=== PATIENT | male | born 1980 | race Caucasian/White ===

== ENCOUNTER 2017-01-21 11:11 | Emergency (ER) | payer OTHER ==
[2017-01-21 11:33] VITALS: BP 133/73
--- NOTE | 2017-01-21 12:18 | UC ---
General HPI - HPI Summary HPI Summary: 36 y/o male c/o of sinus and nasal congestion x 1 month, was treated with Augmentin 875mg BID x 7 days two weeks ago, symptoms improved but did not alleviate. Patient also states he has experienced dental pain and carries over the past 3 months. Patient reports hx of nasal polyps. - History of Current Complaint Chief Complaint: UCRespiratory Stated Complaint: SINUS ISSUE Time Seen by Provider: 01/21/17 12:01 Hx Obtained From: Patient Onset/Duration: Gradual Onset Timing: Constant Associated Signs & Symptoms: Positive: Headache. Negative: Cough, Chest Pain, Edema, Fever, Hemoptysis, SOB, Wheezing Related Hx: Recent Illness - Sinusitis - Allergy/Home Medications Allergies/Adverse Reactions: Allergies Allergy/AdvReac Type Severity Reaction Status Date / Time Ibuprofen Allergy ATTACKS Verified 07/28/16 08:33 RESPIRATORY SYSTEM, LUNGS COLLAPSE SEASONAL / ENVIRONMENTAL Allergy SNEEZE, Uncoded 07/28/16 08:33 WATERY ITCHY EYES PMH/Surg Hx/FS Hx/Imm Hx Previously Healthy: Yes Endocrine History Of: Denies: Diabetes, Thyroid Disease Cardiovascular History Of: Denies: Cardiac Disorders, Hypertension Respiratory History Of: Reports: Asthma - Acute, Bronchitis - WINTER OF 2012 - NONE NOW Denies: COPD GI/ History Of: Reports: Gastroesophageal Reflux Denies: Ulcer Neurological History Of: Denies: TIA, CVA, Dementia, Seizures, Migraine Psychological History Of: Denies: Anxiety, Depression, Bipolar Disorder, Schizophrenia, Post Traumatic Stress Disorder - Surgical History Surgical History: Yes Surgery Procedure, Year, and Place: BILATERAL HANDS TENDON REPAIR A CHILD,. 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 Lives: With Family Alcohol Use: Rare Substance Use Type: None Substance Use Comment - Amount & Last Used: former heavy use marijuana Smoking Status (MU): Never Smoked Tobacco Have You Smoked in the Last Year: Yes - occasional marijuana smoker When Did the Patient Quit Smoking/Using Tobacco: a year ago "quit smokin weed" - Immunization History Most Recent Influenza Vaccination: not recent Most Recent Tetanus Shot: unknown Most Recent Pneumonia Vaccination: not recent Review of Systems Constitutional: Negative Skin: Negative Eyes: Negative ENT: Nasal Discharge, Other - Sinus congestion Respiratory: Negative Cardiovascular: Negative Gastrointestinal: Negative Genitourinary: Negative Motor: Negative Neurovascular: Negative Musculoskeletal: Negative Neurological: Negative Psychological: Negative All Other Systems Reviewed And Are Negative: Yes Physical Exam Triage Information Reviewed: Yes Appearance: Well-Appearing, No Pain Distress, Well-Nourished Vital Signs: Initial Vital Signs Temp 98.1 F 01/21/17 11:29 Pulse 71 01/21/17 11:29 Resp 16 01/21/17 11:29 BP 133/73 01/21/17 11:29 Pulse Ox 98 01/21/17 11:29 Vital Signs Reviewed: Yes Eye Exam: Normal Eyes: Positive: Conjunctiva Clear ENT: Positive: Hearing grossly normal, Pharynx normal, Nasal congestion, Nasal drainage, TM bulging, Other: - Dental carries #15, #30 with redness and swelling , #31 Dental: Positive: Percussion Tenderness @, Gross Decay/Caries @ - #15, #30, # 31. Negative: Abscess @, Cervical Lymphadenopathy Neck exam: Normal Neck: Positive: Supple, Nontender, No Lymphadenopathy Respiratory: Positive: Chest non-tender, Lungs clear, Normal breath sounds, No respiratory distress Cardiovascular: Positive: RRR, No Murmur, Pulses Normal Abdominal Exam: Normal Abdomen Description: Positive: Nontender, No Organomegaly, Soft Bowel Sounds: Positive: Present Musculoskeletal Exam: Normal Musculoskeletal: Positive: Strength Intact, ROM Intact Neurological Exam: Normal Neurological: Positive: Alert, Muscle Tone Normal, Fatigued Skin Exam: Normal Course/Dx - Differential Dx - Multi-Symptom Provider Diagnoses: Dental Caries, #15, #31, & #30. Nasal Polyps. Sinusitis Discharge - Discharge Plan Condition: Stable Disposition: HOME Prescriptions: Amoxicillin/Clavulanate TAB* [Augmentin TAB 875*] 875 mg PO BID #20 tab Fluticasone NASAL SPRAY 50MCG* [Flonase NASAL SPRAY 50MCG*] 2 spray BOTH NARES DAILY #1 btl predniSONE TAB* [Deltasone TAB*] 50 mg PO DAILY #5 tab Patient Education Materials: Rhinosinusitis (ED) Referrals: Nishant Jones MD [Primary Care Provider] - If Needed Additional Instructions: As discussed, follow up with a Dentist, follow up with PCP if symptoms fail to improve.
== END 2017-01-21 12:43 | disposition home or self-care (01) ==
LOC: UCEAST 11:11
DX: J32.9 Chronic sinusitis, unspecified (principal); J33.9 Nasal polyp, unspecified; K02.9 Dental caries, unspecified; Z88.6 Allergy status to analgesic agent; F12.90 Cannabis use, unspecified, uncomplicated
CPT/HCPCS: 99212; G0463

== ENCOUNTER 2017-02-07 13:15 | Observation (INO) | payer OTHER ==
[2017-02-07] MEDS ORDERED: Famotidine IV* 10 MG/ML 2 ML (20 mg) ONE (13:20)
[2017-02-07] MEDS ORDERED: diPHENhydraMINE IV* 50 MG/ML 1 ml VIAL (BENADRYL) ONE (13:20)
[2017-02-07] MEDS ORDERED: methylPREDNISolone SOD SUCC* 125 MG 2 ML VIAL ONE (13:20)
[2017-02-07] MEDS ORDERED: EPINEPHrine AMP 1 MG/ML ONE (13:21)
[2017-02-07] MEDS ORDERED: EPINEPHrine AMP 1 MG/ML IM ONE (13:23)
[2017-02-07] MEDS ORDERED: diPHENhydraMINE IV* 50 MG/ML 1 ml VIAL (BENADRYL) IV ONE (13:24)
[2017-02-07] MEDS ORDERED: Albuterol/Ipratropium NEB.SOL* Albuterol 2.5 MG/Ipratropium 0.5 MG 3 ML INH ONE (13:25)
[2017-02-07] MEDS ORDERED: methylPREDNISolone SOD SUCC* 125 MG 2 ML VIAL IV ONE (13:25)
[2017-02-07] MEDS ORDERED: Famotidine IV* 10 MG/ML 2 ML (20 mg) IV SLOW PU ONE (13:25)
[2017-02-07] MEDS ORDERED: NS 0.9% 1000 ML* 2,000 ML IV ONE (13:27)
[2017-02-07] MEDS ORDERED: Albuterol/Ipratropium NEB.SOL* Albuterol 2.5 MG/Ipratropium 0.5 MG 3 ML ONE (13:27)
[2017-02-07] MEDS ORDERED: Ondansetron INJ* 2 MG/ML VIAL IV ONE (14:49)
[2017-02-07] MEDS ORDERED: NS 0.9% 1000 ML* 1,000 ML IV ONE (16:00)
--- NOTE | 2017-02-07 16:03 | ED ---
Saul Berumen Billy, scribed for Mitul Sanchez MD on 02/07/17 at 1343 . Allergic Reaction/Systemic - HPI Summary HPI Summary: Patient is a 36 year-old male coming to [facility] for evaluation of an allergic reaction to Naproxen. Patient was given Naproxen by his dentist for pain control , which he took within 30 minutes [employer]. He has a previous known allergy to ibuprofen. He complains of shortness of breath and nausea. Denies any chest tightness, throat swelling, or rash. - History of Current Complaint Chief Complaint: EDAllergicReaction Time Seen by Provider: 02/07/17 13:23 Hx Obtained From: Patient Onset/Duration: Gradual Onset Timing: Constant Severity Initially: Moderate Severity Currently: Moderate Aggravating Factor(s): Nothing Alleviating Factor(s): Nothing Associated Signs And Symptoms: Positive: Difficulty Breathing, Nausea - Allergies/Home Medications Allergies/Adverse Reactions: Allergies Allergy/AdvReac Type Severity Reaction Status Date / Time Ibuprofen Allergy ATTACKS Verified 07/28/16 08:33 RESPIRATORY SYSTEM, LUNGS COLLAPSE SEASONAL / ENVIRONMENTAL Allergy SNEEZE, Uncoded 07/28/16 08:33 WATERY ITCHY EYES PMH/Surg Hx/FS Hx/Imm Hx Endocrine/Hematology History: Denies: Hx Diabetes, Hx Thyroid Disease Cardiovascular History: Denies: Hx Hypertension Respiratory History: Reports: Hx Asthma - Acute Denies: Hx Chronic Obstructive Pulmonary Disease (COPD) Comment Only: Other Respiratory Problems/Disorders - POSSIBLE PNEUMONIA GI History: Denies: Hx Ulcer Sensory History: Denies: Hx Contacts or Glasses, Hx Hearing Aid Opthamlomology History: Denies: Hx Contacts or Glasses Neurological History: Denies: Hx Dementia, Hx Migraine, Hx Seizures, Hx Transient Ischemic Attacks (TIA) Psychiatric History: Denies: Hx Anxiety, Hx Depression, Hx Schizophrenia, Hx Bipolar Disorder - Surgical History Surgery Procedure, Year, and Place: BILATERAL HANDS TENDON REPAIR A CHILD,. SINUS SURGERY 2013 Hx Anesthesia Reactions: No Infectious Disease History: Denies: Hx Clostridium Difficile, Hx Hepatitis, Hx Human Immunodeficiency Virus (HIV), Hx of Known/Suspected MRSA, Hx Shingles, Hx Tuberculosis, Hx Known/ Suspected VRE, Hx Known/Suspected VRSA, History Other Infectious Disease, Traveled Outside the [place] in Last 30 Days - Family History Known Family History: Positive: None - Both parents are alive and well. - Social History Alcohol Use: Rare Substance Use Type: Reports: None Substance Use Comment - Amount & Last Used: former heavy use marijuana Smoking Status (MU): Never Smoked Tobacco Have You Smoked in the Last Year: Yes - occasional marijuana smoker Review of Systems Negative: Chest Pain Positive: Shortness Of Breath Positive: Nausea Negative: Rash All Other Systems Reviewed And Are Negative: Yes Physical Exam - Summary Physical Exam Summary: The patient is well-nourished in no acute distress and in no acute pain. The skin is warm, diaphoretic, and skin color reflects adequate perfusion. No cyanosis. There is uticaria on the face. HEENT: The pupils are equal and reactive. The conjunctivae and sclerae are injecting. There is red swelling around the eyes. Nares are patent and without drainage. Mouth reveals moist mucous membranes and the throat is without erythema and exudate. The external ears are intact. The ear canals are patent and without drainage. The tympanic membranes are intact. Neck is supple with full range of motion and non-tender. There are no carotid bruits. There is no neck vein distension. No stridor. Respiratory: Chest is non-tender. Expiratory wheezes. Decreased breath sounds throughout. Cardiovascular: Heart is regular rate and rhythm. There is no murmur or rub auscultated. There is no peripheral edema and pulses are symmetrical and equal. Abdomen: The abdomen is soft and non-tender. There are normal bowel sounds heard in all four quadrants and there is no organomegaly palpated. Musculoskeletal: There is no back pain noted. Extremities are non-tender with full range of motion. There is good capillary refill. There is no peripheral edema or calf tenderness elicited. Neurological: Patient is alert and oriented to person, place and time. The patient has symmetrical motor strength in all four extremities. Cranial nerves are grossly intact. Deep tendon reflexes are symmetrical and equal in all four extremities. Psychiatric: The patient has an appropriate affect and does not exhibit any anxiety or depression. Triage Information Reviewed: Yes Vital Signs On Initial Exam: Initial Vitals Pulse Resp Pulse Ox 84 28 94 02/07/17 13:18 02/07/17 13:18 02/07/17 13:18 Vital Signs Reviewed: Yes Diagnostics - Vital Signs Vital Signs Pulse Resp Pulse Ox 02/07/17 13:30 82 13 97 02/07/17 13:18 84 28 94 - Laboratory Lab Statement: Any lab studies that have been ordered have been reviewed, and results considered in the medical decision making process. - EKG 1331 EKG Interpretation: NSR 79 bpm, normal axis, no STEMI Re-Evaluation - Re-Evaluation First Eval Re-Evaluation Time: 13:36 Change: Unchanged Comment: Patient was administered 0.3 mg of epinphrine (1:1000) IV inadvertently instead of IM. Patient will be observed. Second Eval Re-Evaluation Time: 13:44 Comment: Patient subjectively feels much better, but his blood pressure continues to increase. Third Eval Re-Evaluation Time: 13:53 Change: Improved Comment: Patient had transient hypertension. Blood pressure now normalized 130/ 70. Fourth Eval Re-Evaluation Time: 14:48 Change: Worse Comment: Patient is vomiting. Fifth Eval Re-Evaluation Time: 15:54 Change: Improved Comment: Agrees to be admitted. Allergic Reaction Course/Dx - Course Assessment/Plan: 36 y/o male coming to [facility] for evaluation of allergic reaction to Naproxen. EKG shows NSR with no STEMI. In the ED course, patient was given benadryl, duoneb, solumedrol, pepcid, zofran, and IV fluids for hydration. He was also given epinephrine. He developed transient hypertension which gradually improved. He was closely observed in the ED over the course of several hours with no worsening or return of his symptoms. Patient care discussed with Dr. Easton who will be admitting the patient to [facility] - Diagnoses Differential Diagnosis/HQI/PQRI: Positive: Anaphylaxis, Angioedema, Bronchospasm , Urticaria, Other - dehydration Provider Diagnoses: Anaphylaxis - Provider Notifications Patient Care Discussed With: Dr. Easton (hospitalist) @ [phone]: accepts admission. Discharge - Discharge Plan Condition: Stable Disposition: ADMITTED TO [facility] Referrals: Nishant Jones MD [Primary Care Provider] - The documentation as recorded by the Saul marley Billy accurately reflects the service I personally performed and the decisions made by me, Mitul Sanchez MD.
[2017-02-07 16:27] LABS: Hematocrit 44 % (42-52); Hemoglobin 14.6 g/dl (14.0-18.0); Mean Corpuscular HGB Conc 33 g/dl (31-36); Mean Corpuscular Hemoglobin 29 pg (27-31); Mean Corpuscular Volume 86 fL (80-94); Mean Platelet Volume 8 um3 (7.4-10.4); Red Blood Count 5.11 10^6/ul (4.0-5.4); Red Cell Distribution Width 14 % (10.5-15); White Blood Count 13.7 10^3/ul (3.5-10.8)
[2017-02-07 16:54] LABS: Albumin 3.7 g/dL (3.2-5.2); BUN/Creatinine Ratio 13.6 (8-20); Calcium 8.3 mg/dL (8.6-10.3); EGFR African American 126.7 (>60); EGFR Non-African American 98.6 (>60); Globulin 2.4 g/dL (2-4); Potassium 3.6 mmol/L (3.5-5.0); Total Bilirubin 0.4 mg/dL (0.2-1.0); Total Protein 6.1 g/dL (6.4-8.9)
[2017-02-07 18:09] LABS: Urine Bilirubin Negative (Negative); Urine Glucose Negative (Negative); Urine Nitrite Negative (Negative)
[2017-02-07 19:02] LABS: C Reactive Protein 1.88 mg/L (< 5.00)
[2017-02-07] MEDS ORDERED: diPHENhydraMINE IV* 50 MG/ML 1 ml VIAL (BENADRYL) IV PRN (21:00)
[2017-02-07] MEDS: Amoxicillin/Clavulanate TAB* 875 MG PO SCH (21:16)
[2017-02-07] MEDS: methylPREDNISolone SOD SUCC* 40 MG/ML VIAL IV SCH (21:17)
[2017-02-07] MEDS: Famotidine IV* 10 MG/ML 2 ML (20 mg) IV SCH (21:19)
--- NOTE | 2017-02-07 21:38 | HP ---
HOSPITAL MEDICINE HISTORY AND PHYSICAL: DATE OF ADMISSION: 02/07/17 PRIMARY CARE PHYSICIAN: Dr. Jones. ATTENDING PHYSICIAN: Dr. Kerri Light *(dictation provided by Shena Pizano NP) . CHIEF COMPLAINT: Shortness of breath. HISTORY OF PRESENT ILLNESS: Mr. Prakash is a 36-year-old male with a past medical history of asthma who presents to the hospital today with concern for severe shortness of breath. Mr. Prakash states he has had ongoing issues for 1 to 2 months with molar pain with concern for abscess to a wisdom tooth. He had severe pain last night and went to see his dentist today. The patient states that his teeth were cleaned and he was started on Augmentin for the abscess with plans for him to see an oral surgeon. In addition, the patient was given a prescription for naproxen. The patient filled the prescriptions and took both of them at around noon. Very shortly thereafter, within 10 to 15 minutes, he felt chest tightness. These symptoms were very similar to reaction he had x2 to ibuprofen in the past. He knew immediately that something was wrong and was quite concerned that perhaps the naproxen was similar to ibuprofen. He was able to go to his work briefly, but shortly thereafter, he had some nausea and vomiting. He was continuing to be more and more short of breath. He ultimately decided to drive himself to the emergency room. However, on the way here, he had to lung puller and he vomited multiple times. He continued to be very , very short of breath and then ultimately made it to the ED where he was noted to be in severe respiratory distress. Mr. Prakash was brought in to the emergency room and was given methylprednisolone 125 mg with 50 mg of diphenhydramine and 20 mg of famotidine as well as epinephrine. The patient responded well to these treatments and is now breathing easily. PAST MEDICAL HISTORY: Asthma. MEDICATIONS: 1. Albuterol p.r.n. via nebulizer. 2. Albuterol via metered dose inhaler p.r.n. 3. Beclomethasone/QVAR 80 mcg 2 puffs inhaled b.i.d. 4. Loratadine/pseudoephedrine 10/240 mg 1 tab p.o. daily. 5. Augmentin 875 mg p.o. b.i.d. 6. Flonase 2 sprays both nares daily. 7. Montelukast 10 mg p.o. daily. ALLERGIES: To IBUPROFEN. FAMILY HISTORY: The patient states that his parents are alive and well and his grandparents all lived into their 90s. SOCIAL HISTORY: The patient does not smoke. He drinks alcohol occasionally. He does sometime smoke marijuana. He states his will be the healthcare proxy. REVIEW OF SYSTEMS: A 14-point review of systems was completed with Mr. Prakash and all those not mentioned above are negative. PHYSICAL EXAMINATION GENERAL: Mr. Prakash is sitting in the bed. He is breathing easily. He is in no acute distress. VITAL SIGNS: Temperature 98.5, heart rate 84, respiratory rate 11, O2 saturation 97% on room air, blood pressure 134/85. LUNGS: Clear to auscultation bilaterally with no accessory muscle use and good aeration. HEART: S1, S2. No murmur, rub, or gallop and regular. ABDOMEN: Soft, nontender with bowel sounds positive x4. EXTREMITIES: No cyanosis or edema. NEUROLOGIC: He is alert and oriented x3. He moves all extremities equally. There is no facial asymmetry or focal weakness. Extraocular movements are intact. SKIN: Intact. LABORATORY DATA AND DIAGNOSTIC STUDIES: WBC 13.7, hemoglobin 14.6, hematocrit 44, platelet count 229. Sodium 138, potassium 3.6, chloride 106, serum bicarbonate 28, BUN 12, creatinine 0.88, glucose 104. EKG shows sinus rhythm with a heart rate of 80 with no ischemia. ASSESSMENT: Mr. Prakash is a 36-year-old male with a past medical history of asthma and allergy to IBUPROFEN who presents today to the hospital after taking naproxen and developing severe acute respiratory distress with anaphylaxis. Our plans are for observation in the hospital for the followin. Anaphylaxis with reaction to naproxen: I will note the patient also took amoxicillin at the exact same time he took naproxen. He has had no known history of allergic reaction to antibiotics. The patient has responded very well to epinephrine, Solu-Medrol, Pepcid, and Benadryl in the emergency department. He is breathing easily. His nose is somewhat congested, but that is his only complaint. He is very stable and I think he is appropriate to be monitored on the telemetry unit. I will continue routine Solu-Medrol, Benadryl , and Pepcid which he will have again at 9 p.m. and then at 9 a.m. in the morning. Hopefully, if he continues to be stable, I think he would be appropriate for discharge tomorrow. 2. Asthma: I suspect that the patient's reaction is in part fueled by asthma. He reports that his asthma is directly related to repeat bouts of what he calls sinusitis. He also reports allergies to foods and other problems. He has seen an chief human resources officer and an ENT doctor for his polyps in his nose as well as a dentist for his teeth abscesses which he thinks is also contributing to his repeat bouts of bronchitis which lead to shortness of breath, etc. I have encouraged him to continue to follow up regarding removal of his infected teeth and also to consider seeing a gm mobile regarding his uncontrolled asthma symptoms. 3. DVT prophylaxis with early mobility. 4. Disposition to telemetry floor. TIME SPENT: Approximately 60 minutes were spent on the admission of this patient, more than half time spent with the patient at the bedside reviewing the events leading up to this hospitalization, performing the physical examination, and reviewing the plan of care. SHENA PIZANO NP CC: Dr. Jones* [id number]/[facility] #: [id number] GERARDO
[2017-02-08] MEDS: methylPREDNISolone SOD SUCC* 40 MG/ML VIAL IV SCH (05:05)
[2017-02-08 07:44] VITALS: BP 122/71
[2017-02-08] MEDS: Famotidine IV* 10 MG/ML 2 ML (20 mg) IV SCH (08:39)
[2017-02-08] MEDS: Amoxicillin/Clavulanate TAB* 875 MG PO SCH (08:39)
[2017-02-08] MEDS ORDERED: Montelukast Sodium TAB* 10 MG PO SCH (09:00)
[2017-02-08] MEDS ORDERED: Fluticasone NASAL SPRAY 50MCG* 16 gm SPRAY BTL BOTH NARES SCH (09:00)
--- NOTE | 2017-02-08 10:05 | PN ---
Subjective Date of Service: 02/08/17 Interval History: Mr. Prakash denies complaint and is eager for discharge to home. Objective Active Medications: Amoxicillin/Clavulanate Potassium (Augmentin Tab*) 875 mg PO BID [facility] Diphenhydramine HCl (Benadryl Iv*) 25 mg IV Q8H PRN Famotidine (Pepcid Iv*) 20 mg IV BID [facility] Fluticasone Propionate (Flonase Nasal Diablo 50mcg*) 2 spray BOTH NARES DAILY [facility] Methylprednisolone Sodium Succinate (Solu-Medrol*) 40 mg IV Q8H KOBE Montelukast Sodium (Singulair Tab*) 10 mg PO DAILY [facility] Vital Signs 02/07/17 02/07/17 02/07/17 18:00 18:30 19:00 Temperature Pulse Rate 84 79 88 Respiratory 17 15 17 Rate Blood Pressure 129/79 144/84 130/92 (mmHg) O2 Sat by Pulse 96 96 96 Oximetry 02/07/17 02/07/17 02/08/17 19:45 23:22 03:10 Temperature 98.5 F 99.1 F 99.1 F Pulse Rate 92 98 79 Respiratory 18 16 16 Rate Blood Pressure 131/78 127/66 124/66 (mmHg) O2 Sat by Pulse 95 96 97 Oximetry 02/08/17 07:27 Temperature 98.5 F Pulse Rate 71 Respiratory 16 Rate Blood Pressure 122/71 (mmHg) O2 Sat by Pulse 100 Oximetry Oxygen Devices in Use Now: None Appearance: Male sitting up in bed in NAD Eyes: No Scleral Icterus Respiratory: Symmetrical Chest Expansion and Respiratory Effort, Clear to Auscultation Cardiovascular: NL Sounds; No Murmurs; No JVD, No Edema Abdominal: NL Sounds; No Tenderness; No Distention Extremities: No Edema Skin: No Rash or Ulcers Neurological: Alert and Oriented x 3, NL Muscle Strength and Tone Nutrition: Taking PO's Result Diagrams: 02/07/17 16:15 02/07/17 16:15 Assess/Plan/Problems-Billing Assessment: Mr. Prakash is a 36 yo male with a PMH of asthma who was admitted on 02/07/17 with acute respiratory distress secondary to an anaphylactic reaction to naproxen. - Patient Problems (1) Anaphylactic reaction Comment: Patient responded well to treatment and is breathing easily this morning. Counseled regarding researching any medication before taking it given his allergies and reactice airway disease. Patient specifically counseled to avoid all NSAIDs. (2) Dental abscess Comment: Continue augmentin and follow up with dentist. Status and Disposition: Discharge to home.
--- NOTE | 2017-02-09 01:11 | DS ---
HOSPITAL MEDICINE DISCHARGE SUMMARY: DATE OF ADMISSION: 02/07/17 DATE OF DISCHARGE: 02/08/17 ATTENDING PHYSICIAN: Karuna Daily DO (dictation provided by Shena Pizano NP). PRIMARY DIAGNOSIS: Acute respiratory distress secondary to anaphylactic reaction to naproxen. MEDICATIONS: At the time of discharge are: 1. Augmentin 875 mg p.o. b.i.d. at the direction of the patient's dentist for dental abscess. 2. Albuterol nebulizer p.r.n. 3. Albuterol inhaler p.r.n. 4. QVAR 80 mcg 2 puffs inhaled b.i.d. 5. Loratadine and pseudoephedrine 1 tab p.o. daily. 6. Fluticasone nasal spray 2 sprays both nares daily. 7. Singulair 10 mg p.o. daily. HOSPITAL COURSE: Mr. Prakash is a 36-year-old male with a past medical history of asthma and ALLERGY TO IBUPROFEN who presented to the hospital on 02/07/17 after ingesting naproxen under the orders of his dentist for pain related to dental abscess. Mr. Prakash states that he has had 2 previous anaphylactic reactions to ibuprofen that caused severe respiratory distress. He took naproxen as he was unaware that this was nonsteroidal anti-inflammatory that could have the same effect as the ibuprofen had caused earlier. He immediately felt short of breath and had nausea and vomiting and ultimately presented to the emergency room in acute respiratory distress. He was treated in the emergency room with good effect. Mr. Prakash has been monitored in the hospital overnight. He has had no further issues with breathing and is medically stable for discharge to home. I counseled him at length regarding avoiding all medications of nonsteroidal anti- inflammatory class and I have given a list of those medications. I have also counseled him that he should likely review any medication he takes either by researching himself online or by speaking with his pharmacist given the severity of his reaction. DISPOSITION: To home. DIET: Regular. ACTIVITY: As tolerated. FOLLOWUP PLANS: 1. Please follow up with Dr. Jones as needed after this acute hospitalization. 2. Please follow up regarding Dr. Johnson regarding ongoing management of problems with asthma, polyps and allergies. TIME SPENT: Approximately 60 minutes were spent on the discharge of this patient, more than half time spent with the patient at the bedside, reviewing the events leading up to this hospitalization, performing the physical examination, and reviewing the plan of care. SHENA PIZANO NP CC: Dr. Jones * [id number]/[facility] #: [id number] GERARDO
== END 2017-02-08 11:11 | disposition home or self-care (01) ==
LOC: ED 13:15 → MEDTELE 17:15
PROVIDERS: ADMIT Internal Medicine; ATTEND Hospitalist
DX: T88.6XXA Anaphylactic reaction due to adverse effect of correct drug or medicament properly administered, initial encounter (principal); T39.315A Adverse effect of propionic acid derivatives, initial encounter; X58.XXXA Exposure to other specified factors, initial encounter; Y92.9 Unspecified place or not applicable; Z88.6 Allergy status to analgesic agent; J45.909 Unspecified asthma, uncomplicated; K04.7 Periapical abscess without sinus
CPT/HCPCS: 36415; 80053; 81003; 83605; 84484; 85025; 86140; 93005; 94640; 96361; 96372; 96374; 96375; 99285; A9270-GY; G0378; J0171; J1200; J2405; J2920; J2930

== ENCOUNTER 2017-03-24 11:22 | Emergency (ER) | payer OTHER ==
[2017-03-24 11:32] VITALS: BP 112/82
[2017-03-24] MEDS ORDERED: Albuterol/Ipratropium NEB.SOL* Albuterol 2.5 MG/Ipratropium 0.5 MG 3 ML INH ONE (11:52)
--- NOTE | 2017-03-24 11:55 | UC ---
Asthma HPI - HPI Summary HPI Summary: Pt has asthma/COPD that has mostly developed in the last 2-3 years. This month has been having lots of "attacks" of allergy symptoms and severe difficulty breathing. Had one such attack very early yesterday morning, still having tightness in the chest, cough, and trouble breathing. Is taking amoxicillin rx by PCP because several family members had strep recently; also and 2 of 3 children have a cough right now. Sees ENT for nasal polyps. Denies fever or ST right now. - History of Current Complaint Chief Complaint: UCRespiratory Stated Complaint: RESP ISSUE COPD Time Seen by Provider: 03/24/17 11:39 Hx Obtained From: Patient Onset/Duration: Sudden Onset, Lasting Days Timing: Constant Initial Severity: Severe Current Severity: Moderate Location/Character: Wheezing Aggravating: Exertion, Smoke, Allergens Alleviating: Steriods, Inhalers/Nebulizers Associated Signs and Symptoms: Positive: URI - Allergy/Home Medications Allergies/Adverse Reactions: Allergies Allergy/AdvReac Type Severity Reaction Status Date / Time Ibuprofen Allergy ATTACKS Verified 07/28/16 08:33 RESPIRATORY SYSTEM, LUNGS COLLAPSE Naproxen Allergy Anaphylatic Verified 02/07/17 20:16 Shock SEASONAL / ENVIRONMENTAL Allergy SNEEZE, Uncoded 07/28/16 08:33 WATERY ITCHY EYES Home Medications: Home Medications predniSONE TAB* 50 mg PO DAILY MDD x 5 days 03/24/17 [History Confirmed 03/24/17 ] PMH/Surg Hx/FS Hx/Imm Hx Endocrine History Of: Denies: Diabetes, Thyroid Disease Cardiovascular History Of: Denies: Cardiac Disorders, Hypertension Respiratory History Of: Reports: COPD, Asthma - Acute, Bronchitis - WINTER OF 2012 - NONE NOW, Pneumonia GI/ History Of: Reports: Gastroesophageal Reflux Denies: Ulcer Neurological History Of: Denies: TIA, CVA, Dementia, Seizures, Migraine Psychological History Of: Denies: Anxiety, Depression, Bipolar Disorder, Schizophrenia, Post Traumatic Stress Disorder - Surgical History Surgical History: Yes Surgery Procedure, Year, and Place: BILATERAL HANDS TENDON REPAIR A CHILD,. SINUS SURGERY 2013 - Family History Known Family History: Positive: None - Both parents are alive and well. - Social History Lives: With Family Alcohol Use: Rare Substance Use Type: Marijuana Substance Use Comment - Amount & Last Used: former heavy use marijuana Smoking Status (MU): Never Smoked Tobacco Have You Smoked in the Last Year: Yes - occasional marijuana smoker When Did the Patient Quit Smoking/Using Tobacco: a year ago "quit smokin weed" - Immunization History Most Recent Influenza Vaccination: not recent Most Recent Tetanus Shot: unknown Most Recent Pneumonia Vaccination: not recent Review of Systems Constitutional: Fatigue Skin: Negative Eyes: Negative ENT: Nasal Discharge Respiratory: Shortness Of Breath, Cough Cardiovascular: Negative Gastrointestinal: Negative Genitourinary: Negative Motor: Negative Neurovascular: Negative Musculoskeletal: Negative Neurological: Negative Psychological: Negative All Other Systems Reviewed And Are Negative: Yes Physical Exam Triage Information Reviewed: Yes Appearance: Well-Appearing, No Pain Distress Vital Signs: Initial Vital Signs Temp 97.9 F 03/24/17 11:25 Pulse 98 03/24/17 11:25 Resp 20 03/24/17 11:25 BP 112/82 03/24/17 11:25 Pulse Ox 95 03/24/17 11:25 Vital Signs Reviewed: Yes Eye Exam: Normal Eyes: Positive: Conjunctiva Clear ENT: Positive: Hearing grossly normal, Pharynx normal, Nasal congestion, TMs normal. Negative: Tonsillar swelling, Tonsillar exudate Dental Exam: Normal Dental: Negative: Percussion Tenderness @, Dental Fracture @ Neck exam: Normal Neck: Positive: Supple, Nontender Respiratory: Positive: Respiratory distress - mild, Accessory muscle use, Wheezing Cardiovascular Exam: Normal Cardiovascular: Positive: RRR, No Murmur Musculoskeletal Exam: Normal Neurological Exam: Normal Neurological: Positive: Alert Psychological Exam: Normal Skin Exam: Normal Re-Evaluation - Re-Evaluation First Eval Re-Evaluation Time: 12:16 Change: Improved - improved air movement Asthma Course/Dx - Differential Dx/Diagnosis Provider Diagnoses: asthma exacerbation. elevated blood pressure due to discomfort Discharge - Discharge Plan Condition: Stable Disposition: HOME Prescriptions: Ipratropium 0.5MG/2.5ML NEB* [Atrovent 0.5 MG NEB.REN*] 0.5 mg INH BID #20 neb.soln Patient Education Materials: Asthma (ED), Bronchospasm (ED) Referrals: Nishant Jones MD [Primary Care Provider] - 3 Days
== END 2017-03-24 12:26 | disposition home or self-care (01) ==
LOC: UCEAST 11:22
DX: J45.901 Unspecified asthma with (acute) exacerbation (principal); I10 Essential (primary) hypertension; F12.90 Cannabis use, unspecified, uncomplicated; Z88.6 Allergy status to analgesic agent; K21.9 Gastro-esophageal reflux disease without esophagitis
CPT/HCPCS: 99212; A9270-GY; G0463

== ENCOUNTER 2017-09-28 16:14 | Emergency (ER) | payer OTHER ==
[2017-09-28] MEDS ORDERED: methylPREDNISolone 125 MG* 2 ML VIAL IM ONE (16:39)
[2017-09-28] MEDS ORDERED: Ipratropium 0.5MG/2.5ML NEB* 0.5 MG/2.5 ML NEB.SOLN INH ONE (16:41)
[2017-09-28] MEDS ORDERED: Albuterol 2.5 MG/3 ML NEB.SOL* (0.083%) INH ONE (16:41)
--- NOTE | 2017-09-28 16:47 | UC ---
Shortness of Breath HPI - HPI Summary HPI Summary: 3 DAYS OF SOB, COUGH, SINUS PRESSURE AND WHEEZE. NO FEVER OR NAUSEA. HAS ASTHMA. NON SMOKER. USED NEBULIZER 4 TIMES TODAY WITH NO RELIEF. O2SAT ON ROOM AIR 90% ON ARRIVAL. - History of Current Complaint Chief Complaint: UCRespiratory Stated Complaint: BREATHING TROUBLE Time Seen by Provider: 09/28/17 16:17 Hx Obtained From: Patient, Family/Prepress Proofer - Onset/Duration: Gradual Onset, Lasting Days, Still Present Timing: Constant Current Severity: Moderate Dyspnea At: Rest Aggrevating Factors: Movement Alleviating Factors: Nothing Associated Signs & Symptoms: Positive: Cough (Productive), Wheezing. Negative: Fever, Chills, Diaphoresis - Allergy/Home Medications Allergies/Adverse Reactions: Allergies Allergy/AdvReac Type Severity Reaction Status Date / Time Ibuprofen Allergy ATTACKS Verified 09/28/17 18:19 RESPIRATORY SYSTEM, LUNGS COLLAPSE Naproxen Allergy Anaphylatic Verified 09/28/17 18:19 Shock SEASONAL / ENVIRONMENTAL Allergy SNEEZE, Uncoded 09/28/17 18:19 WATERY ITCHY EYES PMH/Surg Hx/FS Hx/Imm Hx Respiratory History: COPD, Asthma - Surgical History Surgical History: Yes Surgery Procedure, Year, and Place: BILATERAL HANDS TENDON REPAIR A CHILD,. SINUS SURGERY 2013 - Family History Known Family History: Positive: None - Both parents are alive and well. - Social History Alcohol Use: Rare Substance Use Type: Marijuana Substance Use Comment - Amount & Last Used: former heavy use marijuana Smoking Status (MU): Never Smoked Tobacco Have You Smoked in the Last Year: Yes - occasional marijuana smoker When Did the Patient Quit Smoking/Using Tobacco: a year ago "quit smokEdoome weed" - Immunization History Most Recent Influenza Vaccination: not recent Most Recent Tetanus Shot: unknown Most Recent Pneumonia Vaccination: not recent Review of Systems Constitutional: Negative ENT: Sinus Pain/Tenderness Respiratory: Shortness Of Breath, Cough Cardiovascular: Negative Gastrointestinal: Negative All Other Systems Reviewed And Are Negative: Yes Physical Exam Triage Information Reviewed: Yes Appearance: No Pain Distress, Well-Nourished, Ill-Appearing - MODERATE - WORKING TO BREATHE Vital Signs: Initial Vital Signs Temp 99.5 F 09/28/17 16:19 Pulse 113 09/28/17 16:19 Resp 24 09/28/17 16:19 BP 115/80 09/28/17 16:19 Pulse Ox 90 11/18/17 16:19 Eyes: Positive: Conjunctiva Clear ENT: Positive: Hearing grossly normal Neck: Positive: Supple Respiratory: Positive: No accessory muscle use, Respiratory distress - INCREASED WOB, Decreased breath sounds, Wheezing - DIFFUSE Cardiovascular: Positive: Tachycardia Abdomen Description: Positive: Soft Musculoskeletal: Positive: No Edema Neurological: Positive: Alert Psychological: Positive: Age Appropriate Behavior Skin: Negative: rashes Diagnostics - Radiology CHEST XRAY Xray Interpretation: No Acute Changes Radiology Interpretation Completed By: Radiologist Re-Evaluation - Re-Evaluation First Eval Re-Evaluation Time: 18:15 - FEELS AND LOOKS BETTER AFTER 125MG SOLUMEDROL AND DUONEB. O2SAT 95-97% RA Change: Improved Shortness of Breath Dx - Differential Dx/Diagnosis Provider Diagnoses: 1. COPD EXACERBATION. 2. PERIRECTAL ABSCESS Discharge - Discharge Plan Condition: Stable Disposition: HOME Prescriptions: predniSONE TAB* [Deltasone TAB*] 50 mg PO DAILY #5 tab Sulfamethox/Trimethoprim DS* [Bactrim DS 800/160 TAB*] 1 tab PO BID #24 tab Patient Education Materials: COPD (Chronic Obstructive Pulmonary Disease) (ED) , Abscess (ED) Referrals: Nishant Jones MD [Primary Care Provider] - 5 Days Additional Instructions: YOU ARE IMPROVED AFTER SOLUMEDROL 125MG AND DUONEB TREATMENT. OXYGEN LEVELS ARE NOW 95%-97%. CHEST XRAY WAS UNREMARKABLE. CONTINUE STEROIDS FOR NEXT 5 DAYS AND USE YOUR BREATHING TREATMENTS PRESCRIBED. BACTRIM 2 by mouth twice daily x 3 days, then 1 by mouth twice daily x 7 days FOR A TOTAL OF 10 DAYS ON ANTIBIOTICS FOR THE ABSCESS BY YOUR RECTUM. WARM/HOT COMPRESSES/SOAKS AT LEAST 4 TIMES DAILY SPECIMEN SENT FOR CULTURE TYLENOL NEEDED FOR FEVER AND DISCOMFORT. GO TO THE ER WITHOUT FAIL IF YOU DEVELOP WORSENING SHORTNESS OF BREATH, CHEST PAIN, DIZZINESS, FEVER, RECTAL PAIN OR ANY OTHER CONCERNING SYMPTOMS.
--- NOTE | 2017-09-28 17:44 | RAD ---
INDICATION: Shortness of breath and cough COMPARISON: Most recent chest x-ray dated November 02, 2014 TECHNIQUE: PA and lateral views of the chest were obtained. FINDINGS: The heart and mediastinum are normal in size and contour. The lungs are grossly clear. There is no evidence of large pleural effusion. Visualized bones are normal for the patient's age. There is no radiographic evidence of free air beneath the diaphragm IMPRESSION: No radiographic evidence of acute cardiopulmonary disease.
[2017-09-28 18:23] VITALS: BP 139/85
[2017-09-28] MEDS ORDERED: Sulfamethox/Trimethoprim DS 800/160* TAB PO ONE (18:29)
--- NOTE | 2017-09-30 16:58 | UC ---
Progress - Progress Note Progress Note: Pt with 3+ Staph aureus sensitivity pending Pt was on bactrim Pt subsequently admitted to hospital No change 09/30/16 [id number] Re-Evaluation - Re-Evaluation First Eval Re-Evaluation Time: 18:15 - FEELS AND LOOKS BETTER AFTER 125MG SOLUMEDROL AND DUONEB. O2SAT 95-97% RA Change: Improved
== END 2017-09-28 18:29 | disposition home or self-care (01) ==
LOC: UCEAST 16:14
DX: J44.1 Chronic obstructive pulmonary disease with (acute) exacerbation (principal); K61.1 Rectal abscess; B95.61 Methicillin susceptible Staphylococcus aureus infection as the cause of diseases classified elsewhere; F12.90 Cannabis use, unspecified, uncomplicated
CPT/HCPCS: 71020; 87070; 87077; 87186; 87205; 87640; 87641; 96372; 99213; A9270-GY; G0463; J2930; J7644

== ENCOUNTER 2017-09-30 03:22 | Observation (INO) | payer OTHER ==
[2017-09-30] MEDS ORDERED: Albuterol 2.5 MG/3 ML NEB.SOL* (0.083%) INH ONE ×2 (03:50→03:57)
[2017-09-30] MEDS ORDERED: methylPREDNISolone 125 MG* 2 ML VIAL IV ONE (03:50)
[2017-09-30] MEDS ORDERED: Magnesium Sulfate 2 GM IV* 2 GM/50 ML BAG IVPB ONE (03:50)
[2017-09-30] MEDS ORDERED: NS 0.9% 1000 ML* 1,000 ML IV ONE (03:50)
[2017-09-30] MEDS ORDERED: Acetaminophen TAB* 325 MG PO ONE (03:50)
[2017-09-30] MEDS ORDERED: Albuterol/Ipratropium NEB.SOL* Albuterol 2.5 MG/Ipratropium 0.5 MG 3 ML INH ONE (03:50)
[2017-09-30 04:24] LABS: Hematocrit 46 % (42-52); Hemoglobin 15.7 g/dl (14.0-18.0); Mean Corpuscular HGB Conc 35 g/dl (31-36); Mean Corpuscular Hemoglobin 30 pg (27-31); Mean Corpuscular Volume 85 fL (80-94); Mean Platelet Volume 7 um3 (7.4-10.4); Red Blood Count 5.34 10^6/ul (4.0-5.4); Red Cell Distribution Width 13 % (10.5-15); White Blood Count 12.7 10^3/ul (3.5-10.8)
[2017-09-30 04:34] LABS: Albumin 4.2 g/dL (3.2-5.2); BUN/Creatinine Ratio 18.3 (8-20); C Reactive Protein 19.26 mg/L (< 5.00); Calcium 9.8 mg/dL (8.6-10.3); EGFR African American 92.5 (>60); Globulin 3.6 g/dL (2-4); Total Bilirubin 0.3 mg/dL (0.2-1.0); Total Protein 7.8 g/dL (6.4-8.9)
[2017-09-30] MEDS ORDERED: Lidocaine 2% EPI 1:200000 MPF* 20 ML VIAL ONE (04:51)
[2017-09-30] MEDS ORDERED: Morphine INJ* 4 MG/ML 1 ML CARPUJECT IV ONE (05:16)
[2017-09-30] MEDS ORDERED: Clindamycin 900 MG IVPREMIX(* 900 MG/50 ML SDV IV ONE (05:16)
[2017-09-30] MEDS ORDERED: Metoclopramide IV* 5 MG/ML 2 ML VIAL IV SLOW PU ONE (05:17)
[2017-09-30] MEDS ORDERED: Albuterol 2.5 MG/3 ML NEB.SOL* (0.083%) INH PRN (05:23)
[2017-09-30] MEDS ORDERED: Acetaminophen TAB* 325 MG PO PRN (05:23)
[2017-09-30] MEDS ORDERED: Ondansetron INJ* 2 MG/ML VIAL IV PRN (05:23)
[2017-09-30] MEDS ORDERED: CMCS: Melatonin (NF) 3 MG TAB PO PRN (05:23)
--- NOTE | 2017-09-30 05:43 | ED ---
Matty Berumen Thomas, scribed for Kole Ba MD on 09/30/17 at 0357 . Shortness of Breath - HPI Summary HPI Summary: The pt is a 37 y/o M with a Hx of asthma presenting to the ED c/o SOB for the last five days. The patient has SOB at rest. The patient was seen at [facility] two days ago, where he had an unremarkable CXR and he was given prednisone. Pt additionally c/o a gluteal abscess. - History of Current Complaint Chief Complaint: EDShortnessOfBreath Time Seen by Provider: 09/30/17 03:42 Hx Obtained From: Patient Onset/Duration: Lasting Days - 5, Still Present Timing: Constant Current Severity: Moderate Dyspnea At: Rest Aggrevating Factors: Other - Exertion Alleviating Factors: Nothing Related History: Similar Episode - Hx of asthma - Allergy/Home Medications Allergies/Adverse Reactions: Allergies Allergy/AdvReac Type Severity Reaction Status Date / Time Ibuprofen Allergy ATTACKS Verified 09/30/17 03:35 RESPIRATORY SYSTEM, LUNGS COLLAPSE Naproxen Allergy Anaphylatic Verified 09/30/17 03:35 Shock SEASONAL / ENVIRONMENTAL Allergy SNEEZE, Uncoded 09/30/17 03:35 WATERY ITCHY EYES PMH/Surg Hx/FS Hx/Imm Hx Previously Healthy: No Endocrine/Hematology History: Denies: Hx Diabetes, Hx Thyroid Disease Cardiovascular History: Denies: Hx Hypertension Respiratory History: Reports: Hx Asthma - Acute, Hx Chronic Bronchitis, Hx Chronic Obstructive Pulmonary Disease (COPD), Hx Pneumonia Comment Only: Other Respiratory Problems/Disorders - POSSIBLE PNEUMONIA GI History: Denies: Hx Ulcer Sensory History: Denies: Hx Contacts or Glasses, Hx Hearing Aid Opthamlomology History: Denies: Hx Contacts or Glasses Neurological History: Denies: Hx Dementia, Hx Migraine, Hx Seizures, Hx Transient Ischemic Attacks (TIA) Psychiatric History: Denies: Hx Anxiety, Hx Depression, Hx Schizophrenia, Hx Bipolar Disorder - Surgical History Surgery Procedure, Year, and Place: BILATERAL HANDS TENDON REPAIR A CHILD,. SINUS SURGERY 2014 Hx Anesthesia Reactions: No - Immunization History Date of Tetanus Vaccine: unk Date of Influenza Vaccine: none Infectious Disease History: No Infectious Disease History: Denies: Hx Clostridium Difficile, Hx Hepatitis, Hx Human Immunodeficiency Virus (HIV), Hx of Known/Suspected MRSA, Hx Shingles, Hx Tuberculosis, Hx Known/ Suspected VRE, Hx Known/Suspected VRSA, History Other Infectious Disease, Traveled Outside the [place] in Last 30 Days - Family History Known Family History: Positive: Other - Patient denies a significant FHx - Social History Alcohol Use: Rare Hx Substance Use: Yes Substance Use Type: Reports: Marijuana Substance Use Comment - Amount & Last Used: former heavy use marijuana Hx Tobacco Use: No Smoking Status (MU): Never Smoked Tobacco Have You Smoked in the Last Year: Yes - occasional marijuana smoker Review of Systems Positive: Shortness Of Breath Positive: Other - Gluteal abscess All Other Systems Reviewed And Are Negative: Yes Physical Exam - Summary Physical Exam Summary: VITAL SIGNS: Reviewed. GENERAL: Patient is a well-developed and nourished male who is lying comfortable in the stretcher. Patient is not in any acute respiratory distress. HEAD AND FACE: No signs of trauma. No ecchymosis, hematomas or skull depressions. No sinus tenderness. EYES: PERRLA, EOMI x 2, No injected conjunctiva, no nystagmus. EARS: Hearing grossly intact. Ear canals and tympanic membranes are within normal limits. MOUTH: Oropharynx within normal limits. NECK: Supple, trachea is midline, no adenopathy, no JVD, no carotid bruit, no c- spine tenderness, neck with full ROM. CHEST: Symmetric, no tenderness at palpation LUNGS: He has expiratory wheezes. CVS: Regular rate and rhythm, S1 and S2 present, no murmurs or gallops appreciated. ABDOMEN: Soft, non-tender. No signs of distention. No rebound no guarding, and no masses palpated. Bowel sounds are normal. EXTREMITIES: FROM in all major joints, no edema, no cyanosis or clubbing. NEURO: Alert and oriented x 3. No acute neurological deficits. Speech is normal and follows commands. SKIN: Dry and warm. There is a skin induration with tenderness one inch in diameter in the left perirectal area. PSYCHIATRIC: He is anxious. Triage Information Reviewed: Yes Vital Signs On Initial Exam: Initial Vitals Temp Pulse Resp BP Pulse Ox 98.1 F 95 32 103/48 95 09/30/17 03:31 09/30/17 03:31 09/30/17 03:31 09/30/17 03:31 09/30/17 03:31 Vital Signs Reviewed: Yes - Elisa Coma Scale Coma Scale Total: 15 Procedures - Procedure Summary Procedure Summary: PROCEDURE NOTE: I did an incision and drainage of a perirectal abscess. I used 2% Lidocaine. I used Blade 11. There was 5 cc's of pus. The abscess is draining. It was packed. Diagnostics - Vital Signs Vital Signs Temp Pulse Resp BP Pulse Ox 09/30/17 03:31 98.1 F 95 32 103/48 95 - Laboratory Lab Results: Lab Results 09/30/17 09/30/17 Range/Units 04:05 04:05 WBC 12.7 H (3.5-10.8) 10^3/ul RBC 5.34 (4.0-5.4) 10^6/ul Hgb 15.7 (14.0-18.0) g/dl Hct 46 (42-52) % MCV 85 (80-94) fL MCH 30 (27-31) pg MCHC 35 (31-36) g/dl RDW 13 (10.5-15) % Plt Count 336 (150-450) 10^3/ul MPV 7 L (7.4-10.4) um3 Neut % (Auto) 78.0 (38-83) % Lymph % (Auto) 12.3 L (25-47) % [place] % (Auto) 8.7 (1-9) % Eos % (Auto) 0.7 (0-6) % Baso % (Auto) 0.3 (0-2) % Absolute Neuts (auto) 9.9 H (1.5-7.7) 10^3/ul Absolute Lymphs (auto) 1.6 (1.0-4.8) 10^3/ul Absolute Monos (auto) 1.1 H (0-0.8) 10^3/ul Absolute Eos (auto) 0.1 (0-0.6) 10^3/ul Absolute Basos (auto) 0 (0-0.2) 10^3/ul Absolute Nucleated RBC 0 10^3/ul Nucleated RBC % 0 Sodium 134 (133-145) mmol/L Potassium 4.0 (3.5-5.0) mmol/L Chloride 100 L (101-111) mmol/L Carbon Dioxide 26 (22-32) mmol/L Anion Gap 8 (2-11) mmol/L BUN 21 (6-24) mg/dL Creatinine 1.15 (0.67-1.17) mg/dL Est GFR ( Amer) 92.5 (>60) Est GFR (Non-Af Amer) 72.0 (>60) BUN/Creatinine Ratio 18.3 (8-20) Glucose 99 (70-100) mg/dL Calcium 9.8 (8.6-10.3) mg/dL Total Bilirubin 0.30 (0.2-1.0) mg/dL AST 28 (13-39) U/L ALT 27 (7-52) U/L Alkaline Phosphatase 61 (34-104) U/L C-Reactive Protein 19.26 H (< 5.00) mg/L Total Protein 7.8 (6.4-8.9) g/dL Albumin 4.2 (3.2-5.2) g/dL Globulin 3.6 (2-4) g/dL Albumin/Globulin Ratio 1.2 (1-3) Result Diagrams: 09/30/17 04:05 09/30/17 04:05 Lab Statement: Any lab studies that have been ordered have been reviewed, and results considered in the medical decision making process. Course/Dx - Course Assessment/Plan: The pt is a 37 y/o M with a Hx of asthma presenting to the ED c /o SOB for the last five days. The patient has SOB at rest. The patient was seen at [facility] two days ago, where he had an unremarkable CXR and he was given prednisone. Pt additionally c/o a gluteal abscess. I did an incision and drainage. I consulted with Dr. Salazar, hospitalist, who came to evaluate the patient. - Diagnoses Provider Diagnoses: Asthma exacerbation, Perirectal abscess - Physician Notifications Discussed Care of Patient With: Parish Salazar Time Discussed With Above Provider: 05:06 Instructed by Provider To: Other - I consulted with Dr. Salazar, hospitalist , who will come to the ED to evaluate the patient. Discharge - Discharge Plan Condition: Fair Disposition: ADMITTED TO OTHER HOSPITAL Discharge Disposition Comment: Admitted Referrals: Nishant Jones MD [Primary Care Provider] - The documentation as recorded by the Matty marley Thomas accurately reflects the service I personally performed and the decisions made by me, Kole Ba MD.
[2017-09-30] MEDS ORDERED: Omeprazole CAP* 20 MG PO SCH (06:00)
--- NOTE | 2017-09-30 06:54 | HP ---
H&P (Free Text) History and Physical: PCP: Shirley Jones MD Date/Time: 09/30/2017 0515 CC: SOB HPI: Mr Prakash is a 37YO white male poor historian presenting with report of SOB. When asked when it began, replies, "Three years ago." Essentially he has had worsening SOB for the past 3-4 days with subjective F/C and sweats, but no chest pain, palpitations, N/V, change in bowel/bladder, or other issues. He fails to mention an excruciatingly tender area of the L gluteal ruth-anal cleft at ~7:30 position which has been I&D'd by the ED physician. When asked, states it's "been there about 3-4 days, too." PMedHx asthma Ambulatory Orders Fluticasone NASAL SPRAY 50MCG* [Flonase NASAL SPRAY 50MCG*] 2 spray BOTH NARES DAILY #1 btl 01/21/17 Albuterol 2.5MG/3ML (0.083%)* [Ventolin 2.5 MG/3 ML NEB.REN*] 2.5 mg INH Q4H PRN 02/07/17 Albuterol HFA INHALER* [Ventolin HFA Inhaler*] 2 puff INH Q4H PRN 02/07/17 Loratadine & Pseudoephedrine [Loratadine/Pseudoephedrin 10-240 mg] 1 tab PO DAILY 02/07/17 Montelukast Sodium TAB* [Singulair 10 MG TAB*] 10 mg PO DAILY 02/07/17 Ipratropium 0.5MG/2.5ML NEB* [Atrovent 0.5 MG NEB.REN*] 0.5 mg INH BID #20 neb.soln 03/24/17 Sulfamethox/Trimethoprim DS* [Bactrim DS 800/160 TAB*] 1 tab PO BID #24 tab predniSONE TAB* [Deltasone TAB*] 50 mg PO DAILY #5 tab 09/28/17 Allergies Ibuprofen Allergy (Verified 09/30/17 03:35) ATTACKS RESPIRATORY SYSTEM, LUNGS COLLAPSE Naproxen Allergy (Verified 09/30/17 03:35) Anaphylatic Shock SEASONAL / ENVIRONMENTAL Allergy (Uncoded 09/30/17 03:35) SNEEZE, WATERY ITCHY EYES SocHx: no tobacco, rare alcohol, occasional marijuana; lives with his ; full code status FamHx: reviewed, non-contributory to presentation ROS: as above, otherwise reviewed and all were negative vitals: Vital Signs Temp 36.7 C 09/30/17 03:31 Pulse 100 09/30/17 06:00 Resp 14 09/30/17 06:00 BP 134/77 09/30/17 06:00 Pulse Ox 94 09/30/17 06:00 Intake & Output 09/29/17 09/29/17 09/30/17 11:59 23:59 11:59 Intake Total 1050 Balance 1050 Weight 77.111 kg Intake: IV Fluids 1050 Constitutional: NAD, normally developed, well-nourished white male HEENM: atraumatic; sclera/conjunctiva: anicteric/clear; hearing: clinically intact; oropharynx: clear, mucosa moist Neck: soft tissue: non-tender; thyroid: normal Pulmonary: clear to auscultation bilaterally, good aeration, no accessory muscle use CV: RR/RR, normal S1S2, no carotid bruit, no jugular venous distention, 2+ B DP/ PT, no edema Abdominal: soft, non-distended, non-tender, no rebound/guarding/rigidity, normoactive bowel sounds, no hepatosplenomegaly or masses, no costovertebral angle tenderness Musculoskeletal: general: grossly intact; gait: stable Integumental: L gluteal cleft I&D packed and with clean dressing Psychiatric orientation: AA&O to PPS affect: calm mood: cooperative eye contact: poor content: reliable, not forthcoming responses: ter insight: fair to poor Testing: Lab Results 09/30/17 09/30/17 09/30/17 Range/Units 04:05 04:05 06:19 WBC 12.7 H (3.5-10.8) 10^3/ul RBC 5.34 (4.0-5.4) 10^6/ul Hgb 15.7 (14.0-18.0) g/dl Hct 46 (42-52) % MCV 85 (80-94) fL MCH 30 (27-31) pg MCHC 35 (31-36) g/dl RDW 13 (10.5-15) % Plt Count 336 (150-450) 10^3/ul MPV 7 L (7.4-10.4) um3 Neut % (Auto) 78.0 (38-83) % Lymph % (Auto) 12.3 L (25-47) % [place] % (Auto) 8.7 (1-9) % Eos % (Auto) 0.7 (0-6) % Baso % (Auto) 0.3 (0-2) % Absolute Neuts (auto) 9.9 H (1.5-7.7) 10^3/ul Absolute Lymphs (auto) 1.6 (1.0-4.8) 10^3/ul Absolute Monos (auto) 1.1 H (0-0.8) 10^3/ul Absolute Eos (auto) 0.1 (0-0.6) 10^3/ul Absolute Basos (auto) 0 (0-0.2) 10^3/ul Absolute Nucleated RBC 0 10^3/ul Nucleated RBC % 0 Sodium 134 (133-145) mmol/L Potassium 4.0 (3.5-5.0) mmol/L Chloride 100 L (101-111) mmol/L Carbon Dioxide 26 (22-32) mmol/L Anion Gap 8 (2-11) mmol/L BUN 21 (6-24) mg/dL Creatinine 1.15 (0.67-1.17) mg/dL Est GFR ( Amer) 92.5 (>60) Est GFR (Non-Af Amer) 72.0 (>60) BUN/Creatinine Ratio 18.3 (8-20) Glucose 99 (70-100) mg/dL Calcium 9.8 (8.6-10.3) mg/dL Total Bilirubin 0.30 (0.2-1.0) mg/dL AST 28 (13-39) U/L ALT 27 (7-52) U/L Alkaline Phosphatase 61 (34-104) U/L C-Reactive Protein 19.26 H (< 5.00) mg/L Total Protein 7.8 (6.4-8.9) g/dL Albumin 4.2 (3.2-5.2) g/dL Globulin 3.6 (2-4) g/dL Albumin/Globulin Ratio 1.2 (1-3) Influenza A (Rapid) Negative (Negative) Influenza B (Rapid) Negative (Negative) CXR, personally reviewed: no acute process Impression: 37M HX asthma presenting with exacerbation & ruth-rectal abscess DIAGNOSIS & PLAN Primary asthma exacerbation : albuterol nebs : mometasone/formoterol : tiotropium : IV methylprednisolone : continue outpatient montelukast : supplemental oxygen : supportive care ruth-rectal abscess : I&D done by ED : consider wound consult this AM for wound care : IV clindamycin : blood & wound CXs pending Admission Rational: observation for asthma exacerbation & initiation of IV ABX for ruth-rectal abscess DVTp: FLAKO Code Status: full HCP:
[2017-09-30] MEDS ORDERED: Albuterol 2.5 MG/3 ML NEB.SOL* (0.083%) INH SCH (07:00)
[2017-09-30 07:26] VITALS: BP 132/73
--- NOTE | 2017-09-30 07:41 | RAD ---
HISTORY: Shortness of breath COMPARISONS: September 28, 2017 VIEWS: 1: frontal portable view of the chest at 4:36 AM FINDINGS: LINES AND TUBES: None. CARDIOMEDIASTINAL SILHOUETTE: The cardiomediastinal silhouette is normal for portable technique. PLEURA: The costophrenic angles are sharp. No pleural abnormalities are noted. LUNG PARENCHYMA: There is a diffuse reticular pattern with indistinct pulmonary vessels. ABDOMEN: The upper abdomen is clear. There is no subphrenic gas. BONES AND SOFT TISSUES: No bone or soft tissue abnormalities are noted. IMPRESSION: HYPERINFLATION. NO ACTIVE CARDIOPULMONARY DISEASE.
[2017-09-30 08:28] LABS: Hematocrit 43 % (42-52); Hemoglobin 14.5 g/dl (14.0-18.0); Mean Corpuscular HGB Conc 34 g/dl (31-36); Mean Corpuscular Hemoglobin 29 pg (27-31); Mean Corpuscular Volume 86 fL (80-94); Mean Platelet Volume 7 um3 (7.4-10.4); Red Blood Count 4.97 10^6/ul (4.0-5.4); Red Cell Distribution Width 13 % (10.5-15); White Blood Count 15.1 10^3/ul (3.5-10.8)
[2017-09-30] MEDS ORDERED: Mometasone/Formoter 200/5 MDI INH SCH (09:00)
[2017-09-30] MEDS ORDERED: Montelukast Sodium TAB* 10 MG PO SCH (09:00)
--- NOTE | 2017-09-30 10:27 | DCNOTE ---
Patient seen this morning. Says he feels "great". Breathing is improved. Buttocks pain resolved. On exam, RRR, s1 and s2 present, no m/g/r, lungs CTA B/L, no w/r/r, abd soft, NTND, BS+, R buttocks abscess with ribbon protruding, some drainage noted on dressing, non-tender, minimal erythema. Wound Cx PCR with MRSA Plan to discharge today. Patient has Bactrim at home which he will complete. Also has Prednisone 50 mg tabs, will write for some additional 20 mg tabs to take once 50s are complete. Will rx z-pack. PCP this week for abscess and respiratory f/u
[2017-09-30] MEDS ORDERED: Clindamycin 600 MG IVPREMIX(* 600 MG/50 ML SDV IV SCH (13:00)
--- NOTE | 2017-10-01 06:34 | DS ---
CC: Dr. Jones DISCHARGE SUMMARY: DATE OF ADMISSION: 09/30/17 DATE OF DISCHARGE: 09/30/17 PRIMARY CARE PHYSICIAN: Dr. Jones. PRINCIPAL DISCHARGE DIAGNOSES: 1. Perianal abscess. 2. Asthma exacerbation. DISCHARGE MEDICATION REGIMEN: 1. Azithromycin. 2. Z-Harshad take as instructed. 3. Prednisone 50 mg by mouth daily x 3 days, followed by 20 mg by mouth daily x 3 days. 4. Albuterol inhaler 2 puffs inhaled every 4 hours as needed for shortness of breath or wheezing. 5. Bactrim 1 tablet by mouth 2 times daily. 6. Flonase 2 sprays in both nares daily. 7. Atrovent 0.5 mg inhaled 3 times daily. 8. Loratadine and pseudoephedrine 10/240 one tablet by mouth daily. 9. Montelukast 10 mg p.o. daily. 10. Albuterol 2.5 mg every 4 hours as needed for shortness of breath or wheezing. STUDIES DONE DURING HOSPITALIZATION: Chest x-ray, impression: Hyperinflation. No active cardiopulm onary disease. HISTORY OF PRESENT ILLNESS AND HOSPITAL SUMMARY: Please see the full history and physical by Dr. Hamilton Salazar for full details. Briefly, Mr. Prakash is a 37- year-old male with a past medical histo ry as above who presented to the hospital with worsening shortness of breath, wheezing as well as a w orsening perianal abscess. The patient was seen in urgent care on 09/28/17 where he was diagnosed wi th asthma exacerbation and perianal abscess. He was prescribed Bactrim and apparently had some sligh t discharge from the abscess in the Urgent Care Clinic. The patient was also given Solu-Medrol and ne bulizers for what seemed to be an asthma exacerbation at the time. He was sent home and over the fol lowing days, the patient's symptoms worsened again and he began to have more pain in the perianal are a. In the emergency department, the patient underwent an incision and drainage of the abscess with PCR p ositive for MRSA. He also received steroids and nebulizers here in the hospital for his asthma. The patient improved significantly over the course of a few hours. He had no further wheezing and his p erianal pain was gone. The patient was discharged on some additional prednisone, azithromycin, and w as instructed to complete the Bactrim he was prescribed at home. He should followup with his PCP in a few days to evaluate the abscess and consider taking the packing out. He also has an upcoming pulm onology appointment; he was encouraged to keep. TIME SPENT: Total time spent on this discharge 45 minutes. This is a summary of the hospitalization, please see the full medical record for further details. [id number]/[facility] #: [id number]
--- NOTE | 2017-10-01 11:10 | UC ---
Progress - Progress Note Progress Note: RN to call pt. Per Chandra Cazares notes, pt is taking Bactrim. Suggest that this be continued unless otherwise advised by pcp. RN to review MRSA precautions. Seek medical attention for worse or new problems.
[2017-10-01] MEDS ORDERED: methylPREDNISolone SOD 40 MG* 1 ML VIAL IV SCH (12:00)
== END 2017-09-30 12:15 | disposition home or self-care (01) ==
LOC: ED 03:22 → MED 05:21
PROVIDERS: ADMIT Hospitalist; ATTEND Hospitalist
DX: J45.901 Unspecified asthma with (acute) exacerbation (principal); K61.0 Anal abscess
CPT/HCPCS: 36415; 46050; 71010; 80053; 85025; 85027; 86140; 87040; 87070; 87205; 87502; 87640; 87641; 94640; 96365; 96367; 96375; 99285; A9270-GY; G0378; J2930; J3475

== ENCOUNTER 2017-10-29 13:37 | Emergency (ER) | payer OTHER ==
[2017-10-29] MEDS ORDERED: Albuterol/Ipratropium NEB.SOL* Albuterol 2.5 MG/Ipratropium 0.5 MG 3 ML ONE (13:40)
[2017-10-29] MEDS ORDERED: Albuterol/Ipratropium NEB.SOL* Albuterol 2.5 MG/Ipratropium 0.5 MG 3 ML INH ONE (13:40)
[2017-10-29] MEDS ORDERED: methylPREDNISolone 125 MG* 2 ML VIAL IM ONE (13:41)
--- NOTE | 2017-10-29 13:43 | UC ---
Shortness of Breath HPI - HPI Summary HPI Summary: Pt presents with acute SOB and breathing difficulties. He tells me that about 3 years ago he was in the hameed around his family's house and encountered black mold and other foreign allergens. Since that time he has had breathing difficulties and multiple doctor visits and hospital visits for what has been diagnosed as COPD/Asthma. He does have a history of drug abuse - Meth and Marijuana. Today he tells me that last night he "drank a few beers" with a friend and "took one hit" from a joint. He admits this was a bad idea because this is a known trigger for breathing issues for him. Later that night he developed breathing difficulties, but was able to be controlled with his albuterol inhaler. Today he was driving home from a friends house and began to feel his breathing difficulties return, however he did not have his albuterol inhaler with him. He quickly became panicked and more short of breath - at which time he presented to our Urgent Care. He admits that he has been suffering from sinus congestion recently. Currently he denies fever, chills, chest pain, abdominal pain, N/v/D/C, headache, dizziness, or weakness. - History of Current Complaint Stated Complaint: SOB COPD Time Seen by Provider: 10/29/17 13:42 Hx Obtained From: Patient Onset/Duration: Gradual Onset Current Severity: Moderate Dyspnea At: Rest Aggrevating Factors: Allergens, Movement, Recumbent Position Alleviating Factors: Bronchodilators - Allergy/Home Medications Allergies/Adverse Reactions: Allergies Allergy/AdvReac Type Severity Reaction Status Date / Time Ibuprofen Allergy ATTACKS Verified 10/29/17 13:51 RESPIRATORY SYSTEM, LUNGS COLLAPSE Naproxen Allergy Anaphylatic Verified 10/29/17 13:51 Shock SEASONAL / ENVIRONMENTAL Allergy SNEEZE, Uncoded 10/29/17 13:51 WATERY ITCHY EYES PMH/Surg Hx/FS Hx/Imm Hx Previously Healthy: Yes Respiratory History: COPD, Asthma - Surgical History Surgical History: Yes Surgery Procedure, Year, and Place: BILATERAL HANDS TENDON REPAIR A CHILD,. SINUS SURGERY 2013 - Family History Known Family History: Positive: None - Both parents are alive and well., Other - Patient denies a significant FHx - Social History Lives: With Family Alcohol Use: Rare Substance Use Type: Marijuana, Other - Meth Smoking Status (MU): Never Smoked Tobacco Have You Smoked in the Last Year: Yes - occasional marijuana smoker - Immunization History Most Recent Influenza Vaccination: not recent Most Recent Tetanus Shot: unknown Most Recent Pneumonia Vaccination: not recent Review of Systems Constitutional: Negative Skin: Negative Eyes: Negative ENT: Negative Respiratory: Shortness Of Breath Cardiovascular: Negative Gastrointestinal: Negative Genitourinary: Negative Motor: Negative Neurovascular: Negative Musculoskeletal: Negative Neurological: Negative Psychological: Negative All Other Systems Reviewed And Are Negative: Yes Physical Exam Triage Information Reviewed: Yes Appearance: Other: - Short shallow breaths. In moderate distress. He is quite anxious appearing. Is talking without difficulties in between breaths. Eyes: Positive: Conjunctiva Clear. Negative: Conjunctiva Inflamed, Discharge ENT: Positive: Hearing grossly normal, Pharynx normal, Nasal congestion, TMs normal, Uvula midline. Negative: Pharyngeal erythema, Nasal drainage, TM bulging, TM dull, TM red, Tonsillar swelling, Tonsillar exudate, Muffled voice, Hoarse voice, Sinus tenderness Neck: Positive: Supple, Nontender, No Lymphadenopathy Respiratory: Positive: Chest non-tender, Respiratory distress, Accessory muscle use, Rhonchi - Moderate throughout, Wheezing - Moderate throughout. Negative: Crackles Cardiovascular: Positive: No Murmur, Pulses Normal, Brisk Capillary Refill Abdomen Description: Positive: Nontender, No Organomegaly, Soft. Negative: CVA Tenderness (R), CVA Tenderness (L), Distended, Guarding Bowel Sounds: Positive: Present Neurological: Positive: Alert Psychological: Positive: Age Appropriate Behavior, Consolable, Other: - Anxious Skin: Negative: rashes, significant lesion(s) Shortness of Breath Dx - Course Course Of Treatment: ECG revealed sinus rhythm rate [address] elevation. Solu-Medrol was given IM and a Duoneb administered. Patient experienced significant relief with these within 20 minutes. His lung sounds improved with decreased wheezing throughout and no rhonchi appreciated. His last CXR was 3 weeks ago and was WNL. He was monitored for the next 30 minutes to assure stability of his exacerbation. He reports feeling "back to normal". He tells me that he has an initial visit with a Medical Director/Head Team Physician scheduled for next week - I strongly advised him to keep that appointment for further investigation of his chronic breathing issues. - Differential Dx/Diagnosis Differential Diagnosis/HQI/PQRI: Airway Obstruction, Airway Foreign Body, Asthma , Bronchitis, COPD Exacerbation, Pneumothorax, Unstable Angina Provider Diagnoses: COPD exacerbation. Tachypnea. SOB. Wheezing Discharge - Discharge Plan Condition: Stable Disposition: HOME Patient Education Materials: Asthma (ED) Referrals: Nishant Jones MD [Medical Doctor] - Additional Instructions: If you develop a fever, SOB, chest pain, new or worsening symptoms - please call your PCP or go to the ED. Your blood pressure was high at todays visit. Please see your primary provider within 4 weeks for recheck and re-evaluation. Please keep your appointment with pulmonology next week. Remember to keep your albuterol inhaler with you when leaving the house.
--- OUTSIDE RECORDS SUMMARY | 2017-10-29 14:28 | XMS REPORT ---
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 [place] [id number] Commercial Effective: 2014 Policy Number: Tyler Prakash [id number] Medicaid PayID: [id number] [address] [place] [phone] Problems Date Description Provider Status Onset: Anaphylaxis Active Family History Date Family Member(s) Problem(s) Comments Father Tobacco Abuse Father Alcohol Use Mother Substance Abuse Biological mother with major issues, brother of heroin. Social History Type Date Description Comments Cigarette Use Never Smoked Cigarettes ETOH Use Negative For Currently consumes alcohol ETOH Use except very infrequently as it makes his nose run Smoking Patient has never smoked Allergies, Adverse Reactions, Alerts Date Description Reaction Status Severity Comments 03/07/2016 Ibuprofen active 03/22/2017 Naproxen Anaphylaxis active Severe 04/19/2017 NSAIDs active Fatal 11/15/2003 NKDA inactive Medications Medication Date Status Form Strength Qnty SIG Indications Ordering Provider Zithromax 09/30 Active Tablets 250mg 1tabs .Today, Then Unknown - 1 Daily Deltasone 09/28 Active Tablets 50mg 5tabs Every Day Unknown Bactrim DS 09/28 Active Tablets 800-160mg 24tab Twice Daily s Flovent Diskus 08/26 Active Aerosol 250mcg/Bl 60uni inhale one J45.21 Laura ist ts puff by mouth P. twice daily - Blegen, rinse mouth M.D. after use (replaces qvar) Prednisone 08/26 Active Tablets 20mg 21tab take 3 J45.21 s tablets x 3 P. days, then 2 Blegen, tablets x 3 M.D. days,then 1 tablet x 3 days, then 1/2 tablet x 3 days- take with food Ventolin HFA 07/31 Active Aerosol 108(90Bas 18uni Inhale One To J45.998 Nishant e) ts Two Puffs By Heetderks mcg/Act Mouth Every 4 , MD Hours as Needed For For Shortness Of Breath Montelukast 05/28 Active Tablets 10mg 30tab Take One J45.998 Kristen s Tablet By Dorothea, Mouth Every [employer] Day Atrovent 03/24 Active Solution 0.02% 20uni Twice Daily ts Claritin-D 24 03/10 Active Tablets ER 10-240mg 30tab take one J45.998 Nishant 24HR s tablet by Heetderks mouth every , MD day Ventolin 02/07 Active Nebulizer 0.083% Q4H Flonase 01/21 Active Suspension 50mcg/Act 1unit Every Day Unknown Allergy s Qvar 12/07 Active Aerosol 80mcg/Act 2unit inhale 2 Nishant s puffs by Heetderks mouth 2 times , MD per day for asthma Flonase 10/01 Active Suspension 50mcg/Spr 2unit Two Sprays J30.9 Lissette /2005 ay s Each Nares A. Once Daily Zulma Akers.N.P.C. Ipratropium Active Solution 0.02% 75uni Use 1 Ampule Nishant [place] /0000 ts Via Nebulizer Robert 3 To 4 Times , MD A Day as Directed Albuterol Active Nebulizer (2.5mg/3M 75ml unit dose neb Laura Sulfate /0000 L) 0.083% every 4 hours P. as directed adalgisa Vanessa M.D. Prednisone 07/31 Hx Tablets 20mg 20tab take 3 tabs Nishant s by mouth x 3 Heetderks - days, then 2 , 08/26 tabs by mouth x 3 days, then 1 tab by mouth x 3 days then 1/2 tab by mouth x 4 days Augmentin 05/28 Hx Tablets 875-125mg 14tab 1 take by J45.998 Kristen s mouth tablet Dorothea, - every 12 [employer] 08/26 hours for days for infection Prednisone 04/19 Hx Tablets 20mg 10tab take 2 tabs J45.998 Kristen s by mouth Dorothea, - every day x 5 [employer]-C Amoxicillin 04/19 Hx Tablets 500mg 40tab 1 tab po qid Kristen s X 10 days Dorothea, - [employer] 05/28 Albuterol 04/19 Hx Nebulizer 0.63mg/3M 75uni Inhale The Kristen L ts Contents Of Dorothea, - One Vial Via [facility] 08/27 Nebulizer Every 4 To 6 Hours Amoxicillin 03/22 Hx Tablets 500mg 14tab take 1 tablet J02.9 s by mouth Robert - every 12 MD 04/19 hours for days for infection Ventolin HFA 02/07 Hx Aerosol 108(90Bas 8gm every 4 hours Nishant e) as needed for Heetderks - mcg/Act shortness of MD 07/31 breath Deltasone 01/21 Hx Tablets 50mg 5tabs Every Day - 02/07 Augmentin 01/21 Hx Tablets 500-125mg 20tab Twice Daily s - 07/28 Nystatin 10/26 Hx Suspension 555772Utd 473ml swish and B37.9 Jesu /2015 t/ML swallow 5ml Hi - by mouth III, 04/19 three times a [employer] day for 7 days or until resolved Augmentin 09/17 Hx Tablets 875-125mg 14tab 1 take by J45.998 s mouth tablet Nina Radford, - every 12 [employer] 04/19 hours for days for infection Prednisone 09/17 Hx Tablets 20mg 9tabs 3 by mouth J45.998 every day x 3 Nina Radford, - days [employer] 04/19 Medrol 07/28 Hx TBPK 4mg 1unit .See Harshad s Instruction - 01/21 Zithromax 07/28 Hx Tablets 250mg 6tabs .Z-Harshad Unknown Instructions - 01/21 Zaditor 06/11 Hx Solution 0.025% 1unit Twice Daily s - 07/28 Deltasone 06/11 Hx Tablets 10mg 30tab Every Day s Repack - 09/17 Augmentin 06/11 Hx Tablets 500-125mg 20tab Twice Daily s - 09/17 Azithromycin 03/07 Hx Tablets 250mg 6tabs take 2 J45.998 Nishant tablets by Robert malik MD 09/17 time take one daily for 4 days Claritin-D 24 03/07 Hx Tablets ER 10-240mg 30tab take one Harrison45.998 Nishant Hour /2015 24HR s tablet by Robert avila MD Montelukast 01/29 Hx Tablets 10mg 30tab Take One Harrison45.998 Nishant Sodium /2015 s Tablet By Robert Avila MD Amoxicillin/Cl 01/23 Hx Tablets 875-125mg 20tab 1 tablet by Harrison01.90 Jesu avulanate /2015 s mouth twice a [place] Potassium - day for 10 III, 09/17 days [employer] Ventolin 11/11 Hx Nebulizer 0.083% Every Day prn For - Sob/Wheezing 02/07 Claritin 10/01 Hx Tablets 10mg 30tab 1 po qd 477.9 Lissette /2004 s Destiny Akers, 10/01 F.N.P.C. /2004 Clarinex 10/01 Hx Tablets 5mg 30tab 1 PO qd prn 477.9 Lissette /2004 s A. - Oswald, 12/07 F.N.P.C. /2015 Brissa 06/19 Hx Tablets 180mg 14tab 1 PO qd 995.3 Lissette /2003 s A. - Oswald, 12/07 F.N.P.C. /2015 Nasonex 06/19 Hx 1unit 2 Sprays Each 995.3 Lissette s Side qd A. - Oswald, 12/07 F.N.P.C. /2015 Albuterol 11/15 Hx Inhaler 17gm 2- seperate J44.1 Lissette Metered Dose /2003 puffs every 4 A. Inhaler - , 08/26 F.N.P.C. Aerobid 11/15 Hx Inhaler One two puffs by 466.0 Lissette aerochamber A. - twice daily - , 12/15 rinse mouth F.N.P.C. /2003 with water after last puffs Zithromax 11/15 Hx Tablets 500mg 3tabs one po qd 466.0 Lissette /2003 A. - Oswald, 11/18 F.N.P.C. /2003 Immunizations CPT Code Status Date Vaccine Lot # [id number] Given 09/17/2016 Pneumovax 23 (PPSV23) 65+ years or high risk 2 to [id number] 65 year old [id number] Refused 01/24/2016 Influenza Virus Vaccine, Quadrivalent, 3 Yr > Quad, Preserv Free Vital Signs Date Vital Result Comment 10/02/2017 Weight 161.00 lb Weight in kg's 73.030 BP Systolic 110 mmHg BP Diastolic 60 mmHg Heart Rate 80 /min Body Temperature 98.0 F Respiratory Rate 16 /min O2 % BldC Oximetry 96 % 08/26/2017 Weight 162.00 lb Weight in kg's 73.483 BP Systolic 90 mmHg BP Diastolic 64 mmHg Heart Rate 78 /min Body Temperature 96.7 F Respiratory Rate 24 /min O2 % BldC Oximetry 95 % Peak Flow Meter 350 (Expected 550) 07/31/2017 Weight 161.00 lb Weight in kg's 73.030 BP Systolic 110 mmHg BP Diastolic 70 mmHg Heart Rate 88 /min Body Temperature 97.4 F Respiratory Rate 36 /min O2 % BldC Oximetry 96 % 05/28/2017 Weight 167.00 lb Weight in kg's 75.751 BP Systolic 128 mmHg BP Diastolic 62 mmHg Heart Rate 90 /min Body Temperature 96.5 F Respiratory Rate 18 /min O2 % BldC Oximetry 97 % 04/19/2017 Weight 173.00 lb Weight in kg's 78.473 BP Systolic 100 mmHg BP Diastolic 60 mmHg Heart Rate 90 /min Body Temperature 96.1 F Respiratory Rate 12 /min O2 % BldC Oximetry 94 % 03/22/2017 Weight 175.00 lb Weight in kg's 79.380 BP Systolic 110 mmHg BP Diastolic 72 mmHg Heart Rate 76 /min Body Temperature 97.6 F Respiratory Rate 20 /min 12/24/2016 Weight 183.00 lb Weight in kg's 83.009 BP Systolic 137 mmHg BP Diastolic 80 mmHg Heart Rate 76 /min Body Temperature 98.0 F O2 % BldC Oximetry 96 % 10/26/2016 Weight 181.00 lb Weight in kg's 82.102 BP Systolic 110 mmHg BP Diastolic 70 mmHg Heart Rate 68 /min Body Temperature 97.3 F Respiratory Rate 12 /min 06/11/2016 Weight 175.00 lb Weight in kg's 79.379 BP Systolic 114 mmHg BP Diastolic 87 mmHg Heart Rate 75 /min Body Temperature 99.6 F Respiratory Rate 18 /min Height 72 inches O2 % BldC Oximetry 100 % 03/07/2016 Weight 186.00 lb Weight in kg's 84.370 BP Systolic 106 mmHg BP Diastolic 66 mmHg Heart Rate 74 /min Body Temperature 98.1 F O2 % BldC Oximetry 98 % 01/30/2016 Weight 182.00 lb Weight in kg's 82.555 BP Systolic 118 mmHg BP Diastolic 70 mmHg Heart Rate 82 /min 01/24/2016 Weight 185.00 lb Weight in kg's 83.916 BP Systolic 118 mmHg BP Diastolic 80 mmHg Heart Rate 85 /min Body Temperature 98.0 F O2 % BldC Oximetry 98 % 12/07/2015 Weight 177.00 lb Weight in kg's 80.287 BP Systolic 121 mmHg BP Diastolic 79 mmHg Heart Rate 104 /min O2 % BldC Oximetry 91 % 10/01/2005 Weight 186.00 lb Weight in kg's 84.370 BP Systolic 130 mmHg BP Diastolic 76 mmHg Body Temperature 99.1 F 06/19/2004 Weight 180.00 lb Weight in kg's 81.648 BP Systolic 128 mmHg BP Diastolic 70 mmHg Body Temperature 97.6 F 11/15/2003 Weight 181.00 lb Weight in kg's 82.102 BP Systolic 104 mmHg BP Diastolic 68 mmHg Body Temperature 98.7 F Results Test Date Test Result H/L Range Note Laboratory test finding 09/28/2017 Wound/Misc SEE RESULT BELOW 1, 2 Culture-Gram Stain MRSA/S. aureus Ssti PCR SEE RESULT BELOW 1, 3 Urinalysis Profile 02/07/2017 Urine Color Straw Urine Appearance Clear Urine Specific [place] 1.011 1.010-1.030 Urine pH 6.0 5-9 Urine Urobilinogen Negative Negative Urine Ketones 1+ Negative Urine Protein Negative Negative Urine Leukocytes Negative Negative Urine Blood Negative Negative Urine Nitrite Negative Negative Urine Bilirubin Negative Negative Urine Glucose Negative Negative CBC Auto Diff 02/07/2017 White Blood Count 13.7 10^3/uL High 3.5-10.8 Red Blood Count 5.11 10^6/uL 4.0-5.4 Hemoglobin 14.6 g/dL 14.0-18.0 Hematocrit 44 % 42-52 Mean Corpuscular Volume 86 fL 80-94 Mean Corpuscular Hemoglobin 29 pg 27-31 Mean Corpuscular HGB Conc 33 g/dL 31-36 Red Cell Distribution Width 14 % 10.5-15 Platelet Count 229 10^3/uL 150-450 Mean Platelet Volume 8 um3 7.4-10.4 Abs Neutrophils 13.1 10^3/uL High 1.5-7.7 Abs Lymphocytes 0.4 10^3/uL Low 1.0-4.8 Abs Monocytes 0.2 10^3/uL 0-0.8 Abs Eosinophils 0 10^3/uL 0-0.6 Abs Basophils 0 10^3/uL 0-0.2 Abs Nucleated RBC 0 10^3/uL Granulocyte % 95.4 % High 38-83 Lymphocyte % 2.8 % Low 25-47 Monocyte % 1.5 % 1-9 Eosinophil % 0.2 % 0-6 Basophil % 0.1 % 0-2 Nucleated Red Blood Cells % 0 Laboratory test finding 02/07/2017 Lactic Acid 0.9 mmol/L 0.5-2.0 4 Comp Metabolic Panel 02/07/2017 Sodium 138 mmol/L 133-145 Potassium 3.6 mmol/L 3.5-5.0 Chloride 106 mmol/L 101-111 Co2 Carbon Dioxide 28 mmol/L 22-32 Anion Gap 4 mmol/L 2-11 Glucose 104 mg/dL High 70-100 Blood Urea Nitrogen 12 mg/dL 6-24 Creatinine 0.88 mg/dL 0.67-1.17 BUN/Creatinine Ratio 13.6 8-20 Calcium 8.3 mg/dL Low 8.6-10.3 Total Protein 6.1 g/dL Low 6.4-8.9 Albumin 3.7 g/dL 3.2-5.2 Globulin 2.4 g/dL 2-4 Albumin/Globulin Ratio 1.5 1-3 Total Bilirubin 0.40 mg/dL 0.2-1.0 Alkaline Phosphatase 56 U/L 34-104 Alt 19 U/L 7-52 Ast 22 U/L 13-39 Egfr Non- 98.6 >60 Egfr 126.7 >60 5 Laboratory test finding 02/07/2017 C Reactive Protein 1.88 mg/L < 5.00 6 Troponin-I (TnI) 0.00 ng/mL <0.04 7 Laboratory test finding 10/26/2016 Strep Screen NEG Neg 1 [id number] 2 SEE RESULT BELOW Name: BEATA PRAKASH : [address]: Ernestina Avalos MD Acct: [id number] Unit: [id number] AGE: 37 Location: [facility] Re09/28/17 SEX: M Status: CELE ER SPEC: [id number] EVIE: 09/28/17-18[address] [facility] [address]: Ernestina Avalso MD REQ: [id number] RECD: 09/29/17 STATUS: RES [facility] DR: Nishant Jones MD _ SOURCE: WOUND SPDESC:RECTAL ORDERED: MRSA/SA SSTI, Culture Stain COMMENTS: [id number] Procedure Result Reported Site MRSA/S. aureus SSTI PCR PENDING Wound/Misc Gram Stain Final 09/29/17- 1435 ML 3+ Neutrophils 1+ Epithelial Cells No Organisms Seen Wound/Misc Culture Preliminary 09/30/17- 1148 ML Organism 1 STAPHYLOCOCCUS AUREUS Quantity 3+ * ML - MAIN LAB ([facility]) . END OF REPORT * ML=Testing performed at Main Lab DEPARTMENT OF PATHOLOGY, [address] [place] [address] Anuel Shane M.D. Director [facility] # [id number] 3 SEE RESULT BELOW Name: JOEYBEATA Herndon : [address]: Ernestina Avalos MD Acct: [id number] Unit: [id number] AGE: 37 Location: [facility] Re09/28/17 SEX: M Status: CELE DÍAZ SPEC: [id number] EVIE: 09/28/17-18[address] [facility] [address]: Ernestina Avalos MD REQ: [id number] RECD: 09/29/17-1343 STATUS: CLAIRE BOO DR: Nishant Jones MD _ SOURCE: WOUND SPDESC:RECTAL ORDERED: MRSA/SA SSTI, Culture Stain COMMENTS: [id number] Verbal to [id number]/[facility] by [id number] at 1202 on 09/30/17. Results read back accurately. Procedure Result Reported Site MRSA/S. aureus SSTI PCR Final 09/30/17- 1202 ML Organism 1 MRSA POSITIVE Organism 2 S.AUREUS POSITIVE Wound/Misc Gram Stain Final 09/29/17- 1435 ML 3+ Neutrophils 1+ Epithelial Cells No Organisms Seen Wound/Misc Culture Final 10/02/17- 0955 ML Organism 1 MRSA Quantity 3+ Organism 2 NORMAL YELITZA Quantity 1+ MRSA:Consistent with previous results. 1. MRSA M.I.C. RX --------- ------ Penicillin >=0.5 R Clindamycin <=0.25 S Erythromycin >=8 R Gentamicin <=0.5 S Linezolid 2 S CONTINUED ON NEXT PAGE * ML=Testing performed at Main Lab DEPARTMENT OF PATHOLOGY, [address] [place] [address] Anuel Shane M.D. Director [facility] # [id number] Patient: BEATA PRAKASH [id number] (Continued) Specimen: [id number] Collected: 09/28/17 Received: 09/29/17 (Continued) Procedure Result Reported Site Wound/Misc Culture Final (continued) 10/02/17954 1. MRSA (continued) M.I.C. RX --------- ------ Nitrofurantoin <=16 S Oxacillin >=4 R * Quinupristin/Dalfopristin 0.5 S Rifampin <=0.5 S Tetracycline <=1 S Doxycycline - Deduced S * Minocycline - Deduced S Trimethoprim/Sulfamethoxazole <=10 S Vancomycin 1 S Imipenem-Deduced R * Ampicillin/Sulbactam-Deduced R Cefazolin-Deduced R * These antibiotics are not available in the [facility] Formulary Contact the Microbiology Department for any additional antibiotic reporting. * ML - MAIN LAB ([facility]) . END OF REPORT * ML=Testing performed at Main Lab DEPARTMENT OF PATHOLOGY, [address] [place] [address] Anuel Shane M.D. Director [facility] # [id number] 4 [facility] Severe Sepsis and Septic Shock Management Bundle Measure requires all lactic acids initially measuring >2.0 mmol/L be repeated. 5 Because ethnic data is not always readily available, this report includes an eGFR for both -Americans and non- Americans. The National Kidney Disease Education Program (NKDEP) does not endorse the use of the MDRD equation for patients that are not between the ages of 18 and 70, are , have extremes of body size, muscle mass, or nutritional status, or are non- or non-. According to the National Kidney Foundation, irrespective of diagnosis, the stage of the disease is based on the level of kidney function: Stage Description GFR(mL/min/1.73 m(2)) 1 Kidney damage with normal or decreased GFR 90 2 Kidney damage with mild decrease in GFR 60-89 3 Moderate decrease in GFR 30-59 4 Severe decrease in GFR 15-29 5 Kidney failure <15 (or dialysis) 6 Acute inflammation: >10.00 7 99th percentile=0.04 ng/mL Troponin results at [facility] and [facility] are not interchangeable. Procedures Description No Information Encounters Type Date Location Provider CPT E/M Dx Office Visit 08/26/2017 11:45a Main Office Laura Vanessa M.D. 56412 J45.21 Office Visit 07/31/2017 10:45a [place] [address] J45.998 Office Visit 05/28/2017 11:45a Main Office JAMES Flaherty [address]2614 J45.998 J30.9 Office Visit 04/19/2017 8:45a Main Office JAMES Flaherty 95817 J45.998 Office Visit 03/22/2017 11:30a [place] [address] J02.9 J45.998 Office Visit 12/24/2016 8:45a Main Office JAMES Chappell 97342 J20.9 Office Visit 10/26/2016 11:45a Main Office Jesu Murray[facility]ake [facility] [address] B37.9 Office Visit 09/17/2016 5:00p [place] [address] J45.998 J01.90 Z23 Office Visit 03/07/2016 8:15a [place] [address] J45.998 J20.9 Office Visit 01/30/2016 9:00a [place] [address] J45.998 Office Visit 01/24/2016 8:30a Main Office Jesu Do III, [facility] [address]189 J01.90 Office Visit 12/07/2015 8:00a [place] [address] J44.1 Office Visit 10/01/2005 10:15a Main Office Lissette Akers [facility] 86475 477.9 Office Visit 06/19/2004 3:00p Main Office Lissette Akers F.N.P.C[facility] 03189 995.3 569.49 Office Visit 11/15/2003 11:15a Main Office Lissette Akers [facility].N[facility] 45401 466.0 Plan of Care 10/02/2017 - Nishant Jones MDJ45.998 Other asthmaComments:His asthma exacerbation is now resolved. He is having some notable side effects from the steroid, but they do not seem to be bothersome at this time.L02.818 Cutaneous abscess of other sitesComments:Removed packing, recommended hot compresses several times daily.
--- OUTSIDE RECORDS SUMMARY | 2017-10-29 14:28 | XMS REPORT ---
:1980 External Reference #:[id number] Author Organization [facility] Address [address] [place] [address] Phone [phone] Care Team Providers Name Role Phone Nishant Jones MD Care Team Information Manager Resort Unavailable Payers Type Date Identification Numbers Payment Provider Subscriber Commercial Effective: Policy Number: Tyler Cook 2015 [id number] Medicaid Expires: 2016 PayID: [id number] [address] [place] [phone] Commercial Effective: 2014 Policy Number: Tyler Cook [id number] Medicaid PayID: [id number] [address] [place] [phone] Problems Date Description Provider Status Onset: Anaphylaxis [...] Form Strength Qnty SIG Indications Ordering Provider Doxycycline 10/24 Active Capsules 100mg 20cap 1 take by J45.998 Nishant Hycl /2016 s mouth capsule Heetderks 2 times per , MD day for 10 days for infection Flovent Diskus 10/16 Active Aerosol 250mcg/Bl 60uni inhale one J45.21 Laura ist ts puff by mouth P. twice daily - Blegen, rinse mouth M.D. after use (replaces qvar) Ventolin HFA 07/31 Active Aerosol 108(90Bas 18uni Inhale One To J45.998 Nishant /2016 e) ts Two Puffs By Robert mcg/Act Mouth Every 4 , MD Hours as Needed For For Shortness Of Breath Montelukast 05/28 Active Tablets 10mg 30tab Take One J45.998 Kristen Sodium s Tablet By Dorothea, Mouth Every TRIMMING PRESS OPERATOR-C Day Atrovent 03/24 Active Solution 0.02% 20uni Twice Daily ts Claritin-D 24 03/10 Active Tablets ER 10-240mg 30tab take one J45.998 Nishant Hour /2016 24HR s tablet by Robert mouth every , MD day Ventolin 02/07 Active Nebulizer 0.083% Q4H Flonase 01/21 Active Suspension 50mcg/Act 1unit Every Day Unknown Allergy Relief s Flonase 10/01 Active Suspension 50mcg/Spr 2unit Two Sprays J30.9 Lissette /2004 ay s Each Nares A. Once Daily Oswald [facility] Ipratropium 00 Active Solution 0.02% 75uni Use 1 Ampule Nishant [place] /0000 ts Via Nebulizer Robert 3 To 4 Times , MD A Day as Directed Albuterol Active Nebulizer (2.5mg/3M 75uni inhale the Nishant Sulfate /0000 L) 0.083% ts contents of Robert one vial via , nebulizer every 4 hours as needed for wheezing as directed Zithromax 09/30 Hx Tablets 250mg 1tabs .Today, Then Unknown Z-Harshad 1 Daily - 10/24 Deltasone 09/28 Hx Tablets 50mg 5tabs Every Day - 10/24 Bactrim DS 09/28 Hx Tablets 800-160mg 24tab Twice Daily s - 10/24 Prednisone 10/16 Hx Tablets 20mg 21tab take 3 J45.21 Laura s tablets x 3 P. - days, then 2 Blegen, 10/24 tablets x 3 M.D. days,then 1 tablet x 3 days, then 1/2 tablet x 3 days- take with food Prednisone 07/31 Hx Tablets 20mg 20tab take 3 tabs Nishant s by mouth x 3 Heetderks - days, then 2 , 08/26 tabs by mouth /2016 x 3 days, then 1 tab by mouth x 3 days then 1/2 tab by mouth x 4 days Augmentin 05/28 Hx Tablets 875-125mg 14tab 1 take by J45.998 s mouth tablet Dorothea, - every 12 TRIMMING PRESS OPERATOR-C 08/26 hours for days for infection Prednisone 04/19 Hx Tablets 20mg 10tab take 2 tabs J45.998 Kristen s by mouth Dorothea, - every day x 5 TRIMMING PRESS OPERATOR-C Amoxicillin 04/19 Hx Tablets 500mg 40tab 1 tab po qid s X 10 days Dorothea, - TRIMMING PRESS OPERATOR-C 05/28 Albuterol 04/19 Hx Nebulizer 0.63mg/3M 75uni Inhale The L ts Contents Of Dorothea, - One Vial Via TRIMMING PRESS OPERATOR-C 08/27 Nebulizer Every 4 To 6 Hours Amoxicillin 03/22 Hx Tablets 500mg 14tab take 1 tablet J02.9 s by mouth Robert - every 12 MD 04/19 hours for days for infection Ventolin HFA 02/07 Hx Aerosol 108(90Bas 8gm every 4 hours e) as needed for Heetderks - mcg/Act shortness of MD 07/31 breath Deltasone 01/21 Hx Tablets 50mg 5tabs Every Day - 02/07 Augmentin 01/21 Hx Tablets 500-125mg 20tab Twice Daily s - 07/28 Nystatin 10/26 Hx Suspension [id number] 473ml swish and B37.9 Jesu t/ML swallow 5ml Hi - by mouth III, 04/19 three times a TRIMMING PRESS OPERATOR-C day for 7 days or until resolved Augmentin 09/17 Hx Tablets 875-125mg 14tab 1 take by Krystal wnt s mouth tablet Olivier. Prabhakar, - every 12 TRIMMING PRESS OPERATOR-C 04/19 hours for days for infection Prednisone 09/17 Hx Tablets 20mg 9tabs 3 by mouth [id number] Mccormick /2015 every day x 3 Nina Radford, - days TRIMMING PRESS OPERATOR-C 04/19 Medrol 07/28 Hx TBPK 4mg 1unit [...] 03/07 Hx Tablets 250mg 6tabs take 2 Harrison45.99Rich Nishant tablets by Robert malik MD 09/17 time take one daily for 4 days Claritin-D 24 03/07 Hx Tablets ER 10-240mg 30tab take one Harrison45.99Rich Nishant Hour /2015 24HR s tablet by Robert avila MD Montelukast 01/29 Hx Tablets 10mg 30tab Take One Harrison45.998 Nishant Sodium /2015 s Tablet By Robert Avila MD Amoxicillin/Cl 01/23 Hx Tablets 875-125mg 20tab 1 tablet by Mya Nails avzarianatbakari /2015 s mouth twice a [place] Potassium - day for 10 III, 09/17 days TRIMMING PRESS OPERATOR-C Qvar 12/07 Hx Aerosol 80mcg/Act 2unit inhale 2 Nishant s puffs by Robert tovar 2 times MD 12/14 per day asthma Ventolin 11/11 Hx Nebulizer 0.083% Every Day prn For - Sob/Wheezing 02/07 Claritin 10/01 Hx Tablets 10mg 30tab 1 po qd 477.9 Lissette /2004 s A. - Oswald, 10/01 F.N.P.C. /2004 Clarinex 10/01 Hx Tablets 5mg 30tab 1 PO qd prn 477.9 Lissette /2004 s A. - Oswald, 12/07 F.N.P.C. /2015 Brissa 06/19 Hx Tablets 180mg 14tab 1 PO qd 995.3 Lissette /2003 s A. - Oswald, 12/07 F.N.P.C. /2015 Nasonex 06/19 Hx 1unit 2 Sprays Each 995.3 Lissette /2003 s Side qd A. - Oswald, 12/07 F.N.P.C. /2015 Albuterol 11/15 Hx Inhaler 17gm 2- seperate J44.1 Lissette Metered Dose /2003 puffs every 4 A. Inhaler - hours , 08/26 F.N.P.C. /2016 Aerobid 11/15 Hx Inhaler One two puffs by 466.0 Lissette /2003 aerochamber A. - twice daily - , 12/15 rinse mouth F.N.P.C. /2003 with water after last puffs Zithromax 11/15 Hx Tablets 500mg 3tabs one po qd 466.0 Lissette A. - Oswald, 11/18 F.N.P.C. /2003 Immunizations CPT Code Status Date Vaccine Lot # [id number] Given 09/17/2016 Pneumovax 23 (PPSV23) 65+ years or high risk 2 to [id number] 65 year old [address] Refused 01/24/2016 Influenza Virus Vaccine, Quadrivalent, 3 Yr > Quad, Preserv Free Vital Signs Date Vital Result Comment 10/24/2017 Weight 165.00 lb Weight in kg's 74.844 BP Systolic 102 mmHg BP Diastolic 62 mmHg Heart Rate 82 /min Body Temperature 97.8 F Respiratory Rate 16 /min O2 % BldC Oximetry 98 % 10/02/2017 Weight 161.00 lb Weight in kg's [...] Color Straw Urine Appearance Clear Urine Specific [place] 1.011 1.010-1.030 Urine pH 6.0 5-9 Urine [...] finding 10/26/2016 Strep Screen NEG Neg 1 [id number] 2 SEE RESULT BELOW Name: BEATA COOK : [address]: Ernestina Avalos MD Acct: [id number] Unit: [id number] AGE: 37 Location: [facility] Re09/28/17 SEX: M Status: DEP ER SPEC: [id number] EVIE: 09/28/[address]: Ernestina Avalos MD REQ: [id number] RECD: 09/29/17 STATUS: RES OTHR DR: Nishant Jones MD _ SOURCE: WOUND SPDESC:RECTAL ORDERED: MRSA/SA SSTI, Culture Stain COMMENTS: [id number] Procedure Result Reported Site MRSA/S. aureus SSTI PCR PENDING Wound/Misc Gram Stain Final 09/29/17- 1435 ML 3+ Neutrophils 1+ Epithelial Cells No Organisms Seen Wound/Misc Culture Preliminary 09/30/17- 1148 ML Organism 1 STAPHYLOCOCCUS AUREUS Quantity 3+ * ML - MAIN LAB ([facility]) . END OF REPORT * ML=Testing performed at Main Lab DEPARTMENT OF PATHOLOGY, [address] [place] [address] Anuel Shane M.D. Director [facility] # [id number] 3 SEE RESULT BELOW Name: BEATA COOK : [address]: Ernestina Avalos MD Acct: [id number] Unit: [id number] AGE: 37 Location: [facility] Re09/28/17 SEX: M Status: CELE ER SPEC: [id number] EVIE: 09/28/17-[address] [facility] [address]: Ernestina Avalos MD REQ: [id number] RECD: 09/29/17-1343 STATUS: CLAIRE BOO DR: Nishant Jones MD _ SOURCE: WOUND SPDESC:RECTAL ORDERED: MRSA/SA SSTI, Culture Stain COMMENTS: [id number] Verbal to [id number]/[facility] by [id number] at 1202 on 09/30/17. Results read back [...] performed at Main Lab DEPARTMENT OF PATHOLOGY, [address] [place] [address] Anuel Shane M.D. Director [facility] # [id number] Patient: BEATA COOK [id number] (Continued) Specimen: [id number] Collected: 09/28/17 Received: 09/29/17 (Continued) Procedure Result [...] These antibiotics are not available in the [facility] Formulary Contact the Microbiology Department for any additional antibiotic reporting. * ML - MAIN LAB ([facility]) . END OF REPORT * ML=Testing performed at Main Lab DEPARTMENT OF PATHOLOGY, [address] [place] [address] Anuel Shane M.D. Director [facility] # [id number] 4 [facility] Severe Sepsis and Septic Shock Management [...] 7 99th percentile=0.04 ng/mL Troponin results at [facility] and [facility] are not interchangeable. Procedures Description No Information Encounters Type Date Location Provider CPT E/M Dx Office Visit 10/02/2017 11:45a [place] [address] J45.998 L02.818 Office Visit 08/26/2017 11:45a Main Office Laura Vanessa M.D. 34878 J45.21 Office Visit 07/31/2017 10:45a [place] [address] J45.998 Office Visit 05/28/2017 11:45a Main Office Kristen Piedra [facility] [address] J45.998 J30.9 Office Visit 04/19/2017 8:45a Main Office Kristen Piedra [facility] [address] J45.998 Office Visit 03/22/2017 11:30a [place] [address] J02.9 J45.998 Office Visit 12/24/2016 8:45a Main Office Anny Radford [facility] 30[address] J20.9 Office Visit 10/26/2016 11:45a Main Office Jesu Do III [facility] 35829 B37.9 Office Visit 09/17/2016 5:00p [place] [address] J45.998 J01.90 Z23 Office Visit 03/07/2016 8:15a [place] [address] J45.998 J20.9 Office Visit 01/30/2016 9:00a [place] [address] J45.998 Office Visit 01/24/2016 8:30a Main Office Jesu Do III [facility] [address] J01.90 Office Visit 12/07/2015 8:00a [place] [address] J44.1 Office Visit 10/01/2005 10:15a Main Office Lissette Akers [facility] 01101 477.9 Office Visit 06/19/2004 3:00p Main Office Lissette Akers [facility] 21766 995.3 569.49 Office Visit 11/15/2003 11:15a Main Office Lissette Akers [facility] 27091 466.0 Plan of Care 10/24/2017 - Nishant Jones MDJ45.998 Other asthmaNew Medication:Doxycycline Hyclate 100 mgComments:Exacerbation again. Will treat with antibiotics this time , trying to avoid doing another course of steroids. His pulm appt is soon.J01.90 Acute sinusitis, unspecifiedComments:Seems to have a sinus infection in addition to his breathing issues, probably related.
[2017-10-29 14:39] VITALS: BP 135/94
== END 2017-10-29 14:40 | disposition home or self-care (01) ==
LOC: UCEAST 13:37
DX: J44.1 Chronic obstructive pulmonary disease with (acute) exacerbation (principal); R06.82 Tachypnea, not elsewhere classified; F12.90 Cannabis use, unspecified, uncomplicated; Z72.89 Other problems related to lifestyle
CPT/HCPCS: 93005; 96372; 99212; A9270-GY; G0463; J2930

== ENCOUNTER 2017-10-30 08:26 | Observation (INO) | payer OTHER ==
[2017-10-30] MEDS ORDERED: methylPREDNISolone 125 MG* 2 ML VIAL IV ONE (08:34)
[2017-10-30] MEDS ORDERED: Albuterol 2.5 MG/3 ML NEB.SOL* (0.083%) INH ONE (08:34)
[2017-10-30 09:39] LABS: Hematocrit 45 % (42-52); Hemoglobin 15.2 g/dl (14.0-18.0); Mean Corpuscular HGB Conc 34 g/dl (31-36); Mean Corpuscular Hemoglobin 29 pg (27-31); Mean Corpuscular Volume 85 fL (80-94); Mean Platelet Volume 7 um3 (7.4-10.4); Red Blood Count 5.29 10^6/ul (4.0-5.4); Red Cell Distribution Width 14 % (10.5-15); White Blood Count 14.5 10^3/ul (3.5-10.8)
[2017-10-30 09:54] LABS: Albumin 4.3 g/dL (3.2-5.2); BUN/Creatinine Ratio 14.1 (8-20); C Reactive Protein 5.47 mg/L (< 5.00); Calcium 9.6 mg/dL (8.6-10.3); EGFR Non-African American 85.5 (>60); Globulin 3.2 g/dL (2-4); Potassium 3.7 mmol/L (3.5-5.0); Total Bilirubin 0.3 mg/dL (0.2-1.0); Total Protein 7.5 g/dL (6.4-8.9)
[2017-10-30 09:56] LABS: Troponin I 0.01 ng/mL (<0.04)
--- NOTE | 2017-10-30 09:59 | RAD ---
HISTORY: Shortness of breath COMPARISONS: September 30, 2017 VIEWS: 1: frontal portable view of the chest at 9:38 AM FINDINGS: LINES AND TUBES: None. CARDIOMEDIASTINAL SILHOUETTE: The cardiomediastinal silhouette is normal for portable technique. PLEURA: The costophrenic angles are sharp. No pleural abnormalities are noted. LUNG PARENCHYMA: The lungs are clear. ABDOMEN: The upper abdomen is clear. There is no subphrenic gas. BONES AND SOFT TISSUES: No bone or soft tissue abnormalities are noted. IMPRESSION: NO ACTIVE CARDIOPULMONARY DISEASE.
[2017-10-30] MEDS ORDERED: Albuterol 2.5 MG/3 ML NEB.SOL* (0.083%) INH PRN (11:35)
[2017-10-30] MEDS ORDERED: Ondansetron INJ* 2 MG/ML VIAL IV PRN (11:35)
[2017-10-30] MEDS ORDERED: Acetaminophen TAB* 325 MG PO PRN (11:35)
[2017-10-30] MEDS ORDERED: Cetirizine* 10 MG TAB PO PRN (11:44)
[2017-10-30] MEDS ORDERED: Iohexol 300* (CONTRAST) 10 ML SDV IV SCH (11:53)
--- NOTE | 2017-10-30 12:46 | RAD ---
INDICATION: Shortness of breath COMPARISON: Multiple prior chest x-rays, most recently from the same date. TECHNIQUE: Axial source images of the chest were acquired after the injection of 80 mL Omnipaque 300 intravenous contrast from just above the lung apices to the base of the diaphragm. Coronal and sagittal reconstructed images were acquired. FINDINGS: There are mild scattered foci of groundglass attenuation, the larger areas involving the upper midline and left upper lobe and medial aspect of the left upper lobe. In the dependent portion of the right lower lobe (image 32) there is a pleural-based 4 mm calcified granuloma. The lungs are otherwise grossly clear. The heart is normal in size. There is no evidence of pericardial effusion. There is no evidence of aortic aneurysm or dissection. There is no mediastinal, hilar, or axillary lymphadenopathy. The osseous structures appear normal. Limited views of the upper abdomen show no abnormalities. IMPRESSION: Very mild scattered groundglass attenuation seen in the upper lobes is a nonspecific finding with a lengthy differential that could be seen secondary to pneumonitis, early ARDS, chemical inhalation injury or mild pulmonary edema.
[2017-10-30] MEDS: NS 0.9% 1000 ML* 1,000 ML IV SCH (12:52)
--- NOTE | 2017-10-30 13:11 | HP ---
HISTORY AND PHYSICAL: * ADDENDUM: Mr. Prakash is a 37-year-old male with a history of asthma who was seen at Dr. Blackburn's office today for asthma exacerbation. It appears that the patient failed outpatient treatment with doxycycline and steroids and he was sent to the emergency room for evaluation. He is going to be admitted for further management with intravenous steroids and antibiotics for his asthma exacerbation. For further details of the patient's and plan, please see history and physical dictated by Jorge L Gutierrez on 10/30/17 with which I agree. [id number]/[facility] #: [id number] MTDD
[2017-10-30] MEDS: cefTRIAXone VIAL(*) 1,000 MG in D5W 50 ML BAG* 50 ML IVPB SCH (13:13)
[2017-10-30] MEDS: Albuterol/Ipratropium NEB.SOL* Albuterol 2.5 MG/Ipratropium 0.5 MG 3 ML INH SCH ×4 (13:19→23:51)
--- NOTE | 2017-10-30 13:46 | PN ---
Progress Note - Progress Note Date of Service: 10/30/17 - Pulm f/u note Note: Pt was seen this morning for new pt pulm visit for evaluation of asthma. Pt was noted to be in severe asthma eacerbation and was sent to hospital for admission Pt was seen at bedside again, still continues to be dyspneic, exam unchanged, was receivig neb treatments Plan discussed with Jorge L Gutierrez, pt to c/w IV solumedrol 60mg IV q 8hrs, nebs q 4 hrs To be started on Dulera Steroid taper as per clinical response, anticipate will need slow taper Labs reviewed, CT chest reviewed, likely viral PNA or inflammatory sec to aspiration of ammonia vapors recently
--- NOTE | 2017-10-30 15:06 | HP ---
ATTENDING ADDENDUM NOW INCLUDED ON THIS REPORT CC: Dr. Jones; Dr. Blackburn * HISTORY AND PHYSICAL: DATE OF ADMISSION: 10/30/17 ATTENDING PHYSICIAN WHILE IN THE HOSPITAL: Dr. Emilia Mcgee * (report dictated by Jorge L Gutierrez NP). PRIMARY CARE PROVIDER: Dr. Jones. CONSULTING AMMONIA PRINT OPERATOR: Dr. Blackburn. CHIEF COMPLAINT: 1. Cough. 2. Shortness of breath. HISTORY OF PRESENT ILLNESS: Mr. Prakash is a 37-year-old male patient. He does carry a history of asthma and a history in the past of apparent perirectal abscess. He comes into the ER today stating that for the last he has had progressive worsening shortness of breath. He has had several episodes within the last year requiring steroid tapers and antibiotics. He does state that he has smoked marijuana, in addition to this he states that he recently had some sick contacts. He has been having a runny nose, coughing. He has been bringing up some yellow- type sputum. He has not had any fever or chills. He had one episode of diarrhea. He says he is more short of breath. He is having dyspnea on exertion with minimal exertion. He just cannot seem to get better. He was recently on outpatient steroids in the form of prednisone and a Z-Harshad. He saw Dr. Blackburn today for a routine appointment. It was actually an initial appointment to establish care with Pulmonology, and she evaluated him and was concerned that he might need more aggressive therapy, so he was sent to the ER and we are asked to evaluate for admission. He does deny any orthopnea. Denies any weight gain. He denies any abdominal discomfort or any chest discomfort. PAST MEDICAL HISTORY: Significant for: 1. Asthma. 2. He has had a perianal abscess. PAST SURGICAL HISTORY: He has had trigger finger repair. HOME MEDICATIONS: His home meds, according to the list, include: 1. Claritin 10 mg daily as needed. 2. Doxycycline 100 mg p.o. b.i.d. 3. Albuterol 2 puffs inhaled every 4hours as needed. 4. Singulair 10 mg daily. 5. Atrovent 0.5 mg inhaled b.i.d. as needed. 6. Flonase 2 sprays both nares daily as needed. 7. Flovent 2 puffs inhaled daily in the morning. 8. Ventolin 2.5 mg inhaled every 4 hours as needed. ALLERGIES TO MEDICATIONS: Includes IBUPROFEN and NAPROXEN. FAMILY HISTORY: He says both his parents are smokers, but to his knowledge there are no reports of lung disease, heart attacks, stroke or cancers. SOCIAL HISTORY: He does not smoke. He does have a history of smoking marijuana. He is . Surrogate decision is his . REVIEW OF SYSTEMS: There was no documented fever. He denies any significant weight change. There was no double vision. He denies having any ear discharge. He denied having any rhinorrhea. No sore throat or thyroid enlargement. Denied having any chest pain. No orthopnea. No nocturnal dyspnea. He does admit to dyspnea on exertion. No chest pain. No abdominal pain. No nausea. No vomiting. No dysuria. No frequency. There was no seizure. No loss of consciousness. No pruritus and no skin ulcerations. Review of 14- systems completed, all others were negative. PHYSICAL EXAMINATION GENERAL: At this time, Mr. Prakash is a 37-year-old male patient, appears to be well nourished, well developed. He is sitting in the ED stretcher. He appears to be in mild amount of respiratory distress. VITAL SIGNS: Blood pressure 126/78, pulse 105, respirations 18, O2 sat 95%, temperature 98.5. HEENT: Head: Atraumatic. Eyes: Sclerae anicteric and not pale. Throat: Oral mucosa appears to be moist. No oropharyngeal erythema. NECK: Supple. LUNGS: He had wheezing noted, expiratory, throughout. Good diaphragmatic expansion. HEART: Sounds S1, S2. He is tachycardic. ABDOMEN: Soft, flat, nontender. Bowel sounds present. EXTREMITIES: Pulses were 2+ throughout. He is able to move all 4 extremities. 5/5 strength. NEUROLOGICAL: The patient is awake, alert, and oriented x3. Tongue is midline. Body Corporate Manager are equal. No gross focal deficits. SKIN: Intact. DIAGNOSTIC STUDIES/LABORATORY DATA: WBC 14.5, RBC of 5.29, hemoglobin of 15.2 , hematocrit of 45, platelet count of 361. INR 0.85. PTT at 26. D-dimer less than 200. Sodium was 138, potassium 3.7, chloride of 103, bicarb 27, BUN 14, creatinine 0.99, glucose 93, lactate 2.4, calcium 9.6. Total bilirubin 0.3, AST 35, ALT 25, alk phos was 71. CK was 901, CK-MB was 9.7. His troponin was 0.01. His BNP was 19, albumin was 4.3. He did have a chest x-ray obtained today, impression: No active cardiopulmonary disease. He did have an EKG obtained today, showing a normal sinus rhythm. No ST elevations or T-wave inversions. Compared to previous EKG, it does appear that he has LVH, can considered it, but appears to be unchanged from this EKG, with the exception in V3 his QRS is significantly larger compared to today's V3. Old medical records reviewed. ASSESSMENT AND PLAN: Mr. Prakash is a 37-year-old male patient coming into the ED today with complaints of cough, shortness of breath, progressively getting worse over the last week. He has had several exacerbations, he says, throughout the year. We were asked to evaluate for admission. He will be admitted under observation status for: 1. Asthma exacerbation. I did touch base with Dr. Blackburn. The plan at this point is we will put him on Dulera nebs every 3 hours, p.r.n. albuterol, steroids, antibiotics in the form of azithromycin and ceftriaxone. We will get Legionella antigen, Strep pneumo antigen, flu swab, and sputum culture. He has , according to Dr. Blackburn, had Alpha-1 Antitrypsin testing, which was negative. Once he is off steroids, Dr. Blackburn will initiate more workup for other lung disorders and checking IgG levels. At this point though we are going to hold off on checking those because of the steroids. I am going to get a CT of the chest because he reports that he does smoke marijuana, in addition to this apparently he did inhale some ammonia. So, we will check a CT of the chest to see if there has been any lung damage and we will continue to treat him aggressively. Again, he needs to follow closely with Dr. Blackburn and I did put a consult in for her. 2. Elevated creatine kinase. Again, unclear etiology of this, but I will trend these. We will hydrate and we will follow. 3. Lactic acidosis, probably related to him being hypoxic. We will trend this and hydrate him. 4. Leukocytosis. At this point, I will also get blood cultures if they have not already been ordered. It is probably secondary to steroids as this does not appear to be pneumonia on the x-rays. So, at this point we will check blood cultures and we will follow. 5. DVT prophylaxis. Place on heparin subcu. 6. Code status: Full code. 7. Fluids, electrolytes, and nutrition: He can have a regular diet. TIME SPENT: Time spent on admission was 60 minutes, greater than half of that time was spent vuil-uh-xnxu with the patient obtaining my history and physical, the other half time was spent going over the plan of care with the patient and implementing plan of care. I did discuss the plan of care with my attending, Dr. Mcgee, she is in agreement. JORGE L GUTIERREZ NP ADDENDUM: Mr. Prakash is a 37-year-old male with a history of asthma who was seen at Dr. Blackburn's office today for asthma exacerbation. It appears that the patient failed outpatient treatment with doxycycline and steroids and he was sent to the emergency room for evaluation. He is going to be admitted for further management with intravenous steroids and antibiotics for his asthma exacerbation. For further details of the patient's and plan, please see history and physical dictated by Jorge L Gutierrez on 10/30/17 with which I agree. EMILIA MCGEE MD [id number] #: [id number] #: [id number] GERARDO
[2017-10-30] MEDS: Azithromycin IV(*) 500 MG in D5W 250 ML BAG* 250 ML IVPB SCH (15:27)
[2017-10-30] MEDS: methylPREDNISolone 125 MG* 2 ML VIAL IV SCH (15:30)
[2017-10-30] MEDS: Heparin VIAL(*) 5000 UNITS/ML VIAL (FIVE THOUSAND) SUBCUT SCH (15:31)
[2017-10-30] MEDS: Mometasone/Formoter 200/5 MDI INH SCH (19:40)
[2017-10-30] MEDS ORDERED: Ziprasidone IM INJ* 20 MG/ML VIAL IM ONE (21:31)
[2017-10-30] MEDS ORDERED: LORazepam INJ* 2 MG/ML 1 ML VIAL IV ONE (21:40)
[2017-10-30] MEDS ORDERED: LORazepam INJ* 2 MG/ML 1 ML VIAL ONE (21:44)
[2017-10-31] MEDS: NS 0.9% 1000 ML* 1,000 ML IV SCH ×3 (00:23→18:32)
[2017-10-31] MEDS ORDERED: Benzonatate CAP* 100 MG PO PRN (01:20)
[2017-10-31] MEDS: methylPREDNISolone 125 MG* 2 ML VIAL IV SCH ×2 (02:00→08:38)
[2017-10-31 02:53] LABS: Urine Bilirubin Negative (Negative); Urine Glucose Negative (Negative); Urine Nitrite Negative (Negative)
[2017-10-31] MEDS: Heparin VIAL(*) 5000 UNITS/ML VIAL (FIVE THOUSAND) SUBCUT SCH ×3 (03:03→14:54)
[2017-10-31] MEDS ORDERED: ALPRAZolam TAB* 0.5 MG PO PRN (03:59)
[2017-10-31 07:21] LABS: Hematocrit 43 % (42-52); Hemoglobin 14.3 g/dl (14.0-18.0); Mean Corpuscular HGB Conc 34 g/dl (31-36); Mean Corpuscular Hemoglobin 29 pg (27-31); Mean Corpuscular Volume 85 fL (80-94); Mean Platelet Volume 8 um3 (7.4-10.4); Red Blood Count 5.02 10^6/ul (4.0-5.4); Red Cell Distribution Width 14 % (10.5-15); White Blood Count 15.8 10^3/ul (3.5-10.8)
[2017-10-31 07:37] LABS: BUN/Creatinine Ratio 15.1 (8-20); Calcium 9.2 mg/dL (8.6-10.3); EGFR African American 129.4 (>60); EGFR Non-African American 100.6 (>60); Potassium 3.8 mmol/L (3.5-5.0)
[2017-10-31] MEDS: Albuterol/Ipratropium NEB.SOL* Albuterol 2.5 MG/Ipratropium 0.5 MG 3 ML INH SCH ×5 (07:43→19:27)
[2017-10-31] MEDS: Mometasone/Formoter 200/5 MDI INH SCH ×2 (07:59→19:30)
[2017-10-31] MEDS ORDERED: Montelukast Sodium TAB* 10 MG PO SCH (09:00)
--- NOTE | 2017-10-31 11:01 | PN ---
Subjective Date of Service: 10/31/17 Interval History: Patient seen and examined at bedside. Patient in room with . Reports feeling jittery from IV steroids and not sleeping well due to frequent interruptions. During our discussion, patient was notably short of breath. He reports a mostly non-productive cough, though he states that he feels he is getting some improvement to his respiratory effort. He denies CP currently, as well as fever/chills, abd pain, n/v. He is still having to use his rescue albuterol inhaler frequently throughout the day. Discussed clustering care in order to obtain better sleep. Will attempt to retime therapies to help patient with clustering care. Family History: Unchanged from Admission Social History: Unchanged from Admission Past Medical History: Unchanged from Admission Objective Active Medications: Acetaminophen (Tylenol Tab*) 650 mg PO Q4H PRN PRN Reason: FEVER/PAIN Albuterol (Ventolin 2.5 Mg/3 Ml Neb.Iwona*) 2.5 mg INH Q2H PRN PRN Reason: SOB/WHEEZING Albuterol/Ipratropium (Duoneb (Albuterol 2.5 Mg/Ipratropium 0.5 Mg)) 1 neb INH [id number] Last Admin: 10/31/17 07:58 Dose: 1 neb Alprazolam (Xanax Tab*) 0.5 mg PO TID PRN PRN Reason: AGITATION Benzonatate (Tessalon Cap*) 200 mg PO TID PRN PRN Reason: COUGH Last Admin: 10/31/17 02:00 Dose: 200 mg Cetirizine HCl (Zyrtec*) 10 mg PO DAILY PRN PRN Reason: Allergy Symptoms Heparin Sodium (Porcine) (Heparin Vial(*)) 5,000 units SUBCUT Q8HR [facility] Last Admin: 10/31/17 08:38 Dose: 5,000 units Sodium Chloride (Ns 0.9% 1000 Ml*) 1,000 mls @ 125 mls/hr IV PER RATE [facility] Last Admin: 10/31/17 08:36 Dose: 125 mls/hr Ceftriaxone Sodium 1,000 mg/ (Dextrose) 50 mls @ 200 mls/hr IVPB Q24H [facility] Last Admin: 10/30/17 13:13 Dose: 200 mls/hr Azithromycin 500 mg/ Dextrose 250 mls @ 250 mls/hr IVPB Q24H [facility] Stop: 11/01/17 12:29 Last Admin: 10/30/17 15:27 Dose: 250 mls/hr Azithromycin 500 mg/ Sodium (Chloride) 250 mls @ 250 mls/hr IVPB Q24H [facility] Iohexol (Omnipaque 300* (Contrast)) 80 ml IV ONCE [facility] Stop: 11/01/17 11:52 Last Admin: 10/30/17 12:16 Dose: 80 ml Methylprednisolone Sodium Succinate (Solu-Medrol 125mg *) 60 mg IV Q8H [facility] Last Admin: 10/31/17 08:38 Dose: 60 mg Mometasone Furoate/Formoterol Fumar (Dulera 200/5 Mdi*) 2 puff INH BID [facility] Last Admin: 10/31/17 07:59 Dose: 2 puff Montelukast Sodium (Singulair Tab*) 10 mg PO DAILY [facility] Ondansetron HCl (Zofran Inj*) 4 mg IV Q6H PRN PRN Reason: NAUSEA Vital Signs - 8 hr 10/31/17 10/31/17 10/31/17 03:10 03:12 08:00 Temperature 98.0 F Pulse Rate 102 110 Respiratory 18 18 14 Rate Blood Pressure 125/94 (mmHg) O2 Sat by Pulse 96 94 Oximetry Oxygen Devices in Use Now: None Appearance: Young male, tachypneic, becomes more short of breath with conversation Eyes: No Scleral Icterus, PERRLA Ears/Nose/Mouth/Throat: Mucous Membranes Moist Neck: NL Appearance and Movements; NL JVP Respiratory: Symmetrical Chest Expansion and Respiratory Effort, - - Patient with expiratory wheezing to bilateral bases, coarse breath sounds with rales noted in upper lobes Cardiovascular: NL Sounds; No Murmurs; No JVD, RRR - tachycardic, AP 108 Abdominal: NL Sounds; No Tenderness; No Distention Extremities: No Edema, No Clubbing, Cyanosis Skin: No Rash or Ulcers Neurological: Alert and Oriented x 3, NL Muscle Strength and Tone Lines/Tubes/Other Access: Clean, Dry and Intact Peripheral IV Nutrition: Taking PO's Result Diagrams: 10/31/17 06:29 10/31/17 06:29 Microbiology and Other Data: Microbiology 10/31/17 02:10 Legionella Urinary Antigen - Final Urine Negative Legionella Streptococcus pneumoniae Ag Screen - Final Negative S. pneumo Antigen 10/30/17 22:00 Gram Stain - Final Sputum Expectorated Diagnostic Imaging: Portable CXR: COMPARISONS: September 30, 2017 VIEWS: 1: frontal portable view of the chest at 9:38 AM FINDINGS: LINES AND TUBES: None. CARDIOMEDIASTINAL SILHOUETTE: The cardiomediastinal silhouette is normal for portable technique. PLEURA: The costophrenic angles are sharp. No pleural abnormalities are noted. LUNG PARENCHYMA: The lungs are clear. ABDOMEN: The upper abdomen is clear. There is no subphrenic gas. BONES AND SOFT TISSUES: No bone or soft tissue abnormalities are noted. IMPRESSION: NO ACTIVE CARDIOPULMONARY DISEASE. CT Chest: FINDINGS: There are mild scattered foci of groundglass attenuation, the larger areas involving the upper midline and left upper lobe and medial aspect of the left upper lobe. In the dependent portion of the right lower lobe (image 32) there is a pleural-based 4 mm calcified granuloma. The lungs are otherwise grossly clear. The heart is normal in size. There is no evidence of pericardial effusion. There is no evidence of aortic aneurysm or dissection. There is no mediastinal, hilar, or axillary lymphadenopathy. The osseous structures appear normal. Limited views of the upper abdomen show no abnormalities. IMPRESSION: Very mild scattered groundglass attenuation seen in the upper lobes is a nonspecific finding with a lengthy differential that could be seen secondary to pneumonitis, early ARDS, chemical inhalation injury or mild pulmonary edema. Assess/Plan/Problems-Billing Assessment: Mr. Prakash is a 37 yo male with a history of asthma and marijuana use who presented to the ED on 10/30/17 with concern for progressively worsening cough and shortness of breath, having failed outpatient steroids and doxycycline; he was admitted with concern for asthma exacerbation with possible viral pneumonia vs inflammation from ammonia vapors. - Patient Problems (1) Asthma exacerbation Code(s): J45.901 - UNSPECIFIED ASTHMA WITH (ACUTE) EXACERBATION Comment: Patient still visibly tachypneic and requiring multiple uses of rescue albuterol Requested to stop IV steroids, but I explained my concern for his respiratory status. Will likely need slow steroid wean; plan to wean IV steroids over next 24 hours and start prednisone on 11/01. Appreciate pulm consult - CT reviewed; question of viral pneumonia vs inflammatory injury from ammonia inhalation. Continue azithromycin and ceftriaxone (previously failed outpt doxycycline) Will need continued pulm follow-up to complete lung evaluation as outpatient. (2) Elevated CK Code(s): R74.8 - ABNORMAL LEVELS OF OTHER SERUM ENZYMES Comment: Suspect secondary to acute inflammation Stable yesterday at 905 Add on to labs this AM, continue to monitor (3) Lactic acidosis Code(s): E87.2 - ACIDOSIS Comment: Likely secondary to hypoxia 2.4 and 2.5 yesterday Recheck today and monitor for resolution (4) Leukocytosis Code(s): D72.829 - ELEVATED WHITE BLOOD CELL COUNT, UNSPECIFIED Comment: Possibly secondary to steroid use but also could be secondary to viral pneumonia /inflammation Negative legionella and s. pneumoniae antigens Blood cx with no growth at this time Afebrile Continue abx treatment (5) DVT prophylaxis Comment: SQ heparin Status and Disposition: OBV admit. Discharge to home when medically stable.
[2017-10-31] MEDS: cefTRIAXone VIAL(*) 1,000 MG in D5W 50 ML BAG* 50 ML IVPB SCH (12:57)
[2017-10-31] MEDS ORDERED: Moisturizing CREAM* 120 GM JAR TOPICAL SCH (14:30)
[2017-10-31] MEDS: Azithromycin IV(*) 500 MG in D5W 250 ML BAG* 250 ML IVPB SCH (14:54)
[2017-10-31 15:00] LABS: C Reactive Protein 2.4 mg/L (< 5.00)
[2017-10-31 15:53] VITALS: BP 124/72
[2017-10-31] MEDS ORDERED: NS 0.9% 1000 ML* 1,000 ML IV SCH (16:15)
[2017-10-31] MEDS ORDERED: methylPREDNISolone 125 MG* 2 ML VIAL IV SCH (20:00)
--- NOTE | 2017-11-01 03:51 | ED ---
Natasha Berumen Gabriel, scribed for Aiyana Hogan MD on 10/30/17 at 0905 . Shortness of Breath - HPI Summary HPI Summary: This patient is a 37 year old M presenting to [facility] accompanied by with a chief complaint of SOB since 2 weeks prior. The patient rates the pain 5/10 in severity. Patient reports wheezing, nausea, cough, and vomiting. Patient denies calf edema and pain. Patient has a history of asthma and COPD. Pt was seen by Dr. Blackburn in her office today and referred directly to the ED for failed outpt treatment of asthmatic exacerbation after doxycycline and oral systemic steroids. Pt was diagnosed as COPD by a [employer] supervisor payroll, however pt states he had "bronchitis" when that testing was done. Pt does not smoke cigarettes, but does smoke marijuana. Did receive his flu shot. C/O rhinorrhea , no ST or ear pain. - History of Current Complaint Chief Complaint: EDShortnessOfBreath Time Seen by Provider: 10/30/17 08:33 Hx Obtained From: Patient, Other: - Dr. Blackburn Onset/Duration: Gradual Onset, Lasting Weeks - 2, Still Present Timing: Constant Current Severity: Moderate Dyspnea At: Exertion Aggrevating Factors: Nothing Alleviating Factors: Nothing Associated Signs & Symptoms: Cough (Nonproductive), Wheezing, Nasal Congestion - Allergy/Home Medications Allergies/Adverse Reactions: Allergies Allergy/AdvReac Type Severity Reaction Status Date / Time Ibuprofen Allergy ATTACKS Verified 10/30/17 08:30 RESPIRATORY SYSTEM, LUNGS COLLAPSE Naproxen Allergy Anaphylatic Verified 10/30/17 08:30 Shock SEASONAL / ENVIRONMENTAL Allergy SNEEZE, Uncoded 10/29/17 13:51 WATERY ITCHY EYES Home Medications: Home Medications DOXYcycline CAP(*) [DOXYcycline 100MG CAP(*)] 100 mg PO BID 10/30/17 [History Confirmed 10/30/17] Fluticasone DISKUS 250 MCG(NF) [Flovent Diskus 250 MCG(NF)] 2 puff INH QAM 10/30 [History Confirmed 10/30/17] Fluticasone NASAL SPRAY 50MCG* [Flonase NASAL SPRAY 50MCG*] 2 spray BOTH NARES DAILY PRN 10/30/17 [History Confirmed 10/30/17] Ipratropium 0.5MG/2.5ML NEB* [Atrovent 0.5 MG NEB.REN*] 0.5 mg INH BID PRN 10/30 [History Confirmed 10/30/17] LoraTADine TAB(NF) [Claritin 10 MG TAB(NF)] 10 mg PO DAILY PRN 10/30/17 [ History Confirmed 10/30/17] PMH/Surg Hx/FS Hx/Imm Hx Previously Healthy: No Endocrine/Hematology History: Denies: Hx Diabetes, Hx Thyroid Disease Cardiovascular History: Denies: Hx Hypertension Respiratory History: Reports: Hx Asthma, Hx Chronic Bronchitis, Hx Chronic Obstructive Pulmonary Disease (COPD), Hx Pneumonia GI History: Denies: Hx Ulcer Sensory History: Denies: Hx Contacts or Glasses, Hx Hearing Aid Opthamlomology History: Denies: Hx Contacts or Glasses Neurological History: Denies: Hx Dementia, Hx Migraine, Hx Seizures, Hx Transient Ischemic Attacks (TIA) Psychiatric History: Denies: Hx Anxiety, Hx Depression, Hx Schizophrenia, Hx Bipolar Disorder - Surgical History Surgery Procedure, Year, and Place: BILATERAL HANDS TENDON REPAIR A CHILD,. SINUS SURGERY 2013 Hx Anesthesia Reactions: No - Immunization History Date of Tetanus Vaccine: unk Date of Influenza Vaccine: none Infectious Disease History: No Infectious Disease History: Denies: Hx Clostridium Difficile, Hx Hepatitis, Hx Human Immunodeficiency Virus (HIV), Hx of Known/Suspected MRSA, Hx Shingles, Hx Tuberculosis, Hx Known/ Suspected VRE, Hx Known/Suspected VRSA, History Other Infectious Disease, Traveled Outside the [place] in Last 30 Days - Family History Known Family History: Positive: None - Both parents are alive and well., Other - Patient denies a significant FHx Negative: Blood Disorder Family History: Neg RAD - Social History Occupation: Employed Full-time Lives: With Family Alcohol Use: Rare Hx Substance Use: Yes Substance Use Type: Reports: Marijuana Substance Use Comment - Amount & Last Used: former heavy use marijuana Hx Tobacco Use: No Smoking Status (MU): Never Smoked Tobacco Have You Smoked in the Last Year: Yes - occasional marijuana smoker Review of Systems Constitutional: Negative Cardiovascular: Negative Positive: Shortness Of Breath, Cough Positive: Vomiting, Nausea Musculoskeletal: Negative - calf pain Negative: Edema Neurological: Negative Psychological: Normal All Other Systems Reviewed And Are Negative: Yes Physical Exam - Summary Physical Exam Summary: Appearance: Well-appearing, Mildly distressed, Well-nourished, anxious about needle sticks Skin: Warm, color reflects adequate perfusion There is a dark irregular lesion about 2cm wide on right shoulder blade posteriorly. Head: Normal Head/Face appearance Eyes: Conjunctiva clear ENT: Normal appearance, Pharynx clear, TM's normal Neck: Supple, no nodes, no JVD Respiratory: Inspiratory and expiratory wheezing cannot take a deep breath without coughing. There are decreased breath sounds. +intercostal retractions, + barrel chest Cardio: RRR, No murmur, pulses normal, brisk capillary refill Abdomen: soft, nontender Musculoskeletal: Strength Intact/ ROM intact, no calf tenderness or edema Neuro: Alert, muscle tone normal,facial symmetry, speech normal, sensory/motor intact Psych: normal Triage Information Reviewed: Yes Vital Signs On Initial Exam: Initial Vitals Temp Pulse Resp BP Pulse Ox 98.5 F 101 18 119/68 94 10/30/17 08:30 10/30/17 08:30 10/30/17 08:30 10/30/17 08:30 10/30/17 08:30 Vital Signs Reviewed: Yes - Elisa Coma Scale Coma Scale Total: 15 Diagnostics - Vital Signs Vital Signs Temp Pulse Resp BP Pulse Ox 10/30/17 08:58 92 18 93 10/30/17 08:30 98.5 F 101 18 119/68 94 - Laboratory Lab Results: Lab Results 10/30/17 10/30/17 10/30/17 Range/Units 08:55 08:55 08:55 WBC (3.5-10.8) 10^3/ul RBC (4.0-5.4) 10^6/ul Hgb (14.0-18.0) g/dl Hct (42-52) % MCV (80-94) fL MCH (27-31) pg MCHC (31-36) g/dl RDW (10.5-15) % Plt Count (150-450) 10^3/ul MPV (7.4-10.4) um3 Neut % (Auto) (38-83) % Lymph % (Auto) (25-47) % [place] % (Auto) (1-9) % Eos % (Auto) (0-6) % Baso % (Auto) (0-2) % Absolute Neuts (auto) (1.5-7.7) 10^3/ul Absolute Lymphs (auto) (1.0-4.8) 10^3/ul Absolute Monos (auto) (0-0.8) 10^3/ul Absolute Eos (auto) (0-0.6) 10^3/ul Absolute Basos (auto) (0-0.2) 10^3/ul Absolute Nucleated RBC 10^3/ul Nucleated RBC % INR (Anticoag Therapy) 0.85 (0.77-1.02) APTT 26.3 (26.0-36.3) seconds D-Dimer, Quantitative < 200 (Less Than 230) ng/mL Sodium 138 (133-145) mmol/L Potassium 3.7 (3.5-5.0) mmol/L Chloride 103 (101-111) mmol/L Carbon Dioxide 27 (22-32) mmol/L Anion Gap 8 (2-11) mmol/L BUN 14 (6-24) mg/dL Creatinine 0.99 (0.67-1.17) mg/dL Est GFR ( Amer) 110.0 (>60) Est GFR (Non-Af Amer) 85.5 (>60) BUN/Creatinine Ratio 14.1 (8-20) Glucose 93 (70-100) mg/dL Lactic Acid (0.5-2.0) mmol/L Calcium 9.6 (8.6-10.3) mg/dL Total Bilirubin 0.30 (0.2-1.0) mg/dL AST 35 (13-39) U/L ALT 25 (7-52) U/L Alkaline Phosphatase 71 (34-104) U/L Total Creatine Kinase 901 H (10-223) U/L CK-MB (CK-2) 9.7 H (0.6-6.3) ng/mL Troponin I 0.01 (<0.04) ng/mL C-Reactive Protein 5.47 H (< 5.00) mg/L B-Natriuretic Peptide 19 ( - 100) pg/mL Total Protein 7.5 (6.4-8.9) g/dL Albumin 4.3 (3.2-5.2) g/dL Globulin 3.2 (2-4) g/dL Albumin/Globulin Ratio 1.3 (1-3) Influenza A (Rapid) (Negative) Influenza B (Rapid) (Negative) 10/30/17 10/30/17 10/30/17 Range/Units 08:55 08:55 09:53 WBC 14.5 H (3.5-10.8) 10^3/ul RBC 5.29 (4.0-5.4) 10^6/ul Hgb 15.2 (14.0-18.0) g/dl Hct 45 (42-52) % MCV 85 (80-94) fL MCH 29 (27-31) pg MCHC 34 (31-36) g/dl RDW 14 (10.5-15) % Plt Count 361 (150-450) 10^3/ul MPV 7 L (7.4-10.4) um3 Neut % (Auto) 74.8 (38-83) % Lymph % (Auto) 14.5 L (25-47) % [place] % (Auto) 9.6 H (1-9) % Eos % (Auto) 0.8 (0-6) % Baso % (Auto) 0.3 (0-2) % Absolute Neuts (auto) 10.8 H (1.5-7.7) 10^3/ul Absolute Lymphs (auto) 2.1 (1.0-4.8) 10^3/ul Absolute Monos (auto) 1.4 H (0-0.8) 10^3/ul Absolute Eos (auto) 0.1 (0-0.6) 10^3/ul Absolute Basos (auto) 0 (0-0.2) 10^3/ul Absolute Nucleated RBC 0.01 10^3/ul Nucleated RBC % 0.1 INR (Anticoag Therapy) (0.77-1.02) APTT (26.0-36.3) seconds D-Dimer, Quantitative (Less Than 230) ng/mL Sodium (133-145) mmol/L Potassium (3.5-5.0) mmol/L Chloride (101-111) mmol/L Carbon Dioxide (22-32) mmol/L Anion Gap (2-11) mmol/L BUN (6-24) mg/dL Creatinine (0.67-1.17) mg/dL Est GFR ( Amer) (>60) Est GFR (Non-Af Amer) (>60) BUN/Creatinine Ratio (8-20) Glucose (70-100) mg/dL Lactic Acid 2.4 H* (0.5-2.0) mmol/L Calcium (8.6-10.3) mg/dL Total Bilirubin (0.2-1.0) mg/dL AST (13-39) U/L ALT (7-52) U/L Alkaline Phosphatase (34-104) U/L Total Creatine Kinase (10-223) U/L CK-MB (CK-2) (0.6-6.3) ng/mL Troponin I (<0.04) ng/mL C-Reactive Protein (< 5.00) mg/L B-Natriuretic Peptide ( - 100) pg/mL Total Protein (6.4-8.9) g/dL Albumin (3.2-5.2) g/dL Globulin (2-4) g/dL Albumin/Globulin Ratio (1-3) Influenza A (Rapid) Negative (Negative) Influenza B (Rapid) Negative (Negative) Result Diagrams: 10/31/17 06:29 10/31/17 06:29 Lab Statement: Any lab studies that have been ordered have been reviewed, and results considered in the medical decision making process. - Radiology CXR Radiology Interpretation Completed By: Radiologist - NO ACTIVE CARDIOPULMONARY DISEASE. ED physician has reviewed this radiology report. - EKG 0843 Cardiac Rate: NL EKG Rhythm: Sinus Rhythm - at 93 BPM EKG Interpretation: nml AV/IV conduction, nml QTc, nml axis. EKG Comparison: No Significant Change - in comparison to EKG from 10/29/17 Re-Evaluation - Re-Evaluation First Eval Re-Evaluation Time: 09:50 - anxious about needlestick for ABG. ABG cancelled. Breathing improved, but still wheezing. Change: Improved Course/Dx - Course Course Of Treatment: given solumedrol 125mg IV,. albuterol nebs x 2. zofran and acetaminophen in the ED with some improvement of resps, but still with wheezes, expiratory, and scant retractions. hold on ABG due to pt anxiety about needlestick, defer to Dr. Blackburn for necessity. admit for further eval and treatment - Diagnoses Differential Diagnosis/HQI/PQRI: Positive: Asthma, Bronchitis, COPD Exacerbation , Pneumonia Provider Diagnoses: Acute asthma exacerbation - Physician Notifications Discussed Care of Patient With: Emilia Mcgee Time Discussed With Above Provider: 10:32 Instructed by Provider To: Admit As Inpatient Discharge - Discharge Plan Condition: Stable Disposition: ADMITTED TO [facility] The documentation as recorded by the Natasha marley Gabriel accurately reflects the service I personally performed and the decisions made by , Aiyana Hogan MD.
[2017-11-01] MEDS ORDERED: Azithromycin IV(*) 500 MG in NS 0.9% 250 ML* 250 ML IVPB SCH (12:30)
[2017-11-02] MEDS ORDERED: predniSONE TAB* 20 MG PO SCH (09:00)
== END 2017-10-31 20:00 | disposition left against medical advice (07) ==
LOC: ED 08:26 → MED 11:33
PROVIDERS: ADMIT Internal Medicine; ATTEND Hospitalist
DX: J45.901 Unspecified asthma with (acute) exacerbation (principal); R05 Cough; R09.81 Nasal congestion; Z87.09 Personal history of other diseases of the respiratory system; R06.02 Shortness of breath
CPT/HCPCS: 36415; 71010; 71260; 80048; 80053; 81003; 82550; 82553; 83605; 83880; 84484; 85025; 85379; 85610; 85730; 86140; 87040; 87070; 87205; 87502; 87899; 93005; 94640; 94760; 96372; 96374; 96375; 99284; A9270-GY; G0378; J0456; J0696; J1644; J2060; J2930; J3486; Q9967

== ENCOUNTER 2017-12-11 15:03 | Inpatient (IN) | payer OTHER ==
--- OUTSIDE RECORDS SUMMARY | 2017-12-11 15:17 | XMS REPORT ---
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 [place] [phone] Commercial Effective: 2014 Policy Number: Tyler Cook [id number] Medicaid PayID: [id number] [address] [place] [phone] Problems Date Description Provider Status Onset: Anaphylaxis [...] Form Strength Qnty SIG Indications Ordering Provider Azithromycin 11/29 Active Tablets 250mg 6tabs take 2 J01.90 Nishant /2017 tablets by Robert mouth one , MD time then take one daily for 4 days Prednisone 11/01 Active Tablets 20mg 20tab take 3 tabs J45.901 s by mouth x 3 [place]ks days, then 2 , MD tabs by mouth x 3 days, then 1 tab by mouth x 3 days then 1/2 tab by mouth x 4 days Doxycycline 10/24 Active Capsules 100mg 20cap [facility] Nishant Hyclate s mouth capsule [place] 2 times per , MD day for 10 days for infection Flovent Diskus 08/26 Active Aerosol 250mcg/Bl 60uni inhale one J45.21 ist ts puff by mouth [place] twice daily - , rinse mouth after use (replaces qvar) Ventolin HFA 07/31 Active Aerosol 108(90Bas 18uni Inhale One To J45.998 e) ts Two Puffs By Vonetjessika mcg/Act Mouth Every 4 , MD Hours as Needed For For Shortness Of Breath Montelukast 05/28 Active Tablets 10mg 30tab Take One [facility].99 Kristen Sodium s Tablet By Dorothea, Mouth Every ADMISSIONS DEAN-C Day Atrovent 03/24 Active Solution 0.02% 20uni Twice Daily ts Claritin-D 24 03/10 Active Tablets ER 10-240mg 30tab take one [facility].99 Nishant 24HR s tablet by Heetderalexia mouth every , MD day Ventolin 02/07 Active Nebulizer 0.083% Q4H Flonase 01/21 Active Suspension 50mcg/Act 1unit Every Day Unknown Allergy Relief s Flonase 10/01 Active Suspension 50mcg/Spr 2unit Two Sprays J30.9 Lissette /2005 ay s Each Nares A. Once Daily Zulma Akers.[facility] Albuterol 00 Active Nebulizer (2.5mg/3M 75uni inhale the Nishant Sulfate /0000 L) 0.083% ts contents of [place] one vial via , nebulizer every 4 hours as needed for wheezing as directed Ipratropium 00 Active Solution 0.02% 75uni Use 1 Ampule Nishant Cologne /0000 ts Via Nebulizer He[place]ks 3 To 4 Times , MD A Day as Directed Zithromax 09/30 Hx Tablets 250mg 1tabs .Today, Then Unknown Z-Harshad 1 Daily - 10/24 Deltasone 09/28 Hx Tablets 50mg 5tabs Every Day - 10/24 Bactrim DS 09/28 Hx Tablets 800-160mg 24tab Twice Daily s - 10/24 Prednisone 08/26 Hx Tablets 20mg 21tab take 3 J45.21 Laura s tablets x 3 P. - days, then 2 Blegen, 10/24 tablets x 3 M.D. days,then 1 tablet x 3 days, then 1/2 tablet x 3 days- take with food Prednisone 07/31 Hx Tablets 20mg 20tab take 3 tabs s by mouth x 3 Heetderks - days, then 2 , 08/26 tabs by mouth x 3 days, then 1 tab by mouth x 3 days then 1/2 tab by mouth x 4 days Augmentin 05/28 Hx Tablets 875-125mg 14tab 1 take by J45.998 s mouth tablet Dorothea, - every 12 ADMISSIONS DEAN-C 08/26 hours for days for infection Prednisone 04/19 Hx Tablets 20mg 10tab take 2 tabs J45.998 s by mouth Dorothea, - every day x 5 ADMISSIONS DEAN-C Amoxicillin 04/19 Hx Tablets 500mg 40tab 1 tab po qid s X 10 days David Piedra ADMISSIONS DEAN-C 05/28 Albuterol 04/19 Hx Nebulizer 0.63mg/3M 75uni Inhale The L ts Contents Of Dorothea, - One Vial Via ADMISSIONS DEAN-C 08/27 Nebulizer Every 4 To 6 Hours Amoxicillin 03/22 Hx Tablets 500mg 14tab take 1 tablet J02.9 s by mouth [place] - every 12 , 04/19 hours for days for infection Ventolin HFA 02/07 Hx Aerosol 108(90Bas 8gm every 4 hours e) as needed for Heet[place]ks - mcg/Act shortness of MD 07/31 breath Deltasone 01/21 Hx Tablets 50mg 5tabs Every Day - 02/07 Augmentin 01/21 Hx Tablets 500-125mg 20tab Twice Daily s - 07/28 Nystatin 10/26 Hx Suspension 548375Ssv 473ml swish and B37.9 Jesu /2015 t/ML swallow 5ml Hi - by mouth III, 04/19 three times a ADMISSIONS DEAN-C /2016 day for 7 days or until resolved Augmentin 09/17 Hx Tablets 875-125mg 14tab 1 take by [id number] s mouth tablet Olivier. Prabhakar, - every 12 ADMISSIONS DEAN-C 04/19 hours for days for infection Prednisone 09/17 Hx Tablets 20mg 9tabs 3 by mouth J45.998 nt every day x 3 Nina Radford, - days ADMISSIONS DEAN-C 04/19 Medrol 07/28 Hx TBPK 4mg 1unit .See Harshad s Instruction - 01/21 Zithromax 07/28 Hx Tablets 250mg 6tabs .Z-Harshad Unknown Z Instructions - 01/21 Zaditor 06/11 Hx Solution 0.025% 1unit Twice Daily s - 07/28 Deltasone 06/11 Hx Tablets 10mg 30tab Every Day s Repack - 09/17 Augmentin 06/11 Hx Tablets 500-125mg 20tab Twice Daily s - 09/17 Azithromycin 03/07 Hx Tablets 250mg 6tabs take 2 J45.998 Nishant tablets by Robert - mouth one MD 09/17 time take one daily for 4 days Claritin-D 24 03/07 Hx Tablets ER 10-240mg 30tab take one J45.998 Nishant Hour 24HR s tablet by Robert lyons MD Montelukast 01/29 Hx Tablets 10mg 30tab Take One J45.998 Nishant s Tablet By [place]ks - Mouth Every , /2016 Amoxicillin/Cl 01/23 Hx Tablets 875-125mg 20tab 1 tablet by J01.90 Jesu avulanate /2015 s mouth twice a [place] Potassium - day for 10 III, 09/17 days ADMISSIONS DEAN-C Qvar 12/07 Hx Aerosol 80mcg/Act 2unit inhale 2 Nishant s puffs by [place]ks - mouth 2 times , 10/24 per day for asthma Ventolin 11/11 Hx Nebulizer 0.083% Every Day prn For - Sob/Wheezing 02/07 Claritin 10/01 Hx Tablets 10mg 30tab 1 po qd 477.9 Lissette /2004 s A. - Oswald, 10/01 F.N.P.C. /2004 Clarinex 10/01 Hx Tablets 5mg 30tab 1 PO qd prn 477.9 Lissette /2004 s A. - Oswald, 12/07 F.N.P.C. /2015 Brissa 06/19 Hx Tablets 180mg 14tab 1 PO qd 995.3 Lissette /2004 s A. - Oswald, 12/07 F.N.P.C. /2015 Nasonex 06/19 Hx 1unit 2 Sprays Each 995.3 Lissette /2004 s Side qd A. - Oswald, 12/07 [...] 500mg 3tabs one po qd 466.0 Lissette /2004 A. - Oswald, 11/18 F.N.P.C. /2003 Immunizations CPT Code Status Date Vaccine Lot # [id number] Given 09/17/2016 Pneumovax 23 (PPSV23) 65+ years or high risk 2 to [id number] 65 year old [id number] Refused 01/24/2016 Influenza Virus Vaccine, Quadrivalent, 3 Yr > Quad, Preserv Free Vital Signs Date Vital Result Comment 11/29/2017 Weight 178.00 lb Weight in kg's 80.741 BP Systolic 100 mmHg BP Diastolic 68 mmHg Heart Rate 64 /min Body Temperature 98.0 F Respiratory Rate 16 /min 11/01/2017 Weight 171.00 lb Weight in kg's 77.566 BP Systolic 110 mmHg BP Diastolic 68 mmHg Heart Rate 82 /min Body Temperature 97.6 F Respiratory Rate 15 /min O2 % BldC Oximetry 98 % 10/24/2017 Weight 165.00 lb Weight in kg's [...] Test Date Test Result H/L Range Note Rapid Influenza A & 10/30/2017 Influenza A Molecular NEGATIVE Negative 1 B Molecular Influenza B Molecular NEGATIVE Negative CBC Auto Diff 10/30/2017 White Blood Count 14.5 10^3/uL High 3.5-10.8 Red Blood Count 5.29 10^6/uL 4.0-5.4 Hemoglobin 15.2 g/dL 14.0-18.0 Hematocrit 45 % 42-52 Mean Corpuscular Volume 85 fL 80-94 Mean Corpuscular Hemoglobin 29 pg 27-31 Mean Corpuscular HGB Conc 34 g/dL 31-36 Red Cell Distribution Width 14 % 10.5-15 Platelet Count 361 10^3/uL 150-450 Mean Platelet Volume 7 um3 Low 7.4-10.4 Abs Neutrophils 10.8 10^3/uL High 1.5-7.7 Abs Lymphocytes 2.1 10^3/uL 1.0-4.8 Abs Monocytes 1.4 10^3/uL High 0-0.8 Abs Eosinophils 0.1 10^3/uL 0-0.6 Abs Basophils 0 10^3/uL 0-0.2 Abs Nucleated RBC 0.01 10^3/uL Granulocyte % 74.8 % 38-83 Lymphocyte % 14.5 % Low 25-47 Monocyte % 9.6 % High 1-9 Eosinophil % 0.8 % 0-6 Basophil % 0.3 % 0-2 Nucleated Red Blood Cells % 0.1 Laboratory test finding 10/30/2017 Influenza A & B SEE RESULT BELOW 2 Request B-Type Natriuretic Peptide BNP 19 pg/mL 3 Comp Metabolic Panel 10/30/2017 Sodium 138 mmol/L 133-145 Potassium 3.7 mmol/L 3.5-5.0 Chloride 103 mmol/L 101-111 Co2 Carbon Dioxide 27 mmol/L 22-32 Anion Gap 8 mmol/L 2-11 Glucose 93 mg/dL 70-100 Blood Urea Nitrogen 14 mg/dL 6-24 Creatinine 0.99 mg/dL 0.67-1.17 BUN/Creatinine Ratio 14.1 8-20 Calcium 9.6 mg/dL 8.6-10.3 Total Protein 7.5 g/dL 6.4-8.9 Albumin 4.3 g/dL 3.2-5.2 Globulin 3.2 g/dL 2-4 Albumin/Globulin Ratio 1.3 1-3 Total Bilirubin 0.30 mg/dL 0.2-1.0 Alkaline Phosphatase 71 U/L 34-104 Alt 25 U/L 7-52 Ast 35 U/L 13-39 Egfr Non- 85.5 >60 Egfr 110.0 >60 4 Laboratory test finding 10/30/2017 Creatine Kinase 901 U/L High 10-223 C Reactive Protein 5.47 mg/L High < 5.00 5 Troponin-I (TnI) 0.01 ng/mL <0.04 CKMB 10/30/2017 CKMB ng/mL 9.7 ng/mL High 0.6-6.3 Inr/Protime 10/30/2017 Inr 0.85 0.77-1.02 6 Laboratory test finding 10/30/2017 Partial Thrombo Time 26.3 seconds 26.0 -36.3 PTT D Dimer Quantitative < 200 ng/mL Less Than 230 7 Lactic Acid 2.4 mmol/L High 0.5-2.0 8 Blood Culture SEE RESULT BELOW 9 Laboratory test 09/28/2017 Wound/Misc Culture-Gram SEE RESULT BELOW 10 , 11 finding Stain MRSA/S. aureus Ssti PCR SEE RESULT BELOW 10, 12 Laboratory test finding 02/07/2017 C Reactive Protein 1.88 mg/L < 5.00 13 Troponin-I (TnI) 0.00 ng/mL <0.04 14 Comp Metabolic Panel 02/07/2017 Sodium 138 mmol/L [...] Egfr Non- 98.6 >60 Egfr 126.7 >60 15 Laboratory test finding 02/07/2017 Lactic Acid 0.9 mmol/L 0.5-2.0 16 CBC Auto Diff 02/07/2017 White Blood Count [...] 0-2 Nucleated Red Blood Cells % 0 Urinalysis Profile 02/07/2017 Urine Color Straw Urine Appearance Clear Urine Specific [place] 1.011 1.010-1.030 Urine pH 6.0 5-9 Urine Urobilinogen Negative Negative Urine Ketones 1+ Negative Urine Protein Negative Negative Urine Leukocytes Negative Negative Urine Blood Negative Negative Urine Nitrite Negative Negative Urine Bilirubin Negative Negative Urine Glucose Negative Negative Laboratory test finding 10/26/2016 Strep Screen NEG Neg 1 Program Advocate: [id number] 2 SEE RESULT BELOW Name: BEATA COKO : [address]: Aiyana Hogan MD Acct: [id number] Unit: [id number] AGE: 37 Location: ED Re10/30/17 SEX: M Status: REG ER SPEC: [id number] EVIE: 10/30/17 [facility] [address]: Aiyana Hogan MD REQ: [id number] RECD: 10/30/17 STATUS: CLAIRE BOO DR: Nishant Jones MD _ SOURCE: [facility]: ORDERED: Flu A B Request Procedure Result Reported Site Rapid Influenza A B Request Final 10/30/17936 ML Specimen received for Influenza A/B Molecular testing * ML - MAIN LAB ([facility]) . END OF REPORT * ML=Testing performed at Main Lab DEPARTMENT OF PATHOLOGY, [address] [place] [address] Anuel Shane M.D. Director [facility] # [id number] 3 >100 to <200 pg/mL: likely compensated congestive heart failure (CHF) 200 to 400 pg/mL: likely moderate CHF >400 pg/mL: likely moderate to severe CHF 4 Because ethnic data is not always readily [...] 15-29 5 Kidney failure <15 (or dialysis) 5 Acute inflammation: >10.00 6 Please note the change in INR reference range effective 17. 7 Please note: The following may produce a false positive D Dimer test: - Rheumatoid factor greater than 60 IU/ml - Plasma hemoglobin greater than 0.05 gm/dl - Bilirubin greater than 50 mg/dl - Lipids greater than 1000 mg/dl - FDP greater than 20 ug/ml 8 Critical Result LACT:2.4 Called to PETER Maya at: 09:53:31 by:[id number] Read back by:PETER RAY Severe Sepsis and Septic Shock Management Bundle Measure requires all lactic acids initially measuring >2.0 mmol/L be repeated. 9 SEE RESULT BELOW Name: BEATA COOK : [address]: Karuna Daily DO Acct: [id number] Unit: [id number] AGE: 37 Location: [place] [address] Re10/30/17 SEX: M Status: ADM Portia SPEC: [id number] EVIE: 10/30/[address]: Aiyana Hogan MD REQ: [id number] RECD: 10/30/17 STATUS: RES RAJEEV DR: Nishant Jones MD _ SOURCE: BLOOD,VENO SPDESC: ORDERED: Blood Cult Procedure Result Reported Site Aerobic Culture Bottle Preliminary 10/31/17928 ML No Growth Day 1 Anaerobic Culture Bottle Preliminary 10/31/17928 ML No Growth Day 1 * ML - MAIN LAB ([facility]) . END OF REPORT * ML=Testing performed at Main Lab DEPARTMENT OF PATHOLOGY, [address] [place] [address] Anuel Shane M.D. Director [facility] # [id number] 11 SEE RESULT BELOW Name: BEATA COOK : [address]: Ernestina Avalos MD Acct: [id number] Unit: [id number] AGE: 37 Location: [facility] Re09/28/17 SEX: M Status: CELE ER SPEC: [id number] EVIE: 09/28/17-1834 [facility] [address]: Ernestina Avalos MD REQ: [id number] RECD: 09/29/172 STATUS: AVI BOO DR: Nishnat Jones MD _ SOURCE: WOUND SPDESC:RECTAL ORDERED: MRSA/SA SSTI, Culture Stain COMMENTS: [id number] Procedure Result Reported Site MRSA/S. aureus SSTI PCR PENDING Wound/Misc Gram Stain Final 09/29/17- 1435 ML 3+ Neutrophils 1+ Epithelial Cells No Organisms Seen Wound/Misc Culture Preliminary 09/30/17- 1148 ML Organism 1 STAPHYLOCOCCUS AUREUS Quantity 3+ * ML - MAIN LAB ([facility]) . END OF REPORT * ML=Testing performed at Main Lab DEPARTMENT OF PATHOLOGY, [address] [place] [address] Anuel Shane M.D. Director [facility] # [id number] 12 SEE RESULT BELOW Name: BEATA COOK : [address]: Ernestina Avalos MD Acct: [id number] Unit: [id number] AGE: 37 Location: [facility] Re09/28/17 SEX: M Status: DEP ER SPEC: [id number] EVIE: 09/28/17-[address]: Ernestina Avalos MD REQ: [id number] RECD: 09/29/17 STATUS: CLAIRE BOO DR: Nishant Jones MD _ SOURCE: WOUND SPDESC:RECTAL ORDERED: MRSA/SA SSTI, Culture Stain COMMENTS: [id number] Verbal to [place] [address]/[facility] by [id number] at 1202 on 09/30/17. Results read back [...] performed at Main Lab DEPARTMENT OF PATHOLOGY, [address] [place] [address] Anuel Shane M.D. Director [facility] # [id number] Patient: BEATA COOK [id number] (Continued) Specimen: [id number] Collected: 09/28/17 Received: 09/29/17 (Continued) Procedure Result Reported Site Wound/Misc Culture Final (continued) 10/02/17- 954 1. MRSA (continued) M.I.C. RX --------- ------ Nitrofurantoin <=16 S Oxacillin >=4 R * Quinupristin/Dalfopristin 0.5 S Rifampin <=0.5 S Tetracycline <=1 S Doxycycline - Deduced S * Minocycline - Deduced S Trimethoprim/Sulfamethoxazole <=10 S Vancomycin 1 S Imipenem-Deduced R * Ampicillin/Sulbactam-Deduced R Cefazolin-Deduced R * These antibiotics are not available in the [facility] Formulary Contact the Microbiology Department for any additional antibiotic reporting. * ML - MAIN LAB ([facility]) . END OF REPORT * ML=Testing performed at Main Lab DEPARTMENT OF PATHOLOGY, [address] [place] [address] Anuel Shane M.D. Director [facility] # [id number] 13 Acute inflammation: >10.00 14 99th percentile=0.04 ng/mL Troponin results at [facility] and [facility] are not interchangeable. 15 Because ethnic data is not always readily [...] 15-29 5 Kidney failure <15 (or dialysis) 16 [facility] Severe Sepsis and Septic Shock Management Bundle Measure requires all lactic acids initially measuring >2.0 mmol/L be repeated. Procedures Description No Information Encounters Type Date Location Provider CPT E/M Dx Office Visit 11/29/2017 11:30a [place] [address] J01.90 J45.901 Office Visit 11/01/2017 11:00a [place] [address] J45.901 F14.99 Office Visit 10/24/2017 10:30a [place] [address] J45.998 J01.90 Office Visit 10/02/2017 11:45a [place] [address] J45.998 L02.818 Office Visit 08/26/2017 11:45a Main Office Laura Vanessa M.D. 17782 J45.21 Office Visit 07/31/2017 10:45a [place] [address] J45.998 Office Visit 05/28/2017 11:45a Main Office JAMES Flaherty [address] J45.998 J30.9 Office Visit 04/19/2017 8:45a Main Office JAMES Flaherty 59261 J45.998 Office Visit 03/22/2017 11:30a [place] [address] J02.9 J45.998 Office Visit 12/24/2016 8:45a Main Office JAMES Chappell 60842 J20.9 Office Visit 10/26/2016 11:45a Main Office Jesu Do III, [facility] 107[address] B37.9 Office Visit 09/17/2016 5:00p [place] [address] J45.998 J01.90 Z23 Office Visit 03/07/2016 8:15a [place] [address] J45.998 J20.9 Office Visit 01/30/2016 9:00a [place] [address] J45.998 Office Visit 01/24/2016 8:30a Main Office Jesu Do III, [facility] [address]382 J01.90 Office Visit 12/07/2015 8:00a [place] [address] J44.1 Office Visit 10/01/2005 10:15a Main Office Lissette Akers [facility] 31765 477.9 Office Visit 06/19/2004 3:00p Main Office Lissette Akers [facility] 97008 995.3 569.49 Office Visit 11/15/2003 11:15a Main Office Lissette Akers [facility] 28285 466.0 Plan of Care 11/29/2017 - Nishant Jones MDJ01.90 Acute sinusitis, unspecifiedNew Medication:Azithromycin 250 mgJ45.901 Unspecified asthma with (acute) exacerbationComments:He has been able to avoid the use of cocaine successfully, however he has been persuaded to take a few puffs of marijuana. As always, there is a brief period of good breathing followed by an extended worsening of his respiratory status.Concurrently he has signs of a bacterial sinusitis, likely also worsening his ability to breathe.Will treat the sinus infection with azithromycin. I think we can get by without the steroids this time, his breathing seems to be improving. He has had a lot of oral steroid courses and we are trying to avoid using them too much. However, if he worsens obviously he needsthem if he needs them.I advised him to permanently stop smoking everything for the sake of his lungs.
--- OUTSIDE RECORDS SUMMARY | 2017-12-11 15:17 | XMS REPORT ---
:1980 External Reference #:[id number] Author Organization [facility] Address [address] [place] [address] Phone [phone] Care Team Providers Name Role Phone Nishant Jones MD Care Team Information Switch Coupler Unavailable Payers Type Date Identification Numbers Payment Provider Subscriber Commercial Effective: Policy Number: Tyler Cook 2015 [id number] Medicaid Expires: 2016 PayID: [id number] [address] [place] [phone] Commercial Effective: 2014 Policy Number: Tyler Cook [id number] Medicaid PayID: [id number] [address] [place] [phone] Problems Date Description Provider Status Onset: Anaphylaxis [...] Active Capsules 100mg 20cap [facility] Nishant Hyclate s mouth capsule Heetderks 2 times per , MD day for 10 days for infection Flovent Diskus 08/26 Active Aerosol 250mcg/Bl 60uni inhale one J45.21 ist ts puff by mouth Heetderks twice daily - , MD rinse mouth after use (replaces qvar) Ventolin HFA 07/31 Active Aerosol 108(90Bas 18uni Inhale One To J45.998 e) ts Two Puffs By Heetderalexia mcg/Act Mouth Every 4 , MD Hours as Needed For For Shortness Of Breath Montelukast 05/28 Active Tablets 10mg 30tab Take One [facility].99 Kristen Sodium s Tablet By Dorothea, Mouth Every CREDIT OFFICER-C Day Atrovent 03/24 Active Solution 0.02% 20uni Twice Daily ts Claritin-D 24 03/10 Active Tablets ER 10-240mg 30tab take one 45.99 24HR s tablet by Heetderalexia mouth every , MD day Ventolin 02/07 Active Nebulizer 0.083% Q4H Flonase 01/21 Active Suspension 50mcg/Act 1unit Every Day Unknown Allergy Relief s Flonase 10/01 Active Suspension 50mcg/Spr 2unit Two Sprays J30.9 Lissette /2005 ay s Each Nares A. Once Daily [facility] Ipratropium Active Solution 0.02% 75uni Use 1 Ampule Nishant [place] /0000 ts Via Nebulizer Heetderks 3 To 4 Times , MD A Day as Directed Albuterol 00 Active Nebulizer (2.5mg/3M 75uni inhale [...] 1 take by J45.998 s mouth tablet Droothea, - every 12 CREDIT OFFICER-C 08/26 hours for days for infection Prednisone 04/19 Hx Tablets 20mg 10tab take 2 tabs J45.998 s by mouth Dorothea, - every day x 5 CREDIT OFFICER-C Amoxicillin 04/19 Hx Tablets 500mg 40tab 1 tab po qid s X 10 days Dorothea - CREDIT OFFICER-C 05/28 Albuterol 04/19 Hx Nebulizer 0.63mg/3M 75uni Inhale The L ts Contents Of Dorothea, - One Vial Via CREDIT OFFICER-C 08/27 Nebulizer Every 4 To 6 Hours Amoxicillin 03/22 Hx Tablets 500mg 14tab take 1 tablet J02.9 s by mouth Robert - every 12 , 04/19 hours for days for infection Ventolin HFA 02/07 Hx Aerosol 108(90Bas 8gm every 4 hours e) as needed for Heetderks - mcg/Act shortness of MD 07/31 breath Deltasone 01/21 Hx Tablets 50mg 5tabs Every Day - 02/07 Augmentin 01/21 Hx Tablets 500-125mg 20tab Twice Daily s - 07/28 Nystatin 10/26 Hx Suspension 523218Chn 473ml swish and B37.9 Jesu /2015 t/ML swallow 5ml Hi - by mouth III, 04/19 three times a CREDIT OFFICER-C /2016 day for 7 days or until resolved Augmentin 09/17 Hx Tablets 875-125mg 14tab 1 take by [id number] s mouth tablet Olivier. Prabhakar, - every 12 CREDIT OFFICER-C 04/19 hours for days for infection Prednisone 09/17 Hx Tablets 20mg 9tabs 3 by mouth J45.998 nt every day x 3 Nina Radford, - days CREDIT OFFICER-C 04/19 Medrol 07/28 Hx TBPK 4mg 1unit [...] Jesu avulanate /2015 s mouth twice a [place] Potassium - day for 10 III, 09/17 days CREDIT OFFICER-C Qvar 12/07 Hx Aerosol 80mcg/Act 2unit inhale [...] CPT Code Status Date Vaccine Lot # [id number] Given 09/17/2016 Pneumovax 23 (PPSV23) 65+ years or high risk 2 to [id number] 65 year old [id number] Refused 01/24/2016 Influenza Virus Vaccine, Quadrivalent, 3 [...] Color Straw Urine Appearance Clear Urine Specific [place] 1.011 1.010-1.030 Urine pH 6.0 5-9 Urine Urobilinogen Negative Negative Urine Ketones 1+ Negative Urine Protein Negative Negative Urine Leukocytes Negative Negative Urine Blood Negative Negative Urine Nitrite Negative Negative Urine Bilirubin Negative Negative Urine Glucose Negative Negative Laboratory test finding 10/26/2016 Strep Screen NEG Neg 1 Scribing Machine Operator: [id number] 2 SEE RESULT BELOW Name: BEATA COOK : [address]: Aiyana Hogan MD Acct: [id number] Unit: [id number] AGE: 37 Location: ED Re10/30/17 SEX: M Status: REG ER SPEC: [id number] EVIE: 10/30/17 [facility] DR: Aiyana Hogan MD REQ: [id number] RECD: 10/30/17 STATUS: CLAIRE BOO DR: Nishant Jones MD _ SOURCE: [facility]: ORDERED: Flu A B Request Procedure Result Reported Site Rapid Influenza A B Request Final 10/30/17936 ML Specimen received for Influenza A/B Molecular testing * ML - MAIN LAB ([facility]) . END OF REPORT * ML=Testing performed at Main Lab DEPARTMENT OF PATHOLOGY, [address] [place] [address] Anuel Shane M.D. Director [facility] # [id number] 3 >100 to <200 pg/mL: likely compensated [...] LACT:2.4 Called to PETER Maya at: 09:53:31 by:[email or web address] Read back by:PETER RAY Severe Sepsis and Septic Shock Management Bundle Measure requires all lactic acids initially measuring >2.0 mmol/L be repeated. 9 SEE RESULT BELOW Name: BEATA COOK : [address]: Karuna Daily DO Acct: [id number] Unit: [id number] AGE: 37 Location: [place] [address] Re10/30/17 SEX: M Status: ADM Portia SPEC: [id number] EVIE: 10/30/[address]: Aiyana Hogan MD REQ: [id number] RECD: 10/30/17 STATUS: RES RAJEEV DR: Nishant Jones MD _ SOURCE: BLOOD,VENO SPDESC: ORDERED: Blood Cult Procedure Result Reported Site Aerobic Culture Bottle Preliminary 10/31/17928 ML No Growth Day 1 Anaerobic Culture Bottle Preliminary 10/31/17928 ML No Growth Day 1 * ML - MAIN LAB ([facility]) . END OF REPORT * ML=Testing performed at Main Lab DEPARTMENT OF PATHOLOGY, [address] [place] [address] Anuel Shane M.D. Director [facility] # [id number] 11 SEE RESULT BELOW Name: BEATA COOK : [address]: Ernestina Avalos MD Acct: [id number] Unit: [id number] AGE: 37 Location: [facility] Re09/28/17 SEX: M Status: CELE ER SPEC: [id number] EVIE: 09/28/17-1834 [facility] DR: Ernestina Avalos MD REQ: [id number] RECD: 09/29/171 STATUS: AVI BOO DR: Nishant Jones MD _ SOURCE: WOUND SPDESC:RECTAL ORDERED: MRSA/SA SSTI, Culture Stain COMMENTS: [id number] Procedure Result Reported Site MRSA/S. aureus SSTI PCR PENDING Wound/Misc Gram Stain Final 09/29/17- 1435 ML 3+ Neutrophils 1+ Epithelial Cells No Organisms Seen Wound/Misc Culture Preliminary 09/30/17- 1148 ML Organism 1 STAPHYLOCOCCUS AUREUS Quantity 3+ * ML - MAIN LAB ([facility]) . END OF REPORT * ML=Testing performed at Main Lab DEPARTMENT OF PATHOLOGY, [address] [place] [address] Anuel Shane M.D. Director [facility] # [id number] 12 SEE RESULT BELOW Name: BEATA COOK : [address]: Ernestina Avalos MD Acct: [id number] Unit: [id number] AGE: 37 Location: [facility] Re09/28/17 SEX: M Status: DEP ER SPEC: [id number] EVIE: 09/28/17-[address]: Ernestina Avalos MD REQ: [id number] RECD: 09/29/17 STATUS: CLAIRE BOO DR: Nishant Jones MD _ SOURCE: WOUND SPDESC:RECTAL ORDERED: MRSA/SA SSTI, Culture Stain COMMENTS: [id number] Verbal to [place] [address]/[facility] by [id number] at 1202 on 09/30/17. Results read back [...] performed at Main Lab DEPARTMENT OF PATHOLOGY, [address] [place] [address] Anuel Shane M.D. Director [facility] # [id number] Patient: BEATA COOK [id number] (Continued) Specimen: [id number] Collected: 09/28/17 Received: 09/29/17 (Continued) Procedure Result [...] These antibiotics are not available in the [facility] Formulary Contact the Microbiology Department for any additional antibiotic reporting. * ML - MAIN LAB ([facility]) . END OF REPORT * ML=Testing performed at Main Lab DEPARTMENT OF PATHOLOGY, [address] [place] [address] Anuel Shane M.D. Director [facility] # [id number] 13 Acute inflammation: >10.00 14 99th percentile=0.04 ng/mL Troponin results at [facility] and [facility] are not interchangeable. 15 Because ethnic [...] 5 Kidney failure <15 (or dialysis) 16 [facility] Severe Sepsis and Septic Shock Management Bundle Measure requires all lactic acids initially measuring >2.0 mmol/L be repeated. Procedures Description No Information Encounters Type Date Location Provider CPT E/M Dx Office Visit 11/01/2017 11:00a [place] [address] J45.901 F14.99 Office Visit 10/24/2017 10:30a [place] [address] J45.998 J01.90 Office Visit 10/02/2017 11:45a [place] [address] J45.998 L02.818 Office Visit 08/26/2017 11:45a Main Office Laura Vanessa M.D. 362[address] J45.21 Office Visit 07/31/2017 10:45a [place] [address] J45.998 Office Visit 05/28/2017 11:45a Main Office JAMES Flaherty [address] J45.998 J30.9 Office Visit 04/19/2017 8:45a Main Office SALVADOR FlahertyC [address]109 J45.998 Office Visit 03/22/2017 11:30a [place] [address] J02.9 J45.998 Office Visit 12/24/2016 8:45a Main Office Anny Radford [facility] [address] J20.9 Office Visit 10/26/2016 11:45a Main Office Jesu Do III [facility] [address] B37.9 Office Visit 09/17/2016 5:00p [place] [address] J45.998 J01.90 Z23 Office Visit 03/07/2016 8:15a [place] [address] J45.998 J20.9 Office Visit 01/30/2016 9:00a [place] [address] J45.998 Office Visit 01/24/2016 8:30a Main Office Jesu Do III, CREDIT OFFICER-C 12677 J01.90 Office Visit 12/07/2015 8:00a [place] [address] J44.1 Office Visit 10/01/2005 10:15a Main Office Lissette Akers [facility] 15549 477.9 Office Visit 06/19/2004 3:00p Main Office Lissette Akers [facility] 86015 995.3 569.49 Office Visit 11/15/2003 11:15a Main Office Lissette Akers [facility] 58371 466.0 Plan of Care 11/29/2017 - Nishant [...]
[2017-12-11] MEDS ORDERED: methylPREDNISolone 125 MG* 2 ML VIAL IV ONE (15:27)
[2017-12-11] MEDS ORDERED: NS 0.9% 1000 ML* 1,000 ML IV ONE (15:27)
[2017-12-11] MEDS ORDERED: Albuterol/Ipratropium NEB.SOL* Albuterol 2.5 MG/Ipratropium 0.5 MG 3 ML ONE (15:43)
[2017-12-11] MEDS: Albuterol/Ipratropium NEB.SOL* Albuterol 2.5 MG/Ipratropium 0.5 MG 3 ML INH SCH ×3 (15:44→20:37)
[2017-12-11 15:59] LABS: ABS Basophils 0.1 10^3/ul (0-0.2); ABS Eosinophils 1.3 10^3/ul (0-0.6); ABS Lymphocytes 1.1 10^3/ul (1.0-4.8); ABS Monocytes 0.8 10^3/ul (0-0.8); ABS Neutrophils 7.4 10^3/ul (1.5-7.7); ABS Nucleated RBC 0 10^3/ul; Hematocrit 44 % (42-52); Hemoglobin 15.1 g/dl (14.0-18.0); Lymphocyte % 10.6 % (25-47); Mean Corpuscular HGB Conc 34 g/dl (31-36); Mean Corpuscular Hemoglobin 29 pg (27-31); Mean Corpuscular Volume 85 fL (80-94); Mean Platelet Volume 7 um3 (7.4-10.4); Nucleated Red Blood Cells % 0; Platelet Count 283 10^3/ul (150-450); Red Cell Distribution Width 14 % (10.5-15); White Blood Count 10.7 10^3/ul (3.5-10.8)
[2017-12-11 16:16] LABS: EGFR Non-African American 86.5 (>60)
--- NOTE | 2017-12-11 16:17 | RAD ---
INDICATION: Shortness of breath and cough. COMPARISON: Comparison is made with a prior chest x-ray study from October 30, 2017. TECHNIQUE: Dual-energy PA and lateral views of the chest were obtained. FINDINGS: The heart is within normal limits in size. Mediastinal and hilar contours appear within normal limits. The lungs are clear. No pleural effusion is present. IMPRESSION: NO EVIDENCE FOR ACTIVE CARDIOPULMONARY DISEASE.
[2017-12-11] MEDS ORDERED: Magnesium Sulfate 2 GM IV* 2 GM/50 ML BAG IVPB ONE (18:03)
[2017-12-11] MEDS ORDERED: Acetaminophen TAB* 325 MG PO PRN (19:19)
[2017-12-11] MEDS ORDERED: Ipratropium 0.5MG/2.5ML NEB* 0.5 MG/2.5 ML NEB.SOLN INH PRN (19:21)
[2017-12-11] MEDS ORDERED: ceFAZolin 1 GM VIAL(*) 1 GM in NS 0.9% 50 ML* 50 ML IVPB SCH (20:00)
[2017-12-11] MEDS: ceFAZolin 1 GM in Dextrose (*) 1 GM/50 ML BAG IVPB SCH (21:05)
--- NOTE | 2017-12-11 21:26 | HP ---
CC: Dr. Jones; Dr. Blackburn * HISTORY AND PHYSICAL: DATE OF ADMISSION: 12/11/17 PRIMARY CARE PROVIDER: Dr. Jones. CHIEF COMPLAINT: Shortness of breath. HISTORY OF PRESENT ILLNESS: Vinny Prakash is a 37-year-old male with history of severe uncontrolled asthma, who presents with asthma exacerbation. Currently, after an infusion of magnesium and Solu-Medrol treatment and nebulizer treatments, his oxygen saturation is 92% on room air, but he was severely hypoxemic when he came in to the emergency department. Vinny also stated that he started developing "pimples" and he has an abscess in his "groin." He also has an abscess on his right finger that had been going on for several days and he has been extracting "pus" from it on as-needed basis. He is going to be placed in inpatient admission with the diagnosis of asthma exacerbation. PAST MEDICAL HISTORY: 1. Asthma. 2. History of perianal abscess in the past. PAST SURGICAL HISTORY: Surgery on trigger fingers in bilateral hands as a child. Currently, the patient has contractions in bilateral fingers of hands and he is unable to extend his fingers bilaterally. MEDICATIONS: At home include: 1. Albuterol inhaler on a p.r.n. basis. 2. Albuterol nebulizer on a p.r.n. basis. 3. Flovent Diskus 250 mcg 2 puffs inhalation q.a.m. 4. Singulair 10 mg daily. 5. Claritin 10 mg daily. 6. Atrovent nebulizer twice a day p.r.n. FAMILY HISTORY: Positive for both parents who have history of smoking. No other past medical history in parents. SOCIAL HISTORY: The patient smokes marijuana occasionally. He denies smoking mixed tobacco. He lives with his who is his surrogate. He denies any alcohol use. He works in [employer]. REVIEW OF SYSTEMS: Please see history of present illness. In addition to above mentioned, the patient stated that he had been having shortness of breath and wheezing and asthma exacerbations for several years now. The patient denies any fevers. Denies purulent sputum production. He stated that he had been over utilizing his nebulizer. In addition to the above mentioned, the patient also stated that he has "groin abscess" but he actually indicated was a scrotal abscess. He stated that "he popped it with a needle" and he has been expressing pus from it for the past couple of days. He also has another abscess on his dorsal aspect of the right middle finger proximally. He also had been extracting purulent discharge from it for the past several days. All the remaining 12 systems were reviewed with the patient and were otherwise negative. PHYSICAL EXAMINATION GENERAL: The patient is a very pleasant 37-year-old male, who is in no acute distress. Alert, awake, and oriented x3. VITAL SIGNS: Blood pressure of 153/86, heart rate of 102 and regular, respiratory rate 20, oxygen saturation 92% on room air, temperature of 97.1. HEENT: Head: Atraumatic and normocephalic. Eyes: Pupils are equal, reactive to light and accommodation. Oropharynx clear. Mucosa moist. NECK: Supple. No JVD. No bruits bilaterally. RESPIRATORY: Diffuse wheezes in bilateral lungs. CARDIOVASCULAR: Regular rate and rhythm. No murmur. ABDOMEN: Soft, nontender. Bowel sounds present in all 4 quadrants. EXTREMITIES: There is no edema. Pulses +2 bilaterally. There is no clubbing or cyanosis. NEURO EVALUATION: Speech clear. Cranial nerves II through XII grossly intact. Motor strength is 5/5 bilaterally. SKIN: On evaluation of the skin, the scrotum and the left area has a localized abscess approximately 3 cm just palpable. The abscess is draining yellow purulent discharge when the patient is pushing on it. There is no significant pain and there is no cellulitis noted. On evaluation of bilateral hands, the patient has contracted joints in all of his fingers, as the patient stated is postoperative. On the right middle finger dorsal aspect, he has an area of 3 x 4 cm of erythema with multiple small punctate areas of open skin draining purulent discharge. There is no cellulitis in the surrounding area. The erythema is rather well demarcated of approximately 3 x 4 cm. DIAGNOSTIC STUDIES/LAB DATA: Shows white blood cell count of 10.7, hemoglobin of 15.1, hematocrit 44, and platelets of 283. Sodium was 138, potassium 3.7, chloride 104, bicarb 26, BUN 13, and creatinine 0.98. Liver function tests unremarkable. C-reactive protein of 42. Portable chest x-ray, impression: "No evidence of active cardiopulmonary disease." ASSESSMENT AND PLAN: 1. In regards to the patient's asthma exacerbation, the patient is going to be placed on Solu-Medrol intravenously and scheduled nebulizer treatments and continue his outpatient inhalers. At this point, it does not appear that the patient has an upper respiratory infection. 2. In regards to the patient's scrotal and right middle finger abscesses, there appear to be purulent draining and I do not believe an incision and drainage at this point is necessary. I will start the patient on antibiotics which is going to be cefazolin. Cultures were obtained during the evaluation today. The patient is nontoxic appearing and has no fever. If his abscesses look remarkably better in the morning, he may not require surgical intervention. Once again, we will observe it. 3. For DVT prophylaxis, the patient is ambulatory and ambulation is going to be encouraged. TIME SPENT: Approximately 62 minutes was spent on admission of this patient, more than half that time was spent [id number] with the patient during the interview and physical exam. [id number]/CPS #: [id number] GERARDO
[2017-12-11] MEDS: methylPREDNISolone SOD 40 MG* 1 ML VIAL IV SCH (23:17)
--- NOTE | 2017-12-12 00:22 | PN ---
Progress Note - Progress Note Date of Service: 12/12/17 Note: Paged for MRSA positive wound results - will start Steven
[2017-12-12] MEDS: Albuterol 2.5 MG/3 ML NEB.SOL* (0.083%) INH SCH ×6 (00:26→19:33)
[2017-12-12] MEDS ORDERED: Vancomycin(*) 1,250 MG in NS 0.9% 250 ML* 250 ML IVPB ONE (03:45)
[2017-12-12] MEDS: ceFAZolin 1 GM in Dextrose (*) 1 GM/50 ML BAG IVPB SCH (04:51)
[2017-12-12] MEDS ORDERED: Vancomycin per Pharmacy* NOTE FOLLOW UP PRN (04:51)
[2017-12-12] MEDS ORDERED: LORazepam TAB(*) 1 MG PO ONE (05:30)
[2017-12-12] MEDS ORDERED: LORazepam TAB(*) 1 MG ONE (05:38)
[2017-12-12] MEDS: Albuterol HFA INHALER* 8 gm MDI INH PRN ×2 (05:39→08:03)
[2017-12-12 06:15] LABS: ABS Basophils 0 10^3/ul (0-0.2); ABS Eosinophils 0 10^3/ul (0-0.6); ABS Lymphocytes 0.7 10^3/ul (1.0-4.8); ABS Monocytes 0.3 10^3/ul (0-0.8); ABS Neutrophils 10.4 10^3/ul (1.5-7.7); ABS Nucleated RBC 0 10^3/ul; Eosinophil % 0.1 % (0-6); Hematocrit 45 % (42-52); Mean Corpuscular HGB Conc 34 g/dl (31-36); Mean Corpuscular Hemoglobin 29 pg (27-31); Mean Corpuscular Volume 85 fL (80-94); Mean Platelet Volume 7 um3 (7.4-10.4); Nucleated Red Blood Cells % 0; Platelet Count 340 10^3/ul (150-450); Red Blood Count 5.22 10^6/ul (4.0-5.4); Red Cell Distribution Width 14 % (10.5-15); White Blood Count 11.4 10^3/ul (3.5-10.8)
[2017-12-12 06:36] LABS: EGFR Non-African American 96.7 (>60)
[2017-12-12] MEDS: Mometasone 220 MCG MDI INH SCH ×2 (07:56→19:33)
[2017-12-12] MEDS: Montelukast Sodium TAB* 10 MG PO SCH (08:14)
[2017-12-12] MEDS: methylPREDNISolone SOD 40 MG* 1 ML VIAL IV SCH ×2 (08:42→16:06)
[2017-12-12] MEDS ORDERED: Magnesium Sulfate 2 GM IV* 2 GM/50 ML BAG IVPB ONE (08:51)
--- NOTE | 2017-12-12 13:13 | RAD ---
INDICATION: Left scrotal abscess COMPARISON: None TECHNIQUE: Duplex interrogation of the scrotum was performed. FINDINGS: Testicles: The testicles are Normal in size and echogenicity. There is no evidence of testicular mass. There is symmetric flow on Doppler interrogation. There is no evidence of torsion.. The right testis measures 5.1 x 1.4 x 3.3 cm and the left 4.5 x 1.6 x 3.2 cm. There is symmetric flow on Doppler interrogation. Epididymides: There is no evidence of an epididymal mass. The epididymides are normal in size. There is symmetric flow on Doppler interrogation. The right epididymal head measures 0.9 x 1.1 cm and the left 0.9 x 1.3 cm. Hydroceles: None. Varicoceles: None. Other: There is edematous change in the region of left hemiscrotum/inguinal region. There is no localized collection to suggest abscess. IMPRESSION: NO EVIDENCE OF TESTICULAR MASS OR TORSION. NO EVIDENCE OF LOCALIZED FLUID COLLECTION TO SUGGEST ABSCESS.
[2017-12-12] MEDS: Vancomycin(*) 1,000 MG in NS 0.9% 250 ML* 250 ML IVPB SCH ×2 (13:20→20:38)
[2017-12-12 13:23] LABS: Urine Appearance Clear; Urine Blood Negative (Negative); Urine Color Yellow; Urine Ketones Negative (Negative); Urine Protein Negative (Negative); Urine Specific Gravity 1.023 (1.010-1.030); Urine Urobilinogen Negative (Negative)
--- NOTE | 2017-12-12 14:43 | PN ---
Subjective Date of Service: 12/12/17 Interval History: pt had another"asthma attack" this AM. Now feels much better, but still SOB Objective Active Medications: Acetaminophen (Tylenol Tab*) 650 mg PO Q4H PRN PRN Reason: FEVER/PAIN Albuterol (Ventolin 2.5 Mg/3 Ml Neb.Iwona*) 2.5 mg INH RT.R4PA-RIFBI AWAKE [facility] Last Admin: 12/12/17 09:05 Dose: 2.5 mg Albuterol (Ventolin Hfa Inhaler*) 2 puff INH Q4H PRN PRN Reason: SHORTNESS OF BREATH Last Admin: 12/12/17 08:03 Dose: 2 puff Vancomycin HCl 1,000 mg/ (Sodium Chloride) 250 mls @ 166.667 mls/hr IVPB Q8H [facility] Last Admin: 12/12/17 13:20 Dose: 166.667 mls/hr Ipratropium [place] (Atrovent 0.5 Mg Neb.Iwona*) 0.5 mg INH BID PRN PRN Reason: SHORTNESS OF BREATH Lorazepam (Ativan Inj*) 0.5 mg IV PUSH Q4H PRN PRN Reason: ANXIETY Methylprednisolone Sodium Succinate (Solu-Medrol 40 Mg) 40 mg IV Q8H [facility] Last Admin: 12/12/17 08:42 Dose: 40 mg Mometasone Furoate (Asmanex 220 Mcg Mdi *) 2 puff INH QPM [facility] Last Admin: 12/12/17 07:56 Dose: 2 puff Montelukast Sodium (Singulair Tab*) 10 mg PO DAILY [facility] Last Admin: 12/12/17 08:14 Dose: 10 mg Pharmacy Consult (Vancomycin Per Pharmacy*) 1 note FOLLOW UP . PRN PRN Reason: PER PROTOCOL Pharmacy Profile Note (Vancomycin Trough Check) 1 note FOLLOW UP 1300 ONE Stop: 12/13/17 13:01 Vital Signs - 8 hr 12/12/17 12/12/17 12/12/17 07:28 07:44 08:06 Temperature 97.4 F 97.2 F Pulse Rate 86 92 88 Respiratory 17 19 16 Rate Blood Pressure 120/85 139/86 (mmHg) O2 Sat by Pulse 96 90 94 Oximetry 12/12/17 12/12/17 12/12/17 08:10 08:28 09:06 Temperature Pulse Rate 92 Respiratory 16 20 24 Rate Blood Pressure (mmHg) O2 Sat by Pulse 90 Oximetry 12/12/17 12/12/17 11:33 13:15 Temperature 97.7 F Pulse Rate 85 Respiratory 17 Rate Blood Pressure 131/71 (mmHg) O2 Sat by Pulse 94 Oximetry Oxygen Devices in Use Now: OxyMask - at 5L Appearance: 37 yo M in nAD, AAOx3 Eyes: No Scleral Icterus, PERRLA Ears/Nose/Mouth/Throat: NL Teeth, Lips, Gums, Mucous Membranes Moist Neck: NL Appearance and Movements; NL JVP, Trachea Midline Respiratory: Symmetrical Chest Expansion and Respiratory Effort, - - diffuse wheezes noted Cardiovascular: NL Sounds; No Murmurs; No JVD, RRR Abdominal: NL Sounds; No Tenderness; No Distention, No Hepatosplenomegaly Lymphatic: No Cervical Adenopathy Extremities: No Clubbing, Cyanosis Skin: No Nodules or Sclerosis, - - r index finger abscess appear to have evacuated-lesion covered with eschar on dorsal aspect of finger noted at 2x3 cm. Left side scrotum -palapable area of inflammatory chage at 3 cm in diam-no cellulitis evident Neurological: Alert and Oriented x 3, NL Muscle Strength and Tone Result Diagrams: 12/12/17 06:00 12/12/17 06:00 Assess/Plan/Problems-Billing Assessment: 37 yo M presents with asthma exacerbation - Patient Problems (1) Asthma exacerbation Comment: Patient still requiring multiple uses of rescue albuterol nebs. cont IV steroids. pulm follow-up scheduled (2) MRSA (methicillin resistant Staphylococcus aureus) Comment: + abscess in R index finger and scrotum-resolving. Cont Vancomycin Scrotal US shows no abscess Ordered Betadine soaks for r finger. (3) DVT prophylaxis Comment: ambulation Status and Disposition: inpatient
--- NOTE | 2017-12-12 21:16 | CONS ---
PULMONARY CONSULTATION REPORT: DATE OF CONSULTATION: 12/12/17 CONSULTATION REQUESTED BY: Emilia Mcgee MD REASON FOR CONSULTATION: Evaluation of asthma exacerbation. HISTORY OF PRESENT ILLNESS: The patient is a 37-year-old male, with a history of severe uncontrolled asthma with multiple ED admissions recently, was known to me from recent outpatient evaluation, at which time he was found to be in significant asthma exacerbation and was sent in from my office for admission. The patient was admitted in October for acute asthma exacerbation, signed out AMA. The patient presents today for evaluation of worsening shortness of breath. The patient reports that his asthma remains uncontrolled. His breathing has never returned to normal after recent hospitalization. The patient reports having to need to use the rescue inhaler multiple times throughout the day. The patient also is on Flovent. He was supposed to follow up as outpatient; however, did not return upon discharge. The patient also reports that recently he started noticing some pimples on his fingers and also near his groin. The patient reports that he had what seems like cellulitis in his right upper extremity. The patient reports that he had abscess that he drained himself that resulted in improvement of the swelling. The patient was found to have MRSA positive from the wound. The patient was started on broad spectrum antibiotics. The patient has a history of marijuana abuse. As per respiratory therapist who has been taking care of him while he is here, there is concern with the patient and his girlfriend probably doing marijuana while in the hospital. The patient also reports that he lives in an old house. He has dogs at home. He also reports sick contacts with young children in the house being sick recently with throat infections. The patient was noted to be hypoxemic in the ED. Blood gas analysis revealed respiratory alkalosis with pO2 of 54. The patient was noted to have a slightly elevated white count at 11.4. D-dimer was less than 200. His lactic acid was elevated at 4.5 on admission, which is likely secondary to significant beta-mindy usage. His CRP remains elevated at 42. BNP was within normal limits. The patient was started on IV Solu-Medrol and bronchodilators. The patient reports significant anxiety. I think much of his breathing is affected by his anxiety symptoms. PAST MEDICAL HISTORY: 1. Asthma. 2. Perianal abscess in the past. PAST SURGICAL HISTORY: Surgery on trigger finger in bilateral hands as a child , has contractions in bilateral fingers. MEDICATIONS: 1. Albuterol inhaler and nebulizer. 2. Flovent Diskus 250 mcg 2 puffs. 3. Singulair 10 mg daily. 4. Claritin 10 mg daily. 5. Atrovent nebulizer p.r.n. FAMILY HISTORY: Positive for both parents who have history of smoking and reports secondhand smoke exposure. SOCIAL HISTORY: Smokes marijuana occasionally. Denies mixing with tobacco. He lives at home with his and denies alcohol abuse. He works in [employer]. REVIEW OF SYSTEMS: The patient reports significant allergy symptoms. He also reports food allergies. He recently has been drinking chocolate milk and reports having breathing issues related to that. All other systems as per HPI. PHYSICAL EXAM: The patient appears anxious, tachypneic. Vital Signs: Temperature 97.7, pulse 101 beats per minute, respiratory rate 18 per minute, O2 sat 94% on 3 L, blood pressure 131/71. HEENT: Pupils equal and reactive to light. Mucous membranes are moist. Lungs: Diminished air entry bilaterally, scattered wheeze present. Cardio-vascular: S1, S2 present. Tachycardic. Abdomen: Soft, bowel sounds present, nontender, nondistended. Extremities: Pimple in middle finger right upper extremity, slightly swollen edematous fingers. Neurologic: No focal deficits. He is anxious appearing. DIAGNOSTIC STUDIES/LAB DATA: WBC count 11.4, hemoglobin 15, hematocrit 45, platelet count 340,000. D-dimer less than 200. Blood gas; pH of 7.46, pCO2 of 31, pO2 of 54, bicarb of 24. Sodium 135, potassium 4.5, chloride 103, bicarb 25 , BUN 13, creatinine 0.89. CRP 42.52. UA did not reveal an infection. Influenza A and B negative. Chest x-ray done on admission was personally reviewed by me. No evidence of hyperinflation, no acute airspace opacities. IMPRESSION AND RECOMMENDATIONS: 37-year-old male with history of asthma, recurrent admissions and ED visits for worsening asthma symptoms in the setting of continued marijuana use, allergies. I also suspect a component of anxiety affecting his symptoms. He is very noncompliant with treatments, also lives in a very old house with concern with mold exposure. The patient is not following instructions on medication usage. He signed out AMA last visit. Will continue with Solu-Medrol and nebulizers. The patient has received asthma education. I educated how important it is for him to stop smoking marijuana. He recently had viral pneumonia. He has history of anal abscess in the past, now has abscesses near his groin and one on his finger, unclear whether he has any underlying immunodeficiency state or IgA deficiency. He might need HIV screening and testing. Might need medications for anxiety and probably psych evaluation. Thank you for allowing me to participate in the care of your patient. Will follow up with you. [id number]/BRETT #: [id number] GERARDO
[2017-12-13] MEDS: methylPREDNISolone SOD 40 MG* 1 ML VIAL IV SCH ×4 (00:02→23:37)
[2017-12-13] MEDS: Albuterol 2.5 MG/3 ML NEB.SOL* (0.083%) INH SCH ×7 (00:17→23:34)
[2017-12-13] MEDS: Vancomycin(*) 1,000 MG in NS 0.9% 250 ML* 250 ML IVPB SCH ×2 (05:04→13:43)
[2017-12-13] MEDS: Albuterol HFA INHALER* 8 gm MDI INH PRN (06:20)
[2017-12-13] MEDS: Montelukast Sodium TAB* 10 MG PO SCH (09:17)
--- NOTE | 2017-12-13 11:44 | ED ---
Kenny Berumen Angela, scribed for Guilherme Trinidad MD on 12/11/17 at 1529 . Shortness of Breath - HPI Summary HPI Summary: This pt is a 37 y/o male presenting to [facility] [place] c/o worsening SOB x3 days. Pt additionally reports dry cough and fever. Per family member, pt can't even get up and get dressed without getting SOB. Pt additionally notes an abscess on right finger. Family member states the pt cycles prednisone and antibiotics every 6 weeks. Family member also notes the pt has seen dining room busser multiple times. PMHx: COPD and asthma. Pt denies tobacco use. - History of Current Complaint Chief Complaint: EDShortnessOfBreath Time Seen by Provider: 12/11/17 15:16 Hx Obtained From: Patient Onset/Duration: Lasting Days, Still Present Timing: Constant Current Severity: Moderate Dyspnea At: Rest Associated Signs & Symptoms: Cough (Nonproductive), Fever - Allergy/Home Medications Allergies/Adverse Reactions: Allergies Allergy/AdvReac Type Severity Reaction Status Date / Time MS Ibuprofen [Ibuprofen] Allergy ATTACKS Verified 12/11/17 15:23 RESPIRATORY SYSTEM, LUNGS COLLAPSE MS Naproxen [Naproxen] Allergy Anaphylatic Verified 12/11/17 15:23 Shock SEASONAL / ENVIRONMENTAL Allergy SNEEZE, Uncoded 12/11/17 15:23 WATERY ITCHY EYES PMH/Surg Hx/FS Hx/Imm Hx Endocrine/Hematology History: Denies: Hx Diabetes, Hx Thyroid Disease Cardiovascular History: Denies: Hx Hypertension Respiratory History: Reports: Hx Asthma, Hx Chronic Bronchitis, Hx Chronic Obstructive Pulmonary Disease (COPD), Hx Pneumonia GI History: Denies: Hx Ulcer Sensory History: Denies: Hx Contacts or Glasses, Hx Hearing Aid Opthamlomology History: Denies: Hx Contacts or Glasses Neurological History: Denies: Hx Dementia, Hx Migraine, Hx Seizures, Hx Transient Ischemic Attacks (TIA) Psychiatric History: Denies: Hx Anxiety, Hx Depression, Hx Schizophrenia, Hx Bipolar Disorder - Surgical History Surgery Procedure, Year, and Place: BILATERAL HANDS TENDON REPAIR A CHILD,. SINUS SURGERY 2013 Hx Anesthesia Reactions: No - Immunization History Date of Tetanus Vaccine: unk Date of Influenza Vaccine: none Infectious Disease History: No Infectious Disease History: Denies: Hx Clostridium Difficile, Hx Hepatitis, Hx Human Immunodeficiency Virus (HIV), Hx of Known/Suspected MRSA, Hx Shingles, Hx Tuberculosis, Hx Known/ Suspected VRE, Hx Known/Suspected VRSA, History Other Infectious Disease, Traveled Outside the [place] in Last 30 Days - Family History Known Family History: Positive: Other - Patient denies a significant FHx Negative: Blood Disorder Family History: Neg RAD - Social History Alcohol Use: Rare Hx Substance Use: Yes Substance Use Type: Reports: Marijuana Substance Use Comment - Amount & Last Used: former heavy use marijuana Hx Tobacco Use: No Smoking Status (MU): Never Smoked Tobacco Have You Smoked in the Last Year: Yes - occasional marijuana smoker Review of Systems Positive: Fever Eyes: Negative ENT: Negative Positive: Shortness Of Breath, Cough Musculoskeletal: Negative Skin: Other - abscess on right finger Neurological: Negative All Other Systems Reviewed And Are Negative: Yes Physical Exam - Summary Physical Exam Summary: VITAL SIGNS: Reviewed. GENERAL: Patient is a young male who is very anxious and uncooperative to the physical exam. He seems to be very agitated and angry. HEAD AND FACE: No signs of trauma. No ecchymosis, hematomas or skull depressions. No sinus tenderness. EYES: PERRLA, EOMI x 2, No injected conjunctiva, no nystagmus. EARS: Hearing grossly intact. Ear canals and tympanic membranes are within normal limits. MOUTH: Oropharynx within normal limits. NECK: Supple, trachea is midline, no adenopathy, no JVD, no carotid bruit, no c- spine tenderness, neck with full ROM. CHEST: Symmetric, no tenderness at palpation LUNGS: Slight wheezing in the apices of the lungs. CVS: Regular rate and rhythm, S1 and S2 present, no murmurs or gallops appreciated. ABDOMEN: Soft, non-tender. No signs of distention. No rebound no guarding, and no masses palpated. Bowel sounds are normal. EXTREMITIES: FROM in all major joints, no edema, no cyanosis or clubbing. NEURO: Alert and oriented x 3. No acute neurological deficits. Speech is normal and follows commands. SKIN: Dry and warm. RUE: small cellulitis on the right third finger proximal phalanx. Triage Information Reviewed: Yes Vital Signs On Initial Exam: Initial Vitals Temp Pulse Resp BP Pulse Ox 97.1 F 103 24 108/42 92 12/11/17 15:04 12/11/17 15:04 12/11/17 15:04 12/11/17 15:04 12/11/17 15:04 Vital Signs Reviewed: Yes Diagnostics - Vital Signs Vital Signs Temp Pulse Resp BP Pulse Ox 12/11/17 15:04 97.1 F 103 24 108/42 92 - Laboratory Lab Results: Lab Results 12/11/17 12/11/17 12/11/17 Range/Units 15:47 15:50 15:50 WBC (3.5-10.8) 10^3/ul RBC (4.0-5.4) 10^6/ul Hgb (14.0-18.0) g/dl Hct (42-52) % MCV (80-94) fL MCH (27-31) pg MCHC (31-36) g/dl RDW (10.5-15) % Plt Count (150-450) 10^3/ul MPV (7.4-10.4) um3 Neut % (Auto) (38-83) % Lymph % (Auto) (25-47) % Green % (Auto) (1-9) % Eos % (Auto) (0-6) % Baso % (Auto) (0-2) % Absolute Neuts (auto) (1.5-7.7) 10^3/ul Absolute Lymphs (auto) (1.0-4.8) 10^3/ul Absolute Monos (auto) (0-0.8) 10^3/ul Absolute Eos (auto) (0-0.6) 10^3/ul Absolute Basos (auto) (0-0.2) 10^3/ul Absolute Nucleated RBC 10^3/ul Nucleated RBC % ABG pH (7.35-7.45) ABG pCO2 (35-45) mmHg ABG pO2 (80-100) mmHg ABG HCO3 (19-31) mmol/L ABG O2 Saturation (95-98) % ABG Base Excess (-2.0-2.0) Sodium 138 (133-145) mmol/L Potassium 3.7 (3.5-5.0) mmol/L Chloride 104 (101-111) mmol/L Carbon Dioxide 26 (22-32) mmol/L Anion Gap 8 (2-11) mmol/L BUN 13 (6-24) mg/dL Creatinine 0.98 (0.67-1.17) mg/dL Est GFR ( Amer) 111.3 (>60) Est GFR (Non-Af Amer) 86.5 (>60) BUN/Creatinine Ratio 13.3 (8-20) Glucose 96 (70-100) mg/dL Calcium 9.4 (8.6-10.3) mg/dL Total Bilirubin 0.40 (0.2-1.0) mg/dL AST 16 (13-39) U/L ALT 14 (7-52) U/L Alkaline Phosphatase 54 (34-104) U/L C-Reactive Protein 42.52 H (< 5.00) mg/L B-Natriuretic Peptide 32 ( - 100) pg/mL Total Protein 7.5 (6.4-8.9) g/dL Albumin 4.1 (3.2-5.2) g/dL Globulin 3.4 (2-4) g/dL Albumin/Globulin Ratio 1.2 (1-3) Influenza A (Rapid) Negative (Negative) Influenza B (Rapid) Negative (Negative) 12/11/17 12/11/17 Range/Units 15:50 17:45 WBC 10.7 (3.5-10.8) 10^3/ul RBC 5.20 (4.0-5.4) 10^6/ul Hgb 15.1 (14.0-18.0) g/dl Hct 44 (42-52) % MCV 85 (80-94) fL MCH 29 (27-31) pg MCHC 34 (31-36) g/dl RDW 14 (10.5-15) % Plt Count 283 (150-450) 10^3/ul MPV 7 L (7.4-10.4) um3 Neut % (Auto) 69.2 (38-83) % Lymph % (Auto) 10.6 L (25-47) % Green % (Auto) 7.6 (1-9) % Eos % (Auto) 12.0 H (0-6) % Baso % (Auto) 0.6 (0-2) % Absolute Neuts (auto) 7.4 (1.5-7.7) 10^3/ul Absolute Lymphs (auto) 1.1 (1.0-4.8) 10^3/ul Absolute Monos (auto) 0.8 (0-0.8) 10^3/ul Absolute Eos (auto) 1.3 H (0-0.6) 10^3/ul Absolute Basos (auto) 0.1 (0-0.2) 10^3/ul Absolute Nucleated RBC 0 10^3/ul Nucleated RBC % 0 ABG pH 7.46 H (7.35-7.45) ABG pCO2 31 L (35-45) mmHg ABG pO2 54 L* (80-100) mmHg ABG HCO3 24.1 (19-31) mmol/L ABG O2 Saturation 92.9 L (95-98) % ABG Base Excess -0.8 (-2.0-2.0) Sodium (133-145) mmol/L Potassium (3.5-5.0) mmol/L Chloride (101-111) mmol/L Carbon Dioxide (22-32) mmol/L Anion Gap (2-11) mmol/L BUN (6-24) mg/dL Creatinine (0.67-1.17) mg/dL Est GFR ( Amer) (>60) Est GFR (Non-Af Amer) (>60) BUN/Creatinine Ratio (8-20) Glucose (70-100) mg/dL Calcium (8.6-10.3) mg/dL Total Bilirubin (0.2-1.0) mg/dL AST (13-39) U/L ALT (7-52) U/L Alkaline Phosphatase (34-104) U/L C-Reactive Protein (< 5.00) mg/L B-Natriuretic Peptide ( - 100) pg/mL Total Protein (6.4-8.9) g/dL Albumin (3.2-5.2) g/dL Globulin (2-4) g/dL Albumin/Globulin Ratio (1-3) Influenza A (Rapid) (Negative) Influenza B (Rapid) (Negative) Result Diagrams: 12/12/17 06:00 12/12/17 06:00 Lab Statement: Any lab studies that have been ordered have been reviewed, and results considered in the medical decision making process. - Radiology Chest XR Xray Interpretation: No Acute Changes - IMPRESSION: No evidence for active cardiopulmonary disease. Dr. Trinidad has reviewed this radiology report. Radiology Interpretation Completed By: Radiologist - EKG 15:29 Cardiac Rate: NL EKG Rhythm: Sinus Rhythm - at 85 bpm EKG Interpretation: No ST elevation. EKG Comparison: No Significant Change - similar to prior EKG on 10/30/17. Course/Dx - Course Assessment/Plan: This pt is a 37 y/o male presenting to [facility] c/o worsening SOB x3 days. Pt additionally reports dry cough and fever. Per family member, pt can' t even get up and get dressed without getting SOB. Family member states the pt cycles prednisone and antibiotics every 6 weeks. Family member also notes the pt has seen dining room busser multiple times. PMHx: COPD and asthma. Pt denies tobacco use. Test results without any significant abnormalities except for ABG pH of 7.46, pCO2 of 31, pO2 of 54, O2 sat of 92. Chest XR is negative for an acute pathology. The pt was given multiple duoneb, solu-Medrol, and magnesium sulfate. However, the pt desaturates without oxygen. Therefore I discussed the pts case with Dr. Mcgee, hospitalist, who accepted the pt for admission. Pt is hemodynamically stable, alert and oriented x3. - Diagnoses Differential Diagnosis/HQI/PQRI: Positive: Asthma, Bronchitis, CHF, Chest Wall Pain, COPD Exacerbation, Pneumonia Provider Diagnoses: Asthma exacerbation, Hypoxia - Physician Notifications Discussed Care of Patient With: Emilia Mcgee Time Discussed With Above Provider: 18:23 Instructed by Provider To: Other - I discussed pt care with Dr. Mcgee, hospitalist, who has agreed to admit the pt. - Critical Care Time Critical Care Time: 30-74 min - 30 min Discharge - Discharge Plan Condition: Stable Disposition: ADMITTED TO [facility] documentation as recorded by the Kenny marley Angela accurately reflects the service I personally performed and the decisions made by me, Guilherme Trinidad MD.
[2017-12-13] MEDS ORDERED: Vancomycin Trough Check NOTE FOLLOW UP ONE (13:00)
[2017-12-13] MEDS ORDERED: Nystatin CREAM* 15 GM TUBE TOPICAL ONE (14:03)
--- NOTE | 2017-12-13 15:38 | PN ---
Progress Note - Progress Note Date of Service: 12/13/17 - Pulm f/u note Note: Patient seen and examined at bedside. Patient reports improvement in symptoms, however, had an asthma episode this morning. Symptoms improved with nebulizer treatment. Patient reports slight improvement in anxiety. Patient reports draining green fluid from abscess in his finger. Active Medications Generic Name Dose Route Start Last Admin Trade Name Freq PRN Reason Stop Dose Admin Acetaminophen 650 mg 12/11/17 19:19 Tylenol Tab* PO Q4H PRN FEVER/PAIN Albuterol 2.5 mg 12/11/17 23:00 12/13/17 14:35 Ventolin 2.5 Mg/3 Ml Neb.Iwona* INH 2.5 mg [id number] AWAKE KOBE Administration Albuterol 2 puff 12/11/17 19:21 12/13/17 06:20 Ventolin Hfa Inhaler* INH 2 puff Q4H PRN Administration SHORTNESS OF BREATH Vancomycin HCl 1,000 mg/ 250 mls @ 166.667 mls/hr 12/13/17 19:30 Sodium Chloride IVPB Q6H KOBE Ipratropium [place] 0.5 mg 12/11/17 19:21 Atrovent 0.5 Mg Neb.Iwona* INH BID PRN SHORTNESS OF BREATH Lorazepam 0.5 mg 12/12/17 08:51 Ativan Inj* IV PUSH Q4H PRN ANXIETY Methylprednisolone Sodium Succinate 40 mg 12/11/17 23:30 12/13/17 07:54 Solu-Medrol 40 Mg IV 40 mg Q8H KOBE Administration Mometasone Furoate 2 puff 12/11/17 21:00 12/12/17 19:33 Asmanex 220 Mcg Mdi * INH 2 puff QPM KOBE Administration Montelukast Sodium 10 mg 12/12/17 09:00 12/13/17 09:17 Singulair Tab* PO 10 mg DAILY KOBE Administration Pharmacy Consult 1 note 12/12/17 04:51 Vancomycin Per Pharmacy* FOLLOW UP . PRN PER PROTOCOL Pharmacy Profile Note 1 note 12/15/17 07:15 Vancomycin Trough Check FOLLOW UP 12/15/17 07:16 ONCE ONE Vital Signs Temp Pulse Resp BP Pulse Ox 97.1 F 92 18 113/47 100 12/13/17 07:15 12/13/17 14:36 12/13/17 14:36 02/02/18 07:15 12/13/17 14:36 GEN: Pt in bed in NAD HEENT: No Scleral Icterus, PERRLA, Mucous Membranes Moist Neck: NL Appearance and Movements; NL JVP, Trachea Midline Respiratory: Good a/e, diffuse wheezes noted Cardiovascular: NL Sounds; No Murmurs; No JVD Abdominal: NL Sounds; No Tenderness; No Distention, No Hepatosplenomegaly Lymphatic: No palpable Cervical Adenopathy Extremities: Normal ROM Skin: rt index finger abscess appear to have evacuated-lesion covered with eschar on dorsal aspect of finger noted at 2x3 cm. Neurological: Alert and Oriented x 3, NL Muscle Strength and Tone Laboratory Results - last 24 hr 12/13/17 12:22 Vancomycin Trough 7.1 37-year-old male with history of asthma, anxiety, marijuana smoker with recent EDvisits and hospitalization for asthma with acute asthma exacerbation. Acute asthma exacerbation, likely secondary to allergies, sinus issues, noncompliance to medications and marijuana smoking. Patient reports improvement in symptoms. Reports that he had acute attack early this morning. Continue with current management for asthma, continue with steroid taper. Pathophysiology of asthma was discussed. Importance of stopping marijuana was discussed. He is being treated for MRSA skin infection. Will follow-up in clinic upon discharge
[2017-12-13] MEDS: LORazepam INJ* 2 MG/ML 1 ML VIAL IV PUSH PRN (16:03)
[2017-12-13] MEDS: diPHENhydraMINE PO* 25 MG PO PRN (16:04)
--- NOTE | 2017-12-13 16:08 | PN ---
Subjective Date of Service: 12/13/17 Interval History: pt feesl his breathing in better, uses 02 despite his 02 sat 100%. not interested in psychiatry consult for anxiety Objective Active Medications: Acetaminophen (Tylenol Tab*) 650 mg PO Q4H PRN PRN Reason: FEVER/PAIN Albuterol (Ventolin 2.5 Mg/3 Ml Neb.Iwona*) 2.5 mg INH [id number] AWAKE [facility] Last Admin: 12/13/17 14:35 Dose: 2.5 mg Albuterol (Ventolin Hfa Inhaler*) 2 puff INH Q4H PRN PRN Reason: SHORTNESS OF BREATH Last Admin: 12/13/17 06:20 Dose: 2 puff Diphenhydramine HCl (Benadryl Po*) 25 mg PO Q6H PRN PRN Reason: Allergy Symptoms Ipratropium [place] (Atrovent 0.5 Mg Neb.Iwona*) 0.5 mg INH BID PRN PRN Reason: SHORTNESS OF BREATH Lorazepam (Ativan Inj*) 0.5 mg IV PUSH Q4H PRN PRN Reason: ANXIETY Methylprednisolone Sodium Succinate (Solu-Medrol 40 Mg) 40 mg IV Q8H [facility] Last Admin: 12/13/17 07:54 Dose: 40 mg Mometasone Furoate (Asmanex 220 Mcg Mdi *) 2 puff INH QPM [facility] Last Admin: 12/12/17 19:33 Dose: 2 puff Montelukast Sodium (Singulair Tab*) 10 mg PO DAILY [facility] Last Admin: 12/13/17 09:17 Dose: 10 mg Trimethoprim/Sulfamethoxazole (Bactrim Ds 800/160 Tab*) 1 tab PO BID [facility] Vital Signs - 8 hr 12/13/17 12/13/17 10:45 14:36 Pulse Rate 99 92 Respiratory 18 18 Rate O2 Sat by Pulse 98 100 Oximetry Oxygen Devices in Use Now: OxyMask Appearance: 37 yo M in nAD, AAOx3 Eyes: No Scleral Icterus, PERRLA Ears/Nose/Mouth/Throat: NL Teeth, Lips, Gums, Mucous Membranes Moist Neck: NL Appearance and Movements; NL JVP, Trachea Midline Respiratory: Symmetrical Chest Expansion and Respiratory Effort, - - diffuse wheezes b/l improving Cardiovascular: NL Sounds; No Murmurs; No JVD Abdominal: NL Sounds; No Tenderness; No Distention, No Hepatosplenomegaly Lymphatic: No Cervical Adenopathy Extremities: No Clubbing, Cyanosis Skin: No Nodules or Sclerosis, - - R middle finger abscess still draining, but improved. left scrotal abscess draining puss, improving Result Diagrams: 12/12/17 06:00 12/12/17 06:00 Additional Lab and Data: Lab Results 12/11/17 12/11/17 12/11/17 Range/Units 15:47 15:50 15:50 WBC (3.5-10.8) 10^3/ul RBC (4.0-5.4) 10^6/ul Hgb (14.0-18.0) g/dl Hct (42-52) % MCV (80-94) fL MCH (27-31) pg MCHC (31-36) g/dl RDW (10.5-15) % Plt Count (150-450) 10^3/ul MPV (7.4-10.4) um3 Neut % (Auto) (38-83) % Lymph % (Auto) (25-47) % [place] % (Auto) (1-9) % Eos % (Auto) (0-6) % Baso % (Auto) (0-2) % Absolute Neuts (auto) (1.5-7.7) 10^3/ul Absolute Lymphs (auto) (1.0-4.8) 10^3/ul Absolute Monos (auto) (0-0.8) 10^3/ul Absolute Eos (auto) (0-0.6) 10^3/ul Absolute Basos (auto) (0-0.2) 10^3/ul Absolute Nucleated RBC 10^3/ul Nucleated RBC % ABG pH (7.35-7.45) ABG pCO2 (35-45) mmHg ABG pO2 (80-100) mmHg ABG HCO3 (19-31) mmol/L ABG O2 Saturation (95-98) % ABG Base Excess (-2.0-2.0) Sodium 138 (133-145) mmol/L Potassium 3.7 (3.5-5.0) mmol/L Chloride 104 (101-111) mmol/L Carbon Dioxide 26 (22-32) mmol/L Anion Gap 8 (2-11) mmol/L BUN 13 (6-24) mg/dL Creatinine 0.98 (0.67-1.17) mg/dL Est GFR ( Amer) 111.3 (>60) Est GFR (Non-Af Amer) 86.5 (>60) BUN/Creatinine Ratio 13.3 (8-20) Glucose 96 (70-100) mg/dL Calcium 9.4 (8.6-10.3) mg/dL Total Bilirubin 0.40 (0.2-1.0) mg/dL AST 16 (13-39) U/L ALT 14 (7-52) U/L Alkaline Phosphatase 54 (34-104) U/L C-Reactive Protein 42.52 H (< 5.00) mg/L B-Natriuretic Peptide 32 ( - 100) pg/mL Total Protein 7.5 (6.4-8.9) g/dL Albumin 4.1 (3.2-5.2) g/dL Globulin 3.4 (2-4) g/dL Albumin/Globulin Ratio 1.2 (1-3) Influenza A (Rapid) Negative (Negative) Influenza B (Rapid) Negative (Negative) 12/11/17 12/11/17 Range/Units 15:50 17:45 WBC 10.7 (3.5-10.8) 10^3/ul RBC 5.20 (4.0-5.4) 10^6/ul Hgb 15.1 (14.0-18.0) g/dl Hct 44 (42-52) % MCV 85 (80-94) fL MCH 29 (27-31) pg MCHC 34 (31-36) g/dl RDW 14 (10.5-15) % Plt Count 283 (150-450) 10^3/ul MPV 7 L (7.4-10.4) um3 Neut % (Auto) 69.2 (38-83) % Lymph % (Auto) 10.6 L (25-47) % [place] % (Auto) 7.6 (1-9) % Eos % (Auto) 12.0 H (0-6) % Baso % (Auto) 0.6 (0-2) % Absolute Neuts (auto) 7.4 (1.5-7.7) 10^3/ul Absolute Lymphs (auto) 1.1 (1.0-4.8) 10^3/ul Absolute Monos (auto) 0.8 (0-0.8) 10^3/ul Absolute Eos (auto) 1.3 H (0-0.6) 10^3/ul Absolute Basos (auto) 0.1 (0-0.2) 10^3/ul Absolute Nucleated RBC 0 10^3/ul Nucleated RBC % 0 ABG pH 7.46 H (7.35-7.45) ABG pCO2 31 L (35-45) mmHg ABG pO2 54 L* (80-100) mmHg ABG HCO3 24.1 (19-31) mmol/L ABG O2 Saturation 92.9 L (95-98) % ABG Base Excess -0.8 (-2.0-2.0) Sodium (133-145) mmol/L Potassium (3.5-5.0) mmol/L Chloride (101-111) mmol/L Carbon Dioxide (22-32) mmol/L Anion Gap (2-11) mmol/L BUN (6-24) mg/dL Creatinine (0.67-1.17) mg/dL Est GFR ( Amer) (>60) Est GFR (Non-Af Amer) (>60) BUN/Creatinine Ratio (8-20) Glucose (70-100) mg/dL Calcium (8.6-10.3) mg/dL Total Bilirubin (0.2-1.0) mg/dL AST (13-39) U/L ALT (7-52) U/L Alkaline Phosphatase (34-104) U/L C-Reactive Protein (< 5.00) mg/L B-Natriuretic Peptide ( - 100) pg/mL Total Protein (6.4-8.9) g/dL Albumin (3.2-5.2) g/dL Globulin (2-4) g/dL Albumin/Globulin Ratio (1-3) Influenza A (Rapid) (Negative) Influenza B (Rapid) (Negative) Assess/Plan/Problems-Billing Assessment: 37 yo M presents with asthma exacerbation - Patient Problems (1) Asthma exacerbation Comment: Patient still requiring multiple uses of rescue albuterol nebs. cont IV steroids. pulm follow-up scheduled (2) MRSA (methicillin resistant Staphylococcus aureus) Comment: + abscess in R index finger and scrotum-resolving. Vancomycin will be swithced to Bactrim today Scrotal US shows no abscess cont Betadine soaks for r finger. (3) DVT prophylaxis Comment: ambulation Status and Disposition: inpatient
[2017-12-13] MEDS ORDERED: Vancomycin(*) 1,000 MG in NS 0.9% 250 ML* 250 ML IVPB SCH (19:30)
[2017-12-13] MEDS: Mometasone 220 MCG MDI INH SCH (19:57)
[2017-12-13] MEDS: Sulfamethox/Trimethoprim DS 800/160* TAB PO SCH (21:29)
[2017-12-14] MEDS: diPHENhydraMINE PO* 25 MG PO PRN (00:06)
[2017-12-14] MEDS: LORazepam INJ* 2 MG/ML 1 ML VIAL IV PUSH PRN (00:14)
[2017-12-14] MEDS: Albuterol 2.5 MG/3 ML NEB.SOL* (0.083%) INH SCH ×3 (03:43→11:13)
[2017-12-14] MEDS: Albuterol HFA INHALER* 8 gm MDI INH PRN (06:58)
[2017-12-14] MEDS: Sulfamethox/Trimethoprim DS 800/160* TAB PO SCH (08:42)
[2017-12-14] MEDS: methylPREDNISolone SOD 40 MG* 1 ML VIAL IV SCH ×2 (08:42→08:46)
[2017-12-14] MEDS: Montelukast Sodium TAB* 10 MG PO SCH (08:42)
[2017-12-14] MEDS ORDERED: predniSONE TAB* 20 MG PO SCH (09:00)
[2017-12-14 12:59] VITALS: BP 122/86
--- NOTE | 2017-12-14 14:38 | PN ---
Progress Note - Progress Note Date of Service: 12/14/17 - Pulm f/u note Note: Pt seen and examined this morning. Reprots pruritic rash last night after solumedrol infusion. Has also been receiving vancomycin. SOB is improved Active Medications Generic Name Dose Route Start Last Admin Trade Name Freq PRN Reason Stop Dose Admin Acetaminophen 650 mg 12/11/17 19:19 Tylenol Tab* PO Q4H PRN FEVER/PAIN Albuterol 2.5 mg 12/11/17 23:00 12/14/17 11:13 Ventolin 2.5 Mg/3 Ml Neb.Iwona* INH 2.5 mg [id number] AWAKE KOBE Administration Albuterol 2 puff 12/11/17 19:21 12/14/17 06:58 Ventolin Hfa Inhaler* INH 2 puff Q4H PRN Administration SHORTNESS OF BREATH Diphenhydramine HCl 25 mg 12/13/17 15:54 12/14/17 00:06 Benadryl Po* PO 25 mg Q6H PRN Administration Allergy Symptoms Ipratropium [place] 0.5 mg 12/11/17 19:21 Atrovent 0.5 Mg Neb.Iwona* INH BID PRN SHORTNESS OF BREATH Lorazepam 0.5 mg 12/12/17 08:51 12/14/17 00:14 Ativan Inj* IV PUSH 0.5 mg Q4H PRN Administration ANXIETY Mometasone Furoate 2 puff 12/11/17 21:00 12/13/17 19:57 Asmanex 220 Mcg Mdi * INH 2 puff QPM KOBE Administration Montelukast Sodium 10 mg 12/12/17 09:00 12/14/17 08:42 Singulair Tab* PO 10 mg DAILY KOBE Administration Prednisone 60 mg 12/14/17 09:00 12/14/17 09:23 Deltasone Tab* PO 60 mg DAILY KOBE Administration Trimethoprim/Sulfamethoxazole 1 tab 12/13/17 21:00 12/14/17 08:42 Bactrim Ds 800/160 Tab* PO 1 tab BID KOBE Administration Vital Signs Temp Pulse Resp BP Pulse Ox 97.7 F 88 16 122/86 98 12/14/17 11:51 12/14/17 11:51 12/14/17 11:51 12/14/17 12:59 12/14/17 11:51 GEN: Pt in bed in NAD HEENT: No Scleral Icterus, PERRLA, Mucous Membranes Moist Neck: NL Appearance and Movements; NL JVP, Trachea Midline Respiratory: Good a/e, diffuse wheezes noted Cardiovascular: NL Sounds; No Murmurs; No JVD Abdominal: NL Sounds; No Tenderness; No Distention, No Hepatosplenomegaly Lymphatic: No palpable Cervical Adenopathy Extremities: Normal ROM Skin: rt index finger abscess appear to have evacuated-lesion covered with eschar on dorsal aspect of finger noted at 2x3 cm. Neurological: Alert and Oriented x 3, NL Muscle Strength and Tone Labs: No new labs I/R: 37-year-old male with history of asthma, anxiety, marijuana smoker with recent EDvisits and hospitalization for asthma with acute asthma exacerbation. Acute asthma exacerbation, likely secondary to allergies, sinus issues, noncompliance to medications and marijuana smoking. Patient reports improvement in symptoms, has not been needing O2 use Anxiety sx seem to be better Continue with slow steroid taper by 5 mg weekly, starting at 60mg. Pathophysiology of asthma was discussed. Importance of stopping marijuana was discussed. He is being treated for MRSA skin infection, had pruritic rash-? allergic reaction Breathing has not changed. Will follow-up in clinic upon discharge
[2017-12-15] MEDS ORDERED: Vancomycin Trough Check NOTE FOLLOW UP ONE (07:15)
--- NOTE | 2017-12-15 11:44 | DS ---
CC: Dr. Jones; Dr. Blackburn * DISCHARGE SUMMARY: DATE OF ADMISSION: 12/11/17 DATE OF DISCHARGE: 12/14/17 PRIMARY CARE PROVIDER: Dr. Jones. DISCHARGE DIAGNOSES: 1. Severe asthma exacerbation. 2. Methicillin-resistant Staphylococcus aureus positive abscesses in the right index finger and left scrotal area. SECONDARY DIAGNOSES: 1. Asthma. 2. History of perianal abscess in the past. 3. History of bilateral trigger finger releases in childhood. MEDICATIONS AT DISCHARGE: Include: 1. Prednisone taper 60 mg for 2 days, then 40 mg for 2 days, then 20 mg for 2 days, then 10 mg for 2 days, and stop. 2. Albuterol inhaler on p.r.n. basis, albuterol nebulizer on p.r.n. basis. 3. Fluticasone disk 2 puffs inhalation daily. 4. Atrovent nebulizer solution on p.r.n. basis. 5. Klonopin 10 mg daily. 6. Singulair 10 mg daily. 7. Bactrim DS 1 tablet p.o. b.i.d. for a total of 10 days. LABORATORY DATA AND STUDIES PERFORMED DURING THE HOSPITAL STAY: Included: On 12/12/17, white blood cell count of 11.4, hemoglobin of 15.0, hematocrit of 45, and platelets of 340. On 12/12/17, sodium is 135, potassium 4.5, chloride 103, carbon dioxide 25, BUN 13, creatinine 0.98. Cultures from the index finger and from scrotal area were positive for MRSA. Sputum cultures were positive for "normal maureen". Influenza testing was negative. Testicular ultrasound obtained on 12/12/17, impression: "No evidence of testicular mass or torsion. No evidence of localized fluid collection abscess." HOSPITALIZATION COURSE: Vinny Prakash is a 37-year-old male with history of severe asthma with history of medical noncompliance and smoking marijuana, who presented to the hospital severely short of breath. Patient was admitted for asthma exacerbation. It was also noted that the patient has an abscess that he developed on the dorsal aspect of his proximal right middle finger as well as left scrotal area. Samples were obtained from the abscesses that were freely draining and they both were positive for MRSA. The patient was treated with vancomycin during his hospital stay but developed red man reaction to vancomycin infusion the day prior to discharge that was switched to Bactrim with good results. It is planned for the patient to have approximately 2 weeks total of treatment for the MRSA abscesses with the remaining 10 days of Bactrim prescribed at discharge. In regards to patient's asthma that was complicated by effects of anxiety in the morning, patient refused to be treated for anxiety and refused to see a psychiatrist. He was much better controlled with his asthma exacerbation by the time of discharge. He was provided with supportive treatment and reassurance. He was seen by Dr. Blackburn in consultation that is greatly appreciated. Dr. Blackburn will see the patient as outpatient on 12/16/17 with scheduled appointment. In regards to patient's scrotal abscess, it was palpable in the proximal left area. It was not visualized on the scrotal ultrasound. Once again, there is a small opening in the skin that was draining purulent discharge. By the time of patient's discharge, the purulence was almost resolved. His right middle finger dorsal aspect, the abscess started resolving by the time of discharge to the point that he just has an area of eschar in the previous abscess formation area. The drainage resolved and induration resolved also. PHYSICAL EXAMINATION AT THE TIME OF DISCHARGE: Blood pressure of 114/64, heart rate is 77 and regular, respiratory rate 16, oxygen saturation 97% on room air, temperature 97.2. General: Patient is a very pleasant 37-year-old male who is in no acute distress. Alert, awake, and oriented x3. HEENT: Head: Atraumatic , normocephalic. Eyes: Pupils equal and reactive to light and accommodation. Oropharynx clear. Mucosa moist. Neck: Supple. No JVD, no bruit bilaterally. Cardiovascular: Regular rate and rhythm. No murmur. Respiratory: Coarse wheezes in bilateral mid lungs, much improved from prior. Abdomen: Soft, nontender, bowel sounds present in all 4 quadrants. Extremities: There is no edema. Pulses +2 bilaterally. No clubbing or cyanosis. On evaluation of the skin, the patient does have small area of induration approximately 6 cm on the proximal aspect of the left side of the scrotum. There is a small opening in the skin still noted. The purulent drainage resolved though. The area is nontender to palpation. There is no evidence of cellulitis. In the right middle finger dorsal aspect, there is a 1 x 1 cm of eschar covering the area of the abscess that is resolved by the time of discharge. Please note that this is a short summary of the patient's hospitalization. Please refer to further medical records for details. TIME SPENT: Approximately 45 minutes was spent on the patient's discharge. [id number]/CPS #: [id number] MTDD
== END 2017-12-14 15:21 | disposition home or self-care (01) | DRG 141 ==
LOC: ED 15:03 → MED 19:19
PROVIDERS: ADMIT Internal Medicine; ATTEND Internal Medicine
DX: J45.901 Unspecified asthma with (acute) exacerbation (principal); L02.511 Cutaneous abscess of right hand; F12.90 Cannabis use, unspecified, uncomplicated; N49.2 Inflammatory disorders of scrotum; B95.62 Methicillin resistant Staphylococcus aureus infection as the cause of diseases classified elsewhere; F41.9 Anxiety disorder, unspecified; J44.9 Chronic obstructive pulmonary disease, unspecified; R09.02 Hypoxemia; Z88.8 Allergy status to other drugs, medicaments and biological substances; Z91.14 Patient's other noncompliance with medication regimen; R21 Rash and other nonspecific skin eruption; T38.0X5A Adverse effect of glucocorticoids and synthetic analogues, initial encounter; Y92.239 Unspecified place in hospital as the place of occurrence of the external cause
CPT/HCPCS: 36415; 36600; 71046; 76870; 80048; 80053; 80202; 81003; 82803; 83880; 85025; 86140; 87070; 87077; 87186; 87205; 87502; 87640; 87641; 93005; 94640; 94760; 99284; A9270-GY; J0690; J2060; J2920; J2930; J3370; J3475; J7512

== ENCOUNTER 2017-12-16 23:31 | Inpatient (IN) | payer OTHER ==
[2017-12-16] MEDS ORDERED: methylPREDNISolone 125 MG* 2 ML VIAL IV ONE (23:54)
[2017-12-16] MEDS ORDERED: NS 0.9% 1000 ML* 1,000 ML IV ONE (23:54)
[2017-12-16] MEDS ORDERED: Ipratropium 0.5MG/2.5ML NEB* 0.5 MG/2.5 ML NEB.SOLN INH ONE (23:54)
[2017-12-16] MEDS ORDERED: Magnesium Sulfate 2 GM IV* 2 GM/50 ML BAG IVPB ONE (23:57)
[2017-12-17 00:34] LABS: ABS Basophils 0 10^3/ul (0-0.2); ABS Eosinophils 0.1 10^3/ul (0-0.6); ABS Lymphocytes 0.4 10^3/ul (1.0-4.8); ABS Neutrophils 12.7 10^3/ul (1.5-7.7); ABS Nucleated RBC 0 10^3/ul; Eosinophil % 0.5 % (0-6); Hematocrit 47 % (42-52); Lymphocyte % 3.1 % (25-47); Mean Corpuscular HGB Conc 34 g/dl (31-36); Mean Corpuscular Hemoglobin 29 pg (27-31); Mean Corpuscular Volume 84 fL (80-94); Mean Platelet Volume 7 um3 (7.4-10.4); Nucleated Red Blood Cells % 0.1; Platelet Count 366 10^3/ul (150-450); Red Blood Count 5.58 10^6/ul (4.0-5.4); Red Cell Distribution Width 14 % (10.5-15); White Blood Count 14.2 10^3/ul (3.5-10.8)
[2017-12-17 00:45] LABS: EGFR Non-African American 81.7 (>60)
[2017-12-17] MEDS: Albuterol 2.5 MG/3 ML NEB.SOL* (0.083%) INH SCH ×8 (01:06→23:21)
[2017-12-17] MEDS ORDERED: LORazepam INJ* 2 MG/ML 1 ML VIAL IV PUSH PRN (02:23)
[2017-12-17] MEDS ORDERED: Ipratropium 0.5MG/2.5ML NEB* 0.5 MG/2.5 ML NEB.SOLN INH PRN (02:24)
[2017-12-17] MEDS ORDERED: Cetirizine* 10 MG TAB PO PRN (02:24)
[2017-12-17] MEDS: Azithromycin IV(*) 500 MG in NS 0.9% 250 ML* 250 ML IVPB SCH (03:28)
[2017-12-17] MEDS: NS 0.9% 1000 ML* 1,000 ML IV SCH ×2 (03:28→16:00)
--- NOTE | 2017-12-17 03:28 | ED ---
Natasha Berumen Gabriel, scribed for Kole Ba MD on 12/17/17 at 0053 . Respiratory - HPI Summary HPI Summary: This patient is a 37 year old M presenting to [facility] accompanied by his family with a chief complaint of difficulty breathing upon waking up this morning that is progressively getting worse. Patient reports SOB, chest congestion, and productive cough. The patient was discharged after being admitted for 4 days on 12-14-17. The patient is taking antibiotics and prednisone. - History of Current Complaint Chief Complaint: EDShortnessOfBreath Stated Complaint: DIFFICULTY BREATHING Time Seen by Provider: 12/16/17 23:48 Hx Obtained From: Patient, Family/Laborer Onset/Duration: Lasting Days, Still Present Timing: Constant Initial Severity: Mild Current Severity: Severe Pain Intensity: 0 Character: Cough (Productive) Sputum Amount: Small Sputum Color: Clear Associated Signs and Symptoms: SOB - Allergy/Home Medications Allergies/Adverse Reactions: Allergies Allergy/AdvReac Type Severity Reaction Status Date / Time ibuprofen Allergy Anaphylatic Verified 12/16/17 23:45 Shock naproxen Allergy Anaphylatic Verified 12/16/17 23:45 Shock PMH/Surg Hx/FS Hx/Imm Hx Endocrine/Hematology History: Denies: Hx Diabetes, Hx Thyroid Disease Cardiovascular History: Denies: Hx Hypertension Respiratory History: Reports: Hx Asthma, Hx Chronic Bronchitis, Hx Chronic Obstructive Pulmonary Disease (COPD), Hx Pneumonia, Hx Seasonal Allergies GI History: Denies: Hx Ulcer Sensory History: Denies: Hx Contacts or Glasses, Hx Hearing Aid Opthamlomology History: Denies: Hx Contacts or Glasses Neurological History: Denies: Hx Dementia, Hx Migraine, Hx Seizures, Hx Transient Ischemic Attacks (TIA) Psychiatric History: Denies: Hx Anxiety, Hx Depression, Hx Schizophrenia, Hx Bipolar Disorder - Surgical History Surgery Procedure, Year, and Place: BILATERAL HANDS TENDON REPAIR A CHILD,. SINUS SURGERY 2013 Hx Anesthesia Reactions: No - Immunization History Date of Tetanus Vaccine: unk Date of Influenza Vaccine: none Infectious Disease History: No Infectious Disease History: Denies: Hx Clostridium Difficile, Hx Hepatitis, Hx Human Immunodeficiency Virus (HIV), Hx of Known/Suspected MRSA, Hx Shingles, Hx Tuberculosis, Hx Known/ Suspected VRE, Hx Known/Suspected VRSA, History Other Infectious Disease, Traveled Outside the [place] in Last 30 Days - Family History Known Family History: Positive: None - Both parents are alive and well., Other - Patient denies a significant FHx Negative: Blood Disorder Family History: Neg RAD - Social History Lives: With Family Alcohol Use: Rare Hx Substance Use: Yes Substance Use Type: Reports: Marijuana Substance Use Comment - Amount & Last Used: former heavy use marijuana Hx Tobacco Use: No Smoking Status (MU): Never Smoked Tobacco Have You Smoked in the Last Year: Yes - occasional marijuana smoker Review of Systems Negative: Fever Positive: Shortness Of Breath, Cough, Other - chest congestion All Other Systems Reviewed And Are Negative: Yes Physical Exam - Summary Physical Exam Summary: VITAL SIGNS: Reviewed. GENERAL: Patient is a well-developed and nourished malewho is lying comfortable in the stretcher. Patient is not in any acute respiratory distress. HEAD AND FACE: No signs of trauma. No ecchymosis, hematomas or skull depressions. No sinus tenderness. EYES: PERRLA, EOMI x 2, No injected conjunctiva, no nystagmus. EARS: Hearing grossly intact. Ear canals and tympanic membranes are within normal limits. MOUTH: Oropharynx within normal limits. NECK: Supple, trachea is midline, no adenopathy, no JVD, no carotid bruit, no c- spine tenderness, neck with full ROM. CHEST: Symmetric, no tenderness at palpation LUNGS: Bilateral inspiratory and expiratory diffuse wheezing and is tachypnic CVS: Regular rate and rhythm, S1 and S2 present, no murmurs or gallops appreciated. ABDOMEN: Soft, non-tender. No signs of distention. No rebound no guarding, and no masses palpated. Bowel sounds are normal. EXTREMITIES: FROM in all major joints, no edema, no cyanosis or clubbing. NEURO: Alert and oriented x 3. No acute neurological deficits. Speech is normal and follows commands. SKIN: Dry and warm Triage Information Reviewed: Yes Vital Signs On Initial Exam: Initial Vitals Temp Pulse Resp BP Pulse Ox 98.8 F 117 28 123/83 92 12/16/17 23:43 12/16/17 23:43 12/16/17 23:43 12/16/17 23:43 12/16/17 23:43 Vital Signs Reviewed: Yes Diagnostics - Vital Signs Vital Signs Temp Pulse Resp BP Pulse Ox 12/17/17 00:16 110 20 94 12/16/17 23:43 98.8 F 117 28 123/83 92 - Laboratory Lab Results: Lab Results 12/17/17 12/17/17 Range/Units 00:20 00:20 WBC 14.2 H (3.5-10.8) 10^3/ul RBC 5.58 H (4.0-5.4) 10^6/ul Hgb 16.0 (14.0-18.0) g/dl Hct 47 (42-52) % MCV 84 (80-94) fL MCH 29 (27-31) pg MCHC 34 (31-36) g/dl RDW 14 (10.5-15) % Plt Count 366 (150-450) 10^3/ul MPV 7 L (7.4-10.4) um3 Neut % (Auto) 89.0 H (38-83) % Lymph % (Auto) 3.1 L (25-47) % [place] % (Auto) 7.2 (1-9) % Eos % (Auto) 0.5 (0-6) % Baso % (Auto) 0.2 (0-2) % Absolute Neuts (auto) 12.7 H (1.5-7.7) 10^3/ul Absolute Lymphs (auto) 0.4 L (1.0-4.8) 10^3/ul Absolute Monos (auto) 1.0 H (0-0.8) 10^3/ul Absolute Eos (auto) 0.1 (0-0.6) 10^3/ul Absolute Basos (auto) 0 (0-0.2) 10^3/ul Absolute Nucleated RBC 0 10^3/ul Nucleated RBC % 0.1 Sodium 132 L (133-145) mmol/L Potassium 3.5 (3.5-5.0) mmol/L Chloride 98 L (101-111) mmol/L Carbon Dioxide 25 (22-32) mmol/L Anion Gap 9 (2-11) mmol/L BUN 23 (6-24) mg/dL Creatinine 1.03 (0.67-1.17) mg/dL Est GFR ( Amer) 105.1 (>60) Est GFR (Non-Af Amer) 81.7 (>60) BUN/Creatinine Ratio 22.3 H (8-20) Glucose 129 H (70-100) mg/dL Calcium 9.5 (8.6-10.3) mg/dL Total Bilirubin 0.30 (0.2-1.0) mg/dL AST 19 (13-39) U/L ALT 30 (7-52) U/L Alkaline Phosphatase 74 (34-104) U/L C-Reactive Protein 7.42 H (< 5.00) mg/L Total Protein 7.5 (6.4-8.9) g/dL Albumin 4.4 (3.2-5.2) g/dL Globulin 3.1 (2-4) g/dL Albumin/Globulin Ratio 1.4 (1-3) Result Diagrams: 12/17/17 00:20 12/17/17 00:20 Lab Statement: Any lab studies that have been ordered have been reviewed, and results considered in the medical decision making process. - Radiology CXR Radiology Interpretation Completed By: ED Physician - no active disease Disposition - Course Assessment/Plan: This patient is a 37 year old M presenting to [facility] accompanied by his family with a chief complaint of difficulty breathing upon waking up this morning that is progressively getting worse. Patient reports SOB , chest congestion, and productive cough. The patient was discharged after being admitted for 4 days on 12-14-17. The patient is taking antibiotics and prednisone. CXR reveals, per radiologist, no active disease. Test results with no significant abnormalities except for a lactic acid of 2.1. In the ED course the patient was given solu-medrol, albuterol, and IV fluids. Dx asthma. We discussed patient care with Dr. Daily and they have agreed to admit the patient. Patient will be admitted with care from Dr. daily. The patient is agreeable with this plan. - Diagnoses Provider Diagnoses: Asthma - Physician Notifications Discussed Care Of Patient With: Karuna Daily Time Discussed With Above Provider: 01:02 Instructed by Provider To: Admit As Inpatient Discharge - Discharge Plan Condition: Fair Disposition: ADMITTED TO [facility] Referrals: Nishant Jones MD [Primary Care Provider] - The documentation as recorded by the Natasha marley Gabriel accurately reflects the service I personally performed and the decisions made by , Kole Ba MD.
--- NOTE | 2017-12-17 07:18 | RAD ---
INDICATION: Short of breath COMPARISON: December 11, 2017 TECHNIQUE: An AP portable view obtained at 0032 hours is submitted. FINDINGS: Bones/Soft Tissues: There are no acute bony findings. Cardiomediastinal: The cardiomediastinal silhouette is normal. Lungs: There are no infiltrates. Pleura: There are no pleural effusions. Other: None IMPRESSION: NO ACTIVE DISEASE
[2017-12-17] MEDS: methylPREDNISolone SOD 40 MG* 1 ML VIAL IV SCH ×2 (08:05→16:00)
--- NOTE | 2017-12-17 08:11 | HP ---
CC: Dr. Jones; Dr. Blackburn.* HISTORY AND PHYSICAL: DATE OF ADMISSION: 12/17/17 PRIMARY CARE PROVIDER: Dr. Jones ASSEMBLER CLIP ON SUNGLASSES: Dr. Blackburn. CHIEF COMPLAINT: Shortness of breath. HISTORY OF PRESENT ILLNESS: Mr. Prakash is a 37-year-old male who was admitted from 12/11/17 to 12/14/17 for severe asthma exacerbation who represents to the emergency room now with complaints of worsened shortness of breath. The patient states that when he left the hospital, overall he was feeling improved. He continued to have what he describes as breathing attacks. He notes that he would develop a coughing fit, then his breathing would very short and difficult for a period of time until he recovered. This was ongoing during the last hospitalization. He states it was mostly in the mornings; he would wake up between 4:30 and 5 a.m. with these issues. The patient states, however, over the last day or so he would have coughing fits that would progress to severe shortness of breath anytime throughout the day. He thinks that perhaps he overdid it because he was feeling better. He states that he slept very well on Saturday evening. He thought he was on the mend. He did load wood into a wood furnace. He states he tried not to inhale the smoke. The patient has been taking his medications as prescribed. He, in fact, took an extra dose of prednisone prior to presenting to the emergency room to see if that would help his breathing. He used his rescue inhaler approximately 10 times the day prior to admission. Additionally, he had been using his nebulizer every 4 hours. PAST MEDICAL HISTORY: 1. Uncontrolled severe asthma. 2. Recent abscess on the hand. PAST SURGICAL HISTORY: Bilateral surgery on multiple fingers. MEDICATIONS: 1. Prednisone 40 mg p.o. daily x2 days, then 20 mg x2 days, then 10 mg x2 days. 2. Bactrim DS one tab p.o. b.i.d. 3. Singulair 10 mg p.o. daily. 4. Claritin 10 mg p.o. daily p.r.n. allergies. 5. Atrovent one neb inhaled twice daily p.r.n. shortness of breath. 6. Flovent 250 mcg two puffs inhaled daily. 7. Albuterol two puffs inhaled q.4 hours p.r.n. shortness of breath. 8. Albuterol neb one neb inhaled q.4 hours p.r.n. shortness of breath. ALLERGIES: NSAIDs. FAMILY HISTORY: Both parents were smokers. There has been no other significant medical history. SOCIAL HISTORY: The patient smokes marijuana on occasion. He denies smoking cigarettes. He lives with his . His is his health care proxy. He does not drink any alcohol. He works doing [employer]. REVIEW OF SYSTEMS: A complete 11 system review of systems is obtained. Pertinent positives and negatives are as per HPI; otherwise, negative except he does note that, on the evening prior to admission, he had what appeared to be a rash on both hands up to approximately the elbows. This appeared to be little red dots that have mostly subsided at this point. PHYSICAL EXAMINATION GENERAL: The patient is a well-developed young male who is visibly tachypneic, but in no acute distress. VITAL SIGNS: Blood pressure 123/83, pulse 98, respirations 20, temp 98.8, and O2 sat 96% on 2 liters. HEENT: Pupils are equal and round. Extraocular muscles intact. Oropharynx is clear. Oral mucosa moist. There is no submandibular, cervical, or supraclavicular adenopathy. Thyroid is not enlarged. No thyroid nodules are noted. PULMONARY: Breath sounds are diminished in all lung villafana. There are a few scattered wheezes. The patient becomes even more tachypneic while talking. CARDIAC: Normal S1 and S2. Regular, rate, and rhythm. I do not appreciate any murmurs. ABDOMEN: Bowel sounds present. Abdomen is soft, nontender, and nondistended. MUSCULOSKELETAL: There is no cyanosis or clubbing in the digits. There is full active range of motion of all 4 extremities. SKIN: Warm and dry. There is no obvious rash. There are a few small areas of pin point erythema noted on the hands, although the patient states that this is much improved from last evening. NEUROLOGIC: Cranial nerves II through XII are grossly intact. Sensation is intact to light touch throughout. Strength is 5/5 and symmetric in both upper and lower extremities bilaterally. PSYCH: The patient is alert. He is oriented x3. Affect appears appropriate. LABORATORY DATA: WBC 14.2, hemoglobin 16.0, hematocrit 47, platelets 366. Sodium 132, potassium 3.5, chloride 98, CO2 of 25, BUN 23, creatinine 1.03, glucose 129, lactic acid 2.1, calcium 9.5, bilirubin 0.3, AST 19, ALT 30, alk phos 74, CRP 7.42, albumin 4.4. Chest x-ray appears to be clear bilaterally without any infiltrate. ASSESSMENT AND PLAN: Mr. Prakash is a 37-year-old male who was recently discharged from the hospital on 12/14/17 after being treated for a severe asthma exacerbation and abscess on the right hand who represents to the emergency room with complaints of again worsened shortness of breath and is being admitted again for asthma exacerbation. 1. Asthma exacerbation. The patient has severe uncontrolled asthma. It sounds as if he has been taking his medications as prescribed. The patient will be placed on IV Solu-Medrol 40 mg IV q.8 hours, standing nebulizer treatments every 4 hours, and he will continue on his inhaled steroid and ipratropium. I will start azithromycin for possible pulmonary infection; however, I suspect he , in fact, does not have a bacterial infection, but likely this is just his asthma flaring up. A procalcitonin has been added on to the labs from the emergency room. 2. Recent abscess on the hand. The patient will continue on Bactrim 1 tab p.o. twice daily. He has 15 tablets left to complete that course of therapy. 3. DVT prophylaxis. According to the Adult Thrombosis Prophylaxis Risk Factor Assessment Guide the patient has a total risk factor score of 1, making him a low risk. DVT prophylaxis will be accomplished with ambulation. Code status is full. TIME SEEN: 55 minutes were spent admitting this patient. [id number]/[facility] #: [id number] [facility]Monte[facility]
[2017-12-17] MEDS: Montelukast Sodium TAB* 10 MG PO SCH (09:12)
[2017-12-17] MEDS: Sulfamethox/Trimethoprim DS 800/160* TAB PO SCH ×2 (09:12→20:21)
--- NOTE | 2017-12-17 13:49 | PN ---
Subjective Date of Service: 12/17/17 Interval History: C/o shortness of breath, moderate respiratory distress, Denies chest pain, or abd pain. Denies n/v/d Family History: Unchanged from Admission Social History: Unchanged from Admission Past Medical History: Unchanged from Admission Objective Active Medications: Albuterol (Ventolin 2.5 Mg/3 Ml Neb.Iwona*) 2.5 mg INH [id number] AWAKE [facility] Last Admin: 12/17/17 11:02 Dose: Not Given Cetirizine HCl (Zyrtec*) 10 mg PO DAILY PRN PRN Reason: Allergy Symptoms Sodium Chloride (Ns 0.9% 1000 Ml*) 1,000 mls @ 75 mls/hr IV PER RATE [facility] Last Admin: 12/17/17 03:28 Dose: 75 mls/hr Azithromycin 500 mg/ Sodium (Chloride) 250 mls @ 250 mls/hr IVPB Q24H [facility] Last Admin: 12/17/17 03:28 Dose: 250 mls/hr Ipratropium [place] (Atrovent 0.5 Mg Neb.Iwona*) 0.5 mg INH BID PRN PRN Reason: SHORTNESS OF BREATH Last Admin: 12/17/17 11:01 Dose: 0.5 mg Lorazepam (Ativan Tab(*)) 0.5 mg PO Q6H PRN PRN Reason: ANXIETY Methylprednisolone Sodium Succinate (Solu-Medrol 40 Mg) 40 mg IV Q8H [facility] Last Admin: 12/17/17 08:05 Dose: 40 mg Mometasone Furoate (Asmanex 220 Mcg Mdi *) 2 puff INH QPM [facility] Montelukast Sodium (Singulair Tab*) 10 mg PO DAILY [facility] Last Admin: 12/17/17 09:12 Dose: 10 mg Morphine Sulfate (Morphine Inj (Syringe)*) 2 mg IV Q4H PRN PRN Reason: air hunger Trimethoprim/Sulfamethoxazole (Bactrim Ds 800/160 Tab*) 1 tab PO BID [facility] Last Admin: 12/17/17 09:12 Dose: 1 tab Vital Signs - 8 hr 12/17/17 12/17/17 12/17/17 06:00 06:03 06:10 Temperature Pulse Rate 102 105 Respiratory 22 20 18 Rate Blood Pressure 148/95 (mmHg) O2 Sat by Pulse 93 96 Oximetry 12/17/17 12/17/17 12/17/17 06:22 06:30 07:00 Temperature Pulse Rate 107 102 Respiratory 24 22 20 Rate Blood Pressure 127/107 (mmHg) O2 Sat by Pulse 93 92 Oximetry 12/17/17 12/17/17 12/17/17 07:01 07:30 07:31 Temperature 97.9 F Pulse Rate 100 95 Respiratory 22 27 Rate Blood Pressure 113/99 121/88 (mmHg) O2 Sat by Pulse 93 94 Oximetry 12/17/17 12/17/17 12/17/17 08:00 08:31 08:55 Temperature Pulse Rate 91 107 97 Respiratory 27 19 28 Rate Blood Pressure 126/82 132/81 (mmHg) O2 Sat by Pulse 94 98 92 Oximetry 12/17/17 12/17/17 12/17/17 09:00 09:12 09:30 Temperature Pulse Rate 109 116 104 Respiratory 24 18 18 Rate Blood Pressure 109/70 134/77 (mmHg) O2 Sat by Pulse 97 92 90 Oximetry 12/17/17 12/17/17 12/17/17 10:00 10:30 11:00 Temperature Pulse Rate 117 107 123 Respiratory 22 25 29 Rate Blood Pressure 133/76 110/69 127/67 (mmHg) O2 Sat by Pulse 92 93 93 Oximetry 12/17/17 12/17/17 12/17/17 11:06 11:30 12:00 Temperature 98.0 F Pulse Rate 131 117 112 Respiratory 22 20 18 Rate Blood Pressure 125/75 117/63 (mmHg) O2 Sat by Pulse 95 93 92 Oximetry 12/17/17 12/17/17 13:00 13:31 Temperature Pulse Rate 107 100 Respiratory 23 23 Rate Blood Pressure 125/82 133/77 (mmHg) O2 Sat by Pulse 95 94 Oximetry Oxygen Devices in Use Now: Nasal Cannula Appearance: moderate respiratory distress, speaking in 3 to 4 word sentences; appears anxious Eyes: No Scleral Icterus Ears/Nose/Mouth/Throat: Clear Oropharnyx, Mucous Membranes Moist Neck: NL Appearance and Movements; NL JVP, Trachea Midline Respiratory: Symmetrical Chest Expansion and Respiratory Effort, - - inspiratory and exp wheezing Cardiovascular: RRR, No Edema Abdominal: NL Sounds; No Tenderness; No Distention Extremities: No Edema, No Clubbing, Cyanosis Skin: No Rash or Ulcers Neurological: Alert and Oriented x 3, NL Sensation Nutrition: Taking PO's Result Diagrams: 12/17/17 00:20 12/17/17 00:20 Additional Lab and Data: Lab Results 12/17/17 12/17/17 Range/Units 00:20 00:20 WBC 14.2 H (3.5-10.8) 10^3/ul RBC 5.58 H (4.0-5.4) 10^6/ul Hgb 16.0 (14.0-18.0) g/dl Hct 47 (42-52) % MCV 84 (80-94) fL MCH 29 (27-31) pg MCHC 34 (31-36) g/dl RDW 14 (10.5-15) % Plt Count 366 (150-450) 10^3/ul MPV 7 L (7.4-10.4) um3 Neut % (Auto) 89.0 H (38-83) % Lymph % (Auto) 3.1 L (25-47) % Jerome % (Auto) 7.2 (1-9) % Eos % (Auto) 0.5 (0-6) % Baso % (Auto) 0.2 (0-2) % Absolute Neuts (auto) 12.7 H (1.5-7.7) 10^3/ul Absolute Lymphs (auto) 0.4 L (1.0-4.8) 10^3/ul Absolute Monos (auto) 1.0 H (0-0.8) 10^3/ul Absolute Eos (auto) 0.1 (0-0.6) 10^3/ul Absolute Basos (auto) 0 (0-0.2) 10^3/ul Absolute Nucleated RBC 0 10^3/ul Nucleated RBC % 0.1 Sodium 132 L (133-145) mmol/L Potassium 3.5 (3.5-5.0) mmol/L Chloride 98 L (101-111) mmol/L Carbon Dioxide 25 (22-32) mmol/L Anion Gap 9 (2-11) mmol/L BUN 23 (6-24) mg/dL Creatinine 1.03 (0.67-1.17) mg/dL Est GFR ( Amer) 105.1 (>60) Est GFR (Non-Af Amer) 81.7 (>60) BUN/Creatinine Ratio 22.3 H (8-20) Glucose 129 H (70-100) mg/dL Calcium 9.5 (8.6-10.3) mg/dL Total Bilirubin 0.30 (0.2-1.0) mg/dL AST 19 (13-39) U/L ALT 30 (7-52) U/L Alkaline Phosphatase 74 (34-104) U/L C-Reactive Protein 7.42 H (< 5.00) mg/L Total Protein 7.5 (6.4-8.9) g/dL Albumin 4.4 (3.2-5.2) g/dL Globulin 3.1 (2-4) g/dL Albumin/Globulin Ratio 1.4 (1-3) Assess/Plan/Problems-Billing Assessment: - Patient Problems (1) Asthma exacerbation Current Visit: No Status: Acute Code(s): J45.901 - UNSPECIFIED ASTHMA WITH ( ACUTE) EXACERBATION SNOMED Code(s): 076194326 Comment: Patient still visably tachypneic requiring multiple uses of rescue albuterol nebs. 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 Blackburn consulted (2) MRSA (methicillin resistant Staphylococcus aureus) Current Visit: No Status: Acute Code(s): A49.02 - METHICILLIN RESIS STAPH INFECTION, UNSP SITE SNOMED Code(s): 304313077 Comment: Currently being treated for MRSA in the right index finger~will continue bactrim (3) DVT prophylaxis Current Visit: No Status: Acute Code(s): KSB7961 - SNOMED Code(s): 627580036 Comment: ambulation (4) Full code status Current Visit: Yes Status: Acute Code(s): Z78.9 - OTHER SPECIFIED HEALTH STATUS SNOMED Code(s): 017784844 Status and Disposition: inpatient
[2017-12-17] MEDS: LORazepam TAB(*) 0.5 MG PO PRN (14:55)
--- NOTE | 2017-12-17 19:31 | CONSULT ---
Consult Consult: PUlmonary consultation report Date of consultation: 12/17/17 Reason for consultation: SOB Consultation requested by : Anabel Logan NP CC: SOB HPI: 37 y o m known to me from prior out pt and inpt evaluations. Pt with h/o asthma, allergies, recently hospitalized to [facility], was d/antoni 2 days ago after being treated for acute asthme exacerbation. Pt reports feeling better upon d/c for 1 day, was exposed to fumes from wood stove at home, also reports exposure to mold. Pt also has pets at home. He was seen by wardrobe specialist in past. Pt started having difficulty beathing, chest discomfort, cough and decided to come to ED. He was recently treated for MRSA skin infection Has h/o anal abscess in past, had skin abscess and groin abscess recently. Denies fevers or chills. Reports signficant anxiety. He was admitted to ICU for acute asthma exacerbation. He was initiated on steroids, has been receiving bronchodlators every 2 hrs Pt was seen and examined at bedside. Pt reports signficant discomfort taking deep breath, elicits cough when he tries. Cough is dry in nature. Denies palpitaitons , syncope, N, V, diarrhea, headache, neck stiffness, ear ache, sore throat. PMH: ASthma Allergies Anal abscess Recent MRSA skin infection Anxiety ALL: Ibuprofen, Naproxen ROS; All 14 systems reviewed, as per HPI Social Hx: Denies smoking, ETOH, smokes Marijuana FHx: Non-contributory to current complaint Home Medications Medication Instructions Albuterol 2.5MG/3ML (0.083%)* 2.5 mg INH Q4H PRN [Ventolin 2.5 MG/3 ML NEB.REN*] Albuterol HFA INHALER* [Ventolin 2 puff INH Q4H PRN HFA Inhaler*] Montelukast Sodium TAB* [Singulair 10 mg PO DAILY 10 MG TAB*] Fluticasone DISKUS 250 MCG(NF) 2 puff INH QAM [Flovent Diskus 250 MCG(NF)] Ipratropium 0.5MG/2.5ML NEB* 0.5 mg INH BID PRN [Atrovent 0.5 MG NEB.REN*] LoraTADine TAB(NF) [Claritin 10 MG 10 mg PO DAILY PRN TAB(NF)] Sulfamethox/Trimethoprim DS* 1 tab PO BID #20 tab [Bactrim DS 800/160 TAB*] Sulfamethox/Trimethoprim DS* 1 tab PO BID #20 tab [Bactrim DS 800/160 TAB*] predniSONE TAB* [Deltasone TAB*] 20 mg PO DAILY #13 tab predniSONE TAB* [Deltasone TAB*] 60 mg PO DAILY #13 tab Physical Exam: Gen: Pt in NAD HEENT: PERRLA, NO JVD Lungs: No accessory muscle usage, tachypneic, wheeze+, prolonged expiratory phase CVS: S1, S2+, tachycardic Abd: Soft, BS+ Ext: Normal ROM Neuro: Anxious, no focal defecits Laboratory Results - last 24 hr 12/17/17 12/17/17 12/17/17 00:20 00:20 00:20 WBC 14.2 H RBC 5.58 H Hgb 16.0 Hct 47 MCV 84 MCH 29 MCHC 34 RDW 14 Plt Count 366 MPV 7 L Neut % (Auto) 89.0 H Lymph % (Auto) 3.1 L Louisa % (Auto) 7.2 Eos % (Auto) 0.5 Baso % (Auto) 0.2 Absolute Neuts (auto) 12.7 H Absolute Lymphs (auto) 0.4 L Absolute Monos (auto) 1.0 H Absolute Eos (auto) 0.1 Absolute Basos (auto) 0 Absolute Nucleated RBC 0 Nucleated RBC % 0.1 Patient Temperature ABG pH ABG pH (Temp Correct) ABG pCO2 ABG pCO2 (Temp Corrct ABG pO2 ABG pO2 (Temp Correct ABG HCO3 ABG O2 Saturation ABG Base Excess Respiration Rate O2 Delivery Device Ventilator Type Vent Mode FiO2 Inspiratory Time PEEP Pressure Support Pressure Control EPAP IPAP BiPAP Sodium 132 L Potassium 3.5 Chloride 98 L Carbon Dioxide 25 Anion Gap 9 BUN 23 Creatinine 1.03 Est GFR ( Amer) 105.1 Est GFR (Non-Af Amer) 81.7 BUN/Creatinine Ratio 22.3 H Glucose 129 H Lactic Acid 2.1 H* Calcium 9.5 Total Bilirubin 0.30 AST 19 ALT 30 Alkaline Phosphatase 74 C-Reactive Protein 7.42 H Total Protein 7.5 Albumin 4.4 Globulin 3.1 Albumin/Globulin Ratio 1.4 Procalcitonin 12/17/17 12/17/17 00:20 12:37 WBC RBC Hgb Hct MCV MCH MCHC RDW Plt Count MPV Neut % (Auto) Lymph % (Auto) Louisa % (Auto) Eos % (Auto) Baso % (Auto) Absolute Neuts (auto) Absolute Lymphs (auto) Absolute Monos (auto) Absolute Eos (auto) Absolute Basos (auto) Absolute Nucleated RBC Nucleated RBC % Patient Temperature Not Reportable ABG pH 7.46 H ABG pH (Temp Correct) Not Reportable ABG pCO2 32 L ABG pCO2 (Temp Corrct Not Reportable ABG pO2 70 L ABG pO2 (Temp Correct Not Reportable ABG HCO3 24.7 ABG O2 Saturation 97.3 ABG Base Excess -0.2 Respiration Rate Not Reportable O2 Delivery Device N/c Ventilator Type Not Reportable Vent Mode Not Reportable FiO2 Not Reportable Inspiratory Time Not Reportable PEEP Not Reportable Pressure Support Not Reportable Pressure Control Not Reportable EPAP Not Reportable IPAP Not Reportable BiPAP Not Reportable Sodium Potassium Chloride Carbon Dioxide Anion Gap BUN Creatinine Est GFR ( Amer) Est GFR (Non-Af Amer) BUN/Creatinine Ratio Glucose Lactic Acid Calcium Total Bilirubin AST ALT Alkaline Phosphatase C-Reactive Protein Total Protein Albumin Globulin Albumin/Globulin Ratio Procalcitonin < 0.1 CXR: No acute airspace opacities I?R: 37 y o m with h/o asthma, allergies, recent hospitalization for acute asthma exacerbation, readmitted in 2 days with worsening of symptoms Acute asthma exacerbation: Suspect triggers at home - Reports mold at home, has pets/cats at home, also exposed to fumes from wood stove Suspect triggers at home Not signficantly hypoxic, PO2 70 likely sec to acute asthma exacerbation and bronchospasm I do not suspect PE or other etiology Will obtain ECHO to evaluate PFO or atrial myxoma c/w O2 supplementation as needed c/w steroids and bronchodilators Will have ENT evaluation upon d/c for evalution of vocal cord dysfunction D/w Anabel Holt NP
[2017-12-17] MEDS: Mometasone 220 MCG MDI INH SCH (19:44)
[2017-12-17] MEDS: Morphine INJ* 2 MG/ML 1 ML CARPUJECT IV PRN (22:30)
[2017-12-18] MEDS: methylPREDNISolone SOD 40 MG* 1 ML VIAL IV SCH ×4 (00:42→23:51)
[2017-12-18] MEDS: LORazepam TAB(*) 0.5 MG PO PRN ×4 (00:50→21:29)
[2017-12-18] MEDS: Azithromycin IV(*) 500 MG in NS 0.9% 250 ML* 250 ML IVPB SCH (02:26)
[2017-12-18] MEDS ORDERED: diPHENhydraMINE PO* 25 MG ONE (02:57)
[2017-12-18] MEDS: diPHENhydraMINE PO* 25 MG PO PRN (02:58)
[2017-12-18] MEDS: Albuterol 2.5 MG/3 ML NEB.SOL* (0.083%) INH SCH ×2 (02:59→07:56)
[2017-12-18] MEDS: Morphine INJ* 2 MG/ML 1 ML CARPUJECT IV PRN (07:47)
[2017-12-18] MEDS ORDERED: LORazepam INJ* 2 MG/ML 1 ML VIAL ONE (07:52)
[2017-12-18] MEDS: Mometasone 220 MCG MDI INH SCH ×2 (07:57→21:04)
[2017-12-18] MEDS: Sulfamethox/Trimethoprim DS 800/160* TAB PO SCH ×2 (10:20→21:17)
[2017-12-18] MEDS: Montelukast Sodium TAB* 10 MG PO SCH (10:20)
[2017-12-18] MEDS: Albuterol HFA INHALER* 8 gm MDI INH PRN ×3 (15:01→21:05)
[2017-12-18] MEDS: Oseltamivir CAP* 75 MG CAP PO SCH ×2 (16:00→21:17)
[2017-12-18] MEDS: NS 0.9% 1000 ML* 1,000 ML IV SCH (16:01)
--- NOTE | 2017-12-18 22:29 | PN ---
Subjective Date of Service: 12/18/17 Interval History: Down to 3L in ICU. 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 low grade fever 99.5. up most of night. Influenza swabbed again (4th time this season) and this time positive. 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 Occasionally marijuana use though has cut back this year. nasal polyps removed 18 months ago and then returned. as on 20 days prednisone over summer with better symptoms. left hip pain. sensation of raised skin or tightness behind right thigh during his attacks. dirt bike racing every saturday night transferred to floor, tamiflu started. Family History: Unchanged from Admission Social History: Unchanged from Admission Past Medical History: Unchanged from Admission Objective Active Medications: Albuterol (Ventolin Hfa Inhaler*) 2 puff INH Q4H PRN PRN Reason: SOB/WHEEZING Last Admin: 12/18/17 21:05 Dose: 2 puff Albuterol/Ipratropium (Duoneb (Albuterol 2.5 Mg/Ipratropium 0.5 Mg)) 1 neb INH Q4H PRN PRN Reason: SOB/WHEEZING Cetirizine HCl (Zyrtec*) 10 mg PO DAILY PRN PRN Reason: Allergy Symptoms Diphenhydramine HCl (Benadryl Po*) 25 mg PO Q6H PRN PRN Reason: ITCHING Last Admin: 12/18/17 02:58 Dose: 25 mg Sodium Chloride (Ns 0.9% 1000 Ml*) 1,000 mls @ 75 mls/hr IV PER RATE [facility] Last Admin: 12/18/17 16:01 Dose: 75 mls/hr Azithromycin 500 mg/ Sodium (Chloride) 250 mls @ 250 mls/hr IVPB Q24H [facility] Last Admin: 12/18/17 02:26 Dose: 250 mls/hr Ipratropium [place] (Atrovent 0.5 Mg Neb.Iwona*) 0.5 mg INH BID PRN PRN Reason: SHORTNESS OF BREATH Last Admin: 12/17/17 11:01 Dose: 0.5 mg Lorazepam (Ativan Tab(*)) 0.5 mg PO Q6H PRN PRN Reason: ANXIETY Last Admin: 12/18/17 21:29 Dose: 0.5 mg Methylprednisolone Sodium Succinate (Solu-Medrol 40 Mg) 40 mg IV Q8H [facility] Last Admin: 12/18/17 16:01 Dose: 40 mg Mometasone Furoate (Asmanex 220 Mcg Mdi *) 2 puff INH 2100 [facility] Last Admin: 12/18/17 21:04 Dose: 2 inhaler Montelukast Sodium (Singulair Tab*) 10 mg PO DAILY [facility] Last Admin: 12/18/17 10:20 Dose: 10 mg Morphine Sulfate (Morphine Inj (Syringe)*) 2 mg IV Q4H PRN PRN Reason: air hunger Last Admin: 12/18/17 07:47 Dose: 2 mg Oseltamivir Phosphate (Tamiflu Cap*) 75 mg PO BID [facility] Stop: 12/22/17 21:01 Last Admin: 12/18/17 21:17 Dose: 75 mg Trimethoprim/Sulfamethoxazole (Bactrim Ds 800/160 Tab*) 1 tab PO BID [facility] Last Admin: 12/18/17 21:17 Dose: 1 tab Vital Signs - 8 hr 12/18/17 12/18/17 12/18/17 15:02 15:10 16:01 Temperature 98.5 F Pulse Rate 96 102 Respiratory 20 24 16 Rate Blood Pressure 110/65 (mmHg) O2 Sat by Pulse 92 98 Oximetry 12/18/17 12/18/17 12/18/17 18:08 21:05 21:29 Temperature Pulse Rate 121 Respiratory 16 18 14 Rate Blood Pressure (mmHg) O2 Sat by Pulse 96 Oximetry Oxygen Devices in Use Now: Nasal Cannula Appearance: occasional respiratory bronchospasms. Eyes: No Scleral Icterus, PERRLA Ears/Nose/Mouth/Throat: NL Teeth, Lips, Gums Respiratory: - - coarse expiratory wheezing. no rales or rhonchi. prolonged e/i Cardiovascular: NL Sounds; No Murmurs; No JVD, RRR Abdominal: NL Sounds; No Tenderness; No Distention Extremities: No Edema Skin: No Rash or Ulcers, No Nodules or Sclerosis Neurological: Alert and Oriented x 3, NL Sensation, NL Gait Nutrition: Taking PO's Result Diagrams: 12/17/17 00:20 12/17/17 00:20 Additional Lab and Data: Microbiology 12/18/17 12:51 Nasal Influenza Types A,B Antigen ([facility]K) - Final Specimen received for Influenza A/B Molecular testing Microbiology and Other Data: Microbiology 12/18/17 12:51 Nasal Influenza Types A,B Antigen ([facility]K) - Final Specimen received for Influenza A/B Molecular testing Assess/Plan/Problems-Billing Assessment: 37 yo severe recurrent asthma 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 - Patient Problems (1) Asthma exacerbation Current Visit: No Status: Acute Code(s): J45.901 - UNSPECIFIED ASTHMA WITH ( ACUTE) EXACERBATION SNOMED Code(s): 768556216 Comment: oxygen requirements decreased but markedly bronchospastic still. albuterol nebs. IV steroids~ solumedrol 40 mg Q 8 hours- will need slow prednisone taper started again Influenza A treatment w/ tamiflu appreciate Dr. Alexey pitts without lifestyle modications, pt is at very high risk for readmissions. rule out vasculitis: plan ESR, CANCA, PANCA, JUAN panel. (2) Triad asthma Current Visit: Yes Status: Acute Code(s): J45.909 - UNSPECIFIED ASTHMA, UNCOMPLICATED; J33.9 - NASAL POLYP, UNSPECIFIED; Z88.6 - ALLERGY STATUS TO ANALGESIC AGENT STATUS SNOMED Code(s): 95244142137011454 (3) Influenza A Current Visit: Yes Status: Acute Code(s): J10.1 - FLU DUE TO OTH IDENT INFLUENZA VIRUS W OTH RESP MANIFEST SNOMED Code(s): 100961124 Comment: tamiflu started (4) Hand abscess Current Visit: Yes Status: Acute Code(s): L02.519 - CUTANEOUS ABSCESS OF UNSPECIFIED HAND SNOMED Code(s): 5539232 Comment: continue outpatient bactrim. Status and Disposition: inpatient Attending: Carrillo Dejesus
[2017-12-19] MEDS: diPHENhydraMINE PO* 25 MG PO PRN (00:03)
[2017-12-19] MEDS: Albuterol/Ipratropium NEB.SOL* Albuterol 2.5 MG/Ipratropium 0.5 MG 3 ML INH PRN ×4 (00:52→21:44)
[2017-12-19] MEDS: methylPREDNISolone SOD 40 MG* 1 ML VIAL IV SCH ×3 (08:29→23:54)
[2017-12-19] MEDS: Oseltamivir CAP* 75 MG CAP PO SCH ×2 (08:30→20:36)
[2017-12-19] MEDS: Sulfamethox/Trimethoprim DS 800/160* TAB PO SCH ×2 (08:30→20:36)
[2017-12-19] MEDS: LORazepam TAB(*) 0.5 MG PO PRN ×3 (08:30→20:36)
[2017-12-19] MEDS: Montelukast Sodium TAB* 10 MG PO SCH (08:30)
--- NOTE | 2017-12-19 14:24 | PN ---
Progress Note - Progress Note Date of Service: 12/19/17 - Pulm f/u note Note: Pt seen and examined at bedside. Pt reported that he is coughing more and is bringing up clear phleghm. he had more coughing after taking shower. Active Medications Generic Name Dose Route Start Last Admin Trade Name Freq PRN Reason Stop Dose Admin Albuterol 2 puff 12/18/17 08:02 12/18/17 21:05 Ventolin Hfa Inhaler* INH 2 puff Q4H PRN Administration SOB/WHEEZING Albuterol/Ipratropium 1 neb 12/18/17 08:03 12/19/17 08:31 Duoneb (Albuterol 2.5 Mg/Ipratropium 0.5 Mg) INH 1 neb Q4H PRN Administration SOB/WHEEZING Cetirizine HCl 10 mg 12/17/17 02:24 Zyrtec* PO DAILY PRN Allergy Symptoms Diphenhydramine HCl 25 mg 12/18/17 02:45 12/19/17 00:03 Benadryl Po* PO 25 mg Q6H PRN Administration ITCHING Ipratropium [place] 0.5 mg 12/17/17 02:24 12/17/17 11:01 Atrovent 0.5 Mg Neb.Iwona* INH 0.5 mg BID PRN Administration SHORTNESS OF BREATH Lorazepam 0.5 mg 12/17/17 12:15 12/19/17 08:30 Ativan Tab(*) PO 0.5 mg Q6H PRN Administration ANXIETY Methylprednisolone Sodium Succinate 40 mg 12/17/17 08:00 12/19/17 08:29 Solu-Medrol 40 Mg IV 40 mg Q8H KOBE Administration Mometasone Furoate 2 puff 12/18/17 21:00 12/18/17 21:04 Asmanex 220 Mcg Mdi * INH 2 inhaler 2100 KOBE Administration Montelukast Sodium 10 mg 12/17/17 09:00 12/19/17 08:30 Singulair Tab* PO 10 mg DAILY KOBE Administration Morphine Sulfate 2 mg 12/17/17 02:23 12/18/17 07:47 Morphine Inj (Syringe)* IV 2 mg Q4H PRN Administration air hunger Oseltamivir Phosphate 75 mg 12/18/17 14:00 12/19/17 08:30 Tamiflu Cap* PO 12/22/17 21:01 75 mg BID KOBE Administration Trimethoprim/Sulfamethoxazole 1 tab 12/17/17 09:00 12/19/17 08:30 Bactrim Ds 800/160 Tab* PO 1 tab BID KOBE Administration Vital Signs Temp Pulse Resp BP Pulse Ox 97.6 F 98 16 115/57 97 12/19/17 11:36 12/19/17 11:36 12/19/17 11:36 12/19/17 11:36 12/19/17 11:36 O/E: Pt in NAD, alert, awake HEENT: PERRLA, No JVD Lungs: Poor air entry b/l, expiratory wheeze present CVS: S1, S2+, regular Abd: Soft, BS+ Ext: No edema Neuro: No focal defecits Laboratory Results - last 24 hr 12/19/17 06:37 ESR 11 I/R; 37 y o m with h/o asthma, allergies with recurrent asthma sx recently a/w worsening SOB after recent d/c found to have acute asthma exacerbation sec to Influenza Pt with significant bronchospasm still Will not taper solumedrol yet C/w Albuterol nebs O2 sats are better, not needing much 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
--- NOTE | 2017-12-19 19:00 | PN ---
Subjective Date of Service: 12/19/17 Interval History: feels better. "50%" compared to 5% lungs moderately bad bronchonspasm but improved. plans to move into a camper's tent after he goes home. Family History: Unchanged from Admission Social History: Unchanged from Admission Past Medical History: Unchanged from Admission Objective Active Medications: Albuterol (Ventolin Hfa Inhaler*) 2 puff INH Q4H PRN PRN Reason: SOB/WHEEZING Last Admin: 12/18/17 21:05 Dose: 2 puff Albuterol/Ipratropium (Duoneb (Albuterol 2.5 Mg/Ipratropium 0.5 Mg)) 1 neb INH Q4H PRN PRN Reason: SOB/WHEEZING Last Admin: 12/19/17 16:40 Dose: 1 neb Cetirizine HCl (Zyrtec*) 10 mg PO DAILY PRN PRN Reason: Allergy Symptoms Diphenhydramine HCl (Benadryl Po*) 25 mg PO Q6H PRN PRN Reason: ITCHING Last Admin: 12/19/17 00:03 Dose: 25 mg Ipratropium [place] (Atrovent 0.5 Mg Neb.Iwona*) 0.5 mg INH BID PRN PRN Reason: SHORTNESS OF BREATH Last Admin: 12/17/17 11:01 Dose: 0.5 mg Lorazepam (Ativan Tab(*)) 0.5 mg PO Q6H PRN PRN Reason: ANXIETY Last Admin: 12/19/17 14:34 Dose: 0.5 mg Methylprednisolone Sodium Succinate (Solu-Medrol 40 Mg) 40 mg IV Q8H KOBE Last Admin: 12/19/17 16:32 Dose: 40 mg Mometasone Furoate (Asmanex 220 Mcg Mdi *) 2 puff INH 2100 KOBE Last Admin: 12/18/17 21:04 Dose: 2 inhaler Montelukast Sodium (Singulair Tab*) 10 mg PO DAILY KOBE Last Admin: 12/19/17 08:30 Dose: 10 mg Morphine Sulfate (Morphine Inj (Syringe)*) 2 mg IV Q4H PRN PRN Reason: air hunger Last Admin: 12/18/17 07:47 Dose: 2 mg Oseltamivir Phosphate (Tamiflu Cap*) 75 mg PO BID KOBE Stop: 12/22/17 21:01 Last Admin: 12/19/17 08:30 Dose: 75 mg Trimethoprim/Sulfamethoxazole (Bactrim Ds 800/160 Tab*) 1 tab PO BID KOBE Last Admin: 12/19/17 08:30 Dose: 1 tab Vital Signs - 8 hr 12/19/17 12/19/17 12/19/17 11:17 11:36 14:34 Temperature 97.6 F Pulse Rate 98 Respiratory 14 16 16 Rate Blood Pressure 115/57 (mmHg) O2 Sat by Pulse 97 Oximetry 12/19/17 12/19/17 16:41 16:42 Temperature Pulse Rate 89 Respiratory 20 16 Rate Blood Pressure (mmHg) O2 Sat by Pulse 95 Oximetry Oxygen Devices in Use Now: None Appearance: improved, Eyes: No Scleral Icterus, PERRLA Ears/Nose/Mouth/Throat: NL Teeth, Lips, Gums, Mucous Membranes Moist Neck: NL Appearance and Movements; NL JVP, Trachea Midline Respiratory: - - expiratory wheezing, improved but still bad Abdominal: NL Sounds; No Tenderness; No Distention Extremities: No Edema Skin: No Rash or Ulcers Neurological: Alert and Oriented x 3 Nutrition: Taking PO's Result Diagrams: 12/17/17 00:20 12/17/17 00:20 Additional Lab and Data: Microbiology 12/18/17 12:51 Nasal Influenza Types A,B Antigen (AMRIK) - Final Specimen received for Influenza A/B Molecular testing Microbiology and Other Data: Microbiology 12/18/17 12:51 Nasal Influenza Types A,B Antigen (AMRIK) - Final Specimen received for Influenza A/B Molecular testing Assess/Plan/Problems-Billing Assessment: 37 yo severe recurrent asthma 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 - Patient Problems (1) Asthma exacerbation Current Visit: No Status: Acute Code(s): J45.901 - UNSPECIFIED ASTHMA WITH ( ACUTE) EXACERBATION SNOMED Code(s): 473235030 Comment: improving though still quite bronchospastic still. albuterol nebs. IV steroids~ solumedrol 40 mg Q 8 hours- will need slow prednisone taper started again Influenza A treatment w/ tamiflu appreciate Dr. Blackburn recs. on bactrim for ppx while on steroids. without lifestyle modications, pt is at very high risk for readmissions. rule out vasculitis: ESR wnl, CANCA, PANCA, JUAN panel. (2) Triad asthma Current Visit: Yes Status: Acute Code(s): J45.909 - UNSPECIFIED ASTHMA, UNCOMPLICATED; J33.9 - NASAL POLYP, UNSPECIFIED; Z88.6 - ALLERGY STATUS TO ANALGESIC AGENT STATUS SNOMED Code(s): 95845481070962969 Comment: as above. ENT f/u as outpatient. (3) Influenza A Current Visit: Yes Status: Acute Code(s): J10.1 - FLU DUE TO OTH IDENT INFLUENZA VIRUS W OTH RESP MANIFEST SNOMED Code(s): 270966080 Comment: tamiflu day 2 of 5 Status and Disposition: inpatient Attending: Carrillo Dejesus
[2017-12-19] MEDS: Mometasone 220 MCG MDI INH SCH (21:45)
[2017-12-20] MEDS: Oseltamivir CAP* 75 MG CAP PO SCH ×2 (08:14→21:15)
[2017-12-20] MEDS: Montelukast Sodium TAB* 10 MG PO SCH (08:14)
[2017-12-20] MEDS: Sulfamethox/Trimethoprim DS 800/160* TAB PO SCH ×2 (08:14→21:15)
[2017-12-20] MEDS: methylPREDNISolone SOD 40 MG* 1 ML VIAL IV SCH ×2 (08:14→16:11)
[2017-12-20] MEDS: Albuterol/Ipratropium NEB.SOL* Albuterol 2.5 MG/Ipratropium 0.5 MG 3 ML INH PRN (15:33)
--- NOTE | 2017-12-20 17:33 | PN ---
Subjective Date of Service: 12/20/17 Interval History: still short of breath with exertion. Family History: Unchanged from Admission Social History: Unchanged from Admission Past Medical History: Unchanged from Admission Objective Active Medications: Albuterol (Ventolin Hfa Inhaler*) 2 puff INH Q4H PRN PRN Reason: SOB/WHEEZING Last Admin: 12/18/17 21:05 Dose: 2 puff Albuterol/Ipratropium (Duoneb (Albuterol 2.5 Mg/Ipratropium 0.5 Mg)) 1 neb INH Q4H PRN PRN Reason: SOB/WHEEZING Last Admin: 12/20/17 15:33 Dose: 1 neb Cetirizine HCl (Zyrtec*) 10 mg PO DAILY PRN PRN Reason: Allergy Symptoms Diphenhydramine HCl (Benadryl Po*) 25 mg PO Q6H PRN PRN Reason: ITCHING Last Admin: 12/19/17 00:03 Dose: 25 mg Ipratropium [place] (Atrovent 0.5 Mg Neb.Iwona*) 0.5 mg INH BID PRN PRN Reason: SHORTNESS OF BREATH Last Admin: 12/17/17 11:01 Dose: 0.5 mg Lorazepam (Ativan Tab(*)) 0.5 mg PO Q6H PRN PRN Reason: ANXIETY Last Admin: 12/19/17 20:36 Dose: 0.5 mg Methylprednisolone Sodium Succinate (Solu-Medrol 40 Mg) 40 mg IV Q8H KOBE Last Admin: 12/20/17 16:11 Dose: 40 mg Mometasone Furoate (Asmanex 220 Mcg Mdi *) 2 puff INH 2100 KOBE Last Admin: 12/19/17 21:45 Dose: 2 inhaler Montelukast Sodium (Singulair Tab*) 10 mg PO DAILY KOBE Last Admin: 12/20/17 08:14 Dose: 10 mg Morphine Sulfate (Morphine Inj (Syringe)*) 2 mg IV Q4H PRN PRN Reason: air hunger Last Admin: 12/18/17 07:47 Dose: 2 mg Oseltamivir Phosphate (Tamiflu Cap*) 75 mg PO BID KOBE Stop: 12/22/17 21:01 Last Admin: 12/20/17 08:14 Dose: 75 mg Trimethoprim/Sulfamethoxazole (Bactrim Ds 800/160 Tab*) 1 tab PO BID KOBE Last Admin: 12/20/17 08:14 Dose: 1 tab Vital Signs - 8 hr 12/20/17 12/20/17 10:59 15:34 Temperature 97.6 F Pulse Rate 78 84 Respiratory 18 16 Rate Blood Pressure 150/77 (mmHg) O2 Sat by Pulse 99 96 Oximetry Oxygen Devices in Use Now: None Appearance: sitting up in bed, no distress Eyes: No Scleral Icterus Ears/Nose/Mouth/Throat: NL Teeth, Lips, Gums Neck: NL Appearance and Movements; NL JVP Respiratory: Symmetrical Chest Expansion and Respiratory Effort, - - diffuse expiratory wheezing, no inspiratory wheezes Cardiovascular: NL Sounds; No Murmurs; No JVD Abdominal: NL Sounds; No Tenderness; No Distention Lymphatic: No Cervical Adenopathy Extremities: No Edema Skin: No Rash or Ulcers Neurological: Alert and Oriented x 3 Result Diagrams: 12/17/17 00:20 12/17/17 00:20 Additional Lab and Data: Microbiology 12/18/17 12:51 Nasal Influenza Types A,B Antigen (AMRIK) - Final Specimen received for Influenza A/B Molecular testing Microbiology and Other Data: Microbiology 12/18/17 12:51 Nasal Influenza Types A,B Antigen (AMRIK) - Final Specimen received for Influenza A/B Molecular testing Assess/Plan/Problems-Billing Assessment: 37 yo severe recurrent asthma 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 - Patient Problems (1) Influenza A Current Visit: Yes Status: Acute Code(s): J10.1 - FLU DUE TO OTH IDENT INFLUENZA VIRUS W OTH RESP MANIFEST SNOMED Code(s): 274794571 Comment: tamiflu day 3 of 5 (2) Triad asthma Current Visit: Yes Status: Acute Code(s): J45.909 - UNSPECIFIED ASTHMA, UNCOMPLICATED; J33.9 - NASAL POLYP, UNSPECIFIED; Z88.6 - ALLERGY STATUS TO ANALGESIC AGENT STATUS SNOMED Code(s): 65573650586963819 Comment: continue standing nebs, steroids. decrease solumedrol to q12 today ENT f/u as outpatient for VCD. Status and Disposition: inpatient
[2017-12-20] MEDS: Albuterol/Ipratropium NEB.SOL* Albuterol 2.5 MG/Ipratropium 0.5 MG 3 ML INH SCH ×2 (19:48→23:38)
[2017-12-20] MEDS: Mometasone 220 MCG MDI INH SCH (19:49)
[2017-12-21] MEDS: Albuterol/Ipratropium NEB.SOL* Albuterol 2.5 MG/Ipratropium 0.5 MG 3 ML INH SCH ×5 (03:40→20:29)
[2017-12-21] MEDS: methylPREDNISolone SOD 40 MG* 1 ML VIAL IV SCH ×2 (05:47→16:44)
[2017-12-21] MEDS: Sulfamethox/Trimethoprim DS 800/160* TAB PO SCH ×2 (07:28→21:11)
[2017-12-21] MEDS: Oseltamivir CAP* 75 MG CAP PO SCH ×2 (07:29→21:11)
[2017-12-21] MEDS: Montelukast Sodium TAB* 10 MG PO SCH (07:29)
--- NOTE | 2017-12-21 16:53 | PN ---
Subjective Date of Service: 12/21/17 Interval History: still feels winded. mutters tangenentially with every question, often inappropriately. does not answer directly, avoids eye contact. Family History: Unchanged from Admission Social History: Unchanged from Admission Past Medical History: Unchanged from Admission Objective Active Medications: Albuterol (Ventolin Hfa Inhaler*) 2 puff INH Q4H PRN PRN Reason: SOB/WHEEZING Last Admin: 12/18/17 21:05 Dose: 2 puff Albuterol/Ipratropium (Duoneb (Albuterol 2.5 Mg/Ipratropium 0.5 Mg)) 1 neb INH [id number] AWAKE [facility] Cetirizine HCl (Zyrtec*) 10 mg PO DAILY PRN PRN Reason: Allergy Symptoms Diphenhydramine HCl (Benadryl Po*) 25 mg PO Q6H PRN PRN Reason: ITCHING Last Admin: 12/19/17 00:03 Dose: 25 mg Ipratropium [place] (Atrovent 0.5 Mg Neb.Iwona*) 0.5 mg INH BID PRN PRN Reason: SHORTNESS OF BREATH Last Admin: 12/17/17 11:01 Dose: 0.5 mg Lorazepam (Ativan Tab(*)) 0.5 mg PO Q6H PRN PRN Reason: ANXIETY Last Admin: 12/19/17 20:36 Dose: 0.5 mg Methylprednisolone Sodium Succinate (Solu-Medrol 40 Mg) 40 mg IV Q12H [facility] Last Admin: 12/21/17 16:44 Dose: 40 mg Mometasone Furoate (Asmanex 220 Mcg Mdi *) 2 puff INH 2100 [facility] Last Admin: 12/20/17 19:49 Dose: 2 inhaler Montelukast Sodium (Singulair Tab*) 10 mg PO DAILY [facility] Last Admin: 12/21/17 07:29 Dose: 10 mg Morphine Sulfate (Morphine Inj (Syringe)*) 2 mg IV Q4H PRN PRN Reason: air hunger Last Admin: 12/18/17 07:47 Dose: 2 mg Oseltamivir Phosphate (Tamiflu Cap*) 75 mg PO BID KOBE Stop: 12/22/17 21:01 Last Admin: 12/21/17 07:29 Dose: 75 mg Trimethoprim/Sulfamethoxazole (Bactrim Ds 800/160 Tab*) 1 tab PO BID KOBE Last Admin: 12/21/17 07:28 Dose: 1 tab Vital Signs - 8 hr 12/21/17 12/21/17 11:34 15:43 Temperature 97.9 F 98.3 F Pulse Rate 87 85 Respiratory 18 18 Rate Blood Pressure 128/68 (mmHg) O2 Sat by Pulse 93 97 Oximetry Oxygen Devices in Use Now: OxyMask Appearance: bizarre affect, profane responses Respiratory: Symmetrical Chest Expansion and Respiratory Effort, - - poor air flow, expiratory wheezes Cardiovascular: NL Sounds; No Murmurs; No JVD Abdominal: NL Sounds; No Tenderness; No Distention Lymphatic: No Cervical Adenopathy Extremities: No Edema Result Diagrams: 12/17/17 00:20 12/17/17 00:20 Additional Lab and Data: Microbiology 12/18/17 12:51 Nasal Influenza Types A,B Antigen (AMRIK) - Final Specimen received for Influenza A/B Molecular testing Microbiology and Other Data: Microbiology 12/18/17 12:51 Nasal Influenza Types A,B Antigen (AMRIK) - Final Specimen received for Influenza A/B Molecular testing Assess/Plan/Problems-Billing Assessment: 37 yo severe recurrent asthma 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 - Patient Problems (1) Influenza A Current Visit: Yes Status: Acute Code(s): J10.1 - FLU DUE TO OTH IDENT INFLUENZA VIRUS W OTH RESP MANIFEST SNOMED Code(s): 340523214 Comment: tamiflu day 4 of 5 (2) Triad asthma Current Visit: Yes Status: Acute Code(s): J45.909 - UNSPECIFIED ASTHMA, UNCOMPLICATED; J33.9 - NASAL POLYP, UNSPECIFIED; Z88.6 - ALLERGY STATUS TO ANALGESIC AGENT STATUS SNOMED Code(s): 00454131875742606 Comment: continue standing nebs, steroids. solumedrol to q12 today, will need long taper walk hallways threatens to do physical labor like chopping wood as soon as he leaves ENT f/u as outpatient for VCD. Status and Disposition: inpatient
[2017-12-21] MEDS ORDERED: Albuterol 2.5 MG/3 ML NEB.SOL* (0.083%) INH SCH (19:00)
[2017-12-21] MEDS: Mometasone 220 MCG MDI INH SCH (20:29)
[2017-12-21] MEDS: LORazepam TAB(*) 0.5 MG PO PRN (21:11)
[2017-12-22] MEDS: Albuterol/Ipratropium NEB.SOL* Albuterol 2.5 MG/Ipratropium 0.5 MG 3 ML INH SCH ×3 (01:11→14:11)
[2017-12-22] MEDS: methylPREDNISolone SOD 40 MG* 1 ML VIAL IV SCH (06:10)
[2017-12-22] MEDS: Montelukast Sodium TAB* 10 MG PO SCH (10:00)
[2017-12-22] MEDS: Sulfamethox/Trimethoprim DS 800/160* TAB PO SCH (10:01)
[2017-12-22] MEDS: Oseltamivir CAP* 75 MG CAP PO SCH (10:01)
[2017-12-22 12:55] VITALS: BP 140/73
[2017-12-22] MEDS ORDERED: Albuterol/Ipratropium NEB.SOL* Albuterol 2.5 MG/Ipratropium 0.5 MG 3 ML INH PRN (14:08)
--- NOTE | 2017-12-23 05:10 | DS ---
CC: Dr. Blackburn * DISCHARGE SUMMARY: DATE OF ADMISSION: 12/17/17 DATE OF DISCHARGE: 12/22/17 PRINCIPAL DISCHARGE DIAGNOSES: 1. Severe persistent asthma with exacerbation. 2. Influenza A. SECONDARY DISCHARGE DIAGNOSES: 1. Recent right hand abscess. 2. Samter's Triad. PHYSICAL EXAM AT DISCHARGE: Temperature 98.2, heart rate 77, respiratory rate 16, pulse ox 98% on room air, blood pressure 131/85. General: Alert, well- appearing man, in no distress. HEENT: Pupils equal, round, and reactive to light. White plaques on the posterior pharynx with mild erythema. Neck: No cervical adenopathy. Chest: Prolonged expiratory phase with improved aeration and no wheezing. Breathing comfortably and able to speak in full sentences. Abdomen: Soft, nontender, nondistended. Extremities: Healing right hand I and D with no drainage. No edema. No rashes. HOSPITAL COURSE BY PROBLEM: 1. Severe persistent asthma with acute exacerbation, likely multifactorial but mostly at this point probably attributed to influenza. He had recently been discharged on a prednisone taper with which he reports adherence. At the time of admission, he was started on Tamiflu and at the time of discharge has 2 more tablets to complete the course. He was started on Solu-Medrol and standing nebulizers. 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 We talked extensively about reducing these exposures and he is going to try to live with his grandmother until he can find a less allergenic home environment. At the time of discharge , he is being sent with a prednisone taper starting with 60 mg tomorrow. He will be continued on Bactrim prophylaxis 3 times a week for the duration of prednisone. He had been on an inhaled corticosteroid prior to admission, but was not on a long-acting beta- agonist, so I am adding salmeterol inhaler to his regimen. At discharge, he will be on the fluticasone, salmeterol and albuterol p.r.n. He has a nebulizer at home and nebulized medications that he is to use p.r.n. 2. Samter's Triad. Treatment as above. 3. Oropharyngeal candidiasis. He is being discharged with a 7-day course of clotrimazole trochlamar. 4. Recent right hand abscess. He has 1 more day of b.i.d. Bactrim to take after which he will take Bactrim once daily 3 times a week as above. 4. Influenza A. Continue Tamiflu for 2 more tablets. DISPOSITION: Mr. Prakash is discharged to home on 12/22/17, and is instructed to follow up with Dr. Blackburn within 1 week. [id number]/[facility] #: [id number] [facility]
== END 2017-12-22 14:00 | disposition home or self-care (01) | DRG 141 ==
LOC: ED 23:31 → MED 12-17 01:58 → ICU 12-17 02:47 → MED 12-18 15:07
PROVIDERS: ADMIT Hospitalist; ATTEND Internal Medicine
DX: J45.51 Severe persistent asthma with (acute) exacerbation (principal); B37.89 Other sites of candidiasis; L02.519 Cutaneous abscess of unspecified hand; J10.1 Influenza due to other identified influenza virus with other respiratory manifestations; B95.62 Methicillin resistant Staphylococcus aureus infection as the cause of diseases classified elsewhere
CPT/HCPCS: 36415; 36600; 71045; 80053; 82803; 83516; 83605; 84145; 85025; 85652; 86038; 86140; 87502; 94640; 94760; 99285; A9270-GY; J0456; J2060; J2270; J2920; J2930; J3475; J7644

== ENCOUNTER 2018-02-01 16:51 | Emergency (ER) | payer OTHER ==
[2018-02-01 16:58] VITALS: BP 118/75
[2018-02-01] MEDS ORDERED: Amoxicillin/Clavulanate TAB* 875 MG PO ONE ×2 (17:54)
[2018-02-01] MEDS ORDERED: predniSONE TAB* 20 MG PO ONE (17:55)
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
== END 2018-02-01 18:30 | disposition home or self-care (01) ==
LOC: UCEAST 16:51
DX: J01.90 Acute sinusitis, unspecified (principal); S20.20XA Contusion of thorax, unspecified, initial encounter; X58.XXXA Exposure to other specified factors, initial encounter; Y92.9 Unspecified place or not applicable; Z88.6 Allergy status to analgesic agent
CPT/HCPCS: 99213; A9270-GY; G0463; J7512

== ENCOUNTER 2018-02-03 15:45 | Emergency (ER) | payer OTHER ==
[2018-02-03 15:53] VITALS: BP 111/82
--- NOTE | 2018-02-03 15:55 | ED ---
Upper Extremity Pain - HPI Summary HPI Summary: 37yo M presents to c/o laceration to left index finger and an abrasion to the L middle finger. States he cut the finger on the blade of a heater fan that he was trying to fix at home just prior to arrival. Tetanus status is unknown. Pt is LEFT handed. No numbness or weakness. Bleeding is controlled. Attempted to repair with steri-strips at home after cleaning with iodine and soap/water etc. Denies any other injuries. 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 Pt states he was here 2d ago for sinus sx and is on Augmentin, prednisone. Has had some red rash and itching. - History of Current Complaint Chief Complaint: UCLaceration Stated Complaint: FINGER LACERATION Time Seen by Provider: 02/03/18 15:53 Hx Obtained From: Patient Mechanism Of Injury: Blunt Trauma - Allergies/Home Medications Allergies/Adverse Reactions: Allergies Allergy/AdvReac Type Severity Reaction Status Date / Time amoxicillin [From Augmentin] Allergy RASH, Verified 02/03/18 15:55 ITCHING clavulanic acid Allergy RASH, Verified 02/03/18 15:55 [From Augmentin] ITCHING NSAIDS (Non-Steroidal Allergy Anaphylatic Verified 02/03/18 15:53 Anti-Inflamma Shock Home Medications: Home Medications diPHENhydraMINE PO* [Benadryl PO 25 MG TAB*] 25 mg PO PRN 02/03/18 [History] PMH/Surg Hx/FS Hx/Imm Hx Endocrine/Hematology History: Denies: Hx Diabetes, Hx Thyroid Disease Cardiovascular History: Denies: Hx Hypertension Respiratory History: Reports: Hx Asthma, Hx Chronic Bronchitis, Hx Chronic Obstructive Pulmonary Disease (COPD), Hx Pneumonia, Hx Seasonal Allergies GI History: Denies: Hx Ulcer Musculoskeletal History: Reports: Other Musculoskeletal History - congenital trigger fingers, affecting digits of both hands Sensory History: Denies: Hx Contacts or Glasses, Hx Hearing Aid Opthamlomology History: Denies: Hx Contacts or Glasses Neurological History: Denies: Hx Dementia, Hx Migraine, Hx Seizures, Hx Transient Ischemic Attacks (TIA) Psychiatric History: Denies: Hx Anxiety, Hx Depression, Hx Schizophrenia, Hx Bipolar Disorder - Surgical History Surgery Procedure, Year, and Place: BILATERAL HANDS TENDON REPAIR A CHILD,. SINUS SURGERY 2013 Hx Anesthesia Reactions: No - Immunization History Date of Tetanus Vaccine: unk Date of Influenza Vaccine: none Infectious Disease History: No Infectious Disease History: Denies: Hx Clostridium Difficile, Hx Hepatitis, Hx Human Immunodeficiency Virus (HIV), Hx of Known/Suspected MRSA, Hx Shingles, Hx Tuberculosis, Hx Known/ Suspected VRE, Hx Known/Suspected VRSA, History Other Infectious Disease, Traveled Outside the [place] in Last 30 Days - Family History Known Family History: Positive: None - Both parents are alive and well., Other - Patient denies a significant FHx Negative: Blood Disorder Family History: Neg RAD - Social History Alcohol Use: None Hx Substance Use: Yes Substance Use Type: Reports: None Substance Use Comment - Amount & Last Used: former heavy use marijuana Hx Tobacco Use: No Smoking Status (MU): Never Smoked Tobacco Have You Smoked in the Last Year: Yes - occasional marijuana smoker Review of Systems Constitutional: Negative Respiratory: Negative Positive: Other - no change in range of motion Positive: Other - lacerations Neurological: Negative All Other Systems Reviewed And Are Negative: Yes Physical Exam Triage Information Reviewed: Yes Vital Signs On Initial Exam: Initial Vitals Temp Pulse Resp BP Pulse Ox 37.0 C 58 16 111/82 100 02/03/18 15:49 02/03/18 15:49 02/03/18 15:49 02/03/18 15:49 02/03/18 15:49 Vital Signs Reviewed: Yes Appearance: Positive: Well-Appearing, No Pain Distress Skin: Positive: Warm, Other - curved lac to the dorsi-radial L index prox phalanyx 3cm in length. 1.5cm lac to prox phalanyx ulnar surface. Superficial non-bleeding abrasion to dorsal prox phalanyx L middle finger. Also punctate areas of erythema both hands and forearms. Head/Face: Positive: Normal Head/Face Inspection Respiratory/Lung Sounds: Positive: Clear to Auscultation Cardiovascular: Positive: RRR Musculoskeletal: Positive: Other - congenital deformity with contracture to mult fingers of both hands including the effected L index finger. Neurological: Positive: Sensory/Motor Intact, Alert, Oriented to Person Place, Time, Other - intact moving 2pt discrimination, light touch to the L index Psychiatric: Positive: Affect/Mood Appropriate Procedures - Laceration/Wound Repair 1 Location: upper extremity - L index finger -- radial side Description: Irregular Anesthesia: Digital, 2.0%, Lido Length, Depth and Shape: 3.75cm, C shaped. Involved extensor tendon. Betadine Prep?: No - chlorhexidine Irrigated w/ Saline (ccs): 2,000 Laceration/Wound Explored: contaminated, no foreign body removed Closure: Multilayer Debridement: minimal Suture Type: Prolene, Vicryl Number of Sutures: 10 - 2 sutures used to repair the extensor tendon which was partially lacerated. 1 to help approx wound, each interrupted. 7 Prolene (5 interrupted, 2 horiz mattress) used to approximate skin. Layer Closure?: Yes - tendon, then 2 layers Sterile Dressing Applied?: Yes - bacitracin and tube gauze 2 Location: upper extremity - dorsal surface L index finger Description: Linear Anesthesia: Digital, 2.0%, Lido Length, Depth and Shape: 1.8cm linear, superficial Betadine Prep?: No - chlorhexidine Irrigated w/ Saline (ccs): 2,000 Laceration/Wound Explored: contaminated Closure: Single Layer Debridement: minimal Suture Type: Prolene Number of Sutures: 3 Layer Closure?: No Sterile Dressing Applied?: Yes - tube gauze and bacitracin Diagnostics - Vital Signs Vital Signs Temp Pulse Resp BP Pulse Ox 02/03/18 15:49 37.0 C 58 16 111/82 100 - Laboratory Lab Statement: Any lab studies that have been ordered have been reviewed, and results considered in the medical decision making process. - Radiology No standard instances Xray Interpretation: No Acute Changes Radiology Interpretation Completed By: ED Physician - no fx or FB Course/Dx - Course Course Of Treatment: Tdap given. Wound cleaned and repaired. [facility] deformity of finger without acute change. Tendon injured. Repaired. Does not effect tendon fxn as finger is permanently contractured. STOP augmentin, prednisone. Wound irrigated extensively. Start levaquin/doxy. F/U for sutures 10 -14d. - Diagnoses Differential Diagnosis/HQI/PQRI: Positive: Other - lac, tendon injury, nerve injury Provider Diagnoses: Laceration of finger of left hand, Amoxicillin-induced allergic rash, Extensor tendon laceration, finger, open wound Discharge - Sign-Out/Discharge Documenting (check all that apply): Discharge - Discharge Plan Condition: Good Disposition: HOME Prescriptions: DOXYcycline CAP(*) [DOXYcycline 100MG CAP(*)] 100 mg PO BID #20 cap Levofloxacin TAB* [Levaquin TAB*] 500 mg PO DAILY #5 tab Patient Education Materials: Laceration (ED) Referrals: Nishant Jones MD [Primary Care Provider] - Additional Instructions: Keep clean and dry. Dress with bacitracin. Sutures to be removed in 10-14 days time. Return with increased redness, drainage, worse or other concerns. - Billing Disposition and Condition Condition: GOOD Disposition: HOME
[2018-02-03] MEDS ORDERED: Tetan/Diph/Pertus SYR(Tdap)* 0.5 ML SYR(BOOSTRIX) use SYR IM ONE (16:01)
[2018-02-03] MEDS ORDERED: Lidocaine 2% PF * 5 ML VIAL INJ ONE (16:02)
--- NOTE | 2018-02-03 17:22 | RAD ---
INDICATION: Laceration over the dorsal proximal phalanx of the left index finger COMPARISON: None. TECHNIQUE: 3 views of the left index finger were obtained. FINDINGS: Evidence of laceration is apparent over the dorsal index finger. The bones are normal alignment. Joint spaces appear maintained. No fracture is seen. IMPRESSION: SOFT TISSUE LACERATION OVERLYING THE DORSAL LEFT INDEX FINGER PROXIMAL PHALANX WITHOUT UNDERLYING BONY INJURY.
== END 2018-02-03 17:39 | disposition home or self-care (01) ==
LOC: UCEAST 15:45
DX: S61.211A Laceration without foreign body of left index finger without damage to nail, initial encounter (principal); S60.413A Abrasion of left middle finger, initial encounter; W26.8XXA Contact with other sharp object(s), not elsewhere classified, initial encounter; Y93.89 Activity, other specified; Y92.009 Unspecified place in unspecified non-institutional (private) residence as the place of occurrence of the external cause; Z23 Encounter for immunization; J44.9 Chronic obstructive pulmonary disease, unspecified; Z88.6 Allergy status to analgesic agent; Z88.1 Allergy status to other antibiotic agents
CPT/HCPCS: 13132; 73140; 90471; 90715; 99212; G0463

== ENCOUNTER 2018-02-20 18:29 | Emergency (ER) | payer OTHER ==
--- OUTSIDE RECORDS SUMMARY | 2018-02-20 18:37 | XMS REPORT ---
:1980 External Reference #:[id number] Author Organization [facility] Address [address] [place] [address] Phone [phone] Care Team Providers Name Role Phone Nishant Jones MD Care Team Information Installation Service Representative Unavailable Payers Type Date Identification Numbers Payment Provider Subscriber Commercial Effective: Policy Number: Tyler Prakash 2015 [id number] Medicaid Expires: 2016 PayID: [id number] [address] [place] [phone] Commercial Effective: 2014 Policy Number: Tyler Prakash [id number] Medicaid PayID: [id number] [address] [place] [phone] Problems Date Description Provider Status Onset: Anaphylaxis [...] Form Strength Qnty SIG Indications Ordering Provider Augmentin 02/12 Active Tablets 875-125mg 20tab 1 take by s mouth tablet Vonetjessika every 12 , MD hours for 10 days for infection Flovent Diskus 08/26 Active Aerosol 250mcg/Bl 60uni inhale one J45.21 Nishant ist ts puff by mouth Robert twice daily - MD rinse mouth after use (replaces qvar) Montelukast 05/28 Active Tablets 10mg 30tab Take One J45.998 Kristen Sodium /2016 s Tablet By Dorothea, Mouth Every FURNITURE MOVER-C Day Atrovent 03/24 Active Solution 0.02% 20uni one Twice ts Daily as needed Claritin-D 24 03/10 Active Tablets ER 10-240mg 30tab take one J45.998 Nishant 24HR s tablet by Robert mouth every , day Ventolin 02/07 Active Nebulizer 0.083% Q4H Flonase 01/21 Active Suspension 50mcg/Act 1unit one spray Unknown Allergy s each nostril Every Day Flonase 10/01 Active Suspension 50mcg/Spr 2unit Two Sprays J30.9 Lissette /2004 ay s Each Nares A. Once Daily Eloy AkersPConnieCConnie Ipratropium Active Solution 0.02% 75uni Use 1 Ampule Nishant Lindsay /0000 ts Via Nebulizer Robert 3 To 4 Times MD A Day as Directed Doxycycline Active Capsules 100mg 1 tab by Unknown Hyclate /0000 mouth twice a day x 10 Albuterol Active Nebulizer (2.5mg/3M 75uni Inhale The Nishant Sulfate /0000 L) 0.083% ts Contents Of Robert One Vial Via MD Nebulizer Every 4 Hours as Needed For Wheezing as Directed Azithromycin 11/29 Hx Tablets 250mg 6tabs take 2 J01.90 Nishant tablets by Robert - mouth one MD 01/15 time take one daily for 4 days Prednisone 11/01 Hx Tablets 20mg 20tab take 3 tabs J45.901 Nishant s by mouth x 3 Robert - days, then 2 MD 01/15 tabs by mouth x 3 days, then 1 tab by mouth x 3 days then 1/2 tab by mouth x 4 days Doxycycline 10/24 Hx Capsules 100mg 20cap 1 take by J45.998 Nishant Hyclate s mouth capsule Robert - 2 times per , 01/15 day for days for infection Zithromax 09/30 Hx Tablets 250mg 1tabs .Today, Then Unknown Z-Harshad 1 Daily - 10/24 Deltasone 09/28 Hx Tablets 50mg 5tabs Every Day - 10/24 Bactrim DS 09/28 Hx Tablets 800-160mg 24tab Twice Daily s - 10/24 Prednisone 08/26 Hx Tablets 20mg 21tab take 3 J45.21 Laura s tablets x 3 P. - days, then 2 Blegen, 10/24 tablets x 3 M.D. /2016 days,then 1 tablet x 3 days, then 1/2 tablet x 3 days- take with food Prednisone 07/31 Hx Tablets 20mg 20tab take 3 tabs Nishant s by mouth x 3 Heetcrystalks - days, then 2 , 08/26 tabs by mouth /2016 x 3 days, then 1 tab by mouth x 3 days then 1/2 tab by mouth x 4 days Ventolin HFA 07/31 Hx Aerosol 108(90Bas 18uni Inhale One To [id number] Nishant e) ts Two Puffs By Robert - mcg/Act Mouth Every 4 , 02/12 Hours Needed For For Shortness Of Breath Augmentin 05/28 Hx Tablets 875-125mg 14tab 1 take by J45.998 Kristen s mouth tablet Dorothea, - every 12 [employer] M[employer]-C 08/26 hours for days for infection Prednisone 04/19 Hx Tablets 20mg 10tab take 2 tabs Harrison45.998 s by mouth Dorothea - every day x 5 [employer]-C Amoxicillin 04/19 Hx Tablets 500mg 40tab 1 tab po qid s X 10 days David Piedra [employer]C 05/28 Albuterol 04/19 Hx Nebulizer 0.63mg/3M 75uni Inhale The L ts Contents Of Dorothea, - One Vial Via F[employer]IT[employer] MOVER-C 08/27 Nebulizer Every 4 To 6 Hours Amoxicillin 03/22 Hx Tablets 500mg 14tab take 1 tablet J02.9 s by mouth Robert - every 12 MD 04/19 hours for days for infection Ventolin HFA 02/07 Hx Aerosol 108(90Bas 8gm every 4 hours Nishant e) as needed for Heasuncion - mcg/Act damian matos MD 07/31 breath Deltasone 01/21 Hx Tablets 50mg 5tabs Every Day Unknown - 02/07 Augmentin 01/21 Hx Tablets 500-125mg 20tab Twice Daily s - 07/28 Nystatin 10/26 Hx Suspension 878815Itp 473ml swish and B37.9 Jesu t/ML swallow 5ml Hi - by mouth III, 04/19 three times a FURNIT[employer] MOVER-C day for 7 days or until resolved Augmentin 09/17 Hx Tablets 875-125mg 14tab 1 take by [id number] nt s mouth tablet R. Storm, - every 12 [employer] M[employer]-C 04/19 hours for days for infection Prednisone 09/17 Hx Tablets 20mg 9tabs 3 by mouth Harrison45.998 juvencio /2015 every day x 3 R. Storm, - days [employer]-C 04/19 Medrol 07/28 Hx TBPK 4mg 1unit .See Harshad s Instruction - 01/21 Zithromax 07/28 Hx Tablets 250mg 6tabs .Z-Harshad Unknown Z- Instructions - 01/21 Zaditor 06/11 Hx Solution 0.025% 1unit Twice Daily s - 07/28 Deltasone 06/11 Hx Tablets 10mg 30tab Every Day s Repack - 09/17 Augmentin 06/11 Hx Tablets 500-125mg 20tab Twice Daily s - 09/17 Azithromycin 03/07 Hx Tablets 250mg 6tabs take 2 J45.998 tablets by Robert - mouth MD helena 09/17 time take one daily for 4 days Claritin-D 24 03/07 Hx Tablets ER 10-240mg 30tab take one J45.998 Nishant Hour /2015 24HR s tablet by Robert perales every , Montelukast 01/29 Hx Tablets 10mg 30tab Take One J45.998 Nishant Sodium /2015 s Tablet By Robert Perales Every , Amoxicillin/Cl 01/23 Hx Tablets 875-125mg 20tab 1 tablet by [id number] Jesu avulanate /2015 s mouth twice a Hi Potassium - day for 10 III, 09/17 days F[employer] M[employer]-C Qvar 12/07 Hx Aerosol 80mcg/Act 2unit inhale 2 Nishant s puffs by Robert Hernandez mouth 2 times , 10/24 per day asthma Ventolin 11/11 Hx Nebulizer 0.083% Every Day prn For - Sob/Wheezing 02/07 Claritin 10/01 Hx Tablets 10mg 30tab 1 po qd 477.9 Lissette /2004 s A. - Oswald, 10/01 F.N.P.C. /2004 Clarinex 10/01 Hx Tablets 5mg 30tab 1 PO qd prn 477.9 Lissette /2005 s A. - Oswald, 12/07 F.N.P.C. /2015 [...] 4 A. Inhaler - , 08/26 F.N.P.C. /2016 Aerobid 11/15 Hx Inhaler One two puffs by 466.0 Lissette /2003 aerochamber A. - twice daily - Oswald, 12/15 rinse mouth F.N.P.C. /2003 with water after last puffs Zithromax 11/15 Hx Tablets 500mg 3tabs one po qd 466.0 Lissette A. - Oswald, 11/18 F.N.P.C. /2003 Immunizations CPT Code Status Date Vaccine Lot # [id number] Given 09/17/2016 Pneumovax 23 (PPSV23) 65+ years or high risk 2 to [id number] 65 year old [id number] Refused 02/12/2018 Influenza Virus Vaccine, Quadrivalent, 3 Yr > Quad, Preserv Free [id number] Refused 01/24/2016 Influenza Virus Vaccine, Quadrivalent, 3 Yr > Quad, Preserv Free Vital Signs Date Vital Result Comment 02/12/2018 Weight 181.00 lb Weight in kg's 82.102 BP Systolic 132 mmHg BP Diastolic 85 mmHg Heart Rate 100 /min Body Temperature 98.3 F Height 72 inches 6'0" BMI (Body Mass Index) 24.5 kg/m2 O2 % BldC Oximetry 95 % 11/29/2017 Weight 178.00 lb Weight in kg's [...] Result H/L Range Note Laboratory test finding 12/17/2017 C Reactive Protein 7.42 mg/L High < 5.00 1 Lactic Acid 2.1 mmol/L High 0.5-2.0 2 Procalcitonin < 0.1 ng/mL <0.6 3 CBC Auto Diff 12/17/2017 White Blood Count 14.2 10^3/uL High 3.5-10.8 Red Blood Count 5.58 10^6/uL High 4.0-5.4 Hemoglobin 16.0 g/dL 14.0-18.0 Hematocrit 47 % 42-52 Mean Corpuscular Volume 84 fL 80-94 Mean Corpuscular Hemoglobin 29 pg 27-31 Mean Corpuscular HGB Conc 34 g/dL 31-36 Red Cell Distribution Width 14 % 10.5-15 Platelet Count 366 10^3/uL 150-450 Mean Platelet Volume 7 um3 Low 7.4-10.4 Abs Neutrophils 12.7 10^3/uL High 1.5-7.7 Abs Lymphocytes 0.4 10^3/uL Low 1.0-4.8 Abs Monocytes 1.0 10^3/uL High 0-0.8 Abs Eosinophils 0.1 10^3/uL 0-0.6 Abs Basophils 0 10^3/uL 0-0.2 Abs Nucleated RBC 0 10^3/uL Granulocyte % 89.0 % High 38-83 Lymphocyte % 3.1 % Low 25-47 Monocyte % 7.2 % 1-9 Eosinophil % 0.5 % 0-6 Basophil % 0.2 % 0-2 Nucleated Red Blood Cells % 0.1 Comp Metabolic Panel 12/17/2017 Sodium 132 mmol/L Low 133-145 Potassium 3.5 mmol/L 3.5-5.0 Chloride 98 mmol/L Low 101-111 Co2 Carbon Dioxide 25 mmol/L 22-32 Anion Gap 9 mmol/L 2-11 Glucose 129 mg/dL High 70-100 Blood Urea Nitrogen 23 mg/dL 6-24 Creatinine 1.03 mg/dL 0.67-1.17 BUN/Creatinine Ratio 22.3 High 8-20 Calcium 9.5 mg/dL 8.6-10.3 Total Protein 7.5 g/dL 6.4-8.9 Albumin 4.4 g/dL 3.2-5.2 Globulin 3.1 g/dL 2-4 Albumin/Globulin Ratio 1.4 1-3 Total Bilirubin 0.30 mg/dL 0.2-1.0 Alkaline Phosphatase 74 U/L 34-104 Alt 30 U/L 7-52 Ast 19 U/L 13-39 Egfr Non- 81.7 >60 Egfr 105.1 >60 4 Laboratory test 12/11/2017 Influenza A & B SEE RESULT BELOW 5 finding Request Arterial Blood Gas 12/11/2017 PH Arterial 7.46 High 7.35-7.45 Pco2 Arterial 31 mmHg Low 35-45 Po2 Arterial 54 mmHg Low 80-100 6 O2 Saturation Arterial 92.9 % Low 95-98 Base Excess Arterial -0.8 -2.0-2.0 7 Hco3 Arterial 24.1 mmol/L 19-31 CBC Auto Diff 12/11/2017 White Blood Count 10.7 10^3/uL 3.5-10.8 Red Blood Count 5.20 10^6/uL 4.0-5.4 Hemoglobin 15.1 g/dL 14.0-18.0 Hematocrit 44 % 42-52 Mean Corpuscular Volume 85 fL 80-94 Mean Corpuscular Hemoglobin 29 pg 27-31 Mean Corpuscular HGB Conc 34 g/dL 31-36 Red Cell Distribution Width 14 % 10.5-15 Platelet Count 283 10^3/uL 150-450 Mean Platelet Volume 7 um3 Low 7.4-10.4 Abs Neutrophils 7.4 10^3/uL 1.5-7.7 Abs Lymphocytes 1.1 10^3/uL 1.0-4.8 Abs Monocytes 0.8 10^3/uL 0-0.8 Abs Eosinophils 1.3 10^3/uL High 0-0.6 Abs Basophils 0.1 10^3/uL 0-0.2 Abs Nucleated RBC 0 10^3/uL Granulocyte % 69.2 % 38-83 Lymphocyte % 10.6 % Low 25-47 Monocyte % 7.6 % 1-9 Eosinophil % 12.0 % High 0-6 Basophil % 0.6 % 0-2 Nucleated Red Blood Cells % 0 Comp Metabolic Panel 12/11/2017 Sodium 138 mmol/L 133-145 Potassium 3.7 mmol/L 3.5-5.0 Chloride 104 mmol/L 101-111 Co2 Carbon Dioxide 26 mmol/L 22-32 Anion Gap 8 mmol/L 2-11 Glucose 96 mg/dL 70-100 Blood Urea Nitrogen 13 mg/dL 6-24 Creatinine 0.98 mg/dL 0.67-1.17 BUN/Creatinine Ratio 13.3 8-20 Calcium 9.4 mg/dL 8.6-10.3 Total Protein 7.5 g/dL 6.4-8.9 Albumin 4.1 g/dL 3.2-5.2 Globulin 3.4 g/dL 2-4 Albumin/Globulin Ratio 1.2 1-3 Total Bilirubin 0.40 mg/dL 0.2-1.0 Alkaline Phosphatase 54 U/L 34-104 Alt 14 U/L 7-52 Ast 16 U/L 13-39 Egfr Non- 86.5 >60 Egfr 111.3 >60 8 Laboratory test finding 12/11/2017 C Reactive Protein 42.52 mg/L High &lt ; 5.00 9 B-Type Natriuretic Peptide BNP 32 pg/mL 10 Rapid Influenza A & B 12/11/2017 Influenza A Molecular NEGATIVE Negative 11 Molecular Influenza B Molecular NEGATIVE Negative Comp Metabolic Panel 10/30/2017 Sodium 138 mmol/L [...] Egfr Non- 85.5 >60 Egfr 110.0 >60 12 Laboratory test finding 10/30/2017 Creatine Kinase 901 U/L High 10-223 C Reactive Protein 5.47 mg/L High < 5.00 13 Troponin-I (TnI) 0.01 ng/mL <0.04 CKMB 10/30/2017 CKMB ng/mL 9.7 ng/mL High 0.6-6.3 Inr/Protime 10/30/2017 Inr 0.85 0.77-1.02 14 Laboratory test finding 10/30/2017 Partial Thrombo Time 26.3 seconds 26.0 -36.3 PTT D Dimer Quantitative < 200 ng/mL Less Than 230 15 Lactic Acid 2.4 mmol/L High 0.5-2.0 16 Blood Culture SEE RESULT BELOW 17 Laboratory test finding 10/30/2017 Influenza A & B SEE RESULT BELOW 18 Request B-Type Natriuretic Peptide BNP 19 pg/mL 19 CBC Auto Diff 10/30/2017 White Blood Count [...] 0-2 Nucleated Red Blood Cells % 0.1 Rapid Influenza A & B 10/30/2017 Influenza A Molecular NEGATIVE Negative 20 Molecular Influenza B Molecular NEGATIVE Negative Laboratory test 09/28/2017 Wound/Misc Culture-Gram SEE RESULT BELOW 21 , 22 finding Stain MRSA/S. aureus Ssti PCR SEE RESULT BELOW 21, 23 Laboratory test finding 02/07/2017 C Reactive Protein 1.88 mg/L < 5.00 24 Troponin-I (TnI) 0.00 ng/mL <0.04 25 Comp Metabolic Panel 02/07/2017 Sodium 138 mmol/L [...] Egfr Non- 98.6 >60 Egfr 126.7 >60 26 Laboratory test finding 02/07/2017 Lactic Acid 0.9 mmol/L 0.5-2.0 27 CBC Auto Diff 02/07/2017 White Blood Count [...] Color Straw Urine Appearance Clear Urine Specific Sellers 1.011 1.010-1.030 Urine pH 6.0 5-9 Urine Urobilinogen Negative Negative Urine Ketones 1+ Negative Urine Protein Negative Negative Urine Leukocytes Negative Negative Urine Blood Negative Negative Urine Nitrite Negative Negative Urine Bilirubin Negative Negative Urine Glucose Negative Negative Laboratory test finding 10/26/2016 Strep Screen NEG Neg 1 Acute inflammation: >10.00 2 Critical Result LACT:2.1 Called to [id number] at: 00:51:44 by:[id number] Read back by:SILVIA [facility] Severe Sepsis and Septic Shock Management Bundle Measure requires all lactic acids initially measuring >2.0 mmol/L be repeated. 3 Interpretive information available on [employer] Lab Test Catalog at [email or web address] 4 Because ethnic data is not always [...] 5 Kidney failure <15 (or dialysis) 5 SEE RESULT BELOW Name: BEATA PRAKASH : [address]: Guilherme Trinidad MD Acct: [id number] Unit: [id number] AGE: 37 Location: ED Re12/11/17 SEX: M Status: REG ER SPEC: [id number] EVIE: 12/11/[address]: Reema HERRMANN REQ: [id number] RECD: 12/11/17 STATUS: CLAIRE BOO DR: Nishant Trinidad MD _ SOURCE: NASAL SPDESC: ORDERED: Flu A B Request Procedure Result Reported Site Rapid Influenza A B Request Final 12/11/17- 1546 ML Specimen received for Influenza A/B Molecular testing * ML - MAIN LAB ([facility]) . END OF REPORT * ML=Testing performed at Main Lab DEPARTMENT OF PATHOLOGY, [address] [place] [address] Anuel Shane M.D. Director [facility] # [id number] Verbal to [id number] by [id number] at 1757 on 12/11/17. Results read back accurately. 7 Reference ranges based on room air. 8 Because ethnic data is not always readily [...] 15-29 5 Kidney failure <15 (or dialysis) 9 Acute inflammation: >10.00 10 >100 to <200 pg/mL: likely compensated congestive heart failure (CHF) 200 to 400 pg/mL: likely moderate CHF >400 pg/mL: likely moderate to severe CHF 11 Powder Line Repairer: [id number] 12 Because ethnic data is not always readily [...] 15-29 5 Kidney failure <15 (or dialysis) 13 Acute inflammation: >10.00 14 Please note the change in INR reference range effective 17. 15 Please note: The following may produce a false positive D Dimer test: - Rheumatoid factor greater than 60 IU/ml - Plasma hemoglobin greater than 0.05 gm/dl - Bilirubin greater than 50 mg/dl - Lipids greater than 1000 mg/dl - FDP greater than 20 ug/ml 16 Critical Result LACT:2.4 Called to PETER Maya at: 09:53:31 by:[email or web address] Read back by:PETRE RAY Severe Sepsis and Septic Shock Management Bundle Measure requires all lactic acids initially measuring >2.0 mmol/L be repeated. 17 SEE RESULT BELOW Name: BEATA PRAKASH : [address]: Karuna Daily DO Acct: [id number] Unit: [id number] AGE: 37 Location: [place] [address] Re10/30/17 SEX: M Status: ADM Portia SPEC: [id number] EVIE: 10/30/17 [facility] DR: Aiyana Hogan MD REQ: [id number] RECD: 10/30/17 STATUS: RES OTHR DR: Nishant Jones MD _ SOURCE: BLOOD,VENO SPDES: ORDERED: Blood Cult Procedure Result Reported Site Aerobic Culture Bottle Preliminary 10/31/17928 ML No Growth Day 1 Anaerobic Culture Bottle Preliminary 10/31/17928 ML No Growth Day 1 * ML - MAIN LAB ([facility]) . END OF REPORT * ML=Testing performed at Main Lab DEPARTMENT OF PATHOLOGY, [address] [place] [address] Anuel Shane M.D. Director [facility] # [id number] 18 SEE RESULT BELOW Name: BEATA PRAKASH : [address]: Aiyana Hogan MD Acct: [id number] Unit: [id number] AGE: 37 Location: ED Re10/30/17 SEX: M Status: ANA ER SPEC: [id number] EVIE: 10/30/17 [facility] [address]: Aiyana Hogan MD REQ: [id number] RECD: 10/30/17 STATUS: CLAIRE BOO DR: Nishant Jones MD _ SOURCE: [facility]: ORDERED: Flu A B Request Procedure Result Reported Site Rapid Influenza A B Request Final 10/30/17- 0937 ML Specimen received for Influenza A/B Molecular testing * ML - MAIN LAB ([facility]) . END OF REPORT * ML=Testing performed at Main Lab DEPARTMENT OF PATHOLOGY, [address] [place] [address] Anuel Shane M.D. Director [facility] # [id number] 19 >100 to <200 pg/mL: likely compensated congestive heart failure (CHF) 200 to 400 pg/mL: likely moderate CHF >400 pg/mL: likely moderate to severe CHF 20 Powder Line Repairer: [id number] 22 SEE RESULT BELOW Name: BEATA PRAKASH : [address]: Ernestina Avalos MD Acct: [id number] Unit: [id number] AGE: 37 Location: [facility] Re09/28/17 SEX: M Status: DEP ER SPEC: [id number] EVIE: 09/28/17 [facility] [address]: Ernestina Avalos MD REQ: [id number] RECD: 09/29/17 STATUS: RES OTHR DR: Nishant Jones MD _ SOURCE: WOUND SPDESC:RECTAL ORDERED: MRSA/SA SSTI, Culture Stain COMMENTS: [id number] Procedure Result Reported Site MRSA/S. aureus SSTI PCR PENDING Wound/Misc Gram Stain Final 09/29/17- 1435 ML 3+ Neutrophils 1+ Epithelial Cells No Organisms Seen Wound/Misc Culture Preliminary 09/30/17- 1148 ML Organism 1 STAPHYLOCOCCUS AUREUS Quantity 3+ * ML - MAIN LAB ([facility]) . END OF REPORT * ML=Testing performed at Main Lab DEPARTMENT OF PATHOLOGY, [address] [place] [address] Anuel Shane M.D. Director [facility] # [id number] 23 SEE RESULT BELOW Name: BEATA PRAKASH : [address]: Ernestina Avalos MD Acct: [id number] Unit: [id number] AGE: 37 Location: [facility] Re09/28/17 SEX: M Status: CELE DÍAZ SPEC: [id number] EVIE: 09/28/17-1834 [facility] DR: Ernestina Avalos MD REQ: [id number] RECD: 09/29/17-1343 STATUS: CLAIRE BOO DR: Nishant Jones MD _ SOURCE: WOUND SPDESC:RECTAL ORDERED: MRSA/SA SSTI, Culture Stain COMMENTS: [id number] Verbal to [id number]/[facility] by [id number] at 1202 on 09/30/17. Results read back [...] performed at Main Lab DEPARTMENT OF PATHOLOGY, [address] [place] [address] Anuel Shane M.D. Director [facility] # [id number] Patient: BEATA PRAKASH [id number] (Continued) Specimen: [id number] Collected: 09/28/17 Received: 09/29/17 (Continued) Procedure Result [...] These antibiotics are not available in the [facility] Formulary Contact the Microbiology Department for any additional antibiotic reporting. * ML - MAIN LAB ([facility]) . END OF REPORT * ML=Testing performed at Main Lab DEPARTMENT OF PATHOLOGY, [address] [place] [address] Anuel Shane M.D. Director [facility] # [id number] 24 Acute inflammation: >10.00 25 99th percentile=0.04 ng/mL Troponin results at [facility] and [facility] are not interchangeable. 26 Because ethnic data is not always readily [...] 15-29 5 Kidney failure <15 (or dialysis) 27 [facility] Severe Sepsis and Septic Shock Management Bundle Measure requires all lactic acids initially measuring >2.0 mmol/L be repeated. Procedures Description No Information Encounters Type Date Location Provider CPT E/M Dx Office Visit 11/29/2017 11:30a [place] [address] J01.90 J45.901 Office Visit 11/01/2017 11:00a [place] [address] J45.901 F14.99 Office Visit 10/24/2017 10:30a [place] [address] J45.998 J01.90 Office Visit 10/02/2017 11:45a [place] [address] J45.998 L02.818 Office Visit 08/26/2017 11:45a Main Office Laura Vanessa M.D. 10817 J45.21 Office Visit 07/31/2017 10:45a [place] [address] J45.998 Office Visit 05/28/2017 11:45a Main Office Kristen Piedra [facility] 78282 J45.998 J30.9 Office Visit 04/19/2017 8:45a Main Office Kristen Piedra [facility] 12978 J45.998 Office Visit 03/22/2017 11:30a [place] [address] J02.9 J45.998 Office Visit 12/24/2016 8:45a Main Office Anny Radford [facility] 97812 J20.9 Office Visit 10/26/2016 11:45a Main Office Jesu Do III [facility] 13613 B37.9 Office Visit 09/17/2016 5:00p [place] [address] J45.998 J01.90 Z23 Office Visit 03/07/2016 8:15a [place] [address] J45.998 J20.9 Office Visit 01/30/2016 9:00a [place] [address] J45.998 Office Visit 01/24/2016 8:30a Main Office Jesu Do III [facility] 55668 J01.90 Office Visit 12/07/2015 8:00a [place] [address] J44.1 Office Visit 10/01/2005 10:15a Main Office Lissette [facility]ers [facility] 75463 477.9 Office Visit 06/19/2004 3:00p Main Office Lissette [facility]ers [facility] 25539 995.3 569.49 Office Visit 11/15/2003 11:15a Main Office Lissette [facility]ers [facility] 33509 466.0 Plan of Care Future Appointment(s):03/06/2018 8:00 am - Nishant Jones MD at Main Office
--- OUTSIDE RECORDS SUMMARY | 2018-02-20 18:38 | XMS REPORT ---
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 [place] [phone] Commercial Effective: 2014 Policy Number: Tyler Prakash [id number] Medicaid PayID: [id number] [address] [place] [phone] Problems Date Description Provider Status Onset: Anaphylaxis [...] J45.21 Nishant ist ts puff by mouth Vonetjessika twice daily - MD rinse mouth after use (replaces qvar) Montelukast 05/28 Active Tablets 10mg 30tab Take One J45.998 Kristen Sodium /2016 s Tablet By Dorothea, Mouth Every WEBMASTER-C Day Atrovent 03/24 Active Solution 0.02% 20uni one Twice ts Daily as needed Claritin-D 24 03/10 Active Tablets ER 10-240mg 30tab take one J45.998 Nishant Hour 24HR s tablet by Robert mouth every , MD day Ventolin 02/07 Active Nebulizer 0.083% Q4H Flonase 01/21 Active Suspension 50mcg/Act 1unit one spray Unknown Allergy s each nostril Every Day Flonase 10/01 Active Suspension 50mcg/Spr 2unit Two Sprays J30.9 Lissette /2004 ay s Each Nares A. Once Daily Eloy AkersPConnieCConnie Albuterol Active Nebulizer (2.5mg/3M 75uni inhale the Nishant Sulfate /0000 L) 0.083% ts contents of Vonetderalexia one vial via MD nebulizer every 4 hours as needed for wheezing as directed Ipratropium Active Solution 0.02% 75uni Use 1 Ampule Nishant Bronson /0000 ts Via Nebulizer Robert 3 To 4 Times MD A Day as Directed Doxycycline Active Capsules 100mg 1 tab by Unknown Hyclate /0000 mouth twice a day x 10 Azithromycin 11/29 Hx Tablets 250mg 6tabs take 2 J01.90 Nishant tablets by Heetjessika - mouth one MD 01/15 time take [...] s mouth tablet Dorothea, - every 12 WEBMASTER-C 08/26 hours for days for infection Prednisone 04/19 Hx Tablets 20mg 10tab take 2 tabs Harrison45.998 s by mouth Dorothea - every day x 5 WEBMASTER-C Amoxicillin 04/19 Hx Tablets 500mg 40tab 1 tab po qid s X 10 days David Piedra WEBMASTER-C 05/28 Albuterol 04/19 Hx Nebulizer 0.63mg/3M 75uni Inhale The L ts Contents Of Dorothea, - One Vial Via WEBMASTER-C 08/27 Nebulizer Every 4 To 6 Hours [...] s - 07/28 Nystatin 10/26 Hx Suspension [id number] 473ml swish and B37.9 Jesu t/ML swallow 5ml [place] - by mouth III, 04/19 three times a WEBMASTER-C day for 7 days or until resolved Augmentin 09/17 Hx Tablets 875-125mg 14tab 1 take by [id number] nt s mouth tablet R. Storm, - every 12 WEBMASTER-C 04/19 hours for days for infection Prednisone 09/17 Hx Tablets 20mg 9tabs 3 by mouth Harrison45.998 juvencio /2015 every day x 3 R. Storm, - days WEBMASTER-C 04/19 Medrol 07/28 Hx TBPK 4mg 1unit [...] - day for 10 III, 09/17 days WEBMASTER-C Qvar 12/07 Hx Aerosol 80mcg/Act 2unit inhale [...] prn 477.9 Lissette /2005 s A. - Sowald, 12/07 F.N.P.C. /2015 Brissa 06/19 Hx Tablets [...] CPT Code Status Date Vaccine Lot # [id number] Given 09/17/2016 Pneumovax 23 (PPSV23) 65+ years or high risk 2 to [id number] 65 year old [id number] Refused 02/12/2018 Influenza Virus Vaccine, Quadrivalent, 3 Yr > Quad, Preserv Free [id number] Refused 01/24/2016 Influenza Virus Vaccine, Quadrivalent, 3 [...] Color Straw Urine Appearance Clear Urine Specific [place] 1.011 1.010-1.030 Urine pH 6.0 5-9 Urine Urobilinogen Negative Negative Urine Ketones 1+ Negative Urine Protein Negative Negative Urine Leukocytes Negative Negative Urine Blood Negative Negative Urine Nitrite Negative Negative Urine Bilirubin Negative Negative Urine Glucose Negative Negative Laboratory test finding 10/26/2016 Strep Screen NEG Neg 1 Acute inflammation: >10.00 2 Critical Result LACT:2.1 Called to [id number] at: 00:51:44 by:[id number] Read back by:[facility] Severe Sepsis and Septic Shock Management Bundle Measure requires all lactic acids initially measuring >2.0 mmol/L be repeated. 3 Interpretive information available on [email or web address] Lab Test Catalog at [email or web address] 4 Because ethnic data is not always [...] [address]: Guilherme Trinidad MD Acct: [id number] Unit: [id number] AGE: 37 Location: ED Re12/11/17 SEX: M Status: REG ER SPEC: [id number] EVIE: 12/11/[address]: Reema HERRMANN REQ: [id number] RECD: 12/11/17 STATUS: CLAIRE BOO DR: Nishant Trinidad MD _ SOURCE: NASAL SPDESC: ORDERED: Flu A B Request Procedure Result Reported Site Rapid Influenza A B Request Final 12/11/17- 1546 ML Specimen received for Influenza A/B Molecular testing * ML - MAIN LAB (PSYCHIATRIC1) . END OF REPORT * ML=Testing performed at Main Lab DEPARTMENT OF PATHOLOGY, [address] [place] [address] Anuel Shane M.D. Director [facility] # [id number] Verbal to [id number] by [id number] at 1757 on 12/11/17. Results read back [...] pg/mL: likely moderate to severe CHF 11 Ceramic Mold Designer: [id number] 12 Because ethnic data is not always [...] LACT:2.4 Called to PETER Maya at: 09:53:31 by:[id number] Read back by:PETER RAY Severe Sepsis and Septic Shock Management Bundle Measure requires all lactic acids initially measuring >2.0 mmol/L be repeated. 17 SEE RESULT BELOW Name: BEATA PRAKASH : [address]: Karuna Daily DO Acct: [id number] Unit: [id number] AGE: 37 Location: [place] [address] Re10/30/17 SEX: M Status: ADM Portia SPEC: [id number] EVIE: 10/30/17 [facility] DR: Aiyana Hogan MD REQ: [id number] RECD: 10/30/17 STATUS: RES OTHR DR: Nishant Jones MD _ SOURCE: BLOOD,VENO SPDES: ORDERED: Blood Cult Procedure Result Reported Site Aerobic Culture Bottle Preliminary 10/31/17928 ML No Growth Day 1 Anaerobic Culture Bottle Preliminary 10/31/17928 ML No Growth Day 1 * ML - MAIN LAB (PSC1) . END OF REPORT * ML=Testing performed at Main Lab DEPARTMENT OF PATHOLOGY, [address] [place] [address] Anuel Shane M.D. Director [facility] # [id number] 18 SEE RESULT BELOW Name: BEATA PRAKASH : [address]: Aiyana Hogan MD Acct: [id number] Unit: [id number] AGE: 37 Location: ED Re10/30/17 SEX: M Status: ANA ER SPEC: [id number] EVIE: 10/30/17 [facility] DR: Aiyana Hogan MD REQ: [id number] RECD: 10/30/17 STATUS: CLAIRE BOO DR: Nishant Jones MD _ SOURCE: [facility]: ORDERED: Flu A B Request Procedure Result Reported Site Rapid Influenza A B Request Final 10/30/17- 0937 ML Specimen received for Influenza A/B Molecular testing * ML - MAIN LAB (PSYCHIATRIC1) . END OF REPORT * ML=Testing performed at Main Lab DEPARTMENT OF PATHOLOGY, [address] [place] [address] Anuel Shane M.D. Director [facility] # [id number] 19 >100 to <200 pg/mL: likely compensated congestive heart failure (CHF) 200 to 400 pg/mL: likely moderate CHF >400 pg/mL: likely moderate to severe CHF 20 Ceramic Mold Designer: [id number] 22 SEE RESULT BELOW Name: BEATA PRAKASH : [address]: Ernestina Avalos MD Acct: [id number] Unit: [id number] AGE: 37 Location: [facility] Re09/28/17 SEX: M Status: DEP ER SPEC: [id number] EVIE: 09/28/17 [facility] DR: Ernestina Avalos MD REQ: [id number] RECD: 09/29/17 STATUS: RES OTHR DR: Nishant Jones MD _ SOURCE: WOUND SPDESC:RECTAL ORDERED: MRSA/SA SSTI, Culture Stain COMMENTS: [id number] Procedure Result Reported Site MRSA/S. aureus SSTI PCR PENDING Wound/Misc Gram Stain Final 09/29/17- 1435 ML 3+ Neutrophils 1+ Epithelial Cells No Organisms Seen Wound/Misc Culture Preliminary 09/30/17- 1148 ML Organism 1 STAPHYLOCOCCUS AUREUS Quantity 3+ * ML - MAIN LAB (PSYCHIATRIC1) . END OF REPORT * ML=Testing performed at Main Lab DEPARTMENT OF PATHOLOGY, [address] [place] [address] Anuel Shane M.D. Director [facility] # [id number] 23 SEE RESULT BELOW Name: BEATA PRAKASH : [address]: Ernestina Avalos MD Acct: [id number] Unit: [id number] AGE: 37 Location: [facility] Re09/28/17 SEX: M Status: CELE DÍAZ SPEC: [id number] EVIE: 09/28/17-1834 [facility] DR: Ernestina Avalos MD REQ: [id number] RECD: 09/29/17-1343 STATUS: CLAIRE BOO DR: Nishant Jones MD _ SOURCE: WOUND SPDESC:RECTAL ORDERED: MRSA/SA SSTI, Culture Stain COMMENTS: [id number] Verbal to [id number]/[facility] by [id number] at 1202 on 09/30/17. Results read back [...] performed at Main Lab DEPARTMENT OF PATHOLOGY, [address] [place] [address] Anuel Shane M.D. Director [facility] # [id number] Patient: BEATA PRAKASH [id number] (Continued) Specimen: [id number] Collected: 09/28/17 Received: 09/29/17 (Continued) Procedure Result [...] These antibiotics are not available in the [facility] Formulary Contact the Microbiology Department for any additional antibiotic reporting. * ML - MAIN LAB (PSC1) . END OF REPORT * ML=Testing performed at Main Lab DEPARTMENT OF PATHOLOGY, [address] [place] [address] Anuel Shane M.D. Director [facility] # [id number] 24 Acute inflammation: >10.00 25 99th percentile=0.04 ng/mL Troponin results at [facility] and [facility] are not interchangeable. 26 Because ethnic data [...] 5 Kidney failure <15 (or dialysis) 27 [facility] Severe Sepsis and Septic Shock Management Bundle Measure requires all lactic acids initially measuring >2.0 mmol/L be repeated. Procedures Description No Information Encounters Type Date Location Provider CPT E/M Dx Office Visit 11/29/2017 11:30a [place] [address] J01.90 J45.901 Office Visit 11/01/2017 11:00a [place] [address] J45.901 F14.99 Office Visit 10/24/2017 10:30a [place] [address] J45.998 J01.90 Office Visit 10/02/2017 11:45a [place] [address] J45.998 L02.818 Office Visit 08/26/2017 11:45a Main Office Laura Vanessa M.D. 26180 J45.21 Office Visit 07/31/2017 10:45a [place] [address] J45.998 Office Visit 05/28/2017 11:45a Main Office Kristen Piedra [facility] [address] J45.998 J30.9 Office Visit 04/19/2017 8:45a Main Office Kristen Piedra [facility] 64015 J45.998 Office Visit 03/22/2017 11:30a [place] [address] J02.9 J45.998 Office Visit 12/24/2016 8:45a Main Office Anny Radford [facility] [address]74[address] J20.9 Office Visit 10/26/2016 11:45a Main Office Jesu Do III [facility] [address]289 B37.9 Office Visit 09/17/2016 5:00p [place] [address] J45.998 J01.90 Z23 Office Visit 03/07/2016 8:15a [place] [address] J45.998 J20.9 Office Visit 01/30/2016 9:00a [place] [address] J45.998 Office Visit 01/24/2016 8:30a Main Office Jesu Do III [facility] [address]8464 J01.90 Office Visit 12/07/2015 8:00a [place] [address] J44.1 Office Visit 10/01/2005 10:15a Main Office Lissette Akers [facility] 36408 477.9 Office Visit 06/19/2004 3:00p Main Office Lissette Akers [facility] 42542 995.3 569.49 Office Visit 11/15/2003 11:15a Main Office Lissette Akers [facility] 98290 466.0 Plan of Care Future Appointment(s):03/06/2018 8:00 am - Nishant Jones MD at Main [id number]/12/2018 - Nishant Jones MDT81.4xxA Infection following a procedure , initial encounterComments:The finger is quite red. I would be concerned that this is due to the doxycycline being absorbed to calcium.He will start spacing out his calcium intake from his doxycycline. He will also add Augmentin.This will give him much stronger coverage of any susceptible organisms, as well as potentially treating his sinusitis.If this is not effective, we may need to reopen the wound to let it drain.
[2018-02-20 19:06] VITALS: BP 127/81
[2018-02-20] MEDS ORDERED: methylPREDNISolone 125 MG* 2 ML VIAL IM ONE (19:56)
[2018-02-20] MEDS ORDERED: Albuterol/Ipratropium NEB.SOL* Albuterol 2.5 MG/Ipratropium 0.5 MG 3 ML INH ONE (19:57)
[2018-02-20] MEDS ORDERED: Levofloxacin TAB* 250 MG PO ONE (19:58)
--- NOTE | 2018-02-20 20:07 | UC ---
Respiratory Complaint HPI - HPI Summary HPI Summary: 37 yo WM h/o COPD due to environmental allergens x 3 yrs p/w SOB and expiratory wheezes. C.o hard time walking from the parking lot to the . States that he is on Augmentin for a sinus infection and "thinks it's allergens" but appears alot sicker than he states. Has had a cough for almost 2 weeks, Albuterol inhaler becoming less helpful for his SOB. - History of Current Complaint Chief Complaint: UCRespiratory Stated Complaint: SINUS COMPLAINT Time Seen by Provider: 02/20/18 19:24 Hx Obtained From: Patient Onset/Duration: Lasting Weeks Severity Initially: Moderate Severity Currently: Moderate Pain Intensity: 0 Character: Cough: Productive Aggravating Factors: Allergens, Exertion, Deep Breaths Alleviating Factors: Nothing Associated Signs And Symptoms: Negative: Fever, Chills - Allergies/Home Medications Allergies/Adverse Reactions: Allergies Allergy/AdvReac Type Severity Reaction Status Date / Time amoxicillin [From Augmentin] Allergy RASH, Verified 02/20/18 19:06 ITCHING clavulanic acid Allergy RASH, Verified 02/20/18 19:06 [From Augmentin] ITCHING NSAIDS (Non-Steroidal Allergy Anaphylatic Verified 02/20/18 19:06 Anti-Inflamma Shock PMH/Surg Hx/FS Hx/Imm Hx Previously Healthy: No Respiratory History: COPD, Asthma - Surgical History Surgical History: Yes Surgery Procedure, Year, and Place: BILATERAL HANDS TENDON REPAIR A CHILD,. SINUS SURGERY 2013 - Family History Known Family History: Positive: None - Both parents are alive and well., Other - Patient denies a significant FHx Negative: Blood Disorder Family History: Neg RAD - Social History Alcohol Use: Rare Substance Use Type: None Substance Use Comment - Amount & Last Used: former heavy use marijuana Smoking Status (MU): Never Smoked Tobacco Have You Smoked in the Last Year: - occasional marijuana smoker When Did the Patient Quit Smoking/Using Tobacco: a year ago "quit smokin weed" - Immunization History Most Recent Influenza Vaccination: Fall 2015 Most Recent Tetanus Shot: 02/03/18 Most Recent Pneumonia Vaccination: 2017 Review of Systems Constitutional: Negative Skin: Negative Eyes: Negative ENT: Negative Respiratory: Shortness Of Breath, Cough Cardiovascular: Negative Gastrointestinal: Negative Genitourinary: Negative Motor: Negative Neurovascular: Negative Musculoskeletal: Negative Neurological: Negative Psychological: Negative All Other Systems Reviewed And Are Negative: Yes Physical Exam Triage Information Reviewed: Yes Appearance: Ill-Appearing, Thin Vital Signs: Initial Vital Signs Temp 36.6 C 02/20/18 19:00 Pulse 82 02/20/18 19:00 Resp 20 02/20/18 19:00 BP 127/81 02/20/18 19:00 Pulse Ox 97 02/20/18 19:00 Eye Exam: Normal ENT Exam: Normal Dental Exam: Normal Neck exam: Normal Neck: Positive: 1 Respiratory: Positive: Respiratory distress - MILD-moderate, Wheezing, Expiration Cardiovascular Exam: Normal Abdominal Exam: Normal Musculoskeletal Exam: Normal Neurological Exam: Normal Psychological Exam: Normal Skin Exam: Normal UC Diagnostic Evaluation - Laboratory O2 Sat by Pulse Oximetry: 97 Respiratory Course/Dx - Course Course Of Treatment: CXR- B/L perihilar infiltrates, and faint RLL haziness, may be evolving occult infection-. Will cover with PO LEvaquin, Medrol dose albert. SOB improved with Duoneb, IM solumedrol and PO Levaquin. Pt has COPD exacerbation but does not know the etiology and chucks it to "allergies" and "sinus infections s/p poly removal" but visibly frustrated that he could not get to the bottom of his cause for his COPD as he is a non smoker. I advised pulmonary follow up for the furture of his lung reserve and to not curtail longevity of his work life by impeding interventions that can pave the way for improving his quality of life. Pt agreed and stated he will finally follow up with Dr Garcia, the general manager - Differential Dx/Diagnosis Differential Diagnosis/HQI/PQRI: Exacerbation Of COPD, Lower Resp Infection, Sinusitis Provider Diagnoses: Acute COPD exacerbation. wheezing Discharge - Sign-Out/Discharge Documenting (check all that apply): Discharge - Discharge Plan Condition: Stable Disposition: HOME Prescriptions: Levofloxacin TAB* [Levaquin TAB*] 750 mg PO DAILY #5 tab methylPREDNISolone [Medrol Dosepak 4 MG*] 0 mg PO .SEE ALBERT INSTRUCTION 6 Days # 21 tab Patient Education Materials: COPD (Chronic Obstructive Pulmonary Disease) (ED) , Wheezing (ED) Referrals: Nishant Jones MD [Primary Care Provider] - Additional Instructions: PLEASE DO NOT MISS YOUR APPOINTMENT WITH YOUR JUNIOR LINUX ADMINISTRATOR -DR CID - Billing Disposition and Condition Condition: STABLE Disposition: HOME
--- NOTE | 2018-02-20 20:39 | RAD ---
INDICATION: Shortness of breath, cough, congestion, fever. Asthma. COMPARISON: December 17, 2017 TECHNIQUE: Dual energy PA and routine lateral views of the chest were obtained. REPORT: Elevated lung volumes. No focal pulmonary lesion, compelling alveolar consolidation, pleural effusion, pneumothorax. The heart, pulmonary vasculature, and mediastinal contours are unremarkable. Unremarkable soft tissue contours and osseous structures. IMPRESSION: Stigmata of obstructive lung disease. No acute pulmonary or cardiac process evident.
== END 2018-02-20 21:25 | disposition home or self-care (01) ==
LOC: UCEAST 18:29
DX: J44.1 Chronic obstructive pulmonary disease with (acute) exacerbation (principal); Z88.6 Allergy status to analgesic agent; Z88.1 Allergy status to other antibiotic agents; Z88.0 Allergy status to penicillin
CPT/HCPCS: 71046; 96372; 99212; A9270-GY; G0463; J2930

== ENCOUNTER → 2018-03-17 21:42 | Emergency (ER) | payer OTHER ==
[2018-03-17 22:04] VITALS: BP 123/72
--- OUTSIDE RECORDS SUMMARY | 2018-03-17 22:30 | XMS REPORT ---
:1980 External Reference #:[id number] Author Organization [facility] Address [address] [address] Phone [phone] Care Team Providers Name Role Phone Nishant Jones MD Care Team Information Internet Cafe Manager Unavailable Nishant Jones MD Primary Care Physician Unavailable Payers Type Date Identification Numbers Payment Provider Subscriber Commercial Effective: Policy Number: [id number] [place] Prakash 2014 Group Name: [id number] [address] PayID: [id number] [place] [address] Problems Description No Information Social History Type Date Description Comments Marital Status Lives With Family Occupation Currently Working Cigarette Use Never Smoked Cigarettes ETOH Use Denies alcohol use Smoking Patient has never smoked Exercise Type/Frequency Exercises regularly Allergies, Adverse Reactions, Alerts Date Description Reaction Status Severity Comments 10/30/2017 Ibuprofen active 10/30/2017 Naproxen Anaphylaxis active 10/30/2017 NSAIDs active Medications Medication Date Status Form Strength Qnty SIG Indications Ordering Provider Prednisone 03/10/ Active Tablets 10mg 30tabs take 4 J45.50 Erika S. 2018 tabs for 3 Foster, days, 3 N.P. tabs for 3 days, 2 tabs for 2 days, 1 tab for 2 days then stop Ventolin HFA / Active Aerosol 108(90Base 2 puffs by Unknown 0000 ) mcg/Act mouth four times a day as needed Montelukast / Active Tablets 10mg 1 by mouth Unknown Sodium 0000 every day Albuterol / Active Nebulizer 0.63mg/3ML one Unknown Sulfate 0000 treatment every 4 as needed Claritin-D 24 / Active Tablets ER 10-240mg 1 by mouth Unknown Hour 0000 24HR every day Flonase 00/ Active Suspension 50mcg/Act spray 1 Unknown Allergy 0000 spray in Relief each nostril once daily Ipratropium / Active Solution 0.02% 1 vial in Unknown [place] 0000 nebulizer 3-4 times a day as needed Breo Ellipta / Active Aerosol 100-25mcg/ 1 puff Unknown 0000 Inh inhaled daily Cetirizine / Active Tablets 10mg Take One Unknown HCL 0000 Tablet By Mouth Every Day as Needed Allergy Shots / Active weekly Unknown 0000 Flovent / Hx Aerosol 250mcg/Bli 1 puff Unknown Diskus 0000 - st twice a 2017 Prednisone / Hx Tablets 20mg take 3 Unknown 0000 - tablets x 3 days, 2017 then 2 tablets x 3 days, then 1 tabet x 3 days, then 1/2 tablet x 3 days - take with food Qvar / Hx Aerosol 80mcg/Act 2 puff Unknown 0000 - twice a 2017 Flonase 00/ Hx Suspension 50mcg/Act Unknown Allergy 0000 - Relief 07/31/ Childrens 2016 Vital Signs Date Vital Result Comment 03/10/2018 Height 72 inches 6'0" Weight 176.00 lb Heart Rate 96 /min BP Systolic Sitting 152 mmHg BP Diastolic Sitting 80 mmHg Respiratory Rate 20 /min O2 % BldC Oximetry 97 % BMI (Body Mass Index) 23.9 kg/m2 10/30/2017 Height 72 inches 6'0" Weight 173.00 lb w/ shoes Heart Rate 66 /min BP Systolic Sitting 102 mmHg Rue, reg cuff BP Diastolic Sitting 80 mmHg Rue, reg cuff Respiratory Rate 14 /min O2 % BldC Oximetry 92 % on Ra BMI (Body Mass Index) 23.5 kg/m2 Neck Circumference in inches 14 Results Description No Information Procedures Date CPT Code Description Status 01/02/2016 38347 Bronchospasm Provocation Evalu Completed Encounters Type Date Location Provider CPT E/M Dx Office Visit 12/22/2017 [facility] ,[place] [address] J45.50 1:24p Hospitalists J11.1 J33.9 Office Visit 12/21/2017 1:23p [facility], [place] [address] J45.50 Hospitalists J11.1 J33.9 Z88.6 Office Visit 12/20/2017 1:22p [facility],[place] [address] J45.50 Hospitalists J11.1 Office Visit 12/19/2017 2:04p [facility]ology [facility] Sleep Jen Blackburn [address] J45.901 Services Of [facility] MD Office Visit 12/19/2017 1:21p [facility], [place] [address] J45.50 Hospitalists J11.1 J33.9 Z88.6 Office Visit 12/18/2017 12:50p [facility],[place] [address] J45.50 Hospitalists J11.1 J33.9 Z88.6 Office Visit 12/17/2017 12:49p [facility] Karuna Daily 19118 J45.50 Assoc, Hospitalists M.Harshal Office Visit 12/17/2017 8:55a [facility] [place] [address] J45.901 Services Of [employer] Office Visit 12/14/2017 12:15p [facility] Emilia Mcgee [address] J45.901 Assoc, Hospitalists Kathryn Z22.322 Office Visit 12/14/2017 1:40p [facility] [place] [address] J45.901 [facility] B95.62 F12.980 Office Visit 12/13/2017 12:14p [facility] Emilia Mcgee 18[address] J45.901 Assoc, Hospitalists Kathryn Z22.322 Office Visit 12/13/2017 1:39p [facility] [place] [address] J45.901 Services Of [employer] B95.62 Office Visit 12/12/2017 12:13p [facility] Emilia Mcgee [address] J45.901 Assoc, Hospitalists Kathryn Z22.322 Office Visit 12/12/2017 1:43p [facility] [place] [address] J45.901 [facility] F12.980 B95.62 Office Visit 12/11/2017 12:12p [facility] Emilia Mcgee, [address] J45.901 Assoc, Hospitalists Kathryn Office Visit 10/30/2017 8:36a [facility] Joby Gutierrez, [address] J45.41 Assoc, Hospitalists N.P. R09.02 Office Visit 10/30/2017 7:30a [facility] [place] [address] J45.901 Services [facility] F12.90 Office Visit 09/30/2017 12:56p [facility] [place], [address] J45.31 Assoc, Hospitalists Kathryn K61.1 Office Visit 02/08/2017 3[facility]p [facility] Shena Pizano N.P. 12[address] T78.2xxA Hospitalists J45.909 Office Visit 02/07/2017 3:06p [facility] Pizano, N.P. 61713 T78.2xxA Hospitalists J45.909 Plan of Care Future Appointment(s):05/22/2018 1:45 pm - Jen Blackburn MD at [facility]03/10/2018 - Erika Cohen N.P.J45.50 Severe persistent asthma, uncomplicatedNew Medication:Prednisone 10 mgFollow up:CAMACHO Blackburn 2 monthsRecommendations:Use your nebulizer twice daily and q4h as needed Please continue to avoid triggers and be compliant with allergy shot.F41.9 Anxiety disorder, unspecified
--- OUTSIDE RECORDS SUMMARY | 2018-03-17 22:31 | XMS REPORT ---
:1980 External Reference #:[id number] Author Organization [facility] Address [address] [place] [address] Phone [phone] Care Team Providers Name Role Phone Nishant Jones MD Care Team Information [employer] Counter Assistant Unavailable Payers Type Date Identification Numbers Payment Provider Subscriber Commercial Effective: Policy Number: Tyler Prakash 2015 [id number] Medicaid Expires: 2016 PayID: [id number] [address] [place] [id number] Commercial Effective: 2014 Policy Number: Tyler Prakash [id number] Medicaid PayID: [id number] [address] [place] [phone] Problems Date Description Provider Status Onset: Anaphylaxis [...] Active Tablets 875-125mg 20tab 1 take by /2017 s mouth tablet Vonetjessika every 12 , MD hours for 10 days for infection Flovent Diskus 08/26 Active Aerosol 250mcg/Bl 60uni inhale one J45.21 Nishant ist ts puff by mouth Robert twice daily - MD rinse mouth after use (replaces qvar) Montelukast 05/28 Active Tablets 10mg 30tab Take One J45.998 Kristen Sodium /2016 s Tablet By Dorothea, Mouth Every [employer] Day Atrovent 03/24 Active Solution 0.02% 20uni [...] Solution 0.02% 75uni Use 1 Ampule Nishant Vanderpool /0000 ts Via Nebulizer Robert 3 To [...] Tablets 875-125mg 14tab 1 take by J45.998 Kristne s mouth tablet Dorothea, - every 12 [employer] 08/26 hours for days for infection Prednisone 04/19 Hx Tablets 20mg 10tab take 2 tabs Harrison45.998 s by mouth Dorothea - every day x 5 [employer] Amoxicillin 04/19 Hx Tablets 500mg 40tab 1 tab po qid s X 10 days David Piedra [employer] 05/28 Albuterol 04/19 Hx Nebulizer 0.63mg/3M 75uni Inhale The L ts Contents Of Dorothea, - One Vial Via [employer] 08/27 Nebulizer Every 4 To 6 Hours [...] s - 07/28 Nystatin 10/26 Hx Suspension [id number] 473ml swish and B37.9 Jesu t/ML swallow 5ml Hi - by mouth III, 04/19 three times a [employer] day for 7 days or until resolved Augmentin 09/17 Hx Tablets 875-125mg 14tab 1 take by [id number] nt s mouth tablet R. Storm, - every 12 [employer] 04/19 hours for days for infection Prednisone 09/17 Hx Tablets 20mg 9tabs 3 by mouth Harrison45.998 juvencio /2015 every day x 3 R. Storm, - days [employer] 04/19 Medrol 07/28 Hx TBPK 4mg 1unit [...] - day for 10 III, 09/17 days [employer] Qvar 12/07 Hx Aerosol 80mcg/Act 2unit inhale [...] CPT Code Status Date Vaccine Lot # [id number] Given 09/17/2016 Pneumovax 23 (PPSV23) 65+ years or high risk 2 to [id number] 65 year old [id number] Refused 02/12/2018 Influenza Virus Vaccine, Quadrivalent, 3 Yr > Quad, Preserv Free [id number] Refused 01/24/2016 Influenza Virus Vaccine, Quadrivalent, 3 [...] Test Date Test Result H/L Range Note CBC Auto Diff 12/17/2017 White Blood Count [...] Egfr Non- 81.7 >60 Egfr 105.1 >60 1 Laboratory test finding 12/17/2017 C Reactive Protein 7.42 mg/L High < 5.00 2 Lactic Acid 2.1 mmol/L High 0.5-2.0 3 Procalcitonin < 0.1 ng/mL <0.6 4 Arterial Blood Gas 12/11/2017 PH Arterial 7.46 High 7.35-7.45 Pco2 Arterial 31 mmHg Low 35-45 Po2 Arterial 54 mmHg Low 80-100 5 O2 Saturation Arterial 92.9 % Low 95-98 Base Excess Arterial -0.8 -2.0-2.0 6 Hco3 Arterial 24.1 mmol/L 19-31 CBC Auto [...] Egfr Non- 86.5 >60 Egfr 111.3 >60 7 Laboratory test finding 12/11/2017 C Reactive Protein 42.52 mg/L High &lt ; 5.00 8 B-Type Natriuretic Peptide BNP 32 pg/mL 9 Rapid Influenza A & B 12/11/2017 Influenza A Molecular NEGATIVE Negative 10 Molecular Influenza B Molecular NEGATIVE Negative Laboratory test 12/11/2017 Influenza A & B SEE RESULT BELOW 11 finding Request Laboratory test 10/30/2017 Partial Thrombo Time 26.3 seconds 26.0-36.3 finding PTT D Dimer Quantitative < 200 ng/mL Less Than 230 12 Lactic Acid 2.4 mmol/L High 0.5-2.0 13 Blood Culture SEE RESULT BELOW 14 Inr/Protime 10/30/2017 Inr 0.85 0.77-1.02 15 CKMB 10/30/2017 CKMB ng/mL 9.7 ng/mL High 0.6-6.3 Laboratory test finding 10/30/2017 Creatine Kinase 901 U/L High 10-223 C Reactive Protein 5.47 mg/L High < 5.00 16 Troponin-I (TnI) 0.01 ng/mL <0.04 Comp Metabolic Panel 10/30/2017 Sodium 138 mmol/L [...] Egfr Non- 85.5 >60 Egfr 110.0 >60 17 Laboratory test finding 10/30/2017 Influenza A [...] Color Straw Urine Appearance Clear Urine Specific [place] 1.011 1.010-1.030 Urine pH 6.0 5-9 Urine Urobilinogen Negative Negative Urine Ketones 1+ Negative Urine Protein Negative Negative Urine Leukocytes Negative Negative Urine Blood Negative Negative Urine Nitrite Negative Negative Urine Bilirubin Negative Negative Urine Glucose Negative Negative Laboratory test finding 10/26/2016 Strep Screen NEG Neg 1 Because ethnic data is not always readily [...] 15-29 5 Kidney failure <15 (or dialysis) 2 Acute inflammation: >10.00 3 Critical Result LACT:2.1 Called to SILVIA at: 00:51:44 by:[id number] Read back by:SILVIA [facility] Severe Sepsis and Septic Shock Management Bundle Measure requires all lactic acids initially measuring >2.0 mmol/L be repeated. 4 Interpretive information available on [facility] Test Catalog at [email or web address] 5 Verbal to [id number] by [email or web address] at 1757 on 12/11/17. Results read back accurately. 6 Reference ranges based on room air. 7 Because ethnic data is not always readily [...] 15-29 5 Kidney failure <15 (or dialysis) 8 Acute inflammation: >10.00 9 >100 to <200 pg/mL: likely compensated congestive heart failure (CHF) 200 to 400 pg/mL: likely moderate CHF >400 pg/mL: likely moderate to severe CHF 10 Sales Department Manager: [id number] 11 SEE RESULT BELOW Name: BEATA PRAKASH : [address]: Guilherme Trinidad MD Acct: [id number] Unit: [id number] AGE: 37 Location: ED Re12/11/17 SEX: M Status: REG ER SPEC: [id number] EVIE: 12/11/17 [facility] DR: Reema HERRMANN REQ: [id number] RECD: 12/11/17 STATUS: CLAIRE BOO DR: Nishant Trinidad MD _ SOURCE: NASAL SPDESC: ORDERED: Flu A B Request Procedure Result Reported Site Rapid Influenza A B Request Final 12/11/17- 1546 ML Specimen received for Influenza A/B Molecular testing * ML - MAIN LAB ([facility]) . END OF REPORT * ML=Testing performed at Main Lab DEPARTMENT OF PATHOLOGY, [address] [place] [address] Anuel Shane M.D. Director [facility] # [id number] 12 Please note: The following may produce a false positive D Dimer test: - Rheumatoid factor greater than 60 IU/ml - Plasma hemoglobin greater than 0.05 gm/dl - Bilirubin greater than 50 mg/dl - Lipids greater than 1000 mg/dl - FDP greater than 20 ug/ml 13 Critical Result LACT:2.4 Called to PETER Maya at: 09:53:31 by:[email or web address] Read back by:PETER RAY Severe Sepsis and Septic Shock Management Bundle Measure requires all lactic acids initially measuring >2.0 mmol/L be repeated. 14 SEE RESULT BELOW Name: BEATA PRAKASH : [address]: Karuna Daily DO Acct: [id number] Unit: [id number] AGE: 37 Location: [place] [address]02 Re10/30/17 SEX: M Status: ADM Portia SPEC: [id number] EVIE: 10/30/17 [facility] DR: Aiyana Hogan MD REQ: [id number] RECD: 10/30/17 STATUS: AVI BOO DR: Nishant Jones MD _ SOURCE: BLOOD,VENO SPDESC: ORDERED: Blood Cult Procedure Result Reported Site Aerobic Culture Bottle Preliminary 10/31/17- 29 ML No Growth Day 1 Anaerobic Culture Bottle Preliminary 10/31/17- 928 ML No Growth Day 1 * ML - MAIN LAB ([facility]) . END OF REPORT * ML=Testing performed at Main Lab DEPARTMENT OF PATHOLOGY, [address] [place] [address] Anuel Shane M.D. Director [facility] # [id number] 15 Please note the change in INR reference range effective 17. 16 Acute inflammation: >10.00 17 Because ethnic data is not always readily [...] 15-29 5 Kidney failure <15 (or dialysis) 18 SEE RESULT BELOW Name: BEATA PRAKASH : [address]: Aiyana Hogan MD Acct: [id number] Unit: [id number] AGE: 37 Location: ED Re10/30/17 SEX: M Status: ANA DÍAZ SPEC: [id number] EVIE: 10/30/17 [facility] DR: Aiyana Hogan MD REQ: [id number] RECD: 10/30/17 STATUS: CLAIRE BOO DR: Nishant Jones MD _ SOURCE: [facility]: ORDERED: Flu A B Request Procedure Result Reported Site Rapid Influenza A B Request Final 10/30/17- 0937 ML Specimen received for Influenza A/B Molecular testing * ML - MAIN LAB ([facility]) . END OF REPORT * ML=Testing performed at Main Lab DEPARTMENT OF PATHOLOGY, [address] [place] [address] Anuel Shane M.D. Director [facility] # [id number] 19 >100 to <200 pg/mL: likely compensated congestive heart failure (CHF) 200 to 400 pg/mL: likely moderate CHF >400 pg/mL: likely moderate to severe CHF 20 Sales Department Manager: [id number] 22 SEE RESULT BELOW Name: BEATA PRAKASH : [address]: Ernestina Avalos MD Acct: [id number] Unit: [id number] AGE: 37 Location: [facility] Re09/28/17 SEX: M Status: DEP ER SPEC: [id number] EVIE: 09/28/17 [facility] DR: Ernestina Avalos MD REQ: [id number] RECD: 09/29/17 STATUS: RES OTHR DR: Nishant Jones MD _ SOURCE: WOUND SPDESC:RECTAL ORDERED: MRSA/SA SSTI, Culture Stain COMMENTS: [id number] Procedure Result Reported Site MRSA/S. aureus SSTI PCR PENDING Wound/Misc Gram Stain Final 09/29/17- 1435 ML 3+ Neutrophils 1+ Epithelial Cells No Organisms Seen Wound/Misc Culture Preliminary 09/30/17- 1148 ML Organism 1 STAPHYLOCOCCUS AUREUS Quantity 3+ * ML - MAIN LAB ([facility]) . END OF REPORT * ML=Testing performed at Main Lab DEPARTMENT OF PATHOLOGY, [address] [place] [address] Anuel Shane M.D. Director [facility] # [id number] 23 SEE RESULT BELOW Name: BEATA PRAKASH : [address]: Ernestina Avalos MD Acct: [id number] Unit: [id number] AGE: 37 Location: [facility] Re09/28/17 SEX: M Status: CELE DÍAZ SPEC: [id number] EVIE: 09/28/17-1834 [facility] DR: Ernestina Avalos MD REQ: [id number] RECD: 09/29/17-1343 STATUS: CLAIRE BOO DR: Nishant Jones MD _ SOURCE: WOUND SPDESC:RECTAL ORDERED: MRSA/SA SSTI, Culture Stain COMMENTS: [id number] Verbal to [id number]/[facility] by [id number] at 1202 on 09/30/17. Results read back [...] performed at Main Lab DEPARTMENT OF PATHOLOGY, [address] [place] [address] Anuel Shane M.D. Director [facility] # [id number] Patient: BEATA PRAKASH [id number] (Continued) Specimen: [id number] Collected: 09/28/17 Received: 09/29/17 (Continued) Procedure Result [...] These antibiotics are not available in the [facility] Formulary Contact the Microbiology Department for any additional antibiotic reporting. * ML - MAIN LAB ([facility]) . END OF REPORT * ML=Testing performed at Main Lab DEPARTMENT OF PATHOLOGY, [address] [place] [address] Anuel Shane M.D. Director [facility] # [id number] 24 Acute inflammation: >10.00 25 99th percentile=0.04 ng/mL Troponin results at [facility] and [facility] are not interchangeable. 26 Because ethnic data [...] 5 Kidney failure <15 (or dialysis) 27 [facility] Severe Sepsis and Septic Shock Management Bundle Measure requires all lactic acids initially measuring >2.0 mmol/L be repeated. Procedures Description No Information Encounters Type Date Location Provider CPT E/M Dx Office Visit 02/12/2018 11:30a [place] [address] T81.4xxA Office Visit 11/29/2017 11:30a [place] [address] J01.90 J45.901 Office Visit 11/01/2017 11:00a [place] [address] J45.901 F14.99 Office Visit 10/24/2017 10:30a [place] [address] J45.998 J01.90 Office Visit 10/02/2017 11:45a [place] [address] J45.998 L02.818 Office Visit 08/26/2017 11:45a Main Office Laura Vanessa M.D. 54123 J45.21 Office Visit 07/31/2017 10:45a [place] [address] J45.998 Office Visit 05/28/2017 11:45a Main Office Kristen Piedra [facility] [address] J45.998 J30.9 Office Visit 04/19/2017 8:45a Main Office Kristen Piedra [facility] [address]20 J45.998 Office Visit 03/22/2017 11:30a [place] [address] J02.9 J45.998 Office Visit 12/24/2016 8:45a Main Office Anny Radford [facility] [address]349 J20.9 Office Visit 10/26/2016 11:45a Main Office Jesu Do III [facility]- [address] B37.9 Office Visit 09/17/2016 5:00p [place] [address] J45.998 J01.90 Z23 Office Visit 03/07/2016 8:15a [place] [address] J45.998 J20.9 Office Visit 01/30/2016 9:00a [place] [address] J45.998 Office Visit 01/24/2016 8:30a Main Office Jesu Do III [facility]- [address] J01.90 Office Visit 12/07/2015 8:00a [place] [address] J44.1 Office Visit 10/01/2005 10:15a Main Office Lissette Akers [facility] 16605 477.9 Office Visit 06/19/2004 3:00p Main Office Lissette Akers [facility] 24776 995.3 569.49 Office Visit 11/15/2003 11:15a Main Office Lissette Akers, F.[facility] 88550 466.0 Plan of Care 02/12/2018 - ERNE Weldon81.4xxA Infection following a procedure, initial encounterComments:The finger is quite red. I [...]
== END | disposition left against medical advice (07) ==
LOC: ED 21:42
DX: R09.89 Other specified symptoms and signs involving the circulatory and respiratory systems (principal); Z53.21 Procedure and treatment not carried out due to patient leaving prior to being seen by health care provider

== ENCOUNTER 2018-04-29 15:35 | Emergency (ER) | payer OTHER ==
[2018-04-29 15:56] VITALS: BP 127/79
--- NOTE | 2018-04-29 16:04 | UC ---
Skin Complaint HPI - HPI Summary HPI Summary: 38 yo male presents with abscess to right buttocks. Says that he gets these a lot and was told in the past that he has MRSA. Most recently, he has an abscess on his right buttocks that has been getting progressively worse over the last 2 weeks - is red, painful, and large. Denies fever or chills. - History of Current Complaint Chief Complaint: UCSkin Time Seen by Provider: 04/29/18 16:04 Stated Complaint: SORE ON BUTT CHEEK Hx Obtained From: Patient Onset/Duration: Gradual Onset Onset Severity: Mild Current Severity: Moderate Pain Intensity: 5 Pain Scale Used: 0-10 Numeric - Allergy/Home Medications Allergies/Adverse Reactions: Allergies Allergy/AdvReac Type Severity Reaction Status Date / Time amoxicillin [From Augmentin] Allergy RASH, Verified 04/29/18 15:56 ITCHING clavulanic acid Allergy RASH, Verified 04/29/18 15:56 [From Augmentin] ITCHING NSAIDS (Non-Steroidal Allergy Anaphylatic Verified 04/29/18 15:56 Anti-Inflamma Shock Home Medications: Home Medications Fluticasone NASAL SPRAY 50MCG* [Flonase NASAL SPRAY 50MCG*] 2 spray BOTH NARES DAILY 04/29/18 [History Confirmed 04/29/18] Loratadine/Pseudoephedrine [Loratadine-D 12Hr] 1 tab PO DAILY 04/29/18 [History Confirmed 04/29/18] Review of Systems Constitutional: Negative Skin: Other - Abscess right buttocks Respiratory: Negative Cardiovascular: Negative Neurovascular: Negative Neurological: Negative Psychological: Negative All Other Systems Reviewed And Are Negative: Yes PMH/Surg Hx/FS Hx/Imm Hx - Additional Past Medical History Additional PMH: COPD Asthma - Surgical History Surgical History: Yes Surgery Procedure, Year, and Place: BILATERAL HANDS TENDON REPAIR A CHILD,. SINUS SURGERY 2013 - Family History Known Family History: Positive: None - Both parents are alive and well., Other - Patient denies a significant FHx Negative: Blood Disorder Family History: Neg RAD - Social History Lives: With Family Alcohol Use: None Substance Use Type: None Substance Use Comment - Amount & Last Used: former marijuana Smoking Status (MU): Never Smoked Tobacco Have You Smoked in the Last Year: - occasional marijuana smoker When Did the Patient Quit Smoking/Using Tobacco: a year ago "quit smokin weed" - Immunization History Most Recent Influenza Vaccination: Fall 2015 Most Recent Tetanus Shot: 02/03/18 Most Recent Pneumonia Vaccination: 2017 Physical Exam - Summary Physical Exam Summary: GENERAL: NAD. WDWN. No pain distress. SKIN: Right buttocks: 4.5cm diameter of moderate erythema with central 2.0cm area of induration, edema, and tenderness. No streaking, bleeding, or drainage. NECK: Supple. Nontender. No lymphadenopathy. CHEST: No accessory muscle use. Breathing comfortably and in no distress. CV: RRR. Without m/r/g. NEURO: Alert. CN II-XII grossly intact. PSYCH: Age appropriate behavior. Triage Information Reviewed: Yes Vital Signs: Initial Vital Signs Temp 99.0 F 04/29/18 15:51 Pulse 101 04/29/18 15:51 Resp 16 04/29/18 15:51 BP 127/79 04/29/18 15:51 Pulse Ox 99 04/29/18 15:51 Course/Dx - Course Course Of Treatment: A time out was performed, witnessed, and signed. The area was cleansed with an alcohol pad. 3mL of 2% lidocaine without epi was administered and good anesthetization was achieved. The abscess was centrally lanced with a #11 blade and copious purulent matter was able to expressed. Pt tolerated well. Given his hx of MRSA and multiple abscesses - will refer him to Dr. 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 - Diagnoses Provider Diagnoses: Abscess right buttocks Procedures - Incision and Drainage Right Buttocks Site: Right buttocks Anesthesia: Local Instrument(s): Scalpel Packing: Other - None Discharge - Sign-Out/Discharge Documenting (check all that apply): Discharge/Admit/Transfer - Discharge Plan Condition: Stable Disposition: HOME Prescriptions: Sulfamethox/Trimethoprim DS* [Bactrim DS 800/160 TAB*] 1 tab PO BID #20 tab Patient Education Materials: Abscess (ED) Referrals: Nishant Jones MD [Primary Care Provider] - Samantha NAVA,Arthur Caputo [Medical Doctor] - As Soon As Possible Additional Instructions: If you develop a fever, shortness of breath, chest pain, new or worsening symptoms - please call your PCP or go to the ED. 1) Please call Dr. Singh's office to schedule a follow up appointment for your reoccurring MRSA infections - Billing Disposition and Condition Condition: STABLE Disposition: Home
[2018-04-29] MEDS ORDERED: Lidocaine 2% PF * 5 ML VIAL INJ ONE (16:10)
== END 2018-04-29 16:50 | disposition home or self-care (01) ==
LOC: UCEAST 15:35
DX: L02.31 Cutaneous abscess of buttock (principal); Z86.14 Personal history of Methicillin resistant Staphylococcus aureus infection; Z88.6 Allergy status to analgesic agent; Z88.1 Allergy status to other antibiotic agents; Z88.0 Allergy status to penicillin; J44.9 Chronic obstructive pulmonary disease, unspecified
CPT/HCPCS: 10060; 99212; G0463

== ENCOUNTER 2018-05-27 20:12 | Emergency (ER) | payer OTHER ==
[2018-05-27 20:39] VITALS: BP 139/89
--- NOTE | 2018-05-27 21:39 | UC ---
Dental HPI - HPI Summary HPI Summary: This is ayaka Arnett documenting for attending Kristal Cazares MD. This patient is a 38 year old M presenting to [facility] with a chief complaint of intermittent dental pain since 1 week ago. The patient reports that the pain became constant starting today. The patient rates the pain 9/10 in severity. Symptoms aggravated by nothing. Symptoms alleviated by nothing. Patient reports right ear ache and difficulty breathing. The patient reports that he went swimming yesterday at [employer]. The patient notes that he has been under a lot of recent stress and he has been crying a lot. The patient reports that he took Tylenol at 18:30 today. Patient has hx of COPD. - History of Current Complaint Chief Complaint: UCGeneralIllness Stated Complaint: SHORTNESS OF BREATH,TOOTH & EAR PAIN Hx Obtained From: Patient Onset/Duration: Gradual Onset, Lasting Weeks - 1 week, Still Present Severity: Moderate Pain Intensity: 9 Pain Scale Used: 0-10 Numeric Aggravating Factor(s): Nothing Alleviating Factor(s): Nothing - Allergies/Home Medications Allergies/Adverse Reactions: Allergies Allergy/AdvReac Type Severity Reaction Status Date / Time amoxicillin [From Augmentin] Allergy RASH, Verified 05/27/18 20:40 ITCHING clavulanic acid Allergy RASH, Verified 05/27/18 20:40 [From Augmentin] ITCHING NSAIDS (Non-Steroidal Allergy Anaphylatic Verified 05/27/18 20:40 Anti-Inflamma Shock PMH/Surg Hx/FS Hx/Imm Hx Respiratory History: COPD - Surgical History Surgical History: Yes Surgery Procedure, Year, and Place: BILATERAL HANDS TENDON REPAIR A CHILD,. SINUS SURGERY 2013 - Family History Known Family History: Positive: None - Both parents are alive and well., Other - Patient denies a significant FHx Negative: Blood Disorder Family History: Neg RAD - Social History Occupation: Employed Part-time Lives: With Family Alcohol Use: None Substance Use Type: None Substance Use Comment - Amount & Last Used: former marijuana Smoking Status (MU): Never Smoked Tobacco Have You Smoked in the Last Year: - occasional marijuana smoker When Did the Patient Quit Smoking/Using Tobacco: a year ago "quit smokin weed" - Immunization History Most Recent Influenza Vaccination: Fall 2015 Most Recent Tetanus Shot: 02/03/18 Most Recent Pneumonia Vaccination: 2017 Review of Systems Constitutional: Negative - negative chills ENT: Dental Pain, Ear Ache - right ear ache Respiratory: Shortness Of Breath Gastrointestinal: Negative - negative nausea All Other Systems Reviewed And Are Negative: Yes Physical Exam Vital Signs: Initial Vital Signs Temp 98.6 F 05/27/18 20:36 Pulse 75 05/27/18 20:36 Resp 20 05/27/18 20:36 BP 139/89 05/27/18 20:36 Pulse Ox 99 05/27/18 20:36 Dental Complaint Course/Dx - Course Course Of Treatment: Dental referral form given to patient. Discharge - Discharge Plan Condition: Stable Disposition: HOME Prescriptions: Albuterol HFA INHALER* [Ventolin HFA Inhaler*] 1 puff INH Q4H PRN #1 mdi PRN Reason: wheeze Clindamycin Cap(NF) [Clindamycin Cap 300 mg Cap(NF)] 300 mg PO TID #21 cap predniSONE TAB* [Deltasone TAB*] 50 mg PO DAILY #4 tab Patient Education Materials: COPD (Chronic Obstructive Pulmonary Disease) (ED) , Toothache (ED) Referrals: Nishant Jones MD [Primary Care Provider] - 1 Day (Follow up with your primary care physician lea.) Jen Blackburn MD [Medical Doctor] - 1 Day (Follow up with Dr. Alexey tate.) Additional Instructions: - Okay to take Tylenol every 6-8 hours as needed for pain. - Take antibiotics as prescribed until gone. -Usual inhaler, 2 puffs every 4 hours as needed for wheezing - Take prednisone daily for a total of 5 days is prescribed - You have been given referral to a dentist. Contact dentist to arrange follow- up appointment. - Work to decrease that smoking - Is advised to follow-up with your lung specialist - Stay hydrated. Drink any of nonalcoholic non-caffeinated beverages - Okay to use Q-tip to gently cleanse her ear. It does not appear infected at this time. Avoid getting further water in her ear - Billing Disposition and Condition Condition: STABLE Disposition: Home
[2018-05-27] MEDS ORDERED: Albuterol HFA INHALER* 8 gm MDI INH ONE (21:41)
[2018-05-27] MEDS ORDERED: Clindamycin CAP* 150 MG PO ONE (21:41)
[2018-05-27] MEDS ORDERED: predniSONE TAB* 20 MG PO ONE (21:42)
== END 2018-05-27 21:56 | disposition home or self-care (01) ==
LOC: UCEAST 20:12
DX: H92.01 Otalgia, right ear (principal); K08.89 Other specified disorders of teeth and supporting structures; R06.02 Shortness of breath; J44.9 Chronic obstructive pulmonary disease, unspecified; Z88.0 Allergy status to penicillin; Z88.1 Allergy status to other antibiotic agents; Z88.6 Allergy status to analgesic agent
CPT/HCPCS: 99213; A9270-GY; G0463; J7512

== ENCOUNTER 2018-06-05 12:50 | Emergency (ER) | payer OTHER ==
[2018-06-05 13:01] VITALS: BP 105/59
[2018-06-05] MEDS ORDERED: Sulfamethox/Trimethoprim DS 800/160* TAB PO ONE (13:32)
--- NOTE | 2018-06-05 13:55 | UC ---
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) - History of Current Complaint Chief Complaint: UCLowerExtremity Stated Complaint: KNEE PAIN Time Seen by Provider: 06/05/18 13:20 Hx Obtained From: Patient Onset/Duration: Gradual Onset Pain Intensity: 8 - 5 at rest Pain Scale Used: 0-10 Numeric Character: Sharp Aggravating Factor(s): Movement Alleviating Factor(s): Position Associated Signs And Symptoms: Positive: Swelling, Redness Able to Bear Weight: Yes - Allergies/Home Medications Allergies/Adverse Reactions: Allergies Allergy/AdvReac Type Severity Reaction Status Date / Time amoxicillin [From Augmentin] Allergy RASH, Verified 05/27/18 20:40 ITCHING clavulanic acid Allergy RASH, Verified 05/27/18 20:40 [From Augmentin] ITCHING NSAIDS (Non-Steroidal Allergy Anaphylatic Verified 05/27/18 20:40 Anti-Inflamma Shock PMH/Surg Hx/FS Hx/Imm Hx Previously Healthy: Yes - Surgical History Surgical History: Yes Surgery Procedure, Year, and Place: BILATERAL HANDS TENDON REPAIR A CHILD,. SINUS SURGERY 2013 - Family History Known Family History: Positive: Hypertension, Other - Patient denies a significant FHx Negative: Blood Disorder Family History: Neg RAD - Social History Alcohol Use: None Substance Use Type: None Substance Use Comment - Amount & Last Used: former marijuana Smoking Status (MU): Current Every Day Smoker Have You Smoked in the Last Year: - occasional marijuana smoker When Did the Patient Quit Smoking/Using Tobacco: a year ago "quit smokin weed" - Immunization History Most Recent Influenza Vaccination: Fall 2015 Most Recent Tetanus Shot: 02/03/18 Most Recent Pneumonia Vaccination: 2017 Review of Systems Constitutional: Negative Skin: Negative Eyes: Negative ENT: Negative Respiratory: Negative Cardiovascular: Negative Gastrointestinal: Negative Genitourinary: Negative Motor: Negative Neurovascular: Negative Musculoskeletal: Arthralgia Neurological: Negative Psychological: Negative Is Patient Immunocompromised?: No All Other Systems Reviewed And Are Negative: Yes Physical Exam Triage Information Reviewed: Yes Appearance: Well-Appearing, No Pain Distress, Well-Nourished Vital Signs: Initial Vital Signs Temp 97.8 F 06/05/18 12:56 Pulse 67 06/05/18 12:56 Resp 19 06/05/18 12:56 BP 105/59 06/05/18 12:56 Pulse Ox 100 06/05/18 12:56 Vital Signs Reviewed: Yes Eyes: Positive: Conjunctiva Clear ENT: Positive: Hearing grossly normal. Negative: Nasal congestion, Nasal drainage, Trismus, Muffled voice, Hoarse voice, Uvula midline Neck: Positive: Supple, Nontender, No Lymphadenopathy Respiratory: Positive: Lungs clear, Normal breath sounds, No respiratory distress, No accessory muscle use Cardiovascular: Positive: RRR, No Murmur Musculoskeletal: Positive: Other: - see image Neurological: Positive: Alert Psychological Exam: Normal Skin Exam: Other - see image Knee Pain Course/Dx - Course Course Of Treatment: D/W Dr. Nava: culture obtained, antibiotics started ( bactrim BS) , he will see tomorrow. If cellulitis worsens or fever develops he has been instructed to go to the ER - Differential Dx/Diagnosis Provider Diagnoses: right infrapatellar bursitis (septic). secondary cellulitis - Physician Notifications Discussed Patient Care With: Dr. Nava Discharge - Sign-Out/Discharge Documenting (check all that apply): Patient Departure - Discharge Plan Condition: Stable Disposition: HOME Prescriptions: Sulfamethox/Trimethoprim DS* [Bactrim DS 800/160 TAB*] 1 - 2 tab PO BID #14 tab Patient Education Materials: Cellulitis (ED), Knee Bursitis (ED) Referrals: Jose Nava MD [Medical Doctor] - 1 Day Additional Instructions: rest elevate warm compresses TO ER IF CELLULITIS (REDNESS EXTENDING DOWN [place]) WORSENS PAIN INCREASES FEVER VOMITING SEE Dr Nava tomorrow - Billing Disposition and Condition Condition: STABLE Disposition: Home Images Front/Back of Body, Lg ([place]): 1 - infrapatellar bursitis with small scab 2 - cellulitis
--- NOTE | 2018-06-07 17:09 | UC ---
- Progress Note Progress Note: Wound culture with MRSA sensitive to Bactrim and pt was advised to f/u. No change Discharge - Sign-Out/Discharge Documenting (check all that apply): Post-Discharge Follow Up - Discharge Plan Condition: Stable Disposition: HOME Prescriptions: Sulfamethox/Trimethoprim DS* [Bactrim DS 800/160 TAB*] 1 - 2 tab PO BID #14 tab Patient Education Materials: Cellulitis (ED), Knee Bursitis (ED) Forms: *Work Release Referrals: Jose Nava MD [Medical Doctor] - 1 Day Additional Instructions: rest elevate warm compresses TO ER IF CELLULITIS (REDNESS EXTENDING DOWN [place]) WORSENS PAIN INCREASES FEVER VOMITING SEE Dr Nava tomorrow - Billing Disposition and Condition Condition: STABLE Disposition: Home
== END 2018-06-05 14:12 | disposition home or self-care (01) ==
LOC: UCEAST 12:50
DX: L03.115 Cellulitis of right lower limb (principal); M71.161 Other infective bursitis, right knee; F17.200 Nicotine dependence, unspecified, uncomplicated; Z88.0 Allergy status to penicillin; Z88.6 Allergy status to analgesic agent
CPT/HCPCS: 87070; 87077; 87186; 87205; 87640; 87641; 99212; A9270-GY; G0463

== ENCOUNTER 2019-10-02 09:42 | Emergency (ER) | payer OTHER ==
[2019-10-02] MEDS ORDERED: Albuterol 2.5 MG/3 ML NEB.SOL* (0.083%) INH ONE ×2 (10:03→10:59)
[2019-10-02] MEDS ORDERED: predniSONE TAB* 20 MG PO ONE (10:03)
[2019-10-02] MEDS ORDERED: Ipratropium 0.5MG/2.5ML NEB* 0.5 MG/2.5 ML NEB.SOLN INH ONE ×2 (10:03→10:59)
--- NOTE | 2019-10-02 10:36 | UC ---
Respiratory Complaint HPI - HPI Summary HPI Summary: Patient is a 39-year-old male with a history of asthma and nasal polyposis. He has had a two-week history of progressively worsening shortness of breath chest tightness cough and wheezing. His rescue inhalers became ineffective. Now he states his nebulizer are not helping much. He may be feverish at times. He has a long history of allergens including cat dander and pollens. He recently took and a stray cat. He has a history of MRSA. He has had multiple admissions for exacerbation of asthma. 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 In the past he has experienced a lot of stone dust as well as worked in [employer] environment. He states that he has been told he may have COPD. - History of Current Complaint Chief Complaint: UCRespiratory Stated Complaint: SOB Time Seen by Provider: 10/02/19 09:51 Hx Obtained From: Patient Onset/Duration: Gradual Onset, Lasting Weeks Timing: Constant Severity Initially: Mild Severity Currently: Severe Pain Intensity: 0 Pain Scale Used: 0-10 Numeric Character: Cough: Nonproductive Aggravating Factors: Exertion, Deep Breaths, Nothing Alleviating Factors: Nothing Associated Signs And Symptoms: Positive: Wheezing, Nasal Congestion, Sinus Discomfort - Allergies/Home Medications Allergies/Adverse Reactions: Allergies Allergy/AdvReac Type Severity Reaction Status Date / Time amoxicillin [From Augmentin] Allergy RASH, Verified 10/02/19 09:55 ITCHING clavulanic acid Allergy RASH, Verified 10/02/19 09:55 [From Augmentin] ITCHING NSAIDS (Non-Steroidal Allergy Anaphylatic Verified 10/02/19 09:55 Anti-Inflamma Shock Home Medications: Home Medications Albuterol 2.5MG/3ML (0.083%)* [Ventolin 2.5 MG/3 ML NEB.REN*] 2.5 mg INH Q4H PRN 10/02/19 [History Confirmed 10/02/19] PMH/Surg Hx/FS Hx/Imm Hx Previously Healthy: Yes Respiratory History: Asthma, Bronchitis - Surgical History Surgical History: Yes Surgery Procedure, Year, and Place: BILATERAL HANDS TENDON REPAIR A CHILD,. SINUS SURGERY 2013 - Family History Known Family History: Positive: None - Both parents are alive and well., Hypertension, Other - Patient denies a significant FHx Negative: Respiratory Disease, Blood Disorder Family History: Neg RAD - Social History Alcohol Use: None Substance Use Type: Marijuana Substance Use Comment - Amount & Last Used: weekly Smoking Status (MU): Light Every Day Tobacco Smoker Amount Used/How Often: 4-5 sig/day Have You Smoked in the Last Year: - occasional marijuana smoker When Did the Patient Quit Smoking/Using Tobacco: a year ago "quit smokin weed" - Immunization History Most Recent Influenza Vaccination: Fall 2015 Most Recent Tetanus Shot: 02/03/18 Most Recent Pneumonia Vaccination: 2017 Review of Systems All Other Systems Reviewed And Are Negative: Yes Constitutional: Positive: Fever - ? Eyes: Positive: Negative ENT: Positive: Nasal Discharge, Sinus Congestion, Sinus Pain/Tenderness Respiratory: Positive: Shortness Of Breath, Cough Gastrointestinal: Positive: Negative Genitourinary: Positive: Negative Motor: Positive: Negative Neurovascular: Positive: Negative Musculoskeletal: Positive: Negative Neurological: Positive: Negative Psychological: Positive: Negative Physical Exam Triage Information Reviewed: Yes Appearance: Other: - increased work of breathing/tri poding/speaking in fragmented sentances Vital Signs: Initial Vital Signs Temp 98.6 F 10/02/19 09:48 Pulse 97 10/02/19 09:48 Resp 18 10/02/19 09:48 BP 108/70 10/02/19 09:48 Pulse Ox 84 10/02/19 09:48 Vital Signs Reviewed: Yes Eyes: Positive: Conjunctiva Clear ENT: Positive: Hearing grossly normal, Nasal congestion, Nasal drainage, TMs normal, Sinus tenderness - right max sinus tenderness Neck: Positive: Supple, Nontender, No Lymphadenopathy Respiratory: Positive: Respiratory distress, Decreased breath sounds Cardiovascular: Positive: RRR, No Murmur Abdomen Description: Positive: Nontender, No Organomegaly Musculoskeletal: Positive: ROM Intact, No Edema Neurological: Positive: Alert Psychological Exam: Normal Skin Exam: Normal Diagnostics - Radiology No standard instances Radiology Interpretation Completed By: Radiologist Summary of Radiographic Findings: IMPRESSION: Density in the left upper lobe appears to be calcific although this is new since previous exam of February 20, 2018 CT is suggested for further evaluation. No definite pneumonia is noted Re-Evaluation - Re-Evaluation First Eval Re-Evaluation Time: 10:35 Change: Improved - much better air movement after first neb. Decreased WOB. Second Eval Re-Evaluation Time: 11:46 Change: Improved - decreased wheezing, decrease WOB, Pox 96% Respiratory Course/Dx - Differential Dx/Diagnosis Provider Diagnosis: Acute asthmatic bronchitis, Right maxillary sinusitis, Pulmonary calcification determined by X-ray Discharge ED - Sign-Out/Discharge Documenting (check all that apply): Patient Departure All imaging exams completed and their final reports reviewed: Yes - Discharge Plan Condition: Stable Disposition: HOME Prescriptions: DOXYcycline CAP(*) [DOXYcycline 100MG CAP(*)] 100 mg PO BID #14 cap Ipratropium 0.5MG/2.5ML NEB* [Atrovent 0.5 MG NEB.REN*] 0.5 mg INH Q4H PRN #1 meb.soln PRN Reason: Sob/Wheezing predniSONE TAB* [Deltasone 20 MG TAB*] 40 mg PO DAILY #8 tab Patient Education Materials: Acute Bronchitis (ED) Referrals: Nishant Jones MD [Primary Care Provider] - 2 Weeks Additional Instructions: IMPRESSION: Density in the left upper lobe appears to be calcific although this is new since previous exam of February 20, 2018 CT is suggested for further evaluation. No definite pneumonia is noted see above....radiologist has suggest a CT of the chest recheck for new or worsening symptoms try to avoid exposure to known allergens - Billing Disposition and Condition Condition: STABLE Disposition: Home
[2019-10-02 11:48] VITALS: BP 110/68
== END 2019-10-02 12:02 | disposition home or self-care (01) ==
LOC: UCEAST 09:42
DX: J45.909 Unspecified asthma, uncomplicated (principal); J32.0 Chronic maxillary sinusitis; J98.4 Other disorders of lung; F17.210 Nicotine dependence, cigarettes, uncomplicated; Z88.0 Allergy status to penicillin; Z88.6 Allergy status to analgesic agent
CPT/HCPCS: 71046; 99213; G0463; J7512

== ENCOUNTER 2019-11-01 17:27 | Emergency (ER) | payer OTHER ==
--- NOTE | 2019-11-01 17:52 | ED ---
Respiratory - HPI Summary HPI Summary: 39-year-old male with significant past medical history of COPD and asthma presents to the emergency department complaining of a sensation that his "lungs are shutting down". Patient states 3 weeks ago she was seen at [facility] for the same issue was given prednisone and antibiotics. He states he lost his prednisone and did not feel like taking his antibiotic because he does not like taking pills. Patient states he ran out of his albuterol inhaler and his nebulizers broken. Today he complains of wheezing and shortness of breath but denies fever, cough, chest pain, syncope. Patient endorses smoking history and states he smoked 2 cigarettes a day. Patient endorses using methamphetamines earlier this week. Patient denies fever, chest pain, abdominal pain, pain with urination, rash, changes in bowel habits. - History of Current Complaint Chief Complaint: EDRespiratoryDistress Stated Complaint: RESP ISSUES PER PT Time Seen by Provider: 11/01/19 17:52 Hx Obtained From: Patient Onset/Duration: Gradual Onset Timing: Constant Initial Severity: Moderate Current Severity: Moderate Pain Intensity: 0 Character: Wheezing Aggravating Factor(s): URI, Weather Change Alleviating Factor(s): Upright Position, Rest Associated Signs and Symptoms: SOB, Wheezing - Allergy/Home Medications Allergies/Adverse Reactions: Allergies Allergy/AdvReac Type Severity Reaction Status Date / Time amoxicillin [From Augmentin] Allergy RASH, Verified 11/01/19 17:49 ITCHING clavulanic acid Allergy RASH, Verified 11/01/19 17:49 [From Augmentin] ITCHING NSAIDS (Non-Steroidal Allergy Anaphylatic Verified 11/01/19 17:49 Anti-Inflamma Shock PMH/Surg Hx/FS Hx/Imm Hx Endocrine/Hematology History: Denies: Hx Diabetes, Hx Thyroid Disease Cardiovascular History: Denies: Hx Hypertension Respiratory History: Reports: Hx Asthma, Hx Chronic Bronchitis, Hx Chronic Obstructive Pulmonary Disease (COPD), Hx Pneumonia, Hx Seasonal Allergies GI History: Denies: Hx Ulcer Musculoskeletal History: Reports: Other Musculoskeletal History - congenital trigger fingers, affecting digits of both hands Sensory History: Denies: Hx Contacts or Glasses, Hx Hearing Aid Opthamlomology History: Denies: Hx Contacts or Glasses Neurological History: Denies: Hx Dementia, Hx Migraine, Hx Seizures, Hx Transient Ischemic Attacks (TIA) Psychiatric History: Denies: Hx Anxiety, Hx Depression, Hx Schizophrenia, Hx Bipolar Disorder - Surgical History Surgery Procedure, Year, and Place: BILATERAL HANDS TENDON REPAIR A CHILD,. SINUS SURGERY 2014 Hx Anesthesia Reactions: No - Immunization History Date of Tetanus Vaccine: unk Date of Influenza Vaccine: none Infectious Disease History: No Infectious Disease History: Reports: Hx of Known/Suspected MRSA Denies: Hx Clostridium Difficile, Hx Hepatitis, Hx Human Immunodeficiency Virus (HIV), Hx Shingles, Hx Tuberculosis, Hx Known/Suspected VRE, Hx Known/ Suspected VRSA, History Other Infectious Disease, Traveled Outside the [place] in Last 30 Days - Family History Known Family History: Positive: None - Both parents are alive and well., Hypertension, Other - Patient denies a significant FHx Negative: Respiratory Disease, Blood Disorder Family History: Neg RAD - Social History Alcohol Use: None Hx Substance Use: Yes Substance Use Type: Reports: Marijuana Substance Use Comment - Amount & Last Used: weekly Hx Tobacco Use: No Smoking Status (MU): Light Every Day Tobacco Smoker Amount Used/How Often: 4-5 sig/day Have You Smoked in the Last Year: - occasional marijuana smoker Review of Systems Constitutional: Negative Eyes: Negative ENT: Negative Cardiovascular: Negative Positive: Shortness Of Breath. Negative: Cough Gastrointestinal: Negative Genitourinary: Negative Musculoskeletal: Negative Skin: Negative Neurological: Negative Psychological: Normal All Other Systems Reviewed And Are Negative: Yes Physical Exam Triage Information Reviewed: Yes Vital Signs On Initial Exam: Initial Vitals Temp Pulse Resp BP Pulse Ox 99.2 F 115 20 106/79 94 11/01/19 17:44 11/01/19 17:44 11/01/19 17:44 11/01/19 17:44 11/01/19 17:44 Vital Signs Reviewed: Yes Appearance: Positive: Well-Appearing, No Pain Distress, Well-Nourished Skin: Positive: Warm, Skin Color Reflects Adequate Perfusion Eyes: Positive: EOMI, MERE Respiratory/Lung Sounds: Positive: Breath Sounds Present, Wheezes, Other - Patient has signs of labored breathing at approximately 22 breaths per minute. Some accessory muscle use noted. Patient speaks in 5 word broken sentences. Patient is not cyanotic.. Negative: Rales, Rhonchi, Stridor, Unable to speak in full sentences Cardiovascular: Positive: RRR, S1, S2 Abdomen Description: Positive: No Organomegaly, Soft. Negative: Distended, Guarding Bowel Sounds: Positive: Present Musculoskeletal: Positive: Strength/ROM Intact Neurological: Positive: Sensory/Motor Intact, Alert, Oriented to Person Place, Time, Normal Gait, Speech Normal Psychiatric: Positive: Normal AVPU Assessment: Alert Procedures - Sedation Patient Received Moderate/Deep Sedation with Procedure: No Diagnostics - Vital Signs Vital Signs Temp Pulse Resp BP Pulse Ox 11/01/19 17:44 99.2 F 115 20 106/79 94 - Laboratory Result Diagrams: 11/01/19 18:14 11/01/19 18:14 Lab Statement: Any lab studies that have been ordered have been reviewed, and results considered in the medical decision making process. Disposition - Course Course Of Treatment: Patient was evaluated in the emergency department today for COPD exacerbation. Patient was seen and examined his vitals were stable and he is afebrile. Patient was now acute respiratory distress although labored breathing was noted. Patient was given 1 DuoNeb and 125 mg of methylprednisolone in the emergency department for shortness of breath. After menstruation medications patient felt much better and was discharged home with a steroid burst of 50 mg to be taken daily for 4 days. Patient was given a prescription for albuterol inhaler and told to follow-up with his primary care provider in 3 days for further evaluation and management. - Differential Dx - Cardiopulmonary Differential Diagnoses - Cardiopulmonary: Asthma, Exacerbation Of COPD, Hyperventilation, Lower Resp Infection, Pneumothorax - Diagnoses Provider Diagnoses: Dyspnea, COPD exacerbation Discharge ED - Sign-Out/Discharge Documenting (check all that apply): Patient Departure - Discharge Plan Condition: Stable Disposition: HOME Prescriptions: Albuterol HFA INHALER* [Ventolin HFA Inhaler*] 1 - 2 puff INH Q6H PRN #100 mdi PRN Reason: Shortness Of Breath predniSONE TAB* [Deltasone TAB*] 50 mg PO DAILY #4 tab Patient Education Materials: COPD (Chronic Obstructive Pulmonary Disease) (ED) Referrals: Nishant Jones MD [Primary Care Provider] - 3 Days Additional Instructions: You were seen in the emergency department today for a COPD exacerbation. There appeared to be no signs infection requiring antibiotics. Please use your nebulizer as needed as well as albuterol inhaler I have sent to your pharmacy. Please take prednisone once daily for 4 days. Please follow-up with your primary care provider in 3 days for further evaluation and management of your symptoms. Please return to the emergency department immediately if you develops any new or worsening symptoms. Return to activity as tolerated. - Billing Disposition and Condition Condition: STABLE Disposition: Home
[2019-11-01] MEDS ORDERED: methylPREDNISolone 125 MG* 2 ML VIAL IM ONE (18:02)
[2019-11-01] MEDS ORDERED: Albuterol/Ipratropium NEB.SOL* Albuterol 2.5 MG/Ipratropium 0.5 MG 3 ML INH ONE (18:03)
[2019-11-01 18:23] LABS: ABS Basophils 0.1 10^3/ul (0-0.2); ABS Eosinophils 0.5 10^3/ul (0-0.6); ABS Lymphocytes 1.5 10^3/ul (1.0-4.8); ABS Monocytes 0.5 10^3/ul (0-0.8); ABS Neutrophils 4.1 10^3/ul (1.5-7.7); Eosinophil % 7.8 %; Hematocrit 47 % (42-52); Hemoglobin 15.9 g/dL (14.0-18.0); Mean Corpuscular HGB Conc 34 g/dL (31-36); Mean Corpuscular Hemoglobin 29 pg (27-31); Mean Corpuscular Volume 86 fL (80-94); Nucleated Red Blood Cells % 0.2; Platelet Count 309 10^3/uL (150-450); Red Blood Count 5.43 10^6 /uL (4.18-5.48); Red Cell Distribution Width 14 % (10-15); White Blood Count 6.7 10^3/uL (3.5-10.8)
[2019-11-01 18:39] LABS: Albumin 4.4 g/dL (3.2-5.2); Albumin/Globulin Ratio 1.6 (1-3); BUN/Creatinine Ratio 10.1 (8-20); Calcium 9.4 mg/dL (8.6-10.3); EGFR African American 115.8 (>60); EGFR Non-African American 95.7 (>60); Globulin 2.7 g/dL (2-4); Total Bilirubin 0.3 mg/dL (0.2-1.0); Total Protein 7.1 g/dL (6.4-8.9)
[2019-11-01 19:43] VITALS: BP 130/86
--- NOTE | 2019-11-02 10:10 | ED ---
Imaging and Labs Follow Up Follow Up Type: Imaging Imaging Result: IMPRESSION: 1. FINDINGS SUGGESTIVE OF COPD AND OLD GRANULOMATOUS DISEASE, NO EVIDENCE FOR ACUTE FINDING. 2. THERE IS AN ADDITIONAL NONCALCIFIED NODULE WHICH PROJECTS OVER THE RIGHT MID LUNG RECOMMEND A CT OF THE CHEST FOR FURTHER EVALUATION. R3 Preliminary Imaging Read R3 Patient Communication/Plan: Attempted to call pt. today at [phone] with no answer, message left to return call. [id number]: Pt. returned call. Discussed CXR findings. Pt. states she is already aware of findings but has not f.u with his PCP. Strongly advised pt. to call PCP today for f.u apt. and outpt. ct scan. Pt. understands and agrees with plan. Provider Diagnoses: Dyspnea, COPD exacerbation
== END 2019-11-01 19:42 | disposition home or self-care (01) ==
LOC: ED 17:27
DX: J44.1 Chronic obstructive pulmonary disease with (acute) exacerbation (principal); F17.210 Nicotine dependence, cigarettes, uncomplicated; Z88.0 Allergy status to penicillin; Z88.1 Allergy status to other antibiotic agents; Z88.8 Allergy status to other drugs, medicaments and biological substances
CPT/HCPCS: 36415; 71046; 80053; 82803; 85025; 96372; 99282; A9270-GY; J2930

== ENCOUNTER 2020-01-09 01:42 | Emergency (ER) | payer OTHER ==
[2020-01-09] MEDS ORDERED: Albuterol/Ipratropium NEB.SOL* Albuterol 2.5 MG/Ipratropium 0.5 MG 3 ML INH ONE (02:23)
--- NOTE | 2020-01-09 02:30 | ED ---
Shortness of Breath - HPI Summary HPI Summary: 39 year old M with hx asthma and COPD arriving via private car with friends complains of worsening shortness of breath starting 2100 01/08/2020. Patient states he ate dinner and his symptoms started an hour later. Patient states he tried using his albuterol nebulizer and Benadryl with no relief. Patient placed on 3L supplemental nasal cannula oxygen at triage. Symptoms aggravated by nothing. Symptoms alleviated by 3L supplemental nasal cannula oxygen. Medications reviewed. Allergies reviewed. No current alcohol or tobacco use. Former smoker. He admits to occasional marijuana. - History of Current Complaint Chief Complaint: EDShortnessOfBreath Time Seen by Provider: 01/09/20 02:22 Hx Obtained From: Patient Onset/Duration: Lasting Hours, Still Present Aggravating Factors: Nothing Alleviating Factors: Other - 3L supplemental nasal cannula oxygen - Allergy/Home Medications Allergies/Adverse Reactions: Allergies Allergy/AdvReac Type Severity Reaction Status Date / Time amoxicillin [From Augmentin] Allergy RASH, Verified 01/09/20 02:50 ITCHING cat dander Allergy severe Verified 01/09/20 02:50 respiratory clavulanic acid Allergy RASH, Verified 01/09/20 02:50 [From Augmentin] ITCHING NSAIDS (Non-Steroidal Allergy Anaphylatic Verified 01/09/20 02:50 Anti-Inflamma Shock Home Medications: Home Medications Albuterol 2.5MG/3ML (0.083%)* [Ventolin 2.5 MG/3 ML NEB.REN*] 2.5 mg INH Q4H PRN 10/02/19 [History Confirmed 01/09/20] Albuterol HFA INHALER* [Ventolin HFA Inhaler*] 1 - 2 puff INH Q6H PRN #100 mdi 11/01/19 [Rx Confirmed 01/09/20] Albuterol HFA INHALER* [Ventolin HFA Inhaler*] 1 - 2 puff INH Q4H PRN #1 mdi 07/31 [Rx Confirmed 01/09/20] predniSONE 20 mg TAB [Deltasone 20 MG TAB*] 40 mg PO DAILY 5 Days #10 tab [Rx Confirmed 01/09/20] predniSONE 20 mg TAB [Deltasone 20 MG TAB*] 60 mg PO DAILY #15 tab 01/09/20 [Rx] PMH/Surg Hx/FS Hx/Imm Hx Endocrine/Hematology History: Denies: Hx Diabetes, Hx Thyroid Disease Cardiovascular History: Denies: Hx Hypertension Respiratory History: Reports: Hx Asthma, Hx Chronic Bronchitis, Hx Chronic Obstructive Pulmonary Disease (COPD), Hx Pneumonia, Hx Seasonal Allergies GI History: Denies: Hx Ulcer Musculoskeletal History: Reports: Other Musculoskeletal History - congenital trigger fingers, affecting digits of both hands Sensory History: Denies: Hx Contacts or Glasses, Hx Hearing Aid Opthamlomology History: Denies: Hx Contacts or Glasses Neurological History: Denies: Hx Dementia, Hx Migraine, Hx Seizures, Hx Transient Ischemic Attacks (TIA) Psychiatric History: Denies: Hx Anxiety, Hx Depression, Hx Schizophrenia, Hx Bipolar Disorder - Surgical History Surgery Procedure, Year, and Place: BILATERAL HANDS TENDON REPAIR A CHILD,. SINUS SURGERY 2013 Hx Anesthesia Reactions: No - Immunization History Date of Tetanus Vaccine: unk Date of Influenza Vaccine: none Infectious Disease History: No Infectious Disease History: Reports: Hx of Known/Suspected MRSA Denies: Hx Clostridium Difficile, Hx Hepatitis, Hx Human Immunodeficiency Virus (HIV), Hx Shingles, Hx Tuberculosis, Hx Known/Suspected VRE, Hx Known/ Suspected VRSA, History Other Infectious Disease, Traveled Outside the [place] in Last 30 Days - Family History Known Family History: Positive: Hypertension Negative: Respiratory Disease, Blood Disorder Family History: Neg RAD - Social History Alcohol Use: None Hx Substance Use: Yes Substance Use Type: Reports: Marijuana Substance Use Comment - Amount & Last Used: occasionally Hx Tobacco Use: Yes Smoking Status (MU): Former Smoker Amount Used/How Often: 4-5 sig/day Have You Smoked in the Last Year: - occasional marijuana smoker Review of Systems - ROS Summary Review of Systems Summary: Home Medications Medication Instructions Recorded Confirmed Type Albuterol 2.5MG/3ML (0.083%)* 2.5 mg INH Q4H PRN 10/02/19 01/09/20 History [Ventolin 2.5 MG/3 ML NEB.REN*] Albuterol HFA INHALER* [Ventolin 1 - 2 puff INH Q6H PRN #100 mdi 11/01/19 Rx HFA Inhaler*] Albuterol HFA INHALER* [Ventolin 1 - 2 puff INH Q4H PRN #1 mdi 12/20/19 Rx HFA Inhaler*] predniSONE 20 mg TAB [Deltasone 20 40 mg PO DAILY 5 Days #10 tab 12/20/19 Rx MG TAB*] Negative: Fever Positive: Shortness Of Breath All Other Systems Reviewed And Are Negative: Yes Physical Exam - Summary Physical Exam Summary: General: He is thin male appearing older than his stated age HEENT: Normocephalic, Atraumatic. Eyes: Conjuctiva normal, PERRL. Oropharynx: Clear, mucous membranes moist, (-) exudates. Neck: Soft, FROM, (-) lymphadenopathy, (-) thyromegaly, (-) JVD. Cardiovascular: Normal sinus rhythm, (-) murmur. Lungs: His breath sounds are decreased bilaterally, poor air exchange, tight wheezing throughout Abdomen: Soft, non-tender, non-distended, (-) organomegaly, normal bowel sounds. Back: (-) CVA tenderness Extremities: No edema. Skin: Warm, dry, (-) rash. Neuro: Alert and oriented x3, moves all extremities equally. No ataxia. No gait disturbance. No sensory deficit. Normal strength, normal sensation. Psychiatric: Mood normal, affect normal. Triage Information Reviewed: Yes Vital Signs On Initial Exam: Initial Vitals Temp Pulse Resp BP Pulse Ox 98.0 F 115 24 132/77 93 01/09/20 01:44 01/09/20 01:44 01/09/20 01:44 01/09/20 01:44 01/09/20 01:44 Vital Signs Reviewed: Yes Procedures - Sedation Patient Received Moderate/Deep Sedation with Procedure: No Diagnostics - Vital Signs Vital Signs Temp Pulse Resp BP Pulse Ox 01/09/20 01:44 98.0 F 115 24 132/77 93 - Laboratory Lab Statement: Any lab studies that have been ordered have been reviewed, and results considered in the medical decision making process. - Radiology CXR Radiology Interpretation Completed By: ED Physician - No infiltrate. No pleural effusion. Pending official report. Re-Evaluation - Re-Evaluation First Eval Re-Evaluation Time: 04:11 Change: Improved Course/Dx - Course Course Of Treatment: 39-year-old male presents sense with sensation of shortness of breath. He states after dinner tonight he suddenly felt like he couldn't breathe well. He states he's been having some problems with food allergies which is new. He also notes that he has a condition of his lungs called COPD from cutting the lumbar and inhaling the dust. He is an ex-smoker. Still smokes marijuana occasionally. He also admits that even though he's been out of penitentiary for a year he has not resumed seeing his specialists and taking all of the medications that he probably could be. Patient was encouraged to do that. He denies any fevers or productive cough. Does have chest tightness. No vomiting or diarrhea. Physical exam patient's pulse ox is within normal limits but he appears to be in moderate respiratory discomfort. His lung sounds are diminished bilaterally with tight wheezing throughout. Poor air exchange. patient is given Solu-Medrol IM, DuoNeb, continuous albuterol 3. Significant improvement in his symptoms. asked x-ray shows no acute abnormality.Patient is discharged home on a 5 day burst of prednisone.rinalysis needed. 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 Follow sooner for any worsening symptoms. - Diagnoses Provider Diagnoses: Bronchospasm, Shortness of breath Discharge ED - Sign-Out/Discharge Documenting (check all that apply): Patient Departure - Discharge Plan Condition: Stable Disposition: HOME Prescriptions: predniSONE 20 mg TAB [Deltasone 20 MG TAB*] 60 mg PO DAILY #15 tab Patient Education Materials: Shortness of Breath (ED) Referrals: Nishant Jones MD [Primary Care Provider] - 3 Days Additional Instructions: Follow up with your primary care provider in 3 days. Return to the Emergency Department for changing or worsening symptoms. - Billing Disposition and Condition Condition: STABLE Disposition: Home - Attestation Statements Document Initiated by Laura: Yes Documenting Scribe: Michelle Huynh Provider For Whom Laura is Documenting (Include Credential): Stacey Merida MD Scribe Attestation: [place], Michelle Huynh, scribed for Stacey Merida MD on 01/09/20 at 0502. Scribe Documentation Reviewed: Yes Provider Attestation: The documentation as recorded by the Michelle marley accurately reflects the service I personally performed and the decisions made by me, Stacey Merida MD Status of Scribe Document: Viewed
[2020-01-09] MEDS ORDERED: methylPREDNISolone 125 MG* 2 ML VIAL IM ONE (02:31)
[2020-01-09] MEDS ORDERED: Albuterol 0.5% CONC NEB.SOL* 5 MG/ML 20 ml BOT INH ONE (02:58)
[2020-01-09 04:30] VITALS: BP 118/60
== END 2020-01-09 04:28 | disposition home or self-care (01) ==
LOC: ED 01:42
DX: J98.01 Acute bronchospasm (principal); R06.02 Shortness of breath; Z87.891 Personal history of nicotine dependence; Z79.52 Long term (current) use of systemic steroids
CPT/HCPCS: 71045; 96372; 99282; A9270-GY; J2930; J7611

== ENCOUNTER 2020-01-09 19:59 | Inpatient (IN) | payer OTHER ==
[2020-01-09] MEDS ORDERED: Albuterol/Ipratropium NEB.SOL* Albuterol 2.5 MG/Ipratropium 0.5 MG 3 ML INH ONE (20:10)
[2020-01-09] MEDS ORDERED: methylPREDNISolone 125 MG* 2 ML VIAL IV ONE (20:10)
[2020-01-09] MEDS ORDERED: NS 0.9% 1000 ML** 1,000 ML IV ONE (20:10)
--- NOTE | 2020-01-09 20:13 | ED ---
Shortness of Breath - HPI Summary HPI Summary: This patient is a 39 y/o male, with hx of asthma and COPD, presenting to [facility] c /o difficulty breathing. Patient reports a couple of weeks ago he had a sinus infections. He states he took left over antibiotics and this seemed to clear it up. Patient notes the mucous finally drained into his lungs and now has difficulty breathing. He denies any fever, chills, chest pain. Patient reports he was in the ED at 0130 today with the same symptoms and was given a prescription for 80 mg prednisone, which he has taken. He denies any hx of smoking. 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 Home Medications Medication Instructions Recorded Confirmed Type Albuterol 2.5MG/3ML (0.083%)* 2.5 mg INH Q4H PRN 10/02/19 01/09/20 History [Ventolin 2.5 MG/3 ML NEB.REN*] Albuterol HFA INHALER* [Ventolin 1 - 2 puff INH Q6H PRN #100 mdi 11/01/19 Rx HFA Inhaler*] Albuterol HFA INHALER* [Ventolin 1 - 2 puff INH Q4H PRN #1 mdi 12/20/19 Rx HFA Inhaler*] predniSONE 20 mg TAB [Deltasone 20 40 mg PO DAILY 5 Days #10 tab 12/20/19 Rx MG TAB*] predniSONE 20 mg TAB [Deltasone 20 60 mg PO DAILY #15 tab 01/09/20 Rx MG TAB*] - History of Current Complaint Chief Complaint: EDShortnessOfBreath Hx Obtained From: Patient Onset/Duration: Lasting Days, Still Present Timing: Constant Current Severity: Moderate Dyspnea At: Rest Aggravating Factors: Nothing Alleviating Factors: Nothing Associated Signs & Symptoms: Negative Related History: Similar Episode - today at 0130 - Allergy/Home Medications Allergies/Adverse Reactions: Allergies Allergy/AdvReac Type Severity Reaction Status Date / Time amoxicillin [From Augmentin] Allergy RASH, Verified 01/09/20 20:02 ITCHING cat dander Allergy severe Verified 01/09/20 20:02 respiratory clavulanic acid Allergy RASH, Verified 01/09/20 20:02 [From Augmentin] ITCHING NSAIDS (Non-Steroidal Allergy Anaphylatic Verified 01/09/20 20:02 Anti-Inflamma Shock Home Medications: Home Medications Albuterol 2.5MG/3ML (0.083%)* [Ventolin 2.5 MG/3 ML NEB.REN*] 2.5 mg INH Q4H PRN 10/02/19 [History Confirmed 01/09/20] Albuterol HFA INHALER* [Ventolin HFA Inhaler*] 1 - 2 puff INH Q6H PRN #100 mdi 11/01/19 [Rx Confirmed 01/09/20] Albuterol HFA INHALER* [Ventolin HFA Inhaler*] 1 - 2 puff INH Q4H PRN #1 mdi 07/31 [Rx Confirmed 01/09/20] predniSONE 20 mg TAB [Deltasone 20 MG TAB*] 40 mg PO DAILY 5 Days #10 tab [Rx Confirmed 01/09/20] predniSONE 20 mg TAB [Deltasone 20 MG TAB*] 60 mg PO DAILY #15 tab 01/09/20 [Rx] PMH/Surg Hx/FS Hx/Imm Hx Endocrine/Hematology History: Denies: Hx Diabetes, Hx Thyroid Disease Cardiovascular History: Denies: Hx Hypertension Respiratory History: Reports: Hx Asthma, Hx Chronic Bronchitis, Hx Chronic Obstructive Pulmonary Disease (COPD), Hx Pneumonia, Hx Seasonal Allergies GI History: Denies: Hx Ulcer Musculoskeletal History: Reports: Other Musculoskeletal History - congenital trigger fingers, affecting digits of both hands Sensory History: Denies: Hx Contacts or Glasses, Hx Hearing Aid Opthamlomology History: Denies: Hx Contacts or Glasses Neurological History: Denies: Hx Dementia, Hx Migraine, Hx Seizures, Hx Transient Ischemic Attacks (TIA) Psychiatric History: Denies: Hx Anxiety, Hx Depression, Hx Schizophrenia, Hx Bipolar Disorder - Surgical History Surgery Procedure, Year, and Place: BILATERAL HANDS TENDON REPAIR A CHILD,. SINUS SURGERY 2014 Hx Anesthesia Reactions: No - Immunization History Date of Tetanus Vaccine: unk Date of Influenza Vaccine: none Infectious Disease History: No Infectious Disease History: Reports: Hx of Known/Suspected MRSA Denies: Hx Clostridium Difficile, Hx Hepatitis, Hx Human Immunodeficiency Virus (HIV), Hx Shingles, Hx Tuberculosis, Hx Known/Suspected VRE, Hx Known/ Suspected VRSA, History Other Infectious Disease, Traveled Outside the [place] in Last 30 Days - Family History Known Family History: Positive: Hypertension Negative: Respiratory Disease, Blood Disorder Family History: Neg RAD - Social History Alcohol Use: None Hx Substance Use: Yes Substance Use Type: Reports: Marijuana Substance Use Comment - Amount & Last Used: occasionally Hx Tobacco Use: Yes Smoking Status (MU): Former Smoker Amount Used/How Often: 4-5 sig/day Have You Smoked in the Last Year: - occasional marijuana smoker Review of Systems Negative: Fever, Chills Negative: Chest Pain Positive: Shortness Of Breath Negative: Vomiting, Nausea All Other Systems Reviewed And Are Negative: Yes Physical Exam - Summary Physical Exam Summary: VITAL SIGNS: Reviewed. GENERAL: Patient is a well-developed and nourished male. Patient is able to speak in short sentences. HEAD AND FACE: No signs of trauma. No ecchymosis, hematomas or skull depressions. No sinus tenderness. EYES: PERRLA, EOMI x 2, No injected conjunctiva, no nystagmus. EARS: Hearing grossly intact. Ear canals and tympanic membranes are within normal limits. MOUTH: Oropharynx within normal limits. NECK: Supple, trachea is midline, no adenopathy, no JVD, no carotid bruit, no c- spine tenderness, neck with full ROM. CHEST: Symmetric, no tenderness at palpation LUNGS: Decreased breath sounds bilaterally. Patient has wheezing. Patient is able to speak in short sentences. CVS: Regular rate and rhythm, S1 and S2 present, no murmurs or gallops appreciated. ABDOMEN: Soft, non-tender. No signs of distention. No rebound no guarding, and no masses palpated. Bowel sounds are normal. EXTREMITIES: FROM in all major joints, no edema, no cyanosis or clubbing. NEURO: Alert and oriented x 3. No acute neurological deficits. Speech is normal and follows commands. SKIN: Dry and warm Triage Information Reviewed: Yes Vital Signs On Initial Exam: Initial Vitals Temp Pulse Resp BP Pulse Ox 98.4 F 111 24 145/92 94 01/09/20 20:00 01/09/20 20:00 01/09/20 20:00 01/09/20 20:00 01/09/20 20:00 Vital Signs Reviewed: Yes Procedures - Sedation Patient Received Moderate/Deep Sedation with Procedure: No Diagnostics - Vital Signs Vital Signs Temp Pulse Resp BP Pulse Ox 01/09/20 20:00 98.4 F 111 24 145/92 94 - Laboratory Result Diagrams: 01/09/20 20:30 01/09/20 20:30 Lab Statement: Any lab studies that have been ordered have been reviewed, and results considered in the medical decision making process. - Radiology Chest XR Radiology Interpretation Completed By: ED Physician Summary of Radiographic Findings: Hyperinflated lungs without any infiltrates. - EKG 20:35 Cardiac Rate: Tachycardia - at 110 bpm EKG Rhythm: Sinus Tachycardia Summary of EKG Findings: EKG at 2034 shows sinus tachycardia at [address] elevations. This EKG was interpreted and reviewed by ED physician. Re-Evaluation - Re-Evaluation First Eval Re-Evaluation Time: 20:50 Comment: Patient declines ABG. Second Eval Re-Evaluation Time: 21:23 Comment: Patient desaturates without oxygen to 90-91%. Course/Dx - Course Assessment/Plan: This patient is a 39 y/o male, with hx of asthma and COPD, presenting to [facility] c/o difficulty breathing. Patient reported a couple of weeks ago he had a sinus infection. He states he took left over antibiotics and this seemed to clear it up. Patient notes the mucous finally drained into his lungs and now has difficulty breathing. He denies any fever, chills, chest pain. Patient reports he was in the ED at 0130 today with the same symptoms and was given a prescription for 80 mg prednisone, which he has taken. He denies any hx of smoking. 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 In the ED course the patient was placed in a quality assurance monitor final, IV access was obtained, IV fluids were started. Patient was given Prednisone and 2 Duonebs. Blood test w/o a significant abnormality except for WBC of 13.7, absolute neutrophils of 12.7, glucose of 110. Patient refuses an ABG. Patient on 2 L of oxygen he is saturating between 95-96%. However when we removed the oxygen he desaturates between 90 and 91%. Patient was given an additional DuoNeb. At this point I discussed my physical exam and findings with Dr. Lebron from the hospitalist services who accepted the patient for admission. The patient is hemodynamically stable. - Diagnoses Provider Diagnoses: Asthma exacerbation - Physician Notifications Discussed Care of Patient With: Radha Lebron - hospitalist Time Discussed With Above Provider: 21:24 Instructed by Provider To: Admit As Inpatient Discharge ED - Sign-Out/Discharge Documenting (check all that apply): Patient Departure - Admit to [facility] - Discharge Plan Condition: Stable Disposition: ADMITTED TO [facility] Referrals: Nishant Jones MD [Primary Care Provider] - - Billing Disposition and Condition Condition: STABLE Disposition: Admitted to [facility] - Attestation Statements Document Initiated by Scribe: Yes Documenting Scribe: Ernestina Cox Provider For Whom Scribe is Documenting (Include Credential): Guilherme Trinidad MD Scribe Attestation: Ernestina Berumen, scribed for Guilherme Trinidad MD on 01/09/20 at 2150. Scribe Documentation Reviewed: Yes Provider Attestation: The documentation as recorded by the Ernestina marley accurately reflects the service I personally performed and the decisions made by , Guilherme Trinidad MD Status of Scribe Document: Viewed
[2020-01-09 20:41] LABS: ABS Lymphocytes 0.7 10^3/ul (1.0-4.8); ABS Monocytes 0.2 10^3/ul (0-0.8); ABS Neutrophils 12.7 10^3/ul (1.5-7.7); Eosinophil % 0.2 %; Hematocrit 43 % (42-52); Hemoglobin 15.2 g/dL (14.0-18.0); Lymphocyte % 5.4 %; Mean Corpuscular HGB Conc 35 g/dL (31-36); Mean Corpuscular Hemoglobin 30 pg (27-31); Mean Corpuscular Volume 84 fL (80-94); Mean Platelet Volume 7.1 fL (7.4-10.4); Platelet Count 369 10^3/uL (150-450); Red Blood Count 5.16 10^6 /uL (4.18-5.48); Red Cell Distribution Width 14 % (10-15); White Blood Count 13.7 10^3/uL (3.5-10.8)
[2020-01-09 21:02] LABS: Albumin 4.9 g/dL (3.2-5.2); Albumin/Globulin Ratio 1.5 (1-3); BUN/Creatinine Ratio 24.2 (8-20); C Reactive Protein 2.66 mg/L (<8.01); Calcium 9.9 mg/dL (8.6-10.3); EGFR African American 112.8 (>60); EGFR Non-African American 93.2 (>60); Globulin 3.2 g/dL (2-4); Potassium 4.1 mmol/L (3.5-5.0); Total Bilirubin 0.3 mg/dL (0.2-1.0); Total Protein 8.1 g/dL (6.4-8.9)
[2020-01-09 21:40] LABS: Influenza A Molecular Negative (Negative); Influenza B Molecular Negative (Negative)
--- NOTE | 2020-01-09 22:59 | ADMNOTE ---
Subjective Interval History: this is my HP 39 yo male with hx of asthma presented iwth shortness of breath. Pt was in the ER yesterday with asthma exacerbation, but was discharged when he responded to a shot of steroids and nebulizers. He was prescribed steroids at discharge. He went to pick them at up at the pharmacy, started feeling dyspneic again. He took 80 mg of prednisone with his inhalers with no relief. He came back to the ED. He was hypoxemic on arrival, distressed, unable to complete a full sentence. Pt received solumedrol and nebulizers. He is still on oxygen, unable to be titrated off. He feels better than when he came in. Pt at this time does not have a doctor. He used to see Dr. Guillen 2 years ago when he got diagnosed with asthma. He said he was doing relatively well, using his inhaler only maybe once weekly. But then recently, he has been struggling to breathe. He feels it's related to environmental allergies. He is very concerned he may be having some type of exposure related lung disease. He denies hx of smoking. 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 Family History: Unchanged from Admission Social History: Unchanged from Admission Past Medical History: Unchanged from Admission Review of Systems - Measurements Intake and Output: Intake and Output Last 24 Hours 01/07/20 01/08/20 01/09/20 01/10/20 06:59 06:59 06:59 06:59 Weight 165 lb - Review of Systems Constitutional Symptoms: Negative: Weight Gain, Weight Loss, Weakness, Fatigue, Fever, Night Sweats, Unexplained Falls, Other Dermatology: Negative: Normal, Rash, Skin Lesions, Cancer, Skin Lumps, Other HEENT: Positive: Sinus Problem Negative: Normal, Change in Hearing, Vertigo, Dental Problems, Tinnitus, Other Eyes: Negative: Normal, Change in Vision, Double Vision, Eye Pain, Glaucoma, Cataract, Contacts or Glasses, Other Thyroid: Negative: Normal, Goiter, Thyroid Nodule, Cold Intolerance, Heat Intolerance , Sweatiness, Tremor, Frequent Defecation, Constipation, Palpitations, Primary Hypothyroidism, Primary Hyperthyroidism, Weight Loss, Weight Gain, Change in Skin/Hair, Change in Menstruation, Radiation Exposure, Other Pulmonary: Positive: Cough, Wheezing, Respiratory Distress, Shortness of Breath , Asthma, Exercise Intolerance Negative: Normal, Sputum, Hemoptysis, COPD, Home Oxygen, Other Cardiology: Negative: Normal, Chest Pain, Shortness of Breath, Palpitations, Swelling of Ankles, Peripheral Vascular Dis, Edema, Faintness, Syncope, Claudication, Proximal NocturnalDyspnea, Orthopnoea, Other Gastroenterology: Negative: Normal, Abdominal Pain, Nausea, Vomiting, Anorexia, Indigestion, Difficulty Swallowing, Heartburn, Constipation, Diarrhea, Blood in Stools, Change in Bowel Habits, Haematemesis, Melena, Other Genital - Urinary: Negative: Normal, Dysuria, Hematuria, Polyuria, Nocturia, Other Genitourinary - Male: Negative: Prostatism, Erectile Dysfunction, Family Hx of Prostate Cancer, Other Musculoskeletal: Negative: Joint Pain, Joint Stiffness, Arthritis, Osteoporosis, Low Back Pain , Sciatica, Joint Deformities, Kyphoscoliosis, Other Endocrinology: Negative: Normal, Thyroid Problems, Adrenal Problems, Gonadal Problems, Family Hx Endocrine Disorders, Obesity, Diabetes Mellitus, Hyperglycemia, Hx Hypoglycemia, Diabetic Foot Ulcers, Calluses, Hirsutism, Menstrual Abnormalities , Polydipsia, Polyuria, Gonadal Problems, Gynecomastia, Pituitary disease, Other Hematologic/Lymphatic: Negative: Anemia, Easy Bruising, Hx Leukemia, Hx Lymphoma, Use of Anticoagulant, Use of Antiplatelet Drugs, Other Neurology: Negative: Normal, Headache, Migraines, Change in Vision, Diplopia, Dizziness , Change in Balancing, Change in Coordination, Change in Memory, Change in Speech, Change in Sphincter Function, Change in Walking, Numbness\Paresthesiae, Unexplained Weakness, Hx of Stroke\TIA, Hx of Seizures, Other Psychiatry: Negative: Normal, Depression, Anxiety, Depressed Mood, Anhedonia, Sexual Dysfunction, Weight Change, Guilt Feelings, Tearfulness, Unusual Fatigue, Unusual Anxiety, Suicidal Ideation, Hypomania, Eating Disorders, Other Allergic/Immunologic: Negative: Hx Anaphylaxis, Hx Angioedema, Hx Environmental, Hx Seasonal, Asthma, Hx HIV, Immunocompromise, Swollen Glands LymphNodes, Other Objective Vital Signs - 8 hr 01/09/20 01/09/20 01/09/20 20:00 20:12 20:33 Temperature 98.4 F Pulse Rate 111 117 104 Respiratory 24 24 Rate Blood Pressure 145/92 135/84 (mmHg) O2 Sat by Pulse 94 95 97 Oximetry Oxygen Devices in Use Now: Nasal Cannula Appearance: dyspnea, NID Ears/Nose/Mouth/Throat: NL Teeth, Lips, Gums, Mucous Membranes Moist Neck: NL Appearance and Movements; NL JVP, Trachea Midline Respiratory: - - expiratory wheezes, mild respiratory distress Cardiovascular: NL Sounds; No Murmurs; No JVD, No Edema Abdominal: NL Sounds; No Tenderness; No Distention, No Hepatosplenomegaly Lymphatic: No Cervical Adenopathy, No Inguinal Adenopathy Extremities: No Edema Skin: No Rash or Ulcers, No Nodules or Sclerosis Neurological: Alert and Oriented x 3 Result Diagrams: 01/09/20 20:30 01/09/20 20:30 Assess/Plan/Problems-Billing Assessment: - Patient Problems (1) Asthma exacerbation Current Visit: No Status: Acute Code(s): J45.901 - UNSPECIFIED ASTHMA WITH ( ACUTE) EXACERBATION SNOMED Code(s): 876550430 Comment: improving, but still on oxygen. he is still bronchospastic. albuterol nebs. IV steroids~ solumedrol 40 mg Q 8 hours- will need slow prednisone taper started again pt is very worried about environmental exposure type of lung disease, will get a dry CT scan. Right now not concerned for PNA, but will see what the scan shows. He knows he needs lifestyle modifications, he lives with too many triggers around him. (2) DVT prophylaxis Current Visit: No Status: Acute Code(s): QDW0750 - SNOMED Code(s): 973254707 Comment: heparin (3) Full code status Current Visit: No Status: Acute Code(s): Z78.9 - OTHER SPECIFIED HEALTH STATUS SNOMED Code(s): 935680935
[2020-01-09] MEDS ORDERED: Albuterol/Ipratropium NEB.SOL* Albuterol 2.5 MG/Ipratropium 0.5 MG 3 ML INH PRN (23:12)
[2020-01-10 00:04] LABS: Urine Appearance Clear; Urine Bilirubin Negative (Negative); Urine Blood Negative (Negative); Urine Color Yellow; Urine Glucose Negative (Negative); Urine Ketones Trace (Negative); Urine Nitrite Negative (Negative); Urine Protein Negative (Negative); Urine Specific Gravity 1.026 (1.010-1.030); Urine Urobilinogen Negative (Negative)
[2020-01-10] MEDS: methylPREDNISolone SOD 40 MG* 1 ML VIAL IV SCH ×4 (02:04→21:46)
[2020-01-10 06:40] LABS: ABS Lymphocytes 0.9 10^3/ul (1.0-4.8); ABS Monocytes 0.2 10^3/ul (0-0.8); ABS Neutrophils 11.7 10^3/ul (1.5-7.7); Hematocrit 40 % (42-52); Hemoglobin 13.6 g/dL (14.0-18.0); Lymphocyte % 6.7 %; Mean Corpuscular HGB Conc 34 g/dL (31-36); Mean Corpuscular Hemoglobin 29 pg (27-31); Mean Corpuscular Volume 85 fL (80-94); Mean Platelet Volume 6.9 fL (7.4-10.4); Platelet Count 329 10^3/uL (150-450); Red Blood Count 4.74 10^6 /uL (4.18-5.48); Red Cell Distribution Width 14 % (10-15); White Blood Count 12.8 10^3/uL (3.5-10.8)
[2020-01-10 06:50] LABS: Calcium 9.3 mg/dL (8.6-10.3); EGFR African American 106.1 (>60); EGFR Non-African American 87.7 (>60); Potassium 4.5 mmol/L (3.5-5.0)
--- NOTE | 2020-01-10 09:42 | PN ---
Subjective Date of Service: 01/10/20 Interval History: Patient very talkative. He reports history of asthma or COPD, developed in last 5 years. He is SOB w/ exertion, coughing. No home O2 use. In previous asthma exacerbations has not been hypoxic. Previously had nasal polyps, was on singulair and flonase. Has not followed up w/ specialists. 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, also smoked tobacco occas for 1 year, regular MJ smoker Past Medical History: Findings - COPD dx in [place] 2 years ago on PFTs, Asthma dx w/ Dr Blackburn on methacholine challenge Objective Active Medications: Current Medications: Albuterol/Ipratropium (Duoneb (Albuterol 2.5 Mg/Ipratropium 0.5 Mg)) 1 neb INH Q6H PRN PRN Reason: SOB/WHEEZING Last Admin: 01/10/20 07:12 Dose: 1 neb Heparin Sodium (Porcine) (Heparin Vial(*)) 5,000 units SUBCUT Q12HR KOBE Methylprednisolone Sodium Succinate (Solu-Medrol 40 Mg) 40 mg IV Q8H KOBE Last Admin: 01/10/20 02:04 Dose: 40 mg Vital Signs - 8 hr 01/10/20 01/10/20 07:15 07:32 Temperature 36.1 C Pulse Rate 101 94 Respiratory 20 20 Rate Blood Pressure 130/66 (mmHg) O2 Sat by Pulse 94 98 Oximetry Oxygen Devices in Use Now: Nasal Cannula Appearance: alert, no resp distress Eyes: No Scleral Icterus Ears/Nose/Mouth/Throat: NL Teeth, Lips, Gums Neck: NL Appearance and Movements; NL JVP Respiratory: Symmetrical Chest Expansion and Respiratory Effort, - - inspiratory wheezing throughout, moderate air movement Cardiovascular: NL Sounds; No Murmurs; No JVD Abdominal: NL Sounds; No Tenderness; No Distention Lymphatic: No Cervical Adenopathy Neurological: Alert and Oriented x 3 Lines/Tubes/Other Access: Clean, Dry and Intact Peripheral IV Nutrition: Taking PO's Result Diagrams: 01/10/20 06:21 01/10/20 06:21 Additional Lab and Data: Laboratory Tests 01/09/20 21:17 Influenza A (Rapid) Negative Influenza B (Rapid) Negative Microbiology and Other Data: Microbiology 01/10/20 01:35 Nasal Screen MRSA (PCR) - Final Nasal Mrsa Not Detected Assess/Plan/Problems-Billing Assessment: 39 year old with asthma and/or COPD, here w/ acute moderate hypoxic respiratory failure - Patient Problems (1) Asthma exacerbation Current Visit: Yes Status: Acute Priority: High Code(s): J45.901 - UNSPECIFIED ASTHMA WITH (ACUTE) EXACERBATION SNOMED Code(s): 892537100 Comment: -Hypoxia is more likely w/ COPD, but may have severe asthma exacerbation -Continue IV steroids, nebulizers -Not improving quickly, but stable for medical floor -Adding azithromycin for bronchitis (2) Nasal polyposis Current Visit: Yes Status: Acute Priority: Medium Code(s): J33.9 - NASAL POLYP, UNSPECIFIED SNOMED Code(s): 234783731 Comment: -May have triad of polyps/asthma/ASA sensitivity -Started on singulair and flonase. (3) DVT prophylaxis Current Visit: No Status: Acute Priority: Low Code(s): YTM2443 - SNOMED Code(s): 570104640 Comment: - heparin SC (4) COPD suggested by initial evaluation Current Visit: Yes Status: Acute Priority: Medium Code(s): J44.9 - CHRONIC OBSTRUCTIVE PULMONARY DISEASE, UNSPECIFIED SNOMED Code(s): 82429855 Comment: -testing for Alpha-1-AT due to young age, minimal tobacco history Status and Disposition: home in 1-2 days
[2020-01-10] MEDS: Azithromycin 500 mg/250 ml NS 500 MG/250 ML BAG IVPB SCH (10:07)
[2020-01-10] MEDS: Heparin VIAL(*) 5000 UNITS/ML VIAL (FIVE THOUSAND) SUBCUT SCH ×2 (10:08→21:45)
[2020-01-10] MEDS: Albuterol/Ipratropium NEB.SOL* Albuterol 2.5 MG/Ipratropium 0.5 MG 3 ML INH PRN ×2 (11:30→20:36)
[2020-01-10] MEDS ORDERED: Montelukast Sodium TAB* 10 MG PO SCH (21:00)
[2020-01-11 07:36] LABS: ABS Lymphocytes 1.2 10^3/ul (1.0-4.8); ABS Monocytes 0.8 10^3/ul (0-0.8); ABS Neutrophils 15.9 10^3/ul (1.5-7.7); Hematocrit 39 % (42-52); Hemoglobin 13.2 g/dL (14.0-18.0); Lymphocyte % 6.5 %; Mean Corpuscular HGB Conc 34 g/dL (31-36); Mean Corpuscular Hemoglobin 29 pg (27-31); Mean Corpuscular Volume 85 fL (80-94); Mean Platelet Volume 7.2 fL (7.4-10.4); Platelet Count 335 10^3/uL (150-450); Red Blood Count 4.57 10^6 /uL (4.18-5.48); Red Cell Distribution Width 14 % (10-15)
[2020-01-11 07:56] LABS: BUN/Creatinine Ratio 22.9 (8-20); EGFR African American 152.7 (>60); EGFR Non-African American 126.2 (>60)
[2020-01-11] MEDS: methylPREDNISolone SOD 40 MG* 1 ML VIAL IV SCH (08:08)
[2020-01-11] MEDS: Heparin VIAL(*) 5000 UNITS/ML VIAL (FIVE THOUSAND) SUBCUT SCH (08:10)
[2020-01-11] MEDS: Albuterol/Ipratropium NEB.SOL* Albuterol 2.5 MG/Ipratropium 0.5 MG 3 ML INH PRN (08:25)
[2020-01-11] MEDS ORDERED: Fluticasone NASAL SPRAY 50MCG* 16 gm SPRAY BTL BOTH NARES SCH (09:00)
[2020-01-11 11:58] VITALS: BP 125/80
[2020-01-11] MEDS: Azithromycin 500 mg/250 ml NS 500 MG/250 ML BAG IVPB SCH (12:10)
--- NOTE | 2020-01-11 14:44 | DS ---
Resident Discharge Summary Discharge Summary: Date of Admission: 01/09/20 Date of Discharge: 01/11/20 Admitting MD: Radha Lebron MD Attending MD: Douglas Camilo MD Primary Care Physician: Nishant Jones MD Home Medications Medication Instructions Recorded Confirmed Type Albuterol HFA INHALER* [Ventolin 1 - 2 puff INH Q4H PRN #1 mdi 12/20/19 Rx HFA Inhaler*] Azithromycin TAB* [Zithromax TAB 250 mg PO DAILY #2 tab 01/11/20 Rx (Z-ALBERT) 250 mg #6 tabs] Budesonide/Formote 160/4.5(NF) 1 puff INH BID #3 mdi 01/11/20 Rx [Symbicort 160/4.5 (NF)] Fluticasone NASAL SPRAY 50MCG* 2 spray BOTH NARES DAILY #1 btl 01/11/20 Rx [Flonase NASAL SPRAY 50MCG*] Montelukast Sodium TAB* [Singulair 10 mg PO BEDTIME #30 tab 01/11/20 Rx 10 MG TAB*] predniSONE 10 mg TAB [Deltasone 10 10 mg PO DAILY #20 tab 01/11/20 Rx MG TAB*] Disposition: Home Condition: Stable Primary Diagnosis: 1. Asthma/COPD exacerbation Diagnostic Imaging: Chest CT: no acute CT pathology. CXR: no acute cardiopulmonary pathology. Pertinent Laboratory Results: Influenza neg CBC: WBC 18, Hb 13.2, plta 335 BMP: Na 138, K 4.0, bicarb 29, creatinine 0.70 Hospital Course: Vinny Prakash is a 39 years old male with history of asthma/COPD, presented with shortness of breath, found to have hypoxia and dyspnea with wheezes. Please refer to H&P dated 01/09/20 for more information. He was treated with IV solu- medrol and regular nebulizer, his symptoms significantly improved, and managed to wean off O2. On further questioning, he had recent exposure to his allergens (cat, he started to pet a cat) and occupational/environmental exposure working in [employer]. An CT chest was done in view of possible occupational exposure, no abnormality seen. Educated him on the importance of allergen control, he agreed to follow up with his primary care and senior education specialist/lung specialist. He was discharged stable on 01/10. On the day of discharge, he had no SOB, saturating 98% RA, no wheezes/rhonchi. He was released with oral prednisone taping dose, and oral azithromycin to complete the whole course. ICS/LABA was added to his asthma regimen. Follow Up Instructions: Follow up. 1. Follow up with primary care 2. Follow up with Dr. Ortega (Allergy) 3. Follow up with Dr. Blackburn In case of an emergency or after clinic hours, please go to your nearest Emergency Department. You may also call the [facility] nut blanker operator at . Attestation Documenting Resident: Nadia Salter Supervising Physician: Douglas Camilo Attestation: This service has been performed in part by a resident under the direction of a teaching physician.I, Douglas Camilo, performed the service, or was physically present during the critical, or augustin portions of the service, furnished by the resident. I participated in the management of the patient.
[2020-01-15 13:54] LABS: Alpha 1 Antitrypsin A1A 142 mg/dL (100 - 190)
== END 2020-01-11 12:15 | disposition home or self-care (01) | DRG 140 ==
LOC: ED 19:59 → MED 22:42
PROVIDERS: ADMIT Student in an Organized Health Care Education/Training Program; ATTEND Internal Medicine
DX: J44.1 Chronic obstructive pulmonary disease with (acute) exacerbation (principal); J96.01 Acute respiratory failure with hypoxia; J45.901 Unspecified asthma with (acute) exacerbation; J33.9 Nasal polyp, unspecified; Z88.0 Allergy status to penicillin; Z88.6 Allergy status to analgesic agent; Z88.1 Allergy status to other antibiotic agents; Z87.891 Personal history of nicotine dependence; Z91.048 Other nonmedicinal substance allergy status; Z79.899 Other long term (current) drug therapy; Z79.51 Long term (current) use of inhaled steroids
CPT/HCPCS: 36415; 71046; 71250; 80048; 80053; 81003; 82103; 82104; 83605; 83880; 84484; 85025; 86140; 87040; 87641; 93005; 94640; 96375; 99284; A9270-GY; J0456; J1644; J2920; J2930

== ENCOUNTER 2020-05-21 19:39 | Inpatient (IN) ==
[2020-05-21] MEDS ORDERED: Dexamethasone IV 4 MG/ML VIAL 1 ml VIAL IV SLOW PU ONE (19:44)
[2020-05-21] MEDS ORDERED: Albuterol 0.5% CONC NEB.SOL 5 mg/ml 20 ml BOT INH ONE (19:44)
[2020-05-21 20:06] LABS: ABS Basophils 0.1 10^3/ul (0-0.2); ABS Eosinophils 0.7 10^3/ul (0-0.6); ABS Lymphocytes 1.7 10^3/ul (1.0-4.8); ABS Monocytes 0.6 10^3/ul (0-0.8); Eosinophil % 9.5 %; Hematocrit 44 % (42-52); Hemoglobin 15.1 g/dL (14.0-18.0); Lymphocyte % 24.8 %; Mean Corpuscular HGB Conc 34 g/dL (31-36); Mean Corpuscular Hemoglobin 29 pg (27-31); Mean Corpuscular Volume 85 fL (80-94); Mean Platelet Volume 7.4 fL (7.4-10.4); Nucleated Red Blood Cells % 0.1; Platelet Count 287 10^3/uL (150-450); Red Cell Distribution Width 14 % (10-15)
[2020-05-21 20:23] LABS: Albumin 4.4 g/dL (3.2-5.2); Albumin/Globulin Ratio 1.6 (1-3); BUN/Creatinine Ratio 13.7 (8-20); Calcium 9.3 mg/dL (8.6-10.3); EGFR African American 106.8 (>60); EGFR Non-African American 88.3 (>60); Globulin 2.8 g/dL (2-4); Potassium 4.1 mmol/L (3.5-5.0); Total Bilirubin 0.3 mg/dL (0.2-1.0); Total Protein 7.2 g/dL (6.4-8.9)
[2020-05-21] MEDS ORDERED: cefTRIAXone 1 gm/50 mL NS BAG 1 GM/50 ML BAG IV ONE (21:55)
[2020-05-21] MEDS ORDERED: Azithromycin 500 mg/250 ml NS 500 MG/250 ML BAG IVPB ONE (21:55)
[2020-05-21] MEDS ORDERED: Albuterol/Ipratropium NEB.SOL (2.5/0.5 MG) 3 ML NEB.SOLN INH ONE (22:16)
[2020-05-21] MEDS ORDERED: Magnesium Sulfate 2 gm BAG 2 GM/50 ML BAG IVPB ONE (22:23)
[2020-05-21 22:37] LABS: C Reactive Protein 4.66 mg/L (<8.01)
[2020-05-21] MEDS ORDERED: Ondansetron 4 mg VIAL 2 MG/ML 2 ml VIAL IV PRN (22:53)
[2020-05-21] MEDS ORDERED: Nicotine Lozenge mini 2 MG LOZNG.MINI MT PRN (23:02)
[2020-05-22 05:13] LABS: ABS Lymphocytes 0.6 10^3/ul (1.0-4.8); ABS Monocytes 0.1 10^3/ul (0-0.8); Eosinophil % 0.2 %; Hematocrit 45 % (42-52); Hemoglobin 15.4 g/dL (14.0-18.0); Lymphocyte % 8.4 %; Mean Corpuscular HGB Conc 34 g/dL (31-36); Mean Corpuscular Hemoglobin 29 pg (27-31); Mean Corpuscular Volume 85 fL (80-94); Mean Platelet Volume 7.2 fL (7.4-10.4); Nucleated Red Blood Cells % 0.1; Platelet Count 303 10^3/uL (150-450); Red Blood Count 5.37 10^6 /uL (4.18-5.48); Red Cell Distribution Width 14 % (10-15); White Blood Count 7.2 10^3/uL (3.5-10.8)
[2020-05-22] MEDS: Mometasone/Formoter 100/5 MDI INH SCH ×4 (05:28→21:44)
[2020-05-22 05:44] LABS: BUN/Creatinine Ratio 14.1 (8-20); Calcium 9.5 mg/dL (8.6-10.3); EGFR African American 110.8 (>60); EGFR Non-African American 91.6 (>60); Potassium 4.7 mmol/L (3.5-5.0)
[2020-05-22] MEDS: Fluticasone NASAL SPRAY 50MCG 16 gm SPRAY BTL BOTH NARES SCH (08:54)
[2020-05-22] MEDS ORDERED: Mometasone/Formoter 100/5 MDI INH SCH (09:00)
[2020-05-22] MEDS: Albuterol HFA INHALER 8 gm MDI INH PRN ×3 (09:01→17:19)
[2020-05-22] MEDS ORDERED: Albuterol 2.5mg/3 ml (0.083%) NEB.SOLN INH PRN (18:08)
[2020-05-22] MEDS ORDERED: Lorazepam PYXIS KEY PRN (20:10)
[2020-05-22] MEDS ORDERED: Morphine 2 MG/ML SYRINGE IV ONE (20:10)
[2020-05-22] MEDS ORDERED: LORazepam 2 mg VIAL 1 ml IV PUSH PRN (20:10)
[2020-05-22] MEDS: Albuterol/Ipratropium NEB.SOL (2.5/0.5 MG) 3 ML NEB.SOLN INH SCH ×2 (21:44→21:54)
[2020-05-22] MEDS ORDERED: Albuterol/Ipratropium NEB.SOL (2.5/0.5 MG) 3 ML NEB.SOLN INH SCH (23:00)
[2020-05-23] MEDS: Albuterol/Ipratropium NEB.SOL (2.5/0.5 MG) 3 ML NEB.SOLN INH SCH ×6 (03:10→23:44)
[2020-05-23] MEDS ORDERED: guaiFENesin 100 mg/5 ml LIQ unit dose cup PO ONE (03:34)
[2020-05-23] MEDS: Mometasone/Formoter 100/5 MDI INH SCH ×2 (07:36→19:27)
[2020-05-23] MEDS: Fluticasone NASAL SPRAY 50MCG 16 gm SPRAY BTL BOTH NARES SCH (10:43)
[2020-05-23] MEDS ORDERED: Albuterol/Ipratropium NEB.SOL (2.5/0.5 MG) 3 ML NEB.SOLN ONE (23:41)
[2020-05-24] MEDS: Albuterol/Ipratropium NEB.SOL (2.5/0.5 MG) 3 ML NEB.SOLN INH SCH ×3 (03:00→11:42)
[2020-05-24] MEDS: Mometasone/Formoter 100/5 MDI INH SCH (07:31)
[2020-05-24] MEDS: Fluticasone NASAL SPRAY 50MCG 16 gm SPRAY BTL BOTH NARES SCH (07:59)
[2020-05-24 12:49] VITALS: BP 136/66
== END 2020-05-24 15:53 | disposition home or self-care (01) | DRG 140 ==
LOC: ED 19:39 → MED 19:39 → OBSVTOIN 23:14 → MED 05-22 00:06
PROVIDERS: ADMIT Hospitalist; ATTEND Internal Medicine